=== PATIENT | female | born 1940 | race Caucasian/White ===

== ENCOUNTER 2017-01-10 11:55 | Emergency (ER) | payer MEDICARE ==
[2017-01-10 13:58] LABS: ALT (SGPT) 11 U/L (8-55); AST (SGOT) 14 U/L (5-34); Alkaline Phosphatase 63 U/L (40-150); Anion Gap 16 mmol/L (10-20); BUN (Urea Nitrogen) 33 mg/dL (9.8-20.1); Bilirubin, Total 0.5 mg/dL (0.2-1.2); Calc. Creatinine Clearance 0 mL/min (70-130); Calcium 8.1 mg/dL (7.8-10.44); Carbon Dioxide 27 mmol/L (23-31); Chloride 99 mmol/L (98-107); Estimated GFR-MDRD 13; Globulin 2.3 g/dL (2.4-3.5); Protein, Total 5.5 g/dL (6.0-8.3)
[2017-01-10] MEDS ORDERED: cloNIDine 0.1 MG TAB ONE (14:23)
[2017-01-10] MEDS ORDERED: Ondansetron ODT 4 MG TAB ONE (14:23)
--- NOTE | 2017-01-21 14:18 | EKG ---
Test Reason : DIZZINESS Blood Pressure : / mmHG Vent. Rate : 057 BPM Atrial Rate : 057 BPM P-R Int : 200 ms QRS Dur : 108 ms QT Int : 486 ms P-R-T Axes : 000 040 150 degrees QTc Int : 473 ms Sinus bradycardia with sinus arrhythmia Prolonged QT Abnormal ECG Confirmed by EDGAR SEN ([id number]), digital editor SHAYLA DUVALL ([id number]) on 01/21/2017 2:18:35 PM Referred By: Confirmed By:EDGAR SEN
== END 2017-01-10 14:59 | disposition home or self-care (01) ==
LOC: ERS 11:55
DX: I13.2 Hypertensive heart and chronic kidney disease with heart failure and with stage 5 chronic kidney disease, or end stage renal disease (principal); E11.22 Type 2 diabetes mellitus with diabetic chronic kidney disease; N18.6 End stage renal disease; I50.9 Heart failure, unspecified; Z99.2 Dependence on renal dialysis; R11.0 Nausea; I25.10 Atherosclerotic heart disease of native coronary artery without angina pectoris; E78.5 Hyperlipidemia, unspecified; J44.9 Chronic obstructive pulmonary disease, unspecified; F32.9 Major depressive disorder, single episode, unspecified; Z79.82 Long term (current) use of aspirin; Z79.899 Other long term (current) drug therapy
CPT/HCPCS: 36415; 80053; 82553; 84484; 93005; Q0162

== ENCOUNTER 2017-01-20 07:27 | Inpatient (IN) | payer MEDICARE ==
[2017-01-20] MEDS ORDERED: Pantoprazole 40 MG VIAL ONE (08:10)
[2017-01-20 08:12] LABS: #Eosinphils 0.1 thou/uL (0.0-0.7); #Lymphocytes 0.6 thou/uL (1.20-3.40); #Monocytes 0.4 thou/uL (0.11-0.59); #Neutrophils 4.9 thou/uL (1.40-6.50); %Basophils 0.7 % (0.0-1.0); %Eosinophils 2.1 % (0.0-10.0); %Lymphocytes 9.3 % (21.0-51.0); %Monocytes 7.2 % (0.0-10.0); Hematocrit 29.1 % (36.0-47.0); Mean Platelet Volume 8.4 fL (7.4-10.4); Red Blood Cell (RBC) Count 3.31 mill/uL (4.20-5.40); White Blood Cell (WBC) Count 6.1 thou/uL (4.8-10.8)
[2017-01-20 08:22] LABS: PTT 32.2 SEC (22.9-36.1); Prothrombin Time 15.6 SEC (12.0-14.7)
[2017-01-20 08:36] LABS: ALT (SGPT) 9 U/L (8-55); AST (SGOT) 14 U/L (5-34); Alkaline Phosphatase 59 U/L (40-150); Anion Gap 13 mmol/L (10-20); BUN (Urea Nitrogen) 44 mg/dL (9.8-20.1); Bilirubin, Total 0.3 mg/dL (0.2-1.2); Calc. Creatinine Clearance 0 mL/min (70-130); Calcium 8.5 mg/dL (7.8-10.44); Carbon Dioxide 29 mmol/L (23-31); Chloride 99 mmol/L (98-107); Estimated GFR-MDRD 11; Globulin 2.1 g/dL (2.4-3.5); Protein, Total 5.3 g/dL (6.0-8.3)
[2017-01-20 10:41] VITALS: BMI 24.3
[2017-01-20 12:14] LABS: Hematocrit 29.7 % (36.0-47.0)
[2017-01-20] MEDS ORDERED: Hydrocortisone Acetate 25 MG Suppository PR PRN (12:43)
--- NOTE | 2017-01-20 14:47 | CON ---
GI CONSULTATION NOTE DATE OF CONSULTATION: 01/20/2017 REASON FOR CONSULTATION: Rectal bleeding. HISTORY OF PRESENT ILLNESS: Ms. Nichols is a pleasant 76-year-old female who presented to the emerge ncy room at 10:00 this morning with complaints of rectal bleeding. Apparently on Monday night, 2 nights ago, she had gone to bed and then woke up with urgency for a bowel movement and diarrhea and bright red blood per rectum. The same thing happened last night at about 2 in the morning. She fe lt a little bit weak and little bit lightheaded. She saw a quite a bit of blood that is why she cam e in to the emergency room. She denied any abdominal pain or cramping with this. She denied any si ck contacts. She has not felt ill. The blood was bright red. There was no associated anal pain. Typically, she is quite constipated. She denied taking any laxatives recently. She denied any swann ges in dialysis or problems with low blood pressure on dialysis. She had no fever or chills, rashes , arthralgias or myalgias. Presently, she feels well. She has had no further bleeding. She has no t eaten anything today. REVIEW OF SYSTEMS: Negative for dysphagia, odynophagia, abdominal cramping, borborygmi, melena or r ectal pain. PAST MEDICAL HISTORY: Coronary artery disease; diabetes; hyperlipidemia; hypertension; renal failur e on dialysis Monday, Monday and Monday per report. She has a history of heart failure. PAST SURGICAL HISTORY: CABG, coronary stents, hemorrhoidectomy, left breast tumor, EGD and colonosc opy in 08/2014 for anemia with diverticulosis and hemorrhoids noted. ALLERGIES: ERYTHROMYCIN, IODINE, TETRACYCLINE, TERRAMYCIN and LYRICA. MEDICATIONS: Pepcid 20 mg daily and Hep-Lock IV. HOME MEDICATIONS: Apresoline, Prinivil, Protonix, nifedipine, losartan, Imdur, Nephro-Ana, Slow Re lease Iron, Plavix 75 mg a day, carvedilol, atorvastatin, aspirin 81 mg a day and albuterol. PHYSICAL EXAMINATION: GENERAL: She is resting comfortably in bed. She has two family members at the bedside. She is in no distress. VITAL SIGNS: There is no rebound, there is no guarding. Pulse 58, blood pressure 170/60-143/56 and respirations 18. HEENT: Conjunctivae and sclerae are clear. NECK: Supple, without any nodes. HEART: Regular rate and rhythm. ABDOMEN: Nontender. There is no rebound. There is no guarding. Positive bowel sounds. No masses , nontender. No hepatosplenomegaly. No rebound, no guarding. RECTAL: Reveals brown stool in the vault. LABORATORY STUDIES: Hemoglobin was 9.7 on 09/16, it was 8.9 last time at the last admission, it is 8.9 today. White count 6.1, hemoglobin 183. INR 1.2. Electrolytes normal. BUN and creatinine are 44 and 3.98. ASSESSMENT: Rectal outlet bleeding may be related to her diarrheal illness. She was constipated an d had some tearing. She has no pain. On digital exam, she has brown stool in the vault with no blo od present now. She has a history of hemorrhoids in the past and a recent colonoscopy in the past 2 years with diverticulosis. Differential diagnosis would include rectal bleeding first and foremost , especially with brown stool in the rectum at this point in time, less likely be diverticular bleed ing. RECOMMENDATIONS: Stool softener, hydrocortisone suppository, advance diet and monitor. If patient has ongoing bleeding, we could consider sigmoidoscopy. Hopefully this will resolve with conservativ e therapy. We would hold her Plavix for now.
--- NOTE | 2017-01-20 17:05 | HP ---
DATE OF ADMISSION: 01/20/2017 CHIEF COMPLAINT: Rectal bleeding. HISTORY OF PRESENT ILLNESS: Ms. Nichols is a 76-year-old female with a history of end-stage renal di sease, hypertension, combined chronic systolic and diastolic CHF, diabetes, who developed rectal ble eding starting 2 nights ago. The first night she had 1 episode and said it was a large amount of bl ood. Did well through the day yesterday, but last night had 2 more episodes. Never had anything li ke this before. She describes dark red blood present. She did get lightheaded when standing today and had another episode this morning, so presented to the emergency department for evaluation. There she had lab work done, just now coming back that is fairly unremarkable. We were called for a dmission and further workup. On further questioning, the patient does have a history of hemorrhoids and had a hemorrhoidectomy. She does not have any history of peptic ulcer disease or other problem. No fevers or chills, no chest pain or shortness of breath, no nausea or vomiting. No abdominal pain . PAST MEDICAL HISTORY: 1. End-stage renal disease, on Monday, , and Monday hemodialysis. 2. Hypertension. 3. Chronic combined systolic and diastolic congestive heart failure. 4. Diabetes mellitus, type 2. 5. Hyperlipidemia. 6. Coronary artery disease. 7. Chronic hypoxemic respiratory failure with 3 liters nasal cannula continuous. 8. Anemia of chronic renal disease. Last echocardiogram in 09/2016 showed an EF of 50%-55% with in creased right-sided heart pressures. She had grade 3/3 diastolic dysfunction and moderate MR and TR . PAST SURGICAL HISTORY: Includes, 1. Coronary artery bypass grafting x3 vessels. 2. Hemorrhoidectomy. 3. Left breast tumor removal. 4. Tonsillectomy remotely. 5. D and C remotely. 6. Left upper extremity fistula creation in 11/2015, followed by Dr. Zepeda. HOME MEDICATIONS: 1. Hydralazine 25 mg p.o. t.i.d. 2. Renvela 800 mg p.o. t.i.d., she only eats twice a day, she usually only takes it twice a day. 3. Nifedipine 60 mg p.o. b.i.d. 4. Losartan 50 mg p.o. daily, recently increased. 5. Isosorbide mononitrate 30 mg daily. 6. Nephro-Ana 1 daily. 7. Iron sulfate daily. 8. Fluoxetine 20 mg p.o. daily. 9. Plavix 75 mg daily. 10. Coreg 25 mg p.o. b.i.d. 11. Lipitor 80 mg p.o. at bedtime. 12. Aspirin 81 mg daily. 13. Famotidine 20 mg daily. 14. Albuterol sulfate MDI 2 puffs every 6 hours as needed. ALLERGIES: ERYTHROMYCIN, IODINE, OXYTETRACYCLINE, and LYRICA. FAMILY HISTORY: Significant for strokes in the family. SOCIAL HISTORY: 57 years. Negative for habits x3. Her does accompany her. REVIEW OF SYSTEMS: A 10-point review of systems was performed, negative for all systems except as p er HPI. PHYSICAL EXAMINATION: VITAL SIGNS: Temperature 97.6, pulse 81, blood pressure 131/68, respiratory 20, satting 94% on 4 li ters. Orthostatics did reveal her blood pressure going from 151-135 when standing and diastolic pre ssure 68-57. GENERAL: She is awake. She is alert. She is oriented x3. She is a well-developed, well-nourished , elderly white female, appears to be in no acute distress. HEENT: Normocephalic, atraumatic. Pupils equal, round, reactive bilaterally. Mucous membranes are moist without visible lesions or thrush. NECK: Supple, without lymphadenopathy, JVD, or thyromegaly. LUNGS: Clear to auscultation. She has no wheezes, rales, or rhonchi. No increased expiratory phas e. She has good air movement and symmetrical chest excursion. CARDIOVASCULAR: She has a normal cardiac. She has normal S1 and S2. Slightly kimberlyn. She has no a udible murmurs. She does have a holosystolic murmur best heard at the apex. There is a slightly fa inter murmur present in the right lower sternal border. ABDOMEN: Soft. It is nontender and nondistended. No masses and no organomegaly. She has normoact andrés bowel sounds. She has no rebound, rigidity, or guarding. EXTREMITIES: No cyanosis and no clubbing. She has no edema. She has trace edema to the bilateral ankles, 1+. A 1+ dorsalis pedis and posterior tibial pulse. SKIN: Warm, moist, and well perfused without any other rashes or lesions. NEUROLOGICAL EXAM: Cranial nerves II-XII are grossly intact. She has no focal neurologic deficits. She has normal speech and normal strength. MUSCULOSKELETAL EXAM: Normal to inspection. She has no inflamed joints. No palpable joint effusio ns. Good range of motion. LABORATORY DATA: CMP is fairly normal. Creatinine is 3.93. Rest of electrolytes were normal. Pot assium 4.2, glucose 164. Liver function normal except for total protein of 5.3 and albumin 3.2. ite blood cell count 6.1, hemoglobin 8.9 and hematocrit of 29.1. She has not received any fluids he re. A look back showed her hemoglobin to be normal beginning in 09/2016; the next day it was down t o 10.5; on 09/16/2016, it was 9.7; I have no checks since then. Platelet count 189,000. Chest x-ray was not done. ASSESSMENT AND PLAN: 1. Rectal bleeding. Patient does have a history of hemorrhoids. However, based on reports, she di d have a large volume hematochezia. We will get serial H and Hs, we will keep her n.p.o., we will g andrés her some IV fluids due to her low blood pressure. We will ask Gastroenterology to evaluate. 2. History of end-stage renal disease, on hemodialysis. We will call Dr. Cadena, who is her nephr ologist for his assistance in her renal replacement therapy. 3. Hypertension: Currently orthostatic. Hold her blood pressures at current. 4. History of chronic combined systolic and diastolic congestive heart failure. We will be careful with fluids. We will need to adequately keep her intravascular volume repleted. 5. Diabetes mellitus, type 2. We will get serial Accu-Cheks. We will use sliding scale Humalog ba sed on her history. She is now on the anti-hyperglycemic agents. We will watch her sugars. 6. Hyperlipidemia, on Lipitor. We will continue once she is taking p.o. 7. History of anemia of renal disease. We will get serial H and Hs and transfuse as needed.
[2017-01-20] MEDS ORDERED: Epoetin (ESRD) 10,000 UNITS/ML VIAL SC SCH (19:30)
[2017-01-20] MEDS: Docusate 100 MG CAP PO SCH (20:20)
[2017-01-20] MEDS ORDERED: Famotidine/PF 20 mg/2ml Vial SLOW IVP SCH (21:00)
[2017-01-20 23:26] LABS: Hematocrit 24.7 % (36.0-47.0)
[2017-01-21 05:22] LABS: #Eosinphils 0.1 thou/uL (0.0-0.7); #Lymphocytes 0.6 thou/uL (1.20-3.40); #Monocytes 0.6 thou/uL (0.11-0.59); #Neutrophils 6.9 thou/uL (1.40-6.50); %Basophils 0.6 % (0.0-1.0); %Eosinophils 0.9 % (0.0-10.0); %Lymphocytes 7.7 % (21.0-51.0); %Monocytes 6.8 % (0.0-10.0); Hematocrit 23.8 % (36.0-47.0); Mean Platelet Volume 8.2 fL (7.4-10.4); Red Blood Cell (RBC) Count 2.67 mill/uL (4.20-5.40); White Blood Cell (WBC) Count 8.2 thou/uL (4.8-10.8)
[2017-01-21 05:24] LABS: IRF 0.365 Ratio (0.163-0.362); Reticulocyte Count 3.7 % (0.5-1.5)
[2017-01-21 05:31] LABS: Anion Gap 11 mmol/L (10-20); BUN (Urea Nitrogen) 21 mg/dL (9.8-20.1); Calc. Creatinine Clearance 17 mL/min (70-130); Calcium 8.1 mg/dL (7.8-10.44); Carbon Dioxide 28 mmol/L (23-31); Chloride 105 mmol/L (98-107); Estimated GFR-MDRD 17
--- NOTE | 2017-01-21 07:06 | CON ---
DATE OF CONSULTATION: 01/20/2017 CONSULTING PHYSICIAN: Dr. Schmid REASON FOR CONSULTATION: End-stage renal disease evaluation and care. REASON FOR ADMISSION: HISTORY OF PRESENT ILLNESS: This is a 76-year-old white female with history of end-stage renal disease, hypertension, type 2 diabetes, hyperlipidemia, who came to the hospital with above complaints. Nephrology is consulted for maintenance hemodialysis. She gets dialysis on Monday, Monday, and Monday. Last dialysis was Monday per the patient. She denies any shortness of breath , chest pain, no palpitation. No fever or chills, no nausea, vomiting or diarrhea. PAST MEDICAL HISTORY: Positive for end-stage renal disease, hypertension, CHF, type 2 diabetes, hyperlipidemia, coronary artery disease, anemia. PAST SURGICAL HISTORY: Coronary artery bypass graft, hemorrhoidectomy, left breast tumor removal, tonsillectomy, D and C, fistula creation. HOME MEDICATIONS: Hydralazine, Renvela, nifedipine, losartan, isosorbide mononitrate, Nephro-Ana, iron sulfate, fluoxetine, Plavix, Coreg, Lipitor, aspirin, famotidine, albuterol. ALLERGIES: ERYTHROMYCIN. FAMILY HISTORY: Positive for strokes. SOCIAL HISTORY: No smoking, alcohol or illicit drug abuse. REVIEW OF SYSTEMS: The following complete review of systems was negative, unless otherwise mentioned in the HPI or below: Constitutional: Weight loss or gain, ability to conduct usual activities. Skin: Rash, itching. Eyes: Double vision, pain. ENT/Mouth: Nose bleeding, neck stiffness, pain, tenderness. Cardiovascular: Palpitations, dyspnea on exertion, orthopnea. Respiratory: Shortness of breath, wheezing, cough, hemoptysis, fever or night sweats. Gastrointestinal: Poor appetite, abdominal pain, heartburn, nausea, vomiting, constipation, or diarrhea. Genitourinary: Urgency, frequency, dysuria, nocturia. Musculoskeletal: Pain, swelling. Neurologic/Psychiatric: Anxiety, depression. Allergy/Immunologic: Skin rash, bleeding tendency. PHYSICAL EXAMINATION: GENERAL: This is a thin-built female, in no apparent distress. VITAL SIGNS: Temperature 97.8, pulse 58, respirations 18, blood pressure 143/ 56. Musculoskeletal : No tenderness, No edema HEENT: Atraumatic normocephalic Neck: Supple Cardiovascular: S1S2 heard, Rate and rhythm regular Respiratory: Clear to auscultation Gastrointestinal: Abdomen is soft Dermatologic : No skin rash Neurologic: Alert and awake and oriented X3 No focal neurologic deficits. Moving all the extremities. Psychiatric: Mood and affect normal LABORATORY AND X-RAY FINDINGS: Potassium 4.2, BUN is 44, creatinine is 3.9, hemoglobin is 8.4. ASSESSMENT AND PLAN: 1. End-stage renal disease. We will continue on hemodialysis Monday, Monday , and Monday. 2. We will give a dose of Epogen today and then continue with dialysis Monday, Monday, and Monday. 3. Fluid overload, controlled. 4. Edema, controlled. 5. Anemia. Epogen with dialysis. 6. Hypertension, stable. 7. Plan is to continue dialysis on Monday, Monday, and Monday. 8. Gastrointestinal bleed. Epogen with dialysis. MTDD
[2017-01-21] MEDS: Docusate 100 MG CAP PO SCH ×2 (07:48→20:01)
[2017-01-21] MEDS: Famotidine/PF 20 mg/2ml Vial SLOW IVP SCH (07:49)
--- NOTE | 2017-01-21 13:23 | PDOC.PN ---
- Subjective Encounter Start Date: 01/21/17 Encounter Start Time: 08:30 Pt seen and exmained, notes reviewed. Seen by GI and renal, GI not convinced of colonic bleed, has opted to watch at present. Pt had normal exam and brown stool when examined. Overnight had two more bloody BMs, vitals okay, but H/H lower today. Discussed with Dr Gimenez, he will revisit No abd pain, no F/C, no N/V/D/c, no CP or SOB at present. no presyncope or syncope 10 point ROS performed and neg for all systems except as above - Objective Resuscitation Status: Resuscitation Status FULL:Full Resuscitation MAR Reviewed: Yes Vital Signs & Weight: Vital Signs (12 hours) Temp Pulse Resp BP Pulse Ox 01/21/17 08:00 99.1 F 61 18 179/56 H 100 01/21/17 05:57 99.3 F 65 18 187/67 H 93 L 01/21/17 04:00 99.0 F 84 20 97 I&O: 01/20/17 01/21/17 01/22/17 06:59 06:59 06:59 Intake Total 100 480 Balance 100 480 Result Diagrams: 01/21/17 04:04 01/21/17 04:04 Radiology Reviewed by me: Yes EKG Reviewed by me: Yes Phys Exam - Physical Examination Constitutional: NAD HEENT: PERRLA, moist MMs, sclera anicteric, oral pharynx no lesions Neck: no nodes, no JVD, supple, full ROM Respiratory: no wheezing, no rales, no rhonchi, clear to auscultation bilateral Cardiovascular: RRR, no significant murmur, no rub Gastrointestinal: soft, non-tender, no distention, positive bowel sounds Musculoskeletal: no edema, pulses present Neurological: non-focal, normal sensation, moves all 4 limbs Lymphatic: no nodes Psychiatric: normal affect, A&O x 3 Skin: no rash, normal turgor, cap refill <2 seconds Dx/Plan - Plan cont current plan of care, PT/OT * . transfuse 1 nitr PRBCs, recheck H/H, follow up on GI recommendations
--- NOTE | 2017-01-21 13:31 | PRG ---
DATE OF SERVICE: 01/21/2017 SUBJECTIVE: Patient was seen and examined at bedside and overnight events noted. Patient denies an y shortness of breath or chest pain or palpitation. No history of nausea or vomiting or diarrhea or fever or chills or cramps. OBJECTIVE: GENERAL: This is a thin-built female in no apparent distress. VITAL SIGNS: Temperature 99.1, pulse 61, respiratory rate 18, blood pressure 179/56. HEENT: Atraumatic, normocephalic. Oral mucosa is moist. NECK: Supple. CARDIOVASCULAR: S1 and S2 heard, rate and rhythm regular. RESPIRATORY: Clear to auscultation. Still having crackles. GASTROINTESTINAL: Abdomen is soft. MUSCULOSKELETAL: No tenderness, no edema. DERMATOLOGIC: No skin rash. NEUROLOGIC: Alert and awake and oriented X3. No focal neurologic deficits. Moving all the extremi ties. PSYCHIATRIC: Mood and affect normal. LABORATORY DATA: Potassium 4.0, BUN 21, hemoglobin 7.2. ASSESSMENT AND PLAN: 1. End-stage renal disease. Continue on dialysis. 2. Anemia secondary to gastrointestinal bleed. Case discussed with Dr. Gimenez. Plan is to have 2 units of blood. We will arrange dialysis for 2 hours with 2 units of blood. 3. Fluid overload. 4. Anemia. Continue Epogen, will have transfusion today. 5. Hypertension, stable. 6. Plan is to continue on dialysis today, 2 hours for blood transfusion.
--- NOTE | 2017-01-21 17:20 | PRG ---
DATE OF SERVICE: 01/21/2017 SUBJECTIVE: Ms. Nichols had dialysis yesterday. Nurses and patient report she has bright red blood twice last night. Her at bedside notices that with this, she actually had some formed brown stool as well. She has no rectal pain. OBJECTIVE: VITAL SIGNS: Temperature is 99.1, pulse 61, blood pressure 179/56. ABDOMEN: Soft and nontender. RECTAL EXAMINATION: Again repeated shows no overt lesions or masses. Stool is brown. LABORATORY DATA: Hemoglobin was 8.9 yesterday, 7.2 today. She is going to get some blood with dial ysis today. On talking with her, she has been getting Colace, but she has not been getting the Anus ol suppository. ASSESSMENT: 1. Lower gastrointestinal bleeding, likely rectal outlet with brown stool on rectal exam and histor y of hemorrhoids in the past. 2. Anemia, symptomatic. She is going to be transfused for this. RECOMMENDATIONS: Continue Colace b.i.d. We will start the Anusol suppositories and place her on Mi raLax as well.
[2017-01-21] MEDS: Hydrocortisone Acetate 25 MG Suppository PR SCH (20:01)
[2017-01-21] MEDS ORDERED: hydrALAZINE 20 MG/ML VIAL SLOW IVP PRN (21:23)
[2017-01-21] MEDS ORDERED: NIFEdipine XL 60 MG TAB PO SCH (21:30)
[2017-01-22 06:10] LABS: Hematocrit 29.4 % (36.0-47.0)
[2017-01-22 06:14] LABS: #Eosinphils 0.1 thou/uL (0.0-0.7); #Lymphocytes 0.7 thou/uL (1.20-3.40); #Neutrophils 10.4 thou/uL (1.40-6.50); %Basophils 0.3 % (0.0-1.0); %Eosinophils 0.6 % (0.0-10.0); %Lymphocytes 5.6 % (21.0-51.0); %Monocytes 8.1 % (0.0-10.0); Hematocrit 30.2 % (36.0-47.0); Mean Platelet Volume 8.2 fL (7.4-10.4); Red Blood Cell (RBC) Count 3.41 mill/uL (4.20-5.40); White Blood Cell (WBC) Count 12.2 thou/uL (4.8-10.8)
[2017-01-22 06:25] LABS: Anion Gap 17 mmol/L (10-20); BUN (Urea Nitrogen) 26 mg/dL (9.8-20.1); Calc. Creatinine Clearance 15 mL/min (70-130); Calcium 7.9 mg/dL (7.8-10.44); Carbon Dioxide 21 mmol/L (23-31); Chloride 102 mmol/L (98-107); Estimated GFR-MDRD 15
[2017-01-22] MEDS: Famotidine/PF 20 mg/2ml Vial SLOW IVP SCH (08:07)
[2017-01-22] MEDS: Docusate 100 MG CAP PO SCH (08:07)
[2017-01-22] MEDS: Hydrocortisone Acetate 25 MG Suppository PR SCH (08:09)
[2017-01-22] MEDS ORDERED: Polyethylene Glycol 3350 17 GM Packet PO SCH (09:00)
[2017-01-22] MEDS ORDERED: Carvedilol 25 MG TAB PO SCH ×2 (10:00→21:00)
--- NOTE | 2017-01-22 14:32 | PRG ---
DATE OF SERVICE: 01/22/2017 SUBJECTIVE: Patient was seen and examined at bedside and overnight events noted. Patient denies an y shortness of breath or chest pain or palpitation. No history of nausea or vomiting or diarrhea or fever or chills or cramps. OBJECTIVE: GENERAL: This is a well-built female, in no apparent distress. VITAL SIGNS: Temperature 98.6, pulse 67, respiratory rate 18, blood pressure . HEENT: Atraumatic, normocephalic. Oral mucosa is moist. NECK: Supple. CARDIOVASCULAR: S1, S2 heard. Rate and rhythm regular. RESPIRATORY: Clear to auscultation. GASTROINTESTINAL: Abdomen is soft. MUSCULOSKELETAL: No tenderness, no edema. DERMATOLOGIC: No skin rash. NEUROLOGIC: Alert and awake and oriented x3. No focal neurologic deficits. Moving all the extremi ties. PSYCHIATRIC: Mood and affect normal. LABORATORY DATA: Potassium 4.1, BUN is 26, creatinine 3.05. ASSESSMENT AND PLAN: 1. End-stage renal disease. We will continue on hemodialysis as tolerated, continue dialysis on Mo , Monday, and Monday hemodialysis. 2. Anemia, status post transfusion, most likely from lower gastrointestinal bleed. Hemoglobin is b wyatt 9.3. Continue Epogen with dialysis. Fluid overload better. 3. Anemia. 4. Hypertension. Overall, plan is to continue dialysis Monday, Monday, Monday.
[2017-01-22 14:52] VITALS: BP 183/59; TEMP 99.3
--- NOTE | 2017-01-22 15:10 | DIS ---
DATE OF ADMISSION: 01/20/2017 DATE OF DISCHARGE: 01/22/2017 DISCHARGE DIAGNOSES: 1. Lower gastrointestinal bleed, likely hemorrhoidal. 2. End-stage renal disease, on hemodialysis. 3. Hypertension, essential. 4. Diabetes mellitus type 2. 5. Chronic combined systolic and diastolic congestive heart failure. There was hyperlipidemia, no history of coronary artery disease without active angina. 6. Chronic hypoxemic respiratory failure. 7. Anemia of chronic renal disease. CONSULTATIONS: 1. Renal, Dr. Cadena, 01/20/2017. 2. Gastroenterology, Dr. Gimenez, 01/20/2017. PROCEDURES: None. HISTORY AND PHYSICAL: Ms. Nichols is a pleasant 76-year-old female who presented with a 2-day histor y of rectal bleeding for 2 nights. She was lightheaded when she got up on the morning of admission, so presented to the emergency department for evaluation. There she was seen and examined by me. She had a stable hemoglobin and we were contacted for admiss ion. HOSPITAL COURSE: The patient was seen and examined by me, she was placed on admission for a lower G I bleed. GI was consulted for evaluation as well as Renal for need for dialysis that she was due fo r dialysis the day of admission. Repeat hemoglobin later that day remained stable, blood pressure medicines were held initially due t o orthostasis, and she underwent hemodialysis. By 01/21/2017, she was feeling weaker. She no longer had any lightheadedness when standing or ortho stasis; however, hemoglobin had dropped to 7.2. I have written for an initial 1 unit of blood to be transfused; however, GI and Renal decided to give her 2 units with her dialysis. She did well, 01/21/2017 to 01/22/2017, where she had had some rectal bleeding late on 01/20/2017, s he had none overnight, 01/21/2017 to 01/22/2017 and subsequently was feeling much better after her t ransfusion. Hemoglobin was 9.2 and stable. She was seen by GI and cleared for discharge. The patient will be discharged home. PHYSICAL EXAMINATION: The patient was seen and examined on the day of discharge. Discharge plan and disposition were discussed with the patient face to face at the bedside. DISCHARGE MEDICATIONS: Continue home medications. 1. Aspirin 81 mg daily. 2. Lipitor 80 mg p.o. at bedtime. 3. Carvedilol 25 mg p.o. b.i.d. 4. Plavix 75 mg daily. 5. Fluoxetine 20 mg daily. 6. Famotidine 20 mg daily. 7. Iron sulfate slow release 45 mg p.o. daily. 8. Folic acid, vitamin B with C complex 1 tab daily. 9. Anusol 25 mg suppositories, a prescription was left for 25 mg [place] b.i.d. by Dr. Gimenez. 7. Isosorbide mononitrate 30 mg daily. 8. Losartan 50 mg daily. 9. Nifedipine ER 60 mg p.o. b.i.d. 10. MiraLax 17 grams p.o. daily. Prescriptions have been left by Dr. Gimenez. 11. Renvela 800 mg p.o. t.i.d. with meals, usually taken twice a day, consumes twice a day. FOLLOWUP APPOINTMENTS: 1. Primary care physician within 1 week, which is Dr. Cadena. 2. Dr. Gimenez or Dr. Dowling in the [facility] in 2-3 weeks. DISCHARGE DIET: Renal. DISCHARGE ACTIVITY: As tolerated. INSTRUCTIONS: To return to emergency department for further bleeding or call primary care physician or Dr. Gimenez in the office.
--- NOTE | 2017-01-22 16:35 | PRG ---
DATE OF SERVICE: 01/22/2017 SUBJECTIVE: Ms. Nichols has had no further bleeding. She received 2 units of blood on dialysis yest erday. She states she is ready to go home and apparently, plans were already made for discharge. PHYSICAL EXAMINATION: VITAL SIGNS: Temperature is 98, pulse 59, blood pressure 155/56. ABDOMEN: Soft, nontender. LABORATORY STUDIES: White count is 12.2, hemoglobin is 9.3, platelet count is 166. ASSESSMENT: Rectal bleeding, resolved. PLAN: I agree she can go home today. I would send her home with MiraLax daily for constipation and Anusol suppositories for hemorrhoids. If she has further bleeding, she can follow up in the office of Dr. Acuna, her primary roller leveler operator.
[2017-01-23] MEDS ORDERED: Non-Formulary Item 1 EACH (Losartan Potassium [Losartan Potassium] 50 MG) PO SCH (09:00)
[2017-01-23] MEDS ORDERED: Losartan Potassium 25 MG TAB PO SCH (09:00)
[2017-01-23] MEDS ORDERED: Epoetin (ESRD) 10,000 UNITS/ML VIAL IVP SCH (09:00)
== END 2017-01-22 14:55 | disposition home or self-care (01) | DRG 393 ==
LOC: ERS 07:27 → T4-A 08:37
PROVIDERS: ADMIT Internal Medicine Infectious Disease; ATTEND Internal Medicine Infectious Disease
PROC: 5A1D70Z Performance of Urinary Filtration, Intermittent, Less than 6 Hours Per Day (ICD-10-PCS; 2017-01-20)
PROC: 30233N1 Transfusion of Nonautologous Red Blood Cells into Peripheral Vein, Percutaneous Approach (ICD-10-PCS; principal; 2017-01-21)
DX: K64.9 Unspecified hemorrhoids (principal); N18.6 End stage renal disease; I13.2 Hypertensive heart and chronic kidney disease with heart failure and with stage 5 chronic kidney disease, or end stage renal disease; J96.11 Chronic respiratory failure with hypoxia; I50.42 Chronic combined systolic (congestive) and diastolic (congestive) heart failure; D50.0 Iron deficiency anemia secondary to blood loss (chronic); D63.1 Anemia in chronic kidney disease; E11.22 Type 2 diabetes mellitus with diabetic chronic kidney disease; E87.70 Fluid overload, unspecified; Z99.81 Dependence on supplemental oxygen; Z99.2 Dependence on renal dialysis; E78.5 Hyperlipidemia, unspecified; I25.10 Atherosclerotic heart disease of native coronary artery without angina pectoris; Z95.1 Presence of aortocoronary bypass graft; Z79.02 Long term (current) use of antithrombotics/antiplatelets; K59.00 Constipation, unspecified
CPT/HCPCS: 36415; 36430; 80048; 80053; 85014; 85018; 85025; 85046; 85610; 85730; 86850; 86870; 86900; 86901; 86905; 86922; 87340; 90935; 93005; 96361; 96374; A4216; C9113; G0257; J0360; P9016; Q4081; S0028

== ENCOUNTER 2017-02-02 16:07 | Inpatient (IN) | payer MEDICARE ==
[2017-02-02 17:06] LABS: #Eosinphils 0.1 thou/uL (0.0-0.7); #Lymphocytes 0.5 thou/uL (1.20-3.40); #Monocytes 0.9 thou/uL (0.11-0.59); #Neutrophils 10.5 thou/uL (1.40-6.50); %Basophils 0.2 % (0.0-1.0); %Eosinophils 0.7 % (0.0-10.0); %Lymphocytes 4.4 % (21.0-51.0); %Monocytes 7.3 % (0.0-10.0); Mean Platelet Volume 8.2 fL (7.4-10.4); Red Blood Cell (RBC) Count 3.53 mill/uL (4.20-5.40)
--- NOTE | 2017-02-02 17:14 | RAD ---
RIGHT FEMUR TWO VIEWS: History: Fall, right leg injury. FINDINGS: Impacted angulated subcapital fracture right hip is again demonstrated. Osseous structures are demine ralized. Femoral shaft is intact. There is calcification in the arterial structures. IMPRESSION: 1. Right hip fracture. 2. Atherosclerosis. POS: [facility]
--- NOTE | 2017-02-02 17:15 | RAD ---
RIGHT HIP TWO VIEWS: History: Fall, right hip injury. FINDINGS: Impacted comminuted slightly angulated subcapital fracture of the right hip is apparent. Degenerative changes are also visible. Calcification is present within the arterial structures. IMPRESSION: 1. Subcapital right hip fracture. 2. Atherosclerosis. POS: [facility]
--- NOTE | 2017-02-02 17:19 | RAD ---
CHEST ONE VIEW: History: Dyspnea. Comparison: 09-13-16 FINDINGS: Cardiac silhouette is magnified and enlarged. Pulmonary vasculature is engorged. Patchy bilateral per ihilar and bibasilar infiltrates are present with bilateral pleural fluid. Mediastinum is midline wit h aortic calcification and post-operative changes. IMPRESSION: 1. CHF with bilateral pleural fluid. 2. Atherosclerosis. POS: [facility]
[2017-02-02 17:23] LABS: ALT (SGPT) 15 U/L (8-55); AST (SGOT) 19 U/L (5-34); Alkaline Phosphatase 65 U/L (40-150); Anion Gap 17 mmol/L (10-20); BUN (Urea Nitrogen) 28 mg/dL (9.8-20.1); Bilirubin, Total 0.5 mg/dL (0.2-1.2); Calc. Creatinine Clearance 0 mL/min (70-130); Calcium 8.5 mg/dL (7.8-10.44); Carbon Dioxide 27 mmol/L (23-31); Chloride 98 mmol/L (98-107); Estimated GFR-MDRD 13; Globulin 2.3 g/dL (2.4-3.5); Protein, Total 5.6 g/dL (6.0-8.3)
[2017-02-02 17:28] LABS: Troponin I 0.045 ng/mL (< 0.028)
[2017-02-02 17:36] LABS: PTT 30.5 SEC (22.9-36.1); Prothrombin Time 15.7 SEC (12.0-14.7)
[2017-02-02] MEDS ORDERED: Fentanyl 100 MCG/2 ML VIAL ONE (17:39)
[2017-02-02] MEDS ORDERED: traMADol HCl 50 MG TAB PO PRN (18:21)
[2017-02-02] MEDS ORDERED: HumaLOG 300 UNITS/3 ML VIAL SC PRN ×3 (18:24→18:29)
[2017-02-02] MEDS ORDERED: Dextrose 5% in Water 1,000 ML IV PRN ×2 (18:24→18:29)
[2017-02-02] MEDS ORDERED: Ondansetron HCl/PF 4 MG/2 ML Vial IVP PRN ×2 (18:24→18:29)
[2017-02-02] MEDS ORDERED: Dextrose 50% Abboject 50 ML SYRINGE SLOW IVP PRN ×2 (18:24→18:29)
[2017-02-02] MEDS ORDERED: Ondansetron ODT 4 MG TAB PO PRN (18:24)
[2017-02-02] MEDS ORDERED: Bisacodyl 5 MG TAB PO PRN (18:29)
[2017-02-02] MEDS ORDERED: Benzonatate 100 MG CAP PO PRN (18:29)
[2017-02-02] MEDS ORDERED: Mag-Al 1200 mg/1200 mg/30 ML UDCUP PO PRN (18:29)
[2017-02-02] MEDS ORDERED: cloNIDine 0.1 MG TAB PO PRN (18:29)
[2017-02-02] MEDS ORDERED: hydrALAZINE 20 MG/ML VIAL SLOW IVP PRN (18:29)
[2017-02-02] MEDS ORDERED: Senokot 8.6 MG TAB PO PRN (18:29)
[2017-02-02] MEDS ORDERED: Loratadine 10 MG TAB PO PRN (18:29)
[2017-02-02] MEDS ORDERED: Diabetic Tussin 200 MG/10 ML UDCUP PO PRN (18:29)
[2017-02-02] MEDS ORDERED: Nitroglycerin 0.4 MG TAB (25 Tab Bottle) SL PRN (18:29)
[2017-02-02] MEDS ORDERED: Milk Of Magnesia 30 ML UDCUP PO PRN (18:29)
[2017-02-02] MEDS ORDERED: Morphine 4 MG/ML VIAL ONE (18:48)
[2017-02-02] MEDS ORDERED: Carvedilol 25 MG TAB PO SCH (21:00)
[2017-02-02] MEDS: Hydrocortisone Acetate 25 MG Suppository PR SCH (22:30)
[2017-02-02] MEDS: Carvedilol 25 MG TAB PO SCH (22:50)
[2017-02-02] MEDS: Acetaminophen 500 MG TAB PO SCH (22:50)
--- NOTE | 2017-02-02 23:38 | HP ---
consciousness. Patient was evaluated in the emergency room and found to have a right femoral neck fracture. Orthopedic Surgery was notified and Trauma Service was asked to admit. Upon my evalu ation, patient has a chief complaint of right leg pain. ALLERGIES: To LYRICA, IODINE, and ERYTHROMYCIN. PAST MEDICAL HISTORY: Significant for diabetes, end-stage renal disease on HD Monday, Monday, Mon; COPD on chronic home O2, 4 liters nasal cannula; CHF with recent exacerbation, CAD status post P TCA and CABG; renal carcinoma, status post resection; hypertension, gastrointestinal bleed, most rece nt hospitalization approximately 2 weeks ago and chronic anemia. PAST SURGICAL HISTORY: Significant for renal carcinoma resection, skin cancer removal, left arm fist dony and hemorrhoidectomy. SOCIAL HISTORY: Patient lives at home with her , ambulates independently. She is a previous smoker, quit in 1972. FAMILY HISTORY: Noncontributory in this case. REVIEW OF SYSTEMS: Negative except as indicated in the HPI. PHYSICAL EXAMINATION: VITAL SIGNS: On evaluation, heart rate 59, blood pressure 174/60, O2 sat 93% on 4 liters nasal cannu la, respiratory rate 16. GENERAL: Well-developed elderly appearing female in no acute distress, resting in bed. PULMONARY: Normal work of breathing, symmetric rise. Lungs clear to auscultation bilaterally. CARDIOVASCULAR: Regular rate and rhythm. There is a soft systolic murmur noted. GASTROINTESTINAL: Abdomen is soft, nontender, nondistended. MUSCULOSKELETAL: The right lower extremity is shortened and externally rotated. There is 2+ pitting edema to the level of the ankles bilaterally. She is neurovascularly intact distal to the side of h er injury. NEUROLOGIC: GCS of 15. No focal deficit noted. LABORATORY FINDINGS: WBC 12.0, hemoglobin 10.0, hematocrit 32.0, platelet count 189. INR 1.2. Sodi um 138, potassium 3.8, chloride 98, carbon dioxide 27, anion gap 17, BUN 28, creatinine 3.53, glucose 270, troponin 0.045. RADIOGRAPHIC FINDINGS: Chest x-ray was read by Radiology as CHF with bilateral pleural effusion, ath erosclerosis. Hip x-ray was significant for right femoral neck fracture. Femur x-ray was significan t for right hip fracture. ASSESSMENT AND PLAN: 1. Status post mechanical fall. 2. Acute traumatic pain. 3. Right femoral neck fracture. 4. History of end-stage renal disease on dialysis Monday, Monday, and Monday. Pool Coordinator, Dr. Cadena. 5. History of chronic obstructive pulmonary disease, on chronic oxygen 4 liters per minute via nasal cannula. 6. History of congestive heart failure and coronary artery disease. College Advisor, Dr. Joya. 7. History of hypertension. 8. History of recent gastrointestinal bleed. Patient is on antiplatelet use. 9. History of diabetes. PLAN: Admit to trauma services, [facility] for closer monitoring. Hospital medicine consult for medical m anagement and preoperative clearance. Nephrology consult for ESRD and HD. Perioperative pain manage ment. Per discussion with Orthopedic Surgery, plans for operative intervention to her injury on [address], so that patient may have dialysis tomorrow. The patient will be n.p.o. tomorrow at midnight. Continue home medications. The patient was discussed with Hospital Medicine who agrees to consult on the patient. Plans for admission were discussed with the patient and family who agree and all quest ions were answered at bedside. The patient was discussed with Dr. Santana, who agrees with the assess ment and plan. All questions were answered at the time of this dictation.
--- NOTE | 2017-02-02 23:43 | CON ---
DATE OF CONSULTATION: 02/02/2017 CONSULTING SERVICE: ER medicine. ADMITTING SERVICE: General Surgery Trauma. HISTORY OF PRESENT ILLNESS: Ms. Nichols is a 76-year-old female who presented with right hip pain. The patient fell in [place] earlier today and was brought here by a private vehicle. Pain currently located at her right femur, right hip , no recent injuries. No previous recent falls. The patient has multiple chronic medical history. She is complaining of only right now of right hip pain. PAST MEDICAL HISTORY: End-stage renal disease with dialysis, hypertension, congestive heart failure with chronic systolic and diastolic disease, diabetes type 2, hyperlipidemia, coronary artery disease, chronic hypoxic respiratory failure, on nasal cannula and anemia of chronic disease. PAST SURGICAL HISTORY: Coronary artery bypass x3, hemorrhoidectomy, breast cancer removal, tonsillectomy, D&C and a fistula creation for dialysis by Dr. Zepeda. ALLERGIES: Include ERYTHROMYCIN, IODINE, TETRACYCLINE, LYRICA. MEDICATIONS: The patient's medications she was recently, aspirin, Lipitor, carvedilol, Plavix, fluoxetine, famotidine, iron sulfate, folic acid, Anusol, isosorbide mononitrate, losartan, nifedipine, MiraLax, Renvela. SOCIAL HISTORY: at bedside, for 58 years. Currently, no tobacco, alcohol, or drug use. REVIEW OF SYSTEMS: Negative except for as above. PHYSICAL EXAMINATION: VITAL SIGNS: Afebrile. Vitals currently stable. GENERAL: Alert and oriented female in no acute distress, resting comfortably in bed. EXTREMITIES: The patient's right lower extremity, she has a stable pelvis to AP and lateral compression, pain with internal and external rotation. Neurovascularly intact distally. She has got brisk cap refill. She has got sluggish Cap refill 1+ DP and PT pulse. Sensate intact L2 through S1. She is able to plantarflex and dorsiflex, no effusion in the knee. LABORATORY AND X-RAY FINDINGS: Radiographs show a right subcapital femoral neck fracture. IMPRESSION: 1. Right subcapital femoral neck fracture. 2. End-stage renal disease. 3. Hypertension. 4. Diabetes type 2. 5. Systolic, diastolic congestive heart failure. 6. Anemia of chronic disease. ASSESSMENT AND PLAN: The patient is made n.p.o. overnight. Plan would be a hemiarthroplasty tomorrow versus Monday, likely because of patient's dialysis , we will plan to post the patient for Monday, so she can have her medical problems resolved and we can get her dialyzed technical marketing consultant at the OR. The patient's family, at the bedside, I discussed that she is at increased risk for surgery given her multiple medical problems. I discussed her mortality at 38% femoral neck fracture. I discussed the risks and benefits of the surgery to include pain, scar, bleeding, infection, damage to vital structures, decreased range or strength, failure of procedure, continued pain despite surgical intervention. The patient understands these risks and benefits and elects to proceed. JUDAH
--- NOTE | 2017-02-03 02:31 | PDOC.PN ---
- Subjective Encounter Start Date: 02/03/17 Encounter Start Time: 02:30 Pt seen for management of medical comorbidities, including hypertension. Reports pain over R hip. Denies chest pain, shortness of breath, fever or chills. - Objective MAR Reviewed: Yes Vital Signs & Weight: Vital Signs (12 hours) Temp Pulse Resp BP Pulse Ox 02/03/17 00:00 98.3 F 58 L 16 151/60 H 92 L 02/02/17 20:24 97.7 F 61 18 154/59 H 92 L Weight Weight 129 lb 9.6 oz Result Diagrams: 02/02/17 16:55 02/02/17 16:55 EKG Reviewed by me: Yes (Tele; NSR) Phys Exam - Physical Examination Constitutional: NAD HEENT: moist MMs, sclera anicteric Neck: supple Respiratory: clear to auscultation bilateral Cardiovascular: RRR Gastrointestinal: soft, non-tender RLE shortened Lymphatic: no nodes Psychiatric: normal affect Skin: normal turgor, cap refill <2 seconds Dx/Plan (1) HTN (hypertension) Code(s): I10 - ESSENTIAL (PRIMARY) HYPERTENSION Status: Chronic (2) Chronic diastolic heart failure Code(s): I50.32 - CHRONIC DIASTOLIC (CONGESTIVE) HEART FAILURE Status: Chronic (3) CAD (coronary artery disease) Code(s): I25.10 - ATHSCL HEART DISEASE OF [place] CORONARY ARTERY W/O ANG PCTRS Status: Chronic (4) Diabetes mellitus type 2 Code(s): E11.9 - TYPE 2 DIABETES MELLITUS WITHOUT COMPLICATIONS Status: Chronic Comment: ? diet managed, follow accuchecks (5) ESRD (end stage renal disease) on dialysis Code(s): N18.6 - END STAGE RENAL DISEASE; Z99.2 - DEPENDENCE ON RENAL DIALYSIS Status: Chronic Comment: Volume overload initially, HD per Renal service (6) Hyperlipidemia Code(s): E78.5 - HYPERLIPIDEMIA, UNSPECIFIED Status: Chronic - Plan * . Monitor vital signs and titrate antihypertensives as needed. Start PRN IV hydralazine. Continue accuchecks, insulin sliding scale. Dialysis per nephrology service (reportedly will have dialysis today). CAD appears to be stable, pt denies chest pain or shortness of breath. Review of Systems - Review of Systems Constitutional: negative: Fever, Chills, Sweats, Weakness, Malaise Respiratory: negative: Cough, Dry, Shortness of Breath, Hemoptysis, SOB with Excertion, Pleuritic Pain, Sputum, Wheezing Cardiovascular: negative: Chest Pain, Palpitations, Orthopnea, Paroxysmal Noc. Dyspnea, Edema, Light Headedness Musculoskeletal: Other (R hip pain) - Medications/Allergies Allergies/Adverse Reactions: Allergies Allergy/AdvReac Type Severity Reaction Status Date / Time erythromycin base Allergy Verified 06/29/16 06:30 Iodine and Iodide Containing Allergy Verified 06/29/16 06:30 Produc oxytetracycline Allergy Verified 06/29/16 06:30 [From Terramycin] oxytetracycline HCl Allergy Verified 06/29/16 06:30 [From Terramycin] pregabalin [From Lyrica] Allergy Verified 06/29/16 06:30 Medications: Current Medications Acetaminophen (Tylenol) 1,000 mg PO 0200,0800,1400,2000 [facility] Last Admin: 02/02/17 22:50 Dose: 1,000 mg Al Hydroxide/Mg Hydroxide (Maalox) 15 ml PO Q4H PRN PRN Reason: Heartburn or Indigestion Atorvastatin Calcium (Lipitor) 80 mg PO DAILY [facility] Benzonatate (Tessalon) 100 mg PO Q4H PRN PRN Reason: Cough Bisacodyl (Dulcolax) 10 mg PO DAILYPRN PRN PRN Reason: Constipation Carvedilol (Coreg) 25 mg PO BID [facility] Last Admin: 02/02/17 22:50 Dose: 25 mg Clonidine (Catapres) 0.1 mg PO Q4H PRN PRN Reason: Systolic BP > 160 Dextrose/Water (Dextrose 50%) 25 gm SLOW IVP PRN PRN PRN Reason: Hypoglycemia Famotidine (Pepcid) 20 mg PO DAILY [facility] Fluoxetine HCl (Prozac) 20 mg PO DAILY [facility] Glucagon (Glucagon) 1 mg IM PRN PRN PRN Reason: Hypoglycemia Guaifenesin (Robitussin Sf) 200 mg PO Q4H PRN PRN Reason: Cough Hydralazine HCl (Apresoline) 10 mg SLOW IVP Q4H PRN PRN Reason: Systolic BP > 170 Hydrocortisone Acetate (Anusol-Hc) 25 mg SC BID [facility] Dextrose/Water (D5w) 1,000 mls @ 0 mls/hr IV .Q0M PRN; As Directed PRN Reason: Hypoglycemia Insulin Human Lispro (Humalog) 0 units SC .MODERATE SLIDING SC PRN PRN Reason: Moderate Correctional Scale Insulin Human Lispro (Humalog) 0 units SC .BEDTIME SLIDING SC PRN PRN Reason: Bedtime Correctional Scale Isosorbide Mononitrate (Imdur Er) 30 mg PO DAILY [facility] Loratadine (Claritin) 10 mg PO DAILYPRN PRN PRN Reason: Sinus Symptoms Losartan Potassium (Cozaar) 50 mg PO DAILY [facility] Magnesium Hydroxide (Milk Of Magnesium) 30 ml PO DAILYPRN PRN PRN Reason: Constipation Nitroglycerin (Nitrostat) 0.4 mg SL Q5MIN PRN PRN Reason: Chest Pain Ondansetron HCl (Zofran Odt) 4 mg PO Q6H PRN PRN Reason: Nausea/Vomiting Ondansetron HCl (Zofran) 4 mg IVP Q6H PRN PRN Reason: Nausea (Ferrous Sulfate [ Slow Release Iron] 47.5 Mg) 1 each PO QAM-WM [facility] Polyethylene Glycol (Miralax) 17 gm PO DAILY [facility] Senna (Senokot) 2 tab PO HSPRN PRN PRN Reason: Constipation Sevelamer Carbonate (Renvela) 800 mg PO TID-WM [facility] Sodium Chloride (Flush - Normal Saline) 10 ml IVF PRN PRN PRN Reason: Saline Flush Tramadol HCl (Ultram) 50 mg PO Q12H PRN PRN Reason: Moderate Pain (4-6) Tramadol HCl (Ultram) 100 mg PO Q12H PRN PRN Reason: Severe Pain (7-10) Vitamin B Complex/Vit C/Folic Acid (Nephro-Ana Tablet) 1 tab PO DAILY [facility]
[2017-02-03] MEDS ORDERED: hydrALAZINE 20 MG/ML VIAL SLOW IVP PRN (02:42)
[2017-02-03] MEDS: Acetaminophen 500 MG TAB PO SCH ×4 (03:22→20:57)
[2017-02-03 05:13] LABS: #Eosinphils 0.2 thou/uL (0.0-0.7); #Lymphocytes 0.7 thou/uL (1.20-3.40); #Monocytes 0.8 thou/uL (0.11-0.59); #Neutrophils 8.4 thou/uL (1.40-6.50); %Basophils 0.2 % (0.0-1.0); %Eosinophils 2.3 % (0.0-10.0); %Lymphocytes 6.4 % (21.0-51.0); %Monocytes 8.1 % (0.0-10.0); Hematocrit 29.6 % (36.0-47.0); Mean Platelet Volume 8.6 fL (7.4-10.4); Red Blood Cell (RBC) Count 3.28 mill/uL (4.20-5.40); White Blood Cell (WBC) Count 10.1 thou/uL (4.8-10.8)
[2017-02-03 05:53] LABS: Anion Gap 12 mmol/L (10-20); BUN (Urea Nitrogen) 32 mg/dL (9.8-20.1); Calc. Creatinine Clearance 12 mL/min (70-130); Calcium 8.1 mg/dL (7.8-10.44); Carbon Dioxide 27 mmol/L (23-31); Chloride 99 mmol/L (98-107); Estimated GFR-MDRD 12; Magnesium 2.2 mg/dL (1.6-2.6); Phosphorus 3.7 mg/dL (2.3-4.7)
--- NOTE | 2017-02-03 07:46 | PRG ---
DATE OF SERVICE: 02/03/2017 The patient has a right hip fracture. She is awaiting dialysis this morning prior to repair. Dr. Ck baeza has seen her. The patient is n.p.o. She has been seen by Hospitalist. The patient has a hist ory of coronary artery disease, having had a stent placed 07/11/[address] Joya and having had prior coronary bypass grafting. Echocardiogram 09/23/2016 reveals relatively normal ejection fraction, LV function. The patient is awake and alert, eating breakfast, hoping to have her hip repaired today. She understands increased morbidity and mortality associated with that. PHYSICAL EXAMINATION: VITAL SIGNS: Temperature 98.5 degrees, heart rate 55, blood pressure 163/58. Hemoglobin 9.2, white count 10.1. Basic metabolic profile: Sodium 134, potassium 3.7, BUN and creat inine changes consistent with end-stage renal disease, dialysis status. ASSESSMENT AND PLAN: 1. End-stage renal disease, dialysis per Dr. Arndt this morning. 2. Coronary artery disease, status post stent placement, normal left ventricular function by recent echocardiogram. Medical is seeing her. 3. Hypertension.
[2017-02-03] MEDS ORDERED: Non-Formulary Item 1 EACH (Losartan Potassium [Losartan Potassium] 50 MG) PO SCH (09:00)
[2017-02-03] MEDS ORDERED: hydrALAZINE 25 MG TAB PO PRN (09:15)
[2017-02-03] MEDS: Losartan Potassium 25 MG TAB PO SCH (09:49)
[2017-02-03] MEDS: Famotidine 20 MG TAB PO SCH (09:49)
[2017-02-03] MEDS: FLUoxetine HCl 20 MG CAP PO SCH (09:49)
[2017-02-03] MEDS: Folic Acid/Vit B Comp W-C PO SCH (09:49)
[2017-02-03] MEDS: Polyethylene Glycol 3350 17 GM Packet PO SCH (09:49)
[2017-02-03] MEDS: Sevelamer Carbonate 800 MG TAB PO SCH ×3 (09:49→17:44)
[2017-02-03] MEDS: Atorvastatin Calcium 40 MG TAB PO SCH (09:49)
--- NOTE | 2017-02-03 12:15 | CON ---
DATE OF CONSULTATION: 02/03/2017 REASON FOR CONSULTATION: Stage 6 chronic kidney disease and maintaining hemodialysis. HISTORY OF PRESENT ILLNESS: This is a 76-year-old female who presented to the hospital with a femur fracture. The patient dialyzes Monday, Monday, Monday. The patient denies headache, numbness, ti ngling or weakness. Denies any nausea, vomiting or chest pain. PAST MEDICAL HISTORY: Renal cell carcinoma, skin cancer, left arm fistula, endarterectomy, hypertens ion, anemia, secondary hyperparathyroidism. SOCIAL HISTORY: No alcohol or drug use. FAMILY HISTORY: Negative for ESRD. REVIEW OF SYSTEMS: A 15-point review of systems was performed and negative except positives noted ab ove. GENERAL: Weakness- HEAD: Headache- NECK: No swelling or lumps. NOSE: No epistaxis or discharge. EYES: No diplopia or pain. RESPIRATORY: Dyspnea- CARDIOVASCULAR: Chest pain- GASTROINTESTINAL: Nausea- /DOUBLE CUT OFF SAW OPERATOR: Hematuria- MUSCULOSKELETAL: No joint pain. NEUROPSYCHIATIC SYSTEMS: No suicidal ideation. No ideation. SKIN: Denies any rash or ulcer. CONSTITUTIONAL: No fever or chills. ALLERGIES: Reviewed. HOME MEDICATIONS: List reviewed. HOSPITAL MEDICATIONS: List reviewed. PHYSICAL EXAMINATION: GENERAL: Patient is awake, alert. VITAL SIGNS: Afebrile, pulse 51, breathing at 16, blood pressure 151/60. OBJECTIVE: See above. Awake, alert, in no acute distress. GENERAL APPEARANCE AND MENTAL STATUS: Fair. HEAD/NECK: Normocephalic. Atraumatic. EYES: EOMI. No deformity. EARS: Clear. No ulcers. NOSE: Intact. No lesions. MOUTH: Clear. No discharge. THROAT: Clear. No exudate. LUNGS: Clear. No crackles. CARDIAC: S1, S2. No rub. ABDOMEN: Benign. BS+. GENITALIA/RECTUM: Bhatti absent. BACK/EXTREMITIES: Edema 0+ Ulcer- NEUROLOGICAL: Alert and motor intact. SKIN: Rash- Bruise- LYMPHATICS: Edema- Ulcer- LABORATORY: Potassium 3.7. ASSESSMENT AND PLAN: 1. Stage 6 chronic kidney disease, on hemodialysis. 2. Hypertension, stable. 3. Anemia, stable. 4. Medications based on GFR are appropriate.
[2017-02-03] MEDS: Carvedilol 25 MG TAB PO SCH ×2 (12:32→21:00)
[2017-02-03] MEDS: Hydrocortisone Acetate 25 MG Suppository PR SCH ×2 (12:33→20:59)
[2017-02-03] MEDS ORDERED: Tranexamic Acid 1,000 MG/100 ML BAG ONE (12:38)
[2017-02-03] MEDS ORDERED: Fentanyl 250 MCG/5 ML VIAL ONE (13:02)
[2017-02-03] MEDS ORDERED: ePHEDrine/0.9% NaCl/PF SYRINGE 50 mg/10 ml ONE (14:01)
[2017-02-03] MEDS ORDERED: Ondansetron HCl/PF 4 MG/2 ML Vial ONE (14:01)
[2017-02-03] MEDS ORDERED: Glycopyrrolate 0.2 MG/ML 5 ML SYRINGE ONE (14:01)
[2017-02-03] MEDS ORDERED: diphenhydrAMINE 50 MG/ML VIAL ONE (14:01)
[2017-02-03] MEDS ORDERED: Lidocaine 1% PF 5 ML VIAL ONE (14:01)
[2017-02-03] MEDS ORDERED: Propofol 200 MG/20 ML VIAL ONE (14:01)
[2017-02-03] MEDS ORDERED: Succinylcholine Chloride 20 MG/ML 10 ml SYRINGE FS ONE (14:01)
[2017-02-03] MEDS ORDERED: Promethazine HCl 25 MG/ML VIAL SLOW IVP PRN (15:11)
[2017-02-03] MEDS ORDERED: Ondansetron HCl/PF 4 MG/2 ML Vial IVP PRN (15:11)
[2017-02-03] MEDS ORDERED: Promethazine HCl 25 MG/ML VIAL IM PRN (15:11)
[2017-02-03] MEDS ORDERED: Fentanyl 100 MCG/2 ML VIAL SLOW IVP PRN (15:57)
[2017-02-03] MEDS ORDERED: Fleet Enema 133 ML BOT PR PRN (15:57)
[2017-02-03] MEDS ORDERED: Cepastat Lozenges 1 LOZ PO PRN (15:57)
[2017-02-03] MEDS ORDERED: Bisacodyl 10 MG SUPP PR PRN (15:57)
[2017-02-03] MEDS ORDERED: Acetaminophen 325 MG TAB PO PRN (15:57)
--- NOTE | 2017-02-03 17:08 | PDOC.PN ---
- Subjective Encounter Start Date: 02/03/17 Encounter Start Time: 17:06 Ms. Nichols was seen today in follow-up for medical management following hip surgery. she does not have any complaints. she denies feeling short of breath and denies chest pain. She complains of her feet itching. She says this has happened in the past after surgery before. - Objective MAR Reviewed: Yes Vital Signs & Weight: Vital Signs (12 hours) Temp Pulse Resp BP Pulse Ox 02/03/17 15:33 53 L 20 162/53 H 91 L 02/03/17 07:00 98.6 F 51 L 16 175/63 H 100 Weight Admit Weight 129 lb 9.6 oz Weight 129 lb 9.6 oz I&O: 02/02/17 02/03/17 02/04/17 06:59 06:59 06:59 Intake Total 300 Output Total 125 Balance 175 Result Diagrams: 02/03/17 04:44 02/03/17 04:44 Additional Labs: Accuchecks 02/03/17 02/03/17 16:51 05:52 POC Glucose 124 H 164 H Phys Exam - Physical Examination HEENT: PERRLA Respiratory: no wheezing, no rales, no rhonchi, clear to auscultation bilateral Cardiovascular: RRR, no significant murmur Gastrointestinal: soft, non-tender, positive bowel sounds Musculoskeletal: no edema Dx/Plan (1) Right femoral fracture Code(s): S72.91XA - UNSP FRACTURE OF RIGHT FEMUR, INIT FOR CLOS FX Status: Acute (2) Dyshydrosis Status: Acute (3) HTN (hypertension) Code(s): I10 - ESSENTIAL (PRIMARY) HYPERTENSION Status: Chronic (4) CAD (coronary artery disease) Code(s): I25.10 - ATHSCL HEART DISEASE OF [place] CORONARY ARTERY W/O ANG PCTRS Status: Chronic (5) Diabetes mellitus type 2 Code(s): E11.9 - TYPE 2 DIABETES MELLITUS WITHOUT COMPLICATIONS Status: Chronic Comment: ? diet managed, follow accuchecks (6) ESRD (end stage renal disease) on dialysis Code(s): N18.6 - END STAGE RENAL DISEASE; Z99.2 - DEPENDENCE ON RENAL DIALYSIS Status: Chronic Comment: Volume overload initially, HD per Renal service (7) Chronic respiratory failure with hypoxia Code(s): J96.11 - CHRONIC RESPIRATORY FAILURE WITH HYPOXIA Status: Acute - Plan * Right Femur fracture s/p repair- patient is stable post-op * HTN- blood pressure has been a bit elevated- will monitor trend, and can use Hydralazine as needed * Foot itching ( Dyshydrosis)- her skin is very dry- will give a trial of Laclotion, and Benadryl cream * DM- blood glucose is stable * ESRD- Nephrology managing * CAD- stable * COPD- stable
--- NOTE | 2017-02-03 19:30 | RAD ---
RIGHT HIP TWO VIEWS AP PELVIS ONE VIEW 02/03/17 HISTORY: Right hip fracture. COMPARISON: 02/02/17 FINDINGS: Right hip prosthesis is now in place without perihardware lucency. Osseous structures are demineraliz ed. No new fractures are apparent. Each iliac crest is excluded from the image. IMPRESSION: Right hip prosthesis is in good radiographic position. POS: [facility]
[2017-02-03] MEDS: Senokot S 8.6-50 MG TAB PO SCH (20:57)
[2017-02-03] MEDS: diphenhydrAMINE 2% CREAM 28.4 GM TUBE TOP SCH (20:58)
[2017-02-03] MEDS: Ammonium Lactate 12% Lotion 225 GM BOT TOP SCH (20:58)
[2017-02-04] MEDS: Acetaminophen 500 MG TAB PO SCH ×4 (01:07→20:52)
[2017-02-04 04:45] LABS: Hematocrit 27.5 % (36.0-47.0); Mean Platelet Volume 7.9 fL (7.4-10.4); Red Blood Cell (RBC) Count 2.97 mill/uL (4.20-5.40); White Blood Cell (WBC) Count 10.9 thou/uL (4.8-10.8)
[2017-02-04 05:03] LABS: Anion Gap 13 mmol/L (10-20); BUN (Urea Nitrogen) 18 mg/dL (9.8-20.1); Calc. Creatinine Clearance 17 mL/min (70-130); Calcium 7.9 mg/dL (7.8-10.44); Carbon Dioxide 28 mmol/L (23-31); Chloride 96 mmol/L (98-107); Estimated GFR-MDRD 18
--- NOTE | 2017-02-04 07:33 | PDOC.PN ---
- Subjective Encounter Start Date: 02/04/17 Encounter Start Time: 07:32 Ms. Nichols was seen today in follow-up for medical management following hip surgery. She says she is feeling fine today. She denies any chest pain or dyspnea. She says the itching in her feet has improved. - Objective MAR Reviewed: Yes Vital Signs & Weight: Vital Signs (12 hours) Temp Pulse Resp BP Pulse Ox 02/04/17 04:00 97.7 F 60 20 174/58 H 100 02/04/17 01:24 96 02/04/17 00:00 98.6 F 60 20 178/47 H 100 02/03/17 20:00 97.8 F 55 L 16 96 Weight Admit Weight 129 lb 9.6 oz Weight 128 lb 9.6 oz I&O: 02/03/17 02/04/17 02/05/17 06:59 06:59 06:59 Intake Total 300 750 Output Total 125 3750 Balance 175 -3000 Result Diagrams: 02/04/17 04:23 02/04/17 04:23 Additional Labs: Accuchecks 02/04/17 02/03/17 02/03/17 05:38 20:07 16:51 POC Glucose 119 H 136 H 124 H Phys Exam - Physical Examination HEENT: PERRLA Respiratory: no wheezing, no rales, no rhonchi, clear to auscultation bilateral Cardiovascular: RRR, no significant murmur Gastrointestinal: soft, non-tender, positive bowel sounds Musculoskeletal: no edema Dx/Plan (1) Right femoral fracture Code(s): S72.91XA - UNSP FRACTURE OF RIGHT FEMUR, INIT FOR CLOS FX Status: Acute (2) Dyshydrosis Status: Acute (3) HTN (hypertension) Code(s): I10 - ESSENTIAL (PRIMARY) HYPERTENSION Status: Chronic (4) CAD (coronary artery disease) Code(s): I25.10 - ATHSCL HEART DISEASE OF [place] CORONARY ARTERY W/O ANG PCTRS Status: Chronic (5) Diabetes mellitus type 2 Code(s): E11.9 - TYPE 2 DIABETES MELLITUS WITHOUT COMPLICATIONS Status: Chronic Comment: ? diet managed, follow accuchecks (6) ESRD (end stage renal disease) on dialysis Code(s): N18.6 - END STAGE RENAL DISEASE; Z99.2 - DEPENDENCE ON RENAL DIALYSIS Status: Chronic Comment: Volume overload initially, HD per Renal service (7) Chronic respiratory failure with hypoxia Code(s): J96.11 - CHRONIC RESPIRATORY FAILURE WITH HYPOXIA Status: Acute - Plan * Right Femur fracture s/p repair- she is doing well * HTN- blood pressure has been a bit elevated- will add scheduled Hydralazine * DM- blood glucose is stable * ESRD- managed by Nephrology * COPD- stable * She can be moved from [facility] if ok with Orthopedics
--- NOTE | 2017-02-04 08:05 | OP ---
DATE OF OPERATION: 02/03/2017 PREOPERATIVE DIAGNOSIS: Right femoral neck fracture. POSTOPERATIVE DIAGNOSES: Right femoral neck fracture, hip adductor, chronic tear. PROCEDURE PERFORMED: Right hip hemiarthroplasty. STAFF: Conrado Diamond M.D. ACADEMIC ADVISOR: JOSE Ivory ANESTHESIA: Dr. Kan. The patient received general endotracheal intubation. ESTIMATED BLOOD LOSS: 300 Ml. TOURNIQUET TIME: None. IMPLANTS: A size 4 Accolade stem 127 hip fracture stem, a 45 mm Unitrax head and a -4 Unitrax sleeve . ANTIBIOTICS: A 1 gram Ancef. The patient received TXA 1 gram. COMPLICATIONS: None. HISTORY OF PRESENT ILLNESS: Mrs. Nichlos is a pleasant, 76-year-old female, who was recently admitted . The patient has limited mobility, has a history of congestive heart failure and pulmonary disease. She had a fall sustaining a right femoral neck fracture. The patient is on dialysis. Patient is d iabetic. She has got coronary artery disease. The patient is in poor health. I discussed with the family and the is at the bedside that she has a difficult problem given her multiple medical problems. I discussed planning a right hip hemiarthroplasty for operative fixation. I discussed the risks and benefits of surgery to include pain, scar, bleeding, infection, damage to vital structures , decreased range of motion or strength, failure of procedure, continued pain despite the surgery, fr acture above or below stem, loss of life or limb. The patient understood, and the family understood the risks and benefits of the procedure. The patient received vancomycin, which will be dialyzed at her next dialysis appointment to 0.1 gram. The patient received TXA for blood loss given her history of chronic anemia. The patient was discussed with the family that she may have to remain intubated because of her poor pulmonary status. They understood the risks and benefits of the procedure and el ected to proceed. DESCRIPTION OF PROCEDURE: Timeout was performed designating the patient's right lower extremity as t he operative site based on sight, consents and markings. She was placed in lateral decubitus positio n with her bony prominences well padded and an axillary roll. The patient had an incision made down through skin, down to the IT band. The IT band was split. The abductors looked like there was a chr onic injury that had been torn off. We cut the remnant scar what appeared to be some of the gluteus julianna and medius after exposing the trochanter in the neck. We followed the neck down and made our neck cut. She had some comminution posteriorly that made neck cut short side room to work wit h on the calcar. We exposed the head and we took the head out, it came out in 3 sections. We measur ed to a size 45 when it was all put together to the patient. After we removed all the gross debris a nd exposed the acetabulum, we can see the acetabulum as well as was clean. We looked back on the fem ur. We broached up finally in a normal size 4, felt we had good fit distally in the metaphysis right at the calcar and the patient had firm endpoint. We trialed a -4 sleeve and had a good reduction an d good overall length. Patient did not shuck, and I liked the overall alignment, and we removed it. We placed our size. We had to broach a little more to place our final size 4, but had a good firm f it and good fixation and reduced the hip. There was minimal adductors that were closed, we used a fe w stitches to pass chronic tearing through the greater trochanter. We closed what we could of the gl uteus minimus and medius remnant to the skin. We then washed and closed the IT band with #2 Quill an d then we closed subcutaneous with 0 Quill, 2-0 Quill, and glue. An attempt will be made to extubate the patient. She will be monitored by Medicine and admitted back to Trauma. The patient will be weightbearing as tolerated. She will likely need long-term stay in a prison. We will follow her in-house with Medicine.
[2017-02-04] MEDS: Losartan Potassium 25 MG TAB PO SCH (08:41)
[2017-02-04] MEDS: Carvedilol 25 MG TAB PO SCH ×2 (08:41→20:53)
[2017-02-04] MEDS: FLUoxetine HCl 20 MG CAP PO SCH (08:41)
[2017-02-04] MEDS: Ferrous Sulfate 325 MG TAB PO SCH (08:41)
[2017-02-04] MEDS: Sevelamer Carbonate 800 MG TAB PO SCH ×3 (08:41→17:58)
[2017-02-04] MEDS: Senokot S 8.6-50 MG TAB PO SCH ×2 (08:41→20:52)
[2017-02-04] MEDS: Famotidine 20 MG TAB PO SCH (08:42)
[2017-02-04] MEDS: Folic Acid/Vit B Comp W-C PO SCH (08:42)
[2017-02-04] MEDS: hydrALAZINE 25 MG TAB PO SCH ×3 (08:42→20:53)
[2017-02-04] MEDS: Atorvastatin Calcium 40 MG TAB PO SCH (08:42)
[2017-02-04] MEDS: Polyethylene Glycol 3350 17 GM Packet PO SCH (08:42)
[2017-02-04] MEDS: diphenhydrAMINE 2% CREAM 28.4 GM TUBE TOP SCH ×2 (08:43→20:58)
[2017-02-04] MEDS: Ammonium Lactate 12% Lotion 225 GM BOT TOP SCH ×2 (08:43→20:58)
[2017-02-04] MEDS: Hydrocortisone Acetate 25 MG Suppository PR SCH ×2 (08:43→20:59)
--- NOTE | 2017-02-04 13:53 | PRG ---
DATE OF SERVICE: 02/04/2017 SUBJECTIVE: Rosy Nichols is doing well after ORIF right hip by Dr. Diamond 02/03/2017. She has not be en out of bed postoperatively. She is followed by hospitalist. The patient is awake and alert. She is tolerating her diet. She denies any chest pain or any other problems. OBJECTIVE: LUNGS: Clear to auscultation. CARDIAC: Regular rate and rhythm without murmur or gallop. ABDOMEN: Soft, nontender. ASSESSMENT AND PLAN: 1. End-stage renal disease, on maintenance dialysis. 2. The patient is doing well. We will plan to move her to the surgical floor. Continue dialysis on scheduled basis, physical therapy and rehabilitation and placement process. She should be ready to transfer to rehab Monday. 3. Remove Bhatti.
[2017-02-04 14:14] VITALS: BMI 22.8
--- NOTE | 2017-02-04 14:16 | PRG ---
DATE OF SERVICE: 02/04/2017 SUBJECTIVE: This is a 76-year-old female being seen for end-stage renal disease. Patient denies any nausea, vomiting or chest pain. PHYSICAL EXAMINATION: GENERAL: Patient is awake, alert. VITAL SIGNS: Afebrile, pulse 75, breathing at 16, blood pressure 162/54. HEAD/NECK: Normocephalic. Atraumatic. EYES: EOMI. No deformity. EARS: Clear. No ulcers. NOSE: Intact. No lesions. MOUTH: Clear. No discharge. THROAT: Clear. No exudate. LUNGS: Clear. No crackles. CARDIAC: S1, S2. No rub. ABDOMEN: Benign. BS+. GENITALIA/RECTUM: Bhatti absent. BACK/EXTREMITIES: Edema 0+ Ulcer- NEUROLOGICAL: Alert and motor intact. SKIN: Rash- Bruise- LYMPHATICS: Edema- Ulcer- LABORATORY DATA: Show hemoglobin 8.4. ASSESSMENT: 1. Stage 6 chronic kidney disease, continue hemodialysis. 2. Hypertension, stable. 3. Anemia, stable. 4. Medications based on glomerular filtration rate are appropriate. We will plan dialysis on Monday .
--- NOTE | 2017-02-04 15:34 | CON ---
DATE OF CONSULTATION: 02/04/2017 TYPE OF CONSULTATION: Cardiology Consultation. REASON FOR CONSULTATION: Management of coronary artery disease in the setting of a recent fracture. HISTORY OF PRESENT ILLNESS: Ms. Nichols is a pleasant 76-year-old white female who comes to the [facility] for fall. She tripped and broke her leg. She underwent right hip hemiarthroplasty due to her ri ght femoral neck fracture. She did well. She has a history of coronary artery disease. She has had bypass in the past, most recently in 2014, she had stents placed to galena left circumflex and to a vein graft to a diagonal and OM branch, both drug-eluting stents. She has done well since. Her lillian na improved after stenting and has continued to see improvement since then. She denies any chest kraig n, tightness, or pressure. No shortness of breath. Her breathing is at baseline. PAST MEDICAL HISTORY: 1. Coronary artery disease as above. 2. Type 2 diabetes. 3. End-stage renal disease on hemodialysis. 4. COPD, on chronic home O2, 4 liters every day. 5. Chronic heart failure, diastolic. 7. Renal cell carcinoma in the past, status post removal, in remission. 8. Hypertension. 9. GI bleed. 10. Chronic anemia. PAST SURGICAL HISTORY: 1. Renal cell carcinoma resection. 2. Skin cancer removal. 3. Left arm fistula. 4. Hemorrhoidectomy. 5. Coronary artery bypass grafting x2 as above. 6. Stent placements as above. 7. Recent hip fracture repair. FAMILY HISTORY: Noncontributory. SOCIAL HISTORY: No alcohol, tobacco or drugs. Former smoker, quit several years ago. REVIEW OF SYSTEMS: Negative unless stated in the history of present illness. PHYSICAL EXAMINATION: VITAL SIGNS: Temperature 98.6, pulse 60, respiration rate 16, satting 100% on 4 liters nasal cannula , blood pressure 146/43. GENERAL: Awake, alert, oriented x3, in no distress. HEENT: Normocephalic. NECK: Supple. LUNGS: Reduced breath sounds bilaterally but no crackles. ABDOMEN: Soft, positive bowel sounds. CARDIOVASCULAR: S1, S2. No S3, S4, no murmurs or rubs. EXTREMITIES: No edema. SKIN: Warm and dry. LABORATORY WORK: Reviewed. White count of 10, hemoglobin of 8.4, hematocrit of 27, platelet count o f 167. Coags were unremarkable. Chemistries were unremarkable except for creatinine of 2.6 and BUN of 18, sodium of 133, glucose of 118. OUTPATIENT MEDICATIONS: Include, 1. Losartan 25 mg a day. 2. Folic acid. 3. Atorvastatin 80 mg a day. 4. Aspirin 81 a day. 5. Iron sulfate. 6. Famotidine. 7. Fluoxetine 40 mg a day. 8. Plavix 75 mg a day. 9. Carvedilol 25 mg b.i.d. 10. Imdur 30 mg a day. 11. Nifedipine 60 mg b.i.d. 12. Renvela. ALLERGIES: 1. IODINE. 2. TERRAMYCIN. 3. LYRICA. 4. ERYTHROMYCIN BASE. ASSESSMENT AND PLAN: 1. Falls, status post hip fracture and repair. 2. Coronary artery disease, stable at this time. 3. History of diastolic heart failure. PLAN: 1. CV is stable at this time. Continue physical therapy as planned. 2. Continue outpatient medications. Thank you for letting us participate in the care of your patient. We will follow.
[2017-02-05] MEDS: Acetaminophen 500 MG TAB PO SCH ×4 (03:04→20:32)
[2017-02-05 05:23] LABS: Hematocrit 26.4 % (36.0-47.0); Mean Platelet Volume 8.8 fL (7.4-10.4); Red Blood Cell (RBC) Count 2.88 mill/uL (4.20-5.40); White Blood Cell (WBC) Count 10.7 thou/uL (4.8-10.8)
[2017-02-05 05:33] LABS: Anion Gap 13 mmol/L (10-20); BUN (Urea Nitrogen) 30 mg/dL (9.8-20.1); Calc. Creatinine Clearance 12 mL/min (70-130); Calcium 7.9 mg/dL (7.8-10.44); Carbon Dioxide 26 mmol/L (23-31); Chloride 96 mmol/L (98-107); Estimated GFR-MDRD 12
[2017-02-05] MEDS: Sevelamer Carbonate 800 MG TAB PO SCH ×3 (07:57→17:17)
[2017-02-05] MEDS: Ferrous Sulfate 325 MG TAB PO SCH (07:57)
[2017-02-05] MEDS: Ammonium Lactate 12% Lotion 225 GM BOT TOP SCH ×2 (08:03→20:34)
[2017-02-05] MEDS: Atorvastatin Calcium 40 MG TAB PO SCH (08:04)
[2017-02-05] MEDS: Aspirin 81 mg Enteric Coated Tablet PO SCH (08:04)
[2017-02-05] MEDS: Clopidogrel Bisulfate 75 MG TAB PO SCH (08:05)
[2017-02-05] MEDS: diphenhydrAMINE 2% CREAM 28.4 GM TUBE TOP SCH ×2 (08:05→20:34)
[2017-02-05] MEDS: FLUoxetine HCl 20 MG CAP PO SCH (08:06)
[2017-02-05] MEDS: Famotidine 20 MG TAB PO SCH (08:06)
[2017-02-05] MEDS: Folic Acid/Vit B Comp W-C PO SCH (08:07)
[2017-02-05] MEDS: Hydrocortisone Acetate 25 MG Suppository PR SCH ×3 (08:08→23:21)
[2017-02-05] MEDS: Polyethylene Glycol 3350 17 GM Packet PO SCH (08:10)
[2017-02-05] MEDS: Senokot S 8.6-50 MG TAB PO SCH ×2 (08:10→20:32)
[2017-02-05] MEDS: NIFEdipine XL 60 MG TAB PO SCH (08:10)
[2017-02-05] MEDS: Carvedilol 25 MG TAB PO SCH ×2 (08:12→20:32)
[2017-02-05] MEDS: hydrALAZINE 25 MG TAB PO SCH (08:12)
[2017-02-05] MEDS: Losartan Potassium 25 MG TAB PO SCH (08:13)
[2017-02-05] MEDS ORDERED: hydrALAZINE 25 MG TAB PO SCH ×2 (08:26→09:00)
--- NOTE | 2017-02-05 08:46 | EKG ---
Test Reason : ROUTINE Blood Pressure : / mmHG Vent. Rate : 060 BPM Atrial Rate : 060 BPM P-R Int : 192 ms QRS Dur : 114 ms QT Int : 490 ms P-R-T Axes : 089 033 158 degrees QTc Int : 490 ms Normal sinus rhythm Prolonged QT Abnormal ECG When compared with ECG of 20-JAN-2017 08:03, (Unconfirmed) Previous ECG has undetermined rhythm, needs review T wave inversion more evident in Anterior leads Confirmed by Michael RODRIGUEZ ([id number]) on 02/05/2017 8:46:26 AM Referred By: Confirmed By:Michael RODRIGUEZ
--- NOTE | 2017-02-05 11:50 | PDOC.PN ---
- Subjective Encounter Start Date: 02/05/17 Encounter Start Time: 11:49 Subjective: feels well. no new complaints,no overnight events - Objective MAR Reviewed: Yes Vital Signs & Weight: Vital Signs (12 hours) Temp Pulse Resp BP BP Pulse Ox 02/05/17 08:16 98.5 F 57 L 16 108/45 L 98 02/05/17 08:12 57 L 108/45 L 02/05/17 08:10 57 L 02/05/17 07:15 98.5 F 57 L 16 02/05/17 05:17 98.4 F 60 16 168/52 H 100 02/05/17 03:00 98 02/05/17 00:00 98.7 F 60 26 H 152/60 H 98 Weight Admit Weight 129 lb 9.6 oz Weight 128 lb 9.6 oz I&O: 02/04/17 02/05/17 02/06/17 06:59 06:59 06:59 Intake Total 750 850 Output Total 3750 625 Balance -3000 225 Result Diagrams: 02/05/17 04:33 02/05/17 04:33 Additional Labs: Accuchecks 02/05/17 02/05/17 02/04/17 11:18 05:48 20:39 POC Glucose 134 H 100 121 H Laboratory Tests 02/02/17 02/02/17 02/03/17 16:55 16:55 04:44 Hgb 10.0 L BUN 28 H 32 H Creatinine 3.53 H 3.77 H 02/03/17 02/04/17 02/04/17 04:44 04:23 04:23 Hgb 9.2 L 8.4 L BUN 18 Creatinine 2.61 H 02/05/17 02/05/17 04:33 04:33 Hgb 8.2 L BUN 30 H Creatinine 3.68 H Phys Exam - Physical Examination Constitutional: NAD sitting up in chair HEENT: PERRLA, moist MMs, sclera anicteric, oral pharynx no lesions Neck: no nodes, no JVD, supple, full ROM Respiratory: no wheezing, no rales, no rhonchi, clear to auscultation bilateral Cardiovascular: RRR, no significant murmur Gastrointestinal: soft, non-tender, no distention, positive bowel sounds Musculoskeletal: no edema, pulses present Neurological: non-focal, normal sensation, moves all 4 limbs Psychiatric: normal affect, A&O x 3 Skin: no rash Dx/Plan (1) Right femoral fracture Code(s): S72.91XA - UNSP FRACTURE OF RIGHT FEMUR, INIT FOR CLOS FX Status: Acute Qualifiers: Fracture type: closed Comment: s/p hemiarthroplasty (2) Chronic respiratory failure with hypoxia Code(s): J96.11 - CHRONIC RESPIRATORY FAILURE WITH HYPOXIA Status: Chronic (3) Chronic diastolic heart failure Code(s): I50.32 - CHRONIC DIASTOLIC (CONGESTIVE) HEART FAILURE Status: Chronic (4) HTN (hypertension) Code(s): I10 - ESSENTIAL (PRIMARY) HYPERTENSION Status: Chronic (5) Anemia of renal disease Code(s): D63.1 - ANEMIA IN CHRONIC KIDNEY DISEASE Status: Chronic (6) CAD (coronary artery disease) Code(s): I25.10 - ATHSCL HEART DISEASE OF [place] CORONARY ARTERY W/O ANG PCTRS Status: Chronic (7) Diabetes mellitus type 2 Code(s): E11.9 - TYPE 2 DIABETES MELLITUS WITHOUT COMPLICATIONS Status: Chronic Comment: ? diet managed, follow accuchecks (8) ESRD (end stage renal disease) on dialysis Code(s): N18.6 - END STAGE RENAL DISEASE; Z99.2 - DEPENDENCE ON RENAL DIALYSIS Status: Chronic Comment: Volume overload initially, HD per Renal service (9) Hyperlipidemia Code(s): E78.5 - HYPERLIPIDEMIA, UNSPECIFIED Status: Chronic (10) Secondary hyperparathyroidism of renal origin Code(s): N25.81 - SECONDARY HYPERPARATHYROIDISM OF RENAL ORIGIN Status: Chronic - Plan DVT proph w/SCDs BP lower this morning. will stop hydralzine that was started yesterday. -: add parametrs to rest of the meds. Pt asymptomatic. -: cont rest of the home meds. -: HD per nephrology.am labs -: cardiology and Orthopedics following as well. * . Review of Systems - Review of Systems Constitutional: negative: Fever, Chills, Sweats, Weakness, Malaise, Other Respiratory: negative: Cough, Dry, Shortness of Breath, Hemoptysis, SOB with Excertion, Pleuritic Pain, Sputum, Wheezing Cardiovascular: negative: Chest Pain, Palpitations, Orthopnea, Paroxysmal Noc. Dyspnea, Edema, Light Headedness, Other Gastrointestinal: negative: Nausea, Vomiting, Abdominal Pain, Diarrhea, Constipation, Melena, Hematochezia, Other Genitourinary: negative: Dysuria, Frequency, Incontinence, Hematuria, Retention , Other Musculoskeletal: negative: Neck Pain, Shoulder Pain, Arm Pain, Back Pain, Hand Pain, Leg Pain, Foot Pain, Other Neurological: negative: Weakness, Numbness, Incoordination, Change in Speech, Confusion, Seizures, Other - Medications/Allergies Allergies/Adverse Reactions: Allergies Allergy/AdvReac Type Severity Reaction Status Date / Time erythromycin base Allergy Verified 06/29/16 06:30 Iodine and Iodide Containing Allergy Verified 06/29/16 06:30 Produc oxytetracycline Allergy Verified 06/29/16 06:30 [From Terramycin] oxytetracycline HCl Allergy Verified 06/29/16 06:30 [From Terramycin] pregabalin [From Lyrica] Allergy Verified 06/29/16 06:30 Medications: Current Medications Acetaminophen (Tylenol) 1,000 mg PO 0200,0800,1400,2000 [facility] Last Admin: 02/05/17 07:57 Dose: 1,000 mg Acetaminophen (Tylenol) 650 mg PO Q4H PRN PRN Reason: CHAWLA/T> 101F/Mild Pain (1-3) Al Hydroxide/Mg Hydroxide (Maalox) 15 ml PO Q4H PRN PRN Reason: Heartburn or Indigestion Ammonium Lactate (Laclotion) 1 gm TOP BID [facility] Last Admin: 02/05/17 08:03 Dose: 1 gm Aspirin (Ecotrin) 81 mg PO DAILY [facility] Last Admin: 02/05/17 08:04 Dose: 81 mg Atorvastatin Calcium (Lipitor) 80 mg PO DAILY [facility] Last Admin: 02/05/17 08:04 Dose: 80 mg Benzonatate (Tessalon) 100 mg PO Q4H PRN PRN Reason: Cough Bisacodyl (Dulcolax) 10 mg PO DAILYPRN PRN PRN Reason: Constipation Bisacodyl (Dulcolax) 10 mg IA DAILYPRN PRN PRN Reason: Constipation Carvedilol (Coreg) 25 mg PO BID [facility] Last Admin: 02/05/17 08:12 Dose: Not Given Clopidogrel Bisulfate (Plavix) 75 mg PO DAILY [facility] Last Admin: 02/05/17 08:05 Dose: 75 mg Dextrose/Water (Dextrose 50%) 25 gm SLOW IVP PRN PRN PRN Reason: Hypoglycemia Famotidine (Pepcid) 20 mg PO DAILY [facility] Last Admin: 02/05/17 08:06 Dose: 20 mg Fentanyl (Sublimaze) 50 mcg SLOW IVP Q20M PRN PRN Reason: Severe Pain (7-10) Last Admin: 02/04/17 00:14 Dose: 50 mcg Ferrous Sulfate (Feosol) 325 mg PO QAM-WM [facility] Last Admin: 02/05/17 07:57 Dose: 325 mg Fluoxetine HCl (Prozac) 20 mg PO DAILY [facility] Last Admin: 02/05/17 08:06 Dose: 20 mg Glucagon (Glucagon) 1 mg IM PRN PRN PRN Reason: Hypoglycemia Guaifenesin (Robitussin Sf) 200 mg PO Q4H PRN PRN Reason: Cough Hydralazine HCl (Apresoline) 10 mg SLOW IVP Q6H PRN PRN Reason: SBP Greater Than 170 Hydralazine HCl (Apresoline) 25 mg PO TID PRN PRN Reason: SBP Greater Than 170 Hydrocortisone Acetate (Anusol-Hc) 25 mg IA BID [facility] Last Admin: 02/05/17 08:08 Dose: Not Given Dextrose/Water (D5w) 1,000 mls @ 0 mls/hr IV .Q0M PRN; As Directed PRN Reason: Hypoglycemia Insulin Human Lispro (Humalog) 0 units SC .MODERATE SLIDING SC PRN PRN Reason: Moderate Correctional Scale Insulin Human Lispro (Humalog) 0 units SC .BEDTIME SLIDING SC PRN PRN Reason: Bedtime Correctional Scale Isosorbide Mononitrate (Imdur Er) 30 mg PO DAILY [facility] Last Admin: 02/05/17 08:13 Dose: Not Given Loratadine (Claritin) 10 mg PO DAILYPRN PRN PRN Reason: Sinus Symptoms Losartan Potassium (Cozaar) 50 mg PO DAILY [facility] Last Admin: 02/05/17 08:13 Dose: Not Given Magnesium Hydroxide (Milk Of Magnesium) 30 ml PO DAILYPRN PRN PRN Reason: Constipation Nifedipine (Procardia Xl) 60 mg PO DAILY [facility] Last Admin: 02/05/17 08:10 Dose: Not Given Nitroglycerin (Nitrostat) 0.4 mg SL Q5MIN PRN PRN Reason: Chest Pain Ondansetron HCl (Zofran Odt) 4 mg PO Q6H PRN PRN Reason: Nausea/Vomiting Ondansetron HCl (Zofran) 4 mg IVP Q6H PRN PRN Reason: Nausea Polyethylene Glycol (Miralax) 17 gm PO DAILY [facility] Last Admin: 02/05/17 08:10 Dose: 17 gm Senna (Senokot) 2 tab PO HSPRN PRN PRN Reason: Constipation Senna/Docusate Sodium (Senokot S) 2 tab PO BID [facility] Last Admin: 02/05/17 08:10 Dose: 2 tab Sevelamer Carbonate (Renvela) 800 mg PO TID-WM [facility] Last Admin: 02/05/17 11:35 Dose: 800 mg Sodium Biphosphate/Sodium Phosphate (Fleet Enema) 133 ml IA DAILYPRN PRN PRN Reason: Constipation Sodium Chloride (Flush - Normal Saline) 10 ml IVF PRN PRN PRN Reason: Saline Flush Last Admin: 02/04/17 20:58 Dose: 10 ml Throat Lozenges (Cepastat Lozenges) 1 jefferson PO Q2H PRN PRN Reason: Sore Throat Tramadol HCl (Ultram) 50 mg PO Q12H PRN PRN Reason: Moderate Pain (4-6) Last Admin: 02/05/17 05:20 Dose: 50 mg Tramadol HCl (Ultram) 100 mg PO Q12H PRN PRN Reason: Severe Pain (7-10) Vitamin B Complex/Vit C/Folic Acid (Nephro-Ana Tablet) 1 tab PO DAILY [facility] Last Admin: 02/05/17 08:07 Dose: 1 tab Zinc Acetate/Diphenhydramine (Benadryl 2% Cream) 1 gm TOP BID [facility] Last Admin: 02/05/17 08:05 Dose: 1 appful
--- NOTE | 2017-02-05 14:03 | PRG ---
DATE OF SERVICE: 02/05/2017 SUBJECTIVE: This is a 76-year-old female being seen for end-stage renal disease. Patient denies tank sea, vomiting or chest pain. OBJECTIVE: GENERAL: Patient is awake, alert. VITAL SIGNS: Afebrile, pulse , breathing at 16, blood pressure 110/45. GENERAL APPEARANCE AND MENTAL STATUS: Fair. HEAD/NECK: Normocephalic. Atraumatic. EYES: EOMI. No deformity. EARS: Clear. No ulcers. NOSE: Intact. No lesions. MOUTH: Clear. No discharge. THROAT: Clear. No exudate. LUNGS: Clear. No crackles. CARDIAC: S1, S2. No rub. ABDOMEN: Benign. BS+ GENITALIA/RECTUM: Bhatti absent. BACK/EXTREMITIES: Edema 0+ Ulcer- NEUROLOGICAL: Alert and motor intact. SKIN: Rash- Bruise- LYMPHATICS: Edema- Ulcer- LABORATORY DATA: Hemoglobin 8.2. ASSESSMENT AND RECOMMENDATIONS: 1. Stage 6 chronic kidney disease, on hemodialysis. 2. Hypertension, stable. 3. Anemia, stable. 4. Medications based on glomerular filtration rate are appropriate.
--- NOTE | 2017-02-05 14:45 | PDOC.CTH ---
Cardiology Progress Note - Subjective She is complaining of pain around her surgical site. No other issues. - Objective Vital Signs Temp Pulse Resp BP BP Pulse Ox 02/05/17 12:00 97.6 F 70 16 136/65 99 02/05/17 08:16 98.5 F 57 L 16 108/45 L 98 02/05/17 08:12 57 L 108/45 L 02/05/17 08:10 57 L 02/05/17 07:15 98.5 F 57 L 16 02/05/17 05:17 98.4 F 60 16 168/52 H 100 02/05/17 03:00 98 Admit Weight 129 lb 9.6 oz Weight 128 lb 9.6 oz 02/04/17 02/05/17 02/06/17 06:59 06:59 06:59 Intake Total 750 850 Output Total 3750 625 Balance -3000 225 - Physical Examination General/Neuro: NAD Neck: no JVD present Lungs: unlabored respirations Heart: RRR Abdomen: NT/ND Extremities: + edema B (trace) - Labs Result Diagrams: 02/05/17 04:33 02/05/17 04:33 Troponin/CKMB CK-MB (CK-2) 3.1 ng/mL (0-6.6) 02/02/17 16:55 Troponin I 0.045 ng/mL (< 0.028) H 02/02/17 16:55 - Assessment/Plan 1. Diastolic heart failure, stable 2. CAD, stable 3. Hip fracture s/p Repair. 4. SEKOU on CKD PLAN: - CV stable. No new recs. - Consider Volume for SEKOU.
--- NOTE | 2017-02-05 16:19 | PRG ---
DATE OF SERVICE: 02/05/2017 SUBJECTIVE: The patient is status post ground-level fall in which she sustained a right femoral neck fracture for which she has subsequently undergone open reduction and internal fixation/hemiarthropla sty. The patient tolerated this procedure well. She was moved from the [facility] yesterday to the [facility] floor. This morning, she is sitting in a chair beside her bed. She is alert and oriented x4. He r [place] Coma Scale is 15. She has no complaints at this time. OBJECTIVE: VITAL SIGNS: Temperature is 98.5, heart rate 57, blood pressure 108/45, respirations 16, oxygen satu ration is 98% on 4 liters via nasal cannula. GENERAL: The patient is resting comfortably. She is alert and oriented x3 and [place] Coma Scale is 15. LUNGS: Clear to auscultation with good inspiratory and expiratory effort. HEART: Regular rate and rhythm. ABDOMEN: Soft, flat, nontender. EXTREMITIES: Neurovascularly intact x4. Her postop dressing is clean, dry, and intact. LABORATORY DATA: White blood cell count 10.7, hemoglobin 8.2, hematocrit 26.4, platelets 161. Sodiu m 130, potassium 4.9, chloride 96, CO2 26, BUN 30, creatinine 3.68, glucose 89. ASSESSMENT AND PLAN: 1. Status post ground level fall. 2. Acute on chronic renal failure and plan for hemodialysis tomorrow. 3. Status post left hip hemiarthroplasty. Continue physical and occupational therapy, rehab consult ation. Continue pain management. The plan was discussed with Dr. Santana this morning during rounds.
[2017-02-05] MEDS: traMADol HCl 50 MG TAB PO PRN (20:29)
[2017-02-06] MEDS: Acetaminophen 500 MG TAB PO SCH ×4 (01:30→20:53)
[2017-02-06 05:14] LABS: Hematocrit 23.3 % (36.0-47.0); Mean Platelet Volume 8.4 fL (7.4-10.4); White Blood Cell (WBC) Count 8.5 thou/uL (4.8-10.8)
[2017-02-06 05:50] LABS: Anion Gap 15 mmol/L (10-20); BUN (Urea Nitrogen) 46 mg/dL (9.8-20.1); Calc. Creatinine Clearance 9 mL/min (70-130); Calcium 7.6 mg/dL (7.8-10.44); Carbon Dioxide 25 mmol/L (23-31); Chloride 94 mmol/L (98-107); Estimated GFR-MDRD 9
--- NOTE | 2017-02-06 07:17 | PDOC.CTH ---
Cardiology Progress Note - Subjective Pain is better controlled today. Denies any chest pain, tightness, pressure. Her breathing is at baseline. - Objective Vital Signs Temp Pulse Resp BP Pulse Ox 02/06/17 04:00 60 24 H 92 L 02/06/17 00:00 98.2 F 63 18 115/51 L 88 L 02/05/17 20:15 98.2 F 55 L 18 90 L 02/05/17 20:00 98.2 F 55 L 16 111/40 L 90 L Admit Weight 129 lb 9.6 oz Weight 128 lb 9.6 oz 02/05/17 02/06/17 02/07/17 06:59 06:59 06:59 Intake Total 850 960 Output Total 625 Balance 225 960 - Physical Examination General/Neuro: alert & oriented x3, NAD Neck: no JVD present Lungs: unlabored respirations Heart: RRR Abdomen: NT/ND Extremities: other: (no edema) - Labs Result Diagrams: 02/06/17 04:42 02/06/17 04:42 Troponin/CKMB CK-MB (CK-2) 3.1 ng/mL (0-6.6) 02/02/17 16:55 Troponin I 0.045 ng/mL (< 0.028) H 02/02/17 16:55 - Assessment/Plan 1. Diastolic heart failure, stable 2. CAD, stable 3. Hip fracture s/p Repair. 4. ESRD on HD. PLAN: - CV stable. No new recs. - Continue PT
[2017-02-06] MEDS: Sevelamer Carbonate 800 MG TAB PO SCH ×3 (07:34→18:58)
--- NOTE | 2017-02-06 12:30 | PDOC.PN ---
- Subjective Encounter Start Date: 02/06/17 Encounter Start Time: 12:28 Subjective: feels ok. mouth very dry -: no chest pain/SOB.no fever/chills. -: no new complaints - Objective MAR Reviewed: Yes Vital Signs & Weight: Vital Signs (12 hours) Pulse Resp Pulse Ox 02/06/17 04:00 60 24 H 92 L Weight Admit Weight 129 lb 9.6 oz Weight 128 lb 9.6 oz I&O: 02/05/17 02/06/17 02/07/17 06:59 06:59 06:59 Intake Total 850 960 Output Total 625 Balance 225 960 Result Diagrams: 02/06/17 04:42 02/06/17 04:42 Additional Labs: Accuchecks 02/06/17 02/05/17 02/05/17 05:28 20:43 15:57 POC Glucose 148 H 144 H 138 H Laboratory Tests 02/02/17 02/02/17 02/03/17 16:55 16:55 04:44 WBC 12.0 H Sodium 138 134 L 02/03/17 02/04/17 02/04/17 04:44 04:23 04:23 WBC 10.1 10.9 H Sodium 133 L 02/05/17 02/05/17 02/06/17 04:33 04:33 04:42 WBC 10.7 Sodium 130 L 129 L 02/06/17 04:42 WBC 8.5 Sodium Phys Exam - Physical Examination Constitutional: NAD getting HD HEENT: PERRLA, moist MMs, sclera anicteric, TM's clear, oral pharynx no lesions , 2+ tonsils very dry mucosa Neck: no nodes, no JVD, supple, full ROM Respiratory: no wheezing, no rales, no rhonchi, clear to auscultation bilateral Cardiovascular: RRR, no significant murmur Gastrointestinal: soft, non-tender, no distention, positive bowel sounds Musculoskeletal: no edema, pulses present Neurological: non-focal, normal sensation, moves all 4 limbs Psychiatric: normal affect, A&O x 3 Skin: no rash Dx/Plan (1) Hyponatremia Code(s): E87.1 - HYPO-OSMOLALITY AND HYPONATREMIA Status: Acute (2) Right femoral fracture Code(s): S72.91XA - UNSP FRACTURE OF RIGHT FEMUR, INIT FOR CLOS FX Status: Acute Qualifiers: Fracture type: closed Comment: s/p hemiarthroplasty (3) Chronic respiratory failure with hypoxia Code(s): J96.11 - CHRONIC RESPIRATORY FAILURE WITH HYPOXIA Status: Chronic (4) Chronic diastolic heart failure Code(s): I50.32 - CHRONIC DIASTOLIC (CONGESTIVE) HEART FAILURE Status: Chronic (5) HTN (hypertension) Code(s): I10 - ESSENTIAL (PRIMARY) HYPERTENSION Status: Chronic (6) Anemia of renal disease Code(s): D63.1 - ANEMIA IN CHRONIC KIDNEY DISEASE Status: Chronic (7) CAD (coronary artery disease) Code(s): I25.10 - ATHSCL HEART DISEASE OF [place] CORONARY ARTERY W/O ANG PCTRS Status: Chronic (8) Diabetes mellitus type 2 Code(s): E11.9 - TYPE 2 DIABETES MELLITUS WITHOUT COMPLICATIONS Status: Chronic Comment: ? diet managed, follow accuchecks (9) ESRD (end stage renal disease) on dialysis Code(s): N18.6 - END STAGE RENAL DISEASE; Z99.2 - DEPENDENCE ON RENAL DIALYSIS Status: Chronic Comment: Volume overload initially, HD per Renal service (10) Hyperlipidemia Code(s): E78.5 - HYPERLIPIDEMIA, UNSPECIFIED Status: Chronic (11) Secondary hyperparathyroidism of renal origin Code(s): N25.81 - SECONDARY HYPERPARATHYROIDISM OF RENAL ORIGIN Status: Chronic - Plan DVT proph w/SCDs Pt hemodynamically stable.cont HD per nephrology. -: cont cardiac meds. cardiology following. -: sodium low.started on Fluid restriction.Defer to nephrology -: pain meds,rehab per primary team.Orthopedics following -: daily labs ordered as pt is on HD * . Review of Systems - Review of Systems Constitutional: negative: Fever, Chills, Sweats, Weakness, Malaise, Other Respiratory: negative: Cough, Dry, Shortness of Breath, Hemoptysis, SOB with Excertion, Pleuritic Pain, Sputum, Wheezing Cardiovascular: negative: Chest Pain, Palpitations, Orthopnea, Paroxysmal Noc. Dyspnea, Edema, Light Headedness, Other Gastrointestinal: negative: Nausea, Vomiting, Abdominal Pain, Diarrhea, Constipation, Melena, Hematochezia, Other Genitourinary: negative: Dysuria, Frequency, Incontinence, Hematuria, Retention , Other Musculoskeletal: negative: Neck Pain, Shoulder Pain, Arm Pain, Back Pain, Hand Pain, Leg Pain, Foot Pain, Other Neurological: negative: Weakness, Numbness, Incoordination, Change in Speech, Confusion, Seizures, Other - Medications/Allergies Allergies/Adverse Reactions: Allergies Allergy/AdvReac Type Severity Reaction Status Date / Time erythromycin base Allergy Verified 06/29/16 06:30 Iodine and Iodide Containing Allergy Verified 06/29/16 06:30 Produc oxytetracycline Allergy Verified 06/29/16 06:30 [From Terramycin] oxytetracycline HCl Allergy Verified 06/29/16 06:30 [From Terramycin] pregabalin [From Lyrica] Allergy Verified 06/29/16 06:30 Medications: Current Medications Acetaminophen (Tylenol) 1,000 mg PO 0200,0800,1400,2000 [facility] Last Admin: 02/06/17 07:34 Dose: Not Given Al Hydroxide/Mg Hydroxide (Maalox) 15 ml PO Q4H PRN PRN Reason: Heartburn or Indigestion Ammonium Lactate (Laclotion) 1 gm TOP BID [facility] Last Admin: 02/05/17 20:34 Dose: Not Given Aspirin (Ecotrin) 81 mg PO DAILY [facility] Last Admin: 02/05/17 08:04 Dose: 81 mg Atorvastatin Calcium (Lipitor) 80 mg PO DAILY [facility] Last Admin: 02/05/17 08:04 Dose: 80 mg Benzonatate (Tessalon) 100 mg PO Q4H PRN PRN Reason: Cough Bisacodyl (Dulcolax) 10 mg PO DAILYPRN PRN PRN Reason: Constipation Bisacodyl (Dulcolax) 10 mg MT DAILYPRN PRN PRN Reason: Constipation Carvedilol (Coreg) 25 mg PO BID [facility] Last Admin: 02/05/17 20:32 Dose: Not Given Clopidogrel Bisulfate (Plavix) 75 mg PO DAILY [facility] Last Admin: 02/05/17 08:05 Dose: 75 mg Dextrose/Water (Dextrose 50%) 25 gm SLOW IVP PRN PRN PRN Reason: Hypoglycemia Famotidine (Pepcid) 20 mg PO DAILY [facility] Last Admin: 02/05/17 08:06 Dose: 20 mg Fentanyl (Sublimaze) 50 mcg SLOW IVP Q20M PRN PRN Reason: Severe Pain (7-10) Last Admin: 02/04/17 00:14 Dose: 50 mcg Ferrous Sulfate (Feosol) 325 mg PO QAM-WM [facility] Last Admin: 02/05/17 07:57 Dose: 325 mg Fluoxetine HCl (Prozac) 20 mg PO DAILY [facility] Last Admin: 02/05/17 08:06 Dose: 20 mg Glucagon (Glucagon) 1 mg IM PRN PRN PRN Reason: Hypoglycemia Guaifenesin (Robitussin Sf) 200 mg PO Q4H PRN PRN Reason: Cough Hydralazine HCl (Apresoline) 10 mg SLOW IVP Q6H PRN PRN Reason: SBP Greater Than 170 Hydralazine HCl (Apresoline) 25 mg PO TID PRN PRN Reason: SBP Greater Than 170 Hydrocortisone Acetate (Anusol-Hc) 25 mg MT BID [facility] Last Admin: 02/05/17 23:21 Dose: 25 mg Dextrose/Water (D5w) 1,000 mls @ 0 mls/hr IV .Q0M PRN; As Directed PRN Reason: Hypoglycemia Insulin Human Lispro (Humalog) 0 units SC .MODERATE SLIDING SC PRN PRN Reason: Moderate Correctional Scale Insulin Human Lispro (Humalog) 0 units SC .BEDTIME SLIDING SC PRN PRN Reason: Bedtime Correctional Scale Isosorbide Mononitrate (Imdur Er) 30 mg PO DAILY [facility] Last Admin: 02/05/17 08:13 Dose: Not Given Loratadine (Claritin) 10 mg PO DAILYPRN PRN PRN Reason: Sinus Symptoms Losartan Potassium (Cozaar) 50 mg PO DAILY [facility] Last Admin: 02/05/17 08:13 Dose: Not Given Magnesium Hydroxide (Milk Of Magnesium) 30 ml PO DAILYPRN PRN PRN Reason: Constipation Nifedipine (Procardia Xl) 60 mg PO DAILY [facility] Last Admin: 02/05/17 08:10 Dose: Not Given Nitroglycerin (Nitrostat) 0.4 mg SL Q5MIN PRN PRN Reason: Chest Pain Ondansetron HCl (Zofran Odt) 4 mg PO Q6H PRN PRN Reason: Nausea/Vomiting Ondansetron HCl (Zofran) 4 mg IVP Q6H PRN PRN Reason: Nausea Polyethylene Glycol (Miralax) 17 gm PO DAILY [facility] Last Admin: 02/05/17 08:10 Dose: 17 gm Senna (Senokot) 2 tab PO HSPRN PRN PRN Reason: Constipation Senna/Docusate Sodium (Senokot S) 2 tab PO BID [facility] Last Admin: 02/05/17 20:32 Dose: 2 tab Sevelamer Carbonate (Renvela) 800 mg PO TID-WM [facility] Last Admin: 02/06/17 07:34 Dose: Not Given Sodium Biphosphate/Sodium Phosphate (Fleet Enema) 133 ml MT DAILYPRN PRN PRN Reason: Constipation Sodium Chloride (Flush - Normal Saline) 10 ml IVF PRN PRN PRN Reason: Saline Flush Last Admin: 02/04/17 20:58 Dose: 10 ml Throat Lozenges (Cepastat Lozenges) 1 jefferson PO Q2H PRN PRN Reason: Sore Throat Tramadol HCl (Ultram) 50 mg PO Q12H PRN PRN Reason: Moderate Pain (4-6) Last Admin: 02/05/17 05:20 Dose: 50 mg Tramadol HCl (Ultram) 100 mg PO Q12H PRN PRN Reason: Severe Pain (7-10) Last Admin: 02/05/17 20:29 Dose: 100 mg Vitamin B Complex/Vit C/Folic Acid (Nephro-Ana Tablet) 1 tab PO DAILY [facility] Last Admin: 02/05/17 08:07 Dose: 1 tab Zinc Acetate/Diphenhydramine (Benadryl 2% Cream) 1 gm TOP BID [facility] Last Admin: 02/05/17 20:34 Dose: Not Given
[2017-02-06] MEDS: Ammonium Lactate 12% Lotion 225 GM BOT TOP SCH ×2 (13:43→20:53)
[2017-02-06] MEDS: Carvedilol 25 MG TAB PO SCH ×2 (13:43→20:53)
[2017-02-06] MEDS: Losartan Potassium 25 MG TAB PO SCH (13:43)
[2017-02-06] MEDS: NIFEdipine XL 60 MG TAB PO SCH (13:43)
[2017-02-06] MEDS: Hydrocortisone Acetate 25 MG Suppository PR SCH ×2 (13:43→20:55)
[2017-02-06] MEDS: diphenhydrAMINE 2% CREAM 28.4 GM TUBE TOP SCH ×2 (13:43→20:58)
[2017-02-06] MEDS: Folic Acid/Vit B Comp W-C PO SCH (14:11)
[2017-02-06] MEDS: FLUoxetine HCl 20 MG CAP PO SCH (14:11)
[2017-02-06] MEDS: Atorvastatin Calcium 40 MG TAB PO SCH (14:11)
[2017-02-06] MEDS: Aspirin 81 mg Enteric Coated Tablet PO SCH (14:12)
[2017-02-06] MEDS: Famotidine 20 MG TAB PO SCH (14:12)
[2017-02-06] MEDS: Senokot S 8.6-50 MG TAB PO SCH ×2 (14:12→20:53)
[2017-02-06] MEDS: Clopidogrel Bisulfate 75 MG TAB PO SCH (14:12)
[2017-02-06] MEDS: Ferrous Sulfate 325 MG TAB PO SCH (14:12)
[2017-02-06] MEDS: Polyethylene Glycol 3350 17 GM Packet PO SCH (14:13)
--- NOTE | 2017-02-06 17:01 | PRG-2 ---
SURGERY PROGRESS NOTE DATE OF SERVICE: 02/06/2017 SUBJECTIVE: Ms. Rosy Nichols is a 76-year-old female who is status post ground level fall in which she sustained a right femoral neck fracture. She has undergone open reduction and internal fixation/hem iarthroplasty. She tolerated the procedure well. After hemiarthroplasty put on 02/02/2017, she tole rated the procedure well. This morning, she was doing well on the surgical floor. She has no compla ints. She is eating and drinking, tolerating p.o. food and fluids. Pain is well controlled. She mccray s not had a bowel movement yet. OBJECTIVE: VITAL SIGNS: Temperature 98.2, pulse 63, respiratory rate 24, O2 sat 92% on 4 liters and blood press ure is 115/51. GENERAL: The patient is resting comfortably. She is alert and oriented x4 and GCS is 15. LUNGS: Clear to auscultation with normal effort. HEART: Regular rate and rhythm. No murmurs. ABDOMEN: Soft and nontender. Bowel sounds x4. EXTREMITIES: Neurovascularly intact x4. Postop dressing is clean, dry and intact. LABORATORY DATA: On 02/06/2017, white blood cell count 8.5, hemoglobin 7.5, hematocrit 23.3 and plat elet count 157. Sodium 129, potassium 5.1, chloride 94, carbon dioxide 25, BUN 46, creatinine 4.81 a nd glucose 136. ASSESSMENT: 1. Status post ground level fall. 2. Acute on chronic renal failure: The patient received dialysis today. 3. Status post left hemiarthroplasty. PLAN: 1. Continue physical and occupational therapy, continue pain management. The patient will likely ne ed placement in a rehabilitation facility. 2. Hyponatremia. We will restrict free water to 1200 mL per day. We will continue to monitor and r echeck BMP in the morning. The plan was discussed with Dr. Frazier this morning during rounds.
[2017-02-06] MEDS: traMADol HCl 50 MG TAB PO PRN (18:58)
--- NOTE | 2017-02-06 20:42 | PRG ---
DATE OF SERVICE: 02/06/2017 SUBJECTIVE: Patient was seen and examined at bedside and overnight events noted. Patient denies any shortness of breath or chest pain or palpitation. No history of nausea or vomiting or diarrhea or f ever or chills or cramps. OBJECTIVE: GENERAL: This is a well-built female in no acute distress. VITAL SIGNS: Temperature 98.2, pulse 60, respiratory rate , blood pressure 124/52. HEENT: Atraumatic and normocephalic. Oral mucosa is moist. NECK: Supple. CARDIOVASCULAR: S1 and S2 heard. Rate and rhythm regular. RESPIRATORY: Clear to auscultation. GASTROINTESTINAL: Abdomen is soft. MUSCULOSKELETAL: No tenderness. No edema. DERMATOLOGIC: No skin rash. NEUROLOGIC: Alert, awake and oriented x3. No focal neurologic deficits. Moving all the extremities . PSYCHIATRIC: Mood and affect normal. LABORATORY DATA: Potassium is 5.1, BUN is 46 and creatinine is 4.8. ASSESSMENT AND PLAN: 1. End-stage renal disease. We will continue on hemodialysis Monday, Monday and Monday. 2. Hypertension. 3. Anemia. 4. Edema, controlled. 5. Hyperkalemia. Limit potassium in the diet. 6. Hyponatremia. Limit fluid intake. The patient was advised to limit fluid intake. We will continue on dialysis as tolerated.
[2017-02-07] MEDS: Acetaminophen 500 MG TAB PO SCH ×4 (00:52→20:07)
[2017-02-07 06:11] LABS: Anion Gap 13 mmol/L (10-20); BUN (Urea Nitrogen) 26 mg/dL (9.8-20.1); Calc. Creatinine Clearance 16 mL/min (70-130); Calcium 7.9 mg/dL (7.8-10.44); Carbon Dioxide 29 mmol/L (23-31); Chloride 97 mmol/L (98-107); Estimated GFR-MDRD 17; Magnesium 2.1 mg/dL (1.6-2.6); Phosphorus 3.9 mg/dL (2.3-4.7)
[2017-02-07] MEDS: Folic Acid/Vit B Comp W-C PO SCH (08:28)
[2017-02-07] MEDS: Ferrous Sulfate 325 MG TAB PO SCH ×2 (08:29→17:31)
[2017-02-07] MEDS: Losartan Potassium 25 MG TAB PO SCH (08:30)
[2017-02-07] MEDS: NIFEdipine XL 60 MG TAB PO SCH (08:31)
[2017-02-07] MEDS: Polyethylene Glycol 3350 17 GM Packet PO SCH (08:38)
[2017-02-07] MEDS: Senokot S 8.6-50 MG TAB PO SCH ×2 (08:39→20:07)
[2017-02-07] MEDS: Clopidogrel Bisulfate 75 MG TAB PO SCH (08:40)
[2017-02-07] MEDS: Sevelamer Carbonate 800 MG TAB PO SCH ×3 (08:40→17:31)
[2017-02-07] MEDS: Aspirin 81 mg Enteric Coated Tablet PO SCH (08:40)
[2017-02-07] MEDS: Hydrocortisone Acetate 25 MG Suppository PR SCH ×3 (08:40→20:08)
[2017-02-07] MEDS: Famotidine 20 MG TAB PO SCH (08:41)
[2017-02-07] MEDS: Atorvastatin Calcium 40 MG TAB PO SCH (08:41)
[2017-02-07] MEDS: FLUoxetine HCl 20 MG CAP PO SCH (08:41)
[2017-02-07] MEDS: diphenhydrAMINE 2% CREAM 28.4 GM TUBE TOP SCH ×2 (08:41→20:08)
[2017-02-07] MEDS: Carvedilol 25 MG TAB PO SCH ×2 (08:43→20:07)
[2017-02-07] MEDS: Ammonium Lactate 12% Lotion 225 GM BOT TOP SCH ×2 (08:43→20:08)
--- NOTE | 2017-02-07 13:36 | PDOC.PN ---
- Subjective Encounter Start Date: 02/07/17 Encounter Start Time: 13:35 Subjective: pt sellepy and confused today. -: at bedisde and reports that she was having more pain w high BP - Objective MAR Reviewed: Yes Vital Signs & Weight: Vital Signs (12 hours) Temp Pulse Resp BP BP Pulse Ox 02/07/17 11:16 97 F L 56 L 14 183/66 H 95 02/07/17 11:03 60 188/66 H 02/07/17 08:31 60 205/63 H 02/07/17 07:55 97.6 F 60 18 98 02/07/17 07:17 97.6 F 60 18 199/66 H 98 02/07/17 04:06 94 L Weight Admit Weight 129 lb 9.6 oz Weight 128 lb 9.6 oz I&O: 02/06/17 02/07/17 02/08/17 06:59 06:59 06:59 Intake Total 960 540 Balance 960 540 Result Diagrams: 02/06/17 04:42 02/07/17 05:13 Additional Labs: Accuchecks 02/07/17 02/07/17 02/06/17 10:57 06:40 21:22 POC Glucose 92 100 107 02/06/17 15:57 POC Glucose 176 H Laboratory Tests 02/02/17 02/03/17 02/04/17 16:55 04:44 04:23 Sodium 138 134 L 133 L 02/05/17 02/06/17 02/07/17 04:33 04:42 05:13 Sodium 130 L 129 L 135 L Phys Exam - Physical Examination appears pale and confused HEENT: PERRLA, moist MMs, sclera anicteric, oral pharynx no lesions Neck: no nodes, no JVD, supple, full ROM Respiratory: no wheezing, no rales, no rhonchi, clear to auscultation bilateral Cardiovascular: RRR, no significant murmur Gastrointestinal: soft, non-tender, no distention, positive bowel sounds Musculoskeletal: no edema, pulses present Neurological: non-focal, normal sensation, moves all 4 limbs Psychiatric: normal affect, A&O x 3 Skin: no rash Dx/Plan (1) Delirium Code(s): R41.0 - DISORIENTATION, UNSPECIFIED Status: Acute (2) Hyponatremia Code(s): E87.1 - HYPO-OSMOLALITY AND HYPONATREMIA Status: Acute Comment: improving. (3) Right femoral fracture Code(s): S72.91XA - UNSP FRACTURE OF RIGHT FEMUR, INIT FOR CLOS FX Status: Acute Qualifiers: Fracture type: closed Comment: s/p hemiarthroplasty (4) Chronic respiratory failure with hypoxia Code(s): J96.11 - CHRONIC RESPIRATORY FAILURE WITH HYPOXIA Status: Chronic (5) Chronic diastolic heart failure Code(s): I50.32 - CHRONIC DIASTOLIC (CONGESTIVE) HEART FAILURE Status: Chronic (6) HTN (hypertension) Code(s): I10 - ESSENTIAL (PRIMARY) HYPERTENSION Status: Chronic (7) Anemia of renal disease Code(s): D63.1 - ANEMIA IN CHRONIC KIDNEY DISEASE Status: Chronic (8) CAD (coronary artery disease) Code(s): I25.10 - ATHSCL HEART DISEASE OF [place] CORONARY ARTERY W/O ANG PCTRS Status: Chronic (9) Diabetes mellitus type 2 Code(s): E11.9 - TYPE 2 DIABETES MELLITUS WITHOUT COMPLICATIONS Status: Chronic Comment: ? diet managed, follow accuchecks (10) ESRD (end stage renal disease) on dialysis Code(s): N18.6 - END STAGE RENAL DISEASE; Z99.2 - DEPENDENCE ON RENAL DIALYSIS Status: Chronic Comment: Volume overload initially, HD per Renal service (11) Hyperlipidemia Code(s): E78.5 - HYPERLIPIDEMIA, UNSPECIFIED Status: Chronic (12) Secondary hyperparathyroidism of renal origin Code(s): N25.81 - SECONDARY HYPERPARATHYROIDISM OF RENAL ORIGIN Status: Chronic - Plan DVT proph w/SCDs sodium improving.will relax fluid restriction.reduce IVF to avoid fluid OL. -: HD per nephrology. -: limit narcotics & sedatives. -: optimize BP.daily labs. -: will follow * . Review of Systems - Review of Systems Other: unable to obtain due to somnolence - Medications/Allergies Allergies/Adverse Reactions: Allergies Allergy/AdvReac Type Severity Reaction Status Date / Time erythromycin base Allergy Verified 06/29/16 06:30 Iodine and Iodide Containing Allergy Verified 06/29/16 06:30 Produc oxytetracycline Allergy Verified 06/29/16 06:30 [From Terramycin] oxytetracycline HCl Allergy Verified 06/29/16 06:30 [From Terramycin] pregabalin [From Lyrica] Allergy Verified 06/29/16 06:30 Medications: Current Medications Acetaminophen (Tylenol) 1,000 mg PO 0200,0800,1400,2000 [facility] Last Admin: 02/07/17 13:22 Dose: 1,000 mg Al Hydroxide/Mg Hydroxide (Maalox) 15 ml PO Q4H PRN PRN Reason: Heartburn or Indigestion Ammonium Lactate (Laclotion) 1 gm TOP BID [facility] Last Admin: 02/07/17 08:43 Dose: Not Given Ascorbic Acid (Vitamin C) 500 mg PO DAILY [facility] Aspirin (Ecotrin) 81 mg PO DAILY [facility] Last Admin: 02/07/17 08:40 Dose: 81 mg Atorvastatin Calcium (Lipitor) 80 mg PO DAILY [facility] Last Admin: 02/07/17 08:41 Dose: 80 mg Benzonatate (Tessalon) 100 mg PO Q4H PRN PRN Reason: Cough Bisacodyl (Dulcolax) 10 mg PO DAILYPRN PRN PRN Reason: Constipation Bisacodyl (Dulcolax) 10 mg OR DAILYPRN PRN PRN Reason: Constipation Carvedilol (Coreg) 25 mg PO BID [facility] Last Admin: 02/07/17 08:43 Dose: 25 mg Clopidogrel Bisulfate (Plavix) 75 mg PO DAILY [facility] Last Admin: 02/07/17 08:40 Dose: 75 mg Dextrose/Water (Dextrose 50%) 25 gm SLOW IVP PRN PRN PRN Reason: Hypoglycemia Famotidine (Pepcid) 20 mg PO DAILY [facility] Last Admin: 02/07/17 08:41 Dose: 20 mg Fentanyl (Sublimaze) 50 mcg SLOW IVP Q20M PRN PRN Reason: Severe Pain (7-10) Last Admin: 02/04/17 00:14 Dose: 50 mcg [facility] Fluoxetine HCl (Prozac) 20 mg PO DAILY [facility] Last Admin: 02/07/17 08:41 Dose: 20 mg Glucagon (Glucagon) 1 mg IM PRN PRN PRN Reason: Hypoglycemia Guaifenesin (Robitussin Sf) 200 mg PO Q4H PRN PRN Reason: Cough Hydralazine HCl (Apresoline) 10 mg SLOW IVP Q6H PRN PRN Reason: SBP Greater Than 170 Hydralazine HCl (Apresoline) 25 mg PO TID PRN PRN Reason: SBP Greater Than 170 Last Admin: 02/07/17 11:03 Dose: 25 mg Hydrocortisone Acetate (Anusol-Hc) 25 mg OR BID [facility] Last Admin: 02/07/17 12:41 Dose: 25 mg Dextrose/Water (D5w) 1,000 mls @ 0 mls/hr IV .Q0M PRN; As Directed PRN Reason: Hypoglycemia Insulin Human Lispro (Humalog) 0 units SC .MODERATE SLIDING SC PRN PRN Reason: Moderate Correctional Scale Insulin Human Lispro (Humalog) 0 units SC .BEDTIME SLIDING SC PRN PRN Reason: Bedtime Correctional Scale Isosorbide Mononitrate (Imdur Er) 30 mg PO DAILY [facility] Last Admin: 02/07/17 08:31 Dose: 30 mg Loratadine (Claritin) 10 mg PO DAILYPRN PRN PRN Reason: Sinus Symptoms Losartan Potassium (Cozaar) 50 mg PO DAILY [facility] Last Admin: 02/07/17 08:30 Dose: 50 mg Magnesium Hydroxide (Milk Of Magnesium) 30 ml PO DAILYPRN PRN PRN Reason: Constipation Nifedipine (Procardia Xl) 60 mg PO DAILY [facility] Last Admin: 02/07/17 08:31 Dose: 60 mg Nitroglycerin (Nitrostat) 0.4 mg SL Q5MIN PRN PRN Reason: Chest Pain Ondansetron HCl (Zofran) 4 mg IVP Q6H PRN PRN Reason: Nausea Polyethylene Glycol (Miralax) 17 gm PO DAILY [facility] Last Admin: 02/07/17 08:38 Dose: Not Given Senna (Senokot) 2 tab PO HSPRN PRN PRN Reason: Constipation Senna/Docusate Sodium (Senokot S) 2 tab PO BID [facility] Last Admin: 02/07/17 08:39 Dose: Not Given Sevelamer Carbonate (Renvela) 800 mg PO TID-[facility] Last Admin: 02/07/17 12:04 Dose: 800 mg Sodium Biphosphate/Sodium Phosphate (Fleet Enema) 133 ml OR DAILYPRN PRN PRN Reason: Constipation Sodium Chloride (Flush - Normal Saline) 10 ml IVF PRN PRN PRN Reason: Saline Flush Last Admin: 02/04/17 20:58 Dose: 10 ml Throat Lozenges (Cepastat Lozenges) 1 jefferson PO Q2H PRN PRN Reason: Sore Throat Tramadol HCl (Ultram) 50 mg PO Q12H PRN PRN Reason: Moderate Pain (4-6) Last Admin: 02/05/17 05:20 Dose: 50 mg Tramadol HCl (Ultram) 100 mg PO Q12H PRN PRN Reason: Severe Pain (7-10) Last Admin: 02/06/17 18:58 Dose: 100 mg Vitamin B Complex/Vit C/Folic Acid (Nephro-Ana Tablet) 1 tab PO DAILY [facility] Last Admin: 02/07/17 08:28 Dose: 1 tab Zinc Acetate/Diphenhydramine (Benadryl 2% Cream) 1 gm TOP BID [facility] Last Admin: 02/07/17 08:41 Dose: Not Given
--- NOTE | 2017-02-07 15:55 | PRG-2 ---
DATE OF SERVICE: 02/07/2017 ATTENDING SURGEON: Luiz Frazier D.O. SUBJECTIVE: Ms. Rosy Nichols is a 76-year-old female who is status post ground level fall in which she has sustained a right femoral neck fracture. She has undergone open reduction and internal fixation /hemiarthroplasty. She tolerated the procedure well. This morning, she was a little upset, but stab le on the surgery floor. She was frustrated because she was not brought the meal that he ordered. S he is tolerating p.o. well. Pain seems well controlled. She has had a bowel movement today. She st ates she is ready to go home. OBJECTIVE: VITAL SIGNS: Temperature 97, pulse 56, blood pressure 183/66, respiratory 14, O2 sat 95% on 3 liters . GENERAL: The patient is resting comfortably in bed. She is alert and oriented x4. GCS of 15. LUNGS: Clear to auscultation with normal effort. HEART: Regular rate and rhythm. No murmurs. ABDOMEN: Soft, nontender. Bowel sounds normoactive x4. EXTREMITIES: Neurovascularly intact x4. Postop dressing is clean, dry, and intact. LABORATORY DATA: No new laboratory data since 02/06/2017, with the exception of BMP: Sodium 135, po tassium 3.9, chloride 97, carbon dioxide 29, BUN 26, creatinine 2.74, glucose 95, calcium 7.9, phosph orus 3.9, magnesium 2.1. ASSESSMENT: 1. Status post ground level fall. 2. Acute on chronic renal failure. The patient received dialysis yesterday. Patient normally recei ves dialysis on Monday, Monday, and Monday. 3. Status post left hemiarthroplasty. PLAN: Continue physical and occupational therapy. Continue pain management. The patient may need p lacement at rehabilitation facility. We will continue free water restriction and following BMPs. Th e patient will likely be discharged today or tomorrow. Plan was discussed with Dr. Frazier this morning during rounds.
[2017-02-07] MEDS: traMADol HCl 50 MG TAB PO PRN (17:33)
--- NOTE | 2017-02-07 23:55 | PRG ---
DATE OF SERVICE: 02/07/2017 SUBJECTIVE: Patient was seen and examined at bedside and overnight events noted. Patient denies any shortness of breath or chest pain or palpitation. No history of nausea or vomiting or diarrhea or f ever or chills or cramps. OBJECTIVE: GENERAL: This is a thin built female, in no apparent distress. VITAL SIGNS: Temperature 97, pulse , blood pressure 159/58. HEENT: Atraumatic, normocephalic, Oral mucosa is moist. NECK: Supple. CARDIOVASCULAR: S1, S2 heard, rate and rhythm regular. RESPIRATORY: Clear to auscultation. GASTROINTESTINAL: Abdomen is soft. MUSCULOSKELETAL: No tenderness, no edema. DERMATOLOGIC: No skin rash. NEUROLOGIC: Alert and awake and oriented x3. No focal neurologic deficits. Moving all the extremit ies. PSYCHIATRIC: Mood and affect normal. LABORATORY DATA: Potassium is 3.9, BUN is 26, creatinine is 2.7. ASSESSMENT AND PLAN: 1. End-stage renal disease on hemodialysis. Plan is to continue on dialysis as tolerated. 2. Edema. 3. Hypertension. 4. Anemia. We will continue on dialysis Monday, Monday, and Monday as tolerated.
[2017-02-08] MEDS: Acetaminophen 500 MG TAB PO SCH ×3 (02:17→13:53)
[2017-02-08 05:59] LABS: Anion Gap 14 mmol/L (10-20); BUN (Urea Nitrogen) 39 mg/dL (9.8-20.1); Calc. Creatinine Clearance 12 mL/min (70-130); Calcium 7.8 mg/dL (7.8-10.44); Carbon Dioxide 28 mmol/L (23-31); Chloride 95 mmol/L (98-107); Estimated GFR-MDRD 12; Magnesium 2.2 mg/dL (1.6-2.6); Phosphorus 4.2 mg/dL (2.3-4.7)
[2017-02-08] MEDS ORDERED: Ascorbic Acid 500 mg Chewable Tablet PO SCH (09:00)
[2017-02-08] MEDS: Sevelamer Carbonate 800 MG TAB PO SCH ×3 (11:26→16:51)
[2017-02-08] MEDS: traMADol HCl 50 MG TAB PO PRN (11:27)
[2017-02-08 13:44] VITALS: TEMP 97.4
[2017-02-08] MEDS: NIFEdipine XL 60 MG TAB PO SCH (13:48)
[2017-02-08] MEDS: Aspirin 81 mg Enteric Coated Tablet PO SCH (13:52)
[2017-02-08] MEDS: Losartan Potassium 25 MG TAB PO SCH (13:52)
[2017-02-08] MEDS: FLUoxetine HCl 20 MG CAP PO SCH (13:52)
[2017-02-08] MEDS: Atorvastatin Calcium 40 MG TAB PO SCH (13:53)
[2017-02-08] MEDS: Folic Acid/Vit B Comp W-C PO SCH (13:53)
[2017-02-08] MEDS: Ferrous Sulfate 325 MG TAB PO SCH ×2 (13:54→16:51)
[2017-02-08] MEDS: Clopidogrel Bisulfate 75 MG TAB PO SCH (13:54)
[2017-02-08] MEDS: Carvedilol 25 MG TAB PO SCH (13:55)
[2017-02-08] MEDS: Famotidine 20 MG TAB PO SCH (13:55)
[2017-02-08] MEDS: Hydrocortisone Acetate 25 MG Suppository PR SCH (14:03)
[2017-02-08] MEDS: diphenhydrAMINE 2% CREAM 28.4 GM TUBE TOP SCH (14:03)
[2017-02-08] MEDS: Polyethylene Glycol 3350 17 GM Packet PO SCH (14:03)
[2017-02-08] MEDS: Ammonium Lactate 12% Lotion 225 GM BOT TOP SCH (14:03)
[2017-02-08] MEDS: Senokot S 8.6-50 MG TAB PO SCH (14:04)
--- NOTE | 2017-02-08 15:08 | PDOC.PN ---
- Subjective Encounter Start Date: 02/08/17 Encounter Start Time: 15:07 Subjective: seen in HD. feels better. no new complaints. -: "i am going to rehab" - Objective MAR Reviewed: Yes Vital Signs & Weight: Vital Signs (12 hours) Temp Pulse Resp BP BP Pulse Ox 02/08/17 13:48 64 178/80 H 02/08/17 12:45 97.4 F L 62 16 171/75 H 95 02/08/17 04:46 98.6 F 62 18 169/78 H 91 L Weight Admit Weight 129 lb 9.6 oz Weight 128 lb 9.6 oz I&O: 02/07/17 02/08/17 02/09/17 06:59 06:59 06:59 Intake Total 540 1150 0 Balance 540 1150 0 Result Diagrams: 02/06/17 04:42 02/08/17 04:07 Additional Labs: Accuchecks 02/08/17 02/07/17 02/07/17 05:26 20:47 15:57 POC Glucose 99 144 H 127 H Laboratory Tests 02/02/17 02/03/17 02/04/17 16:55 04:44 04:23 Sodium 138 134 L 133 L 02/05/17 02/06/17 02/07/17 04:33 04:42 05:13 Sodium 130 L 129 L 135 L 02/08/17 04:07 Sodium 133 L Phys Exam - Physical Examination Constitutional: NAD pale HEENT: PERRLA, sclera anicteric, oral pharynx no lesions dry mucosa Neck: no nodes, no JVD, supple, full ROM Respiratory: no wheezing, no rales, no rhonchi, clear to auscultation bilateral Cardiovascular: RRR, no significant murmur Gastrointestinal: soft, non-tender, no distention, positive bowel sounds Musculoskeletal: no edema, pulses present Neurological: non-focal, normal sensation, moves all 4 limbs Psychiatric: normal affect, A&O x 3 Skin: no rash Dx/Plan (1) Hyponatremia Code(s): E87.1 - HYPO-OSMOLALITY AND HYPONATREMIA Status: Acute Comment: improving. (2) Delirium Code(s): R41.0 - DISORIENTATION, UNSPECIFIED Status: Resolved (3) Right femoral fracture Code(s): S72.91XA - UNSP FRACTURE OF RIGHT FEMUR, INIT FOR CLOS FX Status: Acute Qualifiers: Fracture type: closed Comment: s/p hemiarthroplasty (4) Chronic respiratory failure with hypoxia Code(s): J96.11 - CHRONIC RESPIRATORY FAILURE WITH HYPOXIA Status: Chronic (5) Chronic diastolic heart failure Code(s): I50.32 - CHRONIC DIASTOLIC (CONGESTIVE) HEART FAILURE Status: Chronic (6) HTN (hypertension) Code(s): I10 - ESSENTIAL (PRIMARY) HYPERTENSION Status: Chronic (7) Anemia of renal disease Code(s): D63.1 - ANEMIA IN CHRONIC KIDNEY DISEASE Status: Chronic (8) CAD (coronary artery disease) Code(s): I25.10 - ATHSCL HEART DISEASE OF [place] CORONARY ARTERY W/O ANG PCTRS Status: Chronic (9) Diabetes mellitus type 2 Code(s): E11.9 - TYPE 2 DIABETES MELLITUS WITHOUT COMPLICATIONS Status: Chronic Comment: ? diet managed, follow accuchecks (10) ESRD (end stage renal disease) on dialysis Code(s): N18.6 - END STAGE RENAL DISEASE; Z99.2 - DEPENDENCE ON RENAL DIALYSIS Status: Chronic Comment: Volume overload initially, HD per Renal service (11) Hyperlipidemia Code(s): E78.5 - HYPERLIPIDEMIA, UNSPECIFIED Status: Chronic (12) Secondary hyperparathyroidism of renal origin Code(s): N25.81 - SECONDARY HYPERPARATHYROIDISM OF RENAL ORIGIN Status: Chronic - Plan DVT proph w/SCDs delirium resolved.monitor. -: sodium improving. cont gentle free water restriction.rest per nephrology -: HD MWF. -: cont home meds as below. -: Ok for rebaf from IM stand point w PCP f/u.meds reviewed * . Review of Systems - Review of Systems Constitutional: Weakness, Malaise. negative: Fever, Chills, Sweats, Other ENT: negative: Ear Pain, Ear Discharge, Nose Pain, Nose Discharge, Nose Congestion, Mouth Pain, Mouth Swelling, Throat Pain, Throat Swelling, Other Respiratory: negative: Cough, Dry, Shortness of Breath, Hemoptysis, SOB with Excertion, Pleuritic Pain, Sputum, Wheezing Cardiovascular: negative: Chest Pain, Palpitations, Orthopnea, Paroxysmal Noc. Dyspnea, Edema, Light Headedness, Other Gastrointestinal: negative: Nausea, Vomiting, Abdominal Pain, Diarrhea, Constipation, Melena, Hematochezia, Other Genitourinary: negative: Dysuria, Frequency, Incontinence, Hematuria, Retention , Other Musculoskeletal: negative: Neck Pain, Shoulder Pain, Arm Pain, Back Pain, Hand Pain, Leg Pain, Foot Pain, Other Neurological: negative: Weakness, Numbness, Incoordination, Change in Speech, Confusion, Seizures, Other - Medications/Allergies Allergies/Adverse Reactions: Allergies Allergy/AdvReac Type Severity Reaction Status Date / Time erythromycin base Allergy Verified 06/29/16 06:30 Iodine and Iodide Containing Allergy Verified 06/29/16 06:30 Produc oxytetracycline Allergy Verified 06/29/16 06:30 [From Terramycin] oxytetracycline HCl Allergy Verified 06/29/16 06:30 [From Terramycin] pregabalin [From Lyrica] Allergy Verified 06/29/16 06:30 Medications: Current Medications Acetaminophen (Tylenol) 1,000 mg PO 0200,0800,1400,2000 [facility] Last Admin: 02/08/17 13:53 Dose: 1,000 mg Al Hydroxide/Mg Hydroxide (Maalox) 15 ml PO Q4H PRN PRN Reason: Heartburn or Indigestion Ammonium Lactate (Laclotion) 1 gm TOP BID [facility] Last Admin: 02/08/17 14:03 Dose: Not Given Ascorbic Acid (Vitamin C) 500 mg PO DAILY [facility] Last Admin: 02/08/17 14:03 Dose: Not Given Aspirin (Ecotrin) 81 mg PO DAILY [facility] Last Admin: 02/08/17 13:52 Dose: 81 mg Atorvastatin Calcium (Lipitor) 80 mg PO DAILY [facility] Last Admin: 02/08/17 13:53 Dose: 80 mg Benzonatate (Tessalon) 100 mg PO Q4H PRN PRN Reason: Cough Bisacodyl (Dulcolax) 10 mg PO DAILYPRN PRN PRN Reason: Constipation Bisacodyl (Dulcolax) 10 mg MN DAILYPRN PRN PRN Reason: Constipation Carvedilol (Coreg) 25 mg PO BID [facility] Last Admin: 02/08/17 13:55 Dose: Not Given Clopidogrel Bisulfate (Plavix) 75 mg PO DAILY [facility] Last Admin: 02/08/17 13:54 Dose: 75 mg Dextrose/Water (Dextrose 50%) 25 gm SLOW IVP PRN PRN PRN Reason: Hypoglycemia Famotidine (Pepcid) 20 mg PO DAILY [facility] Last Admin: 02/08/17 13:55 Dose: 20 mg Fentanyl (Sublimaze) 50 mcg SLOW IVP Q20M PRN PRN Reason: Severe Pain (7-10) Last Admin: 02/04/17 00:14 Dose: 50 mcg Ferrous Sulfate (Feosol) 325 mg PO BID[facility] Last Admin: 02/08/17 13:54 Dose: Not Given Fluoxetine HCl (Prozac) 20 mg PO DAILY [facility] Last Admin: 02/08/17 13:52 Dose: 20 mg Glucagon (Glucagon) 1 mg IM PRN PRN PRN Reason: Hypoglycemia Guaifenesin (Robitussin Sf) 200 mg PO Q4H PRN PRN Reason: Cough Hydralazine HCl (Apresoline) 10 mg SLOW IVP Q6H PRN PRN Reason: SBP Greater Than 170 Hydralazine HCl (Apresoline) 25 mg PO TID PRN PRN Reason: SBP Greater Than 170 Last Admin: 02/07/17 11:03 Dose: 25 mg Hydrocortisone Acetate (Anusol-Hc) 25 mg MN BID [facility] Last Admin: 02/08/17 14:03 Dose: Not Given Dextrose/Water (D5w) 1,000 mls @ 0 mls/hr IV .Q0M PRN; As Directed PRN Reason: Hypoglycemia Insulin Human Lispro (Humalog) 0 units SC .MODERATE SLIDING SC PRN PRN Reason: Moderate Correctional Scale Insulin Human Lispro (Humalog) 0 units SC .BEDTIME SLIDING SC PRN PRN Reason: Bedtime Correctional Scale Isosorbide Mononitrate (Imdur Er) 30 mg PO DAILY [facility] Last Admin: 02/08/17 13:55 Dose: 30 mg Loratadine (Claritin) 10 mg PO DAILYPRN PRN PRN Reason: Sinus Symptoms Losartan Potassium (Cozaar) 75 mg PO DAILY [facility] Magnesium Hydroxide (Milk Of Magnesium) 30 ml PO DAILYPRN PRN PRN Reason: Constipation Nifedipine (Procardia Xl) 60 mg PO DAILY [facility] Last Admin: 02/08/17 13:48 Dose: 60 mg Nitroglycerin (Nitrostat) 0.4 mg SL Q5MIN PRN PRN Reason: Chest Pain Ondansetron HCl (Zofran) 4 mg IVP Q6H PRN PRN Reason: Nausea Polyethylene Glycol (Miralax) 17 gm PO DAILY [facility] Last Admin: 02/08/17 14:03 Dose: Not Given Senna (Senokot) 2 tab PO HSPRN PRN PRN Reason: Constipation Senna/Docusate Sodium (Senokot S) 2 tab PO BID [facility] Last Admin: 02/08/17 14:04 Dose: Not Given Sevelamer Carbonate (Renvela) 800 mg PO TID-WM [facility] Last Admin: 02/08/17 13:52 Dose: 800 mg Sodium Biphosphate/Sodium Phosphate (Fleet Enema) 133 ml MN DAILYPRN PRN PRN Reason: Constipation Sodium Chloride (Flush - Normal Saline) 10 ml IVF PRN PRN PRN Reason: Saline Flush Last Admin: 02/04/17 20:58 Dose: 10 ml Throat Lozenges (Cepastat Lozenges) 1 jefferson PO Q2H PRN PRN Reason: Sore Throat Tramadol HCl (Ultram) 50 mg PO Q12H PRN PRN Reason: Moderate Pain (4-6) Last Admin: 02/05/17 05:20 Dose: 50 mg Tramadol HCl (Ultram) 100 mg PO Q12H PRN PRN Reason: Severe Pain (7-10) Last Admin: 02/08/17 11:27 Dose: 100 mg Vitamin B Complex/Vit C/Folic Acid (Nephro-Ana Tablet) 1 tab PO DAILY [facility] Last Admin: 02/08/17 13:53 Dose: 1 tab Zinc Acetate/Diphenhydramine (Benadryl 2% Cream) 1 gm TOP BID [facility] Last Admin: 02/08/17 14:03 Dose: Not Given
[2017-02-08 16:43] VITALS: BP 192/79
--- NOTE | 2017-02-08 23:42 | PRG ---
DATE OF SERVICE: 02/08/2017 SUBJECTIVE: Patient was seen and examined at bedside and overnight events noted. Patient denies any shortness of breath or chest pain or palpitation. No history of nausea or vomiting or diarrhea or f ever or chills or cramps. OBJECTIVE: GENERAL: This is a thin built female in no apparent distress. VITAL SIGNS: Temperature 97, pulse 50, repirations , blood pressure 169/60. HEENT: Atraumatic, normocephalic, oral mucosa is moist. NECK: Supple. CARDIOVASCULAR: S1, S2 heard, rate and rhythm regular. RESPIRATORY: Clear to auscultation. GASTROINTESTINAL: Abdomen is soft. MUSCULOSKELETAL: No tenderness, no edema. DERMATOLOGIC: No skin rash. NEUROLOGIC: Alert and awake and oriented x3, no focal neurologic deficits. Moving all the extremiti es. PSYCHIATRIC: Mood and affect normal. LABORATORY DATA: Potassium is 4.2, BUN is 39, creatinine 3.0. ASSESSMENT AND PLAN: 1. End-stage renal disease. The patient was seen on dialysis, continue on dialysis Monday, , and Monday. 2. Anemia. We will transfuse today. 3. Edema, controlled. 4. Hypertension, stable. Plan is to transfuse to have dialysis. Continue on dialysis Monday, Monday, and Monday. Advise l imit fluid intake.
--- NOTE | 2017-02-09 01:16 | DIS ---
Odilia Davenport NP, dictating for Luiz Frazier DO DATE OF ADMISSION: 02/02/2017 DATE OF DISCHARGE: 02/08/2017 REASON FOR HOSPITALIZATION: Ground level fall with right hip fracture. PROCEDURES PERFORMED: 02/03/2017, right hip hemiarthroplasty, Conrado Diamond M.D. DISCHARGE CONDITION: Stable. PHYSICAL EXAMINATION: VITAL SIGNS: Temperature 97.4, pulse 56, respirations 16, O2 saturation 97%, blood pressure 169/60 SUMMARY: Ms. Nichols is a 76-year-old female who sustained a ground level fall. She was transported to the [facility]. Workup in the emergency department demonstrated a right femoral neck fracture. She was admitted to the hospital by the Trauma Service. Consult was made to Dr. Conrado Diamond, Orthopedics. Dr. Feliberto Mccann, Cardiology, was consulted for patient's previous cardiac issues and management of coronary artery disease. Dr. Zelalem Arndt was consulted for management of chronic kidney disease and maintaining hemodialysis. She was taken to the operating room on 02/03/[address] Conrado Diamond for fixation of her hip fracture. She was then managed on the trauma surgical floor. She began mobilizing with PT, OT. She continued to be followed by the Hospitalist and Cardiology. She had no postoperative complications and continued her regular hemodialysis. Case management was consulted for discharge planning and rehabilitation referral was made. She was accepted to [facility]. She was discharged to [facility] in good condition. She will continue her hemodialysis at [facility]. She will follow up with Dr. Conrado Diamond in 10 days; Dr. Alida Benson, PCP; Dr. Zelalem Arndt, Nephrology, as well as Cardiology. The patient was seen and examined with Dr. Frazier, attending trauma surgeon. JUDAH
[2017-02-09] MEDS ORDERED: Losartan Potassium 25 MG TAB PO SCH (09:00)
--- NOTE | 2017-03-11 14:59 | EKG ---
Test Reason : Blood Pressure : / mmHG Vent. Rate : 060 BPM Atrial Rate : 037 BPM P-R Int : 000 ms QRS Dur : 112 ms QT Int : 518 ms P-R-T Axes : 000 037 157 degrees QTc Int : 518 ms Atrial fibrillation Possible Inferior infarct , age undetermined Prolonged QT Abnormal ECG Confirmed by PAYTON CHURCH D.O. ([id number]), story editor SHAYLA DUVALL ([id number]) on 03/11/2017 2:58:51 PM Referred By: Confirmed By:PAYTON CHURCH D.O.
== END 2017-02-08 18:10 | DRG 469 ==
LOC: ERS 16:07 → IMCU/EMU 18:00 → SURG A 02-04 15:40
PROVIDERS: ADMIT Specialist; ATTEND Specialist
PROC: 0SRR01A Replacement of Right Hip Joint, Femoral Surface with Metal Synthetic Substitute, Uncemented, Open Approach (ICD-10-PCS; principal; 2017-02-03)
DX: S72.011A Unspecified intracapsular fracture of right femur, initial encounter for closed fracture (principal); N18.6 End stage renal disease; N17.9 Acute kidney failure, unspecified; I13.2 Hypertensive heart and chronic kidney disease with heart failure and with stage 5 chronic kidney disease, or end stage renal disease; E87.1 Hypo-osmolality and hyponatremia; I50.32 Chronic diastolic (congestive) heart failure; J96.11 Chronic respiratory failure with hypoxia; N25.81 Secondary hyperparathyroidism of renal origin; E11.22 Type 2 diabetes mellitus with diabetic chronic kidney disease; Z99.81 Dependence on supplemental oxygen; Z88.8 Allergy status to other drugs, medicaments and biological substances; Z88.1 Allergy status to other antibiotic agents; Z91.041 Radiographic dye allergy status; Z99.2 Dependence on renal dialysis; J44.9 Chronic obstructive pulmonary disease, unspecified; I25.10 Atherosclerotic heart disease of native coronary artery without angina pectoris; Z95.1 Presence of aortocoronary bypass graft; Z95.5 Presence of coronary angioplasty implant and graft; Z85.53 Personal history of malignant neoplasm of renal pelvis; G89.11 Acute pain due to trauma; E87.5 Hyperkalemia; D63.8 Anemia in other chronic diseases classified elsewhere; R41.0 Disorientation, unspecified; E78.5 Hyperlipidemia, unspecified; L30.1 Dyshidrosis [pompholyx]; W10.9XXA Fall (on) (from) unspecified stairs and steps, initial encounter; F32.9 Major depressive disorder, single episode, unspecified
CPT/HCPCS: 36415; 36416; 36430; 71010; 80048; 80053; 82553; 83735; 83880; 84100; 84484; 85025; 85027; 85610; 85730; 86850; 86900; 86901; 86922; 90935; 93005; 93010; 94760; 96374; 96375; G0257; G8978-GP-CL; G8979-GP-CJ; G8987-GO-CL; G8988-GO-CJ; J0131; J1200; J2001; J2270; J2405; J2704; J3010; J3370; P9016

== ENCOUNTER 2017-02-18 09:46 | Inpatient (IN) | payer MEDICARE ==
[2017-02-18] MEDS ORDERED: Fentanyl 100 MCG/2 ML VIAL ONE (10:03)
[2017-02-18] MEDS ORDERED: Water For Inject, Bacteriostat 30 ML ONE (10:04)
[2017-02-18] MEDS ORDERED: Acetaminophen 650 MG Suppository ONE (10:04)
[2017-02-18] MEDS ORDERED: methylPREDNISolone Sod Succ/PF 125 MG/2 ML VIAL ONE (10:04)
[2017-02-18 10:10] LABS: Oxyhemoglobin 91.3 % (94.0-97.0); Sodium 130 mmol/L (135-148)
[2017-02-18 10:11] LABS: Mode BI-PAP; Pressure Support 10 cmH2O; Spontaneous Rate 18 min
[2017-02-18 10:26] LABS: Prothrombin Time 15.4 SEC (12.0-14.7)
[2017-02-18 10:27] LABS: Lactic Acid - Sepsis 1.8 mmol/L (0.5-2.2)
[2017-02-18 10:36] LABS: Troponin I 0.087 ng/mL (< 0.028)
[2017-02-18 10:38] LABS: ALT (SGPT) 10 U/L (8-55); AST (SGOT) 19 U/L (5-34); Alkaline Phosphatase 59 U/L (40-150); Anion Gap 13 mmol/L (10-20); BUN (Urea Nitrogen) 36 mg/dL (9.8-20.1); Bilirubin, Total 0.8 mg/dL (0.2-1.2); CK (CPK) 58 U/L (29-168); Calc. Creatinine Clearance 0 mL/min (70-130); Calcium 8.2 mg/dL (7.8-10.44); Carbon Dioxide 27 mmol/L (23-31); Chloride 95 mmol/L (98-107); Estimated GFR-MDRD 13; Globulin 2.2 g/dL (2.4-3.5); Magnesium 1.7 mg/dL (1.6-2.6); Protein, Total 4.8 g/dL (6.0-8.3)
[2017-02-18 10:39] LABS: Band 34 % (5-11); Mean Platelet Volume 7.2 fL (7.4-10.4); Neutrophil 58 % (42-75); Red Blood Cell (RBC) Count 3.04 mill/uL (4.20-5.40)
[2017-02-18 10:44] LABS: Bilirubin Small (Negative); Blood, Urine Small (Negative); Glucose, Urine (Dipstick) Negative (Negative); Ketone, Urine Trace mg/dL (Negative); Nitrite Negative (Negative); Protein, Urine (Dipstick) 100 mg/dL (Neg-Trace); Urobilinogen 0.2 mg/dL (0.2-1.0)
[2017-02-18 11:14] LABS: Bacteria/HPF 4+ HPF (None Seen); Hyaline Casts/LPF 0-3 HYALINE CAST LPF (0-3 Hyaline); RBC/HPF 0-3 HPF (0-3); Renal Epithelial None Seen HPF (0-3); Squamous Epithelial None Seen HPF (0-3); Transitional Epithelial NONE SEEN HPF (0-3)
[2017-02-18] MEDS ORDERED: cefTRIAXone\\ROCEPHIN 2 GM in Sodium Chloride 0.9% 100 ML IVPB SCH (11:45)
[2017-02-18 12:11] LABS: Oxyhemoglobin 93.8 % (94.0-97.0); Sodium 132 mmol/L (135-148)
[2017-02-18 12:12] LABS: Mode BI-PAP; PIP 10 cmH2O; Spontaneous Rate 28 min
[2017-02-18 13:37] LABS: Troponin I 0.243 ng/mL (< 0.028)
--- NOTE | 2017-02-18 13:42 | PRG ---
DATE OF SERVICE: 02/18/2017 SUBJECTIVE: This is a 76-year-old female brought to the hospital after respiratory distress. The pa tient did not complete treatment. PHYSICAL EXAMINATION: GENERAL: On examination, patient is awake and alert. VITAL SIGNS: Afebrile, pulse 80, breathing at 16, blood pressure 130/70, on BiPAP. HEAD/NECK: Normocephalic. Atraumatic. EYES: EOMI. No deformity. EARS: Clear. No ulcers. NOSE: Intact. No lesions. MOUTH: Clear. No discharge. THROAT: Clear. No exudate. LUNGS: Clear. No crackles. CARDIAC: S1, S2. No rub. ABDOMEN: Benign. BS+. GENITALIA/RECTUM: Bhatti absent. BACK/EXTREMITIES: Edema 0+ Ulcer- NEUROLOGICAL: Alert and motor intact. SKIN: Rash- Bruise- LYMPHATICS: Edema- Ulcer- LABORATORY DATA: None. ASSESSMENT AND RECOMMENDATIONS: 1. Stage 6 chronic kidney disease. We will plan hemodialysis. 2. Hypertension, stable. 3. Anemia, stable. 4. Medications based on glomerular filtration rate are appropriate.
[2017-02-18] MEDS ORDERED: Norepinephrine 8 MG/0.9% NS 250 ML ONE (14:03)
[2017-02-18] MEDS ORDERED: Norepinephrine 8 MG/250 ML IVPB SCH (14:15)
[2017-02-18] MEDS ORDERED: Ondansetron HCl/PF 4 MG/2 ML Vial IVP PRN (15:06)
[2017-02-18] MEDS ORDERED: Bisacodyl 5 MG TAB PO PRN (15:06)
[2017-02-18] MEDS ORDERED: Mag-Al 1200 mg/1200 mg/30 ML UDCUP PO PRN (15:06)
[2017-02-18] MEDS ORDERED: Calcium Carbonate 500 MG ChewTAB PO PRN (15:06)
[2017-02-18] MEDS ORDERED: Senokot 8.6 MG TAB PO PRN (15:06)
[2017-02-18] MEDS ORDERED: Dextrose 5% in Water 1,000 ML IV PRN (15:10)
[2017-02-18] MEDS ORDERED: Dextrose 50% Abboject 50 ML SYRINGE SLOW IVP PRN (15:10)
--- NOTE | 2017-02-18 15:32 | HP ---
CHIEF COMPLAINT: Shortness of breath that started earlier this morning. HISTORY OF PRESENT ILLNESS: This is a 76-year-old female with a past medical history significant for recent femur fracture, currently on low dose Lovenox, congestive heart failure, coronary artery dise ase, diabetes, as well as end-stage renal disease on hemodialysis, who presents to the hospital with shortness of breath that occurred this morning. The patient, who has hemodialysis Monday, Monday, Monday, went to hemodialysis yesterday. The patient states that she was not doing well; therefore, she had refused to continued hemodialysis at that time. She had only undergone one hour at a time be fore being sent back. This morning she woke up with shortness of breath. She was found to have a te mperature of 102 when EMS arrived. The patient was placed on BiPAP due to her work of breathing, whi ch has significantly improved her symptoms at this time. Currently, the patient states that her shor tness of breath has improved, but still having some at this point in time. The patient has complaine d of fevers at home as well as a cough, nonproductive. Denies any sweats or chills. Also, denies an y chest pain, nausea, vomiting, abdominal pain or diarrhea. PAST MEDICAL HISTORY: See HPI. PAST SURGICAL HISTORY: Includes femur repair as well as CABG. SOCIAL HISTORY: The patient denies tobacco, recreational drug use or alcohol use. FAMILY HISTORY: Cardiovascular disease as well as diabetes. REVIEW OF SYSTEMS: A 14-point review of systems reviewed and was negative other than what was joel garcia in the HPI. HOME MEDICATIONS: List include aspirin 81 mg p.o. daily, Lipitor 40 mg p.o. daily, isosorbide mononi trate 30 mg p.o. daily, clopidogrel 75 mg p.o. daily, carvedilol 25 mg p.o. daily, nifedipine 60 mg p .o. b.i.d., losartan 25 mg p.o. daily, Renvela 800 mg p.o. t.i.d. as well as fluoxetine 40 mg p.o. da jacky. PHYSICAL EXAMINATION: VITAL SIGNS: Most recent vital signs include blood pressure 92/41, pulse 78, respiratory rate was 22 , temperature 99.7, and O2 sats were 95% on BiPAP. GENERAL: The patient appears to be uncomfortable, was alert, awake, and oriented only to person and place. HEENT: Head: Normocephalic, atraumatic. Eyes: Pupils are round and reactive to light. Extraocula r movements were intact. Conjunctivae was pink. Sclerae nonicteric. Mouth: The patient had a BiPA P mask that was on at that time. NECK: Soft, supple. No JVD, carotid bruits or lymphadenopathy. CARDIOVASCULAR: Regular rate and rhythm. S1, S2 sounds are heard. No S3, no S4, or murmurs. RESPIRATORY: The patient had bilateral crackles as well as wheezing that could be appreciated bilate rally. No accessory muscle use. ABDOMEN: Positive bowel sounds, soft, nontender, nondistended. EXTREMITIES: Pulses were 2+ both dorsalis and radial pulse. The patient did have pitting edema that could be appreciated bilaterally, 1-2+ pitting edema. LABORATORY DATA: White blood cell count 11.0, hemoglobin 8.7, hematocrit 27.0, platelet count was 23 3. Sodium was 131, potassium 3.9, chloride is 95, bicarbonate is 27, BUN was 36, creatinine was 2.40 , glucose is 133. BNP was 3800. Troponin was 0.87 and is 0.243. Chest x-ray showed cardiomegaly wi th fluid overload. ASSESSMENT: 1. Volume overload secondary to noncompliance with hemodialysis. 2. Probable sepsis likely secondary to possible underlying pneumonia. 3. End-stage renal disease, on hemodialysis. 4. Coronary artery disease status post coronary artery bypass graft. 5. Recent femur fracture. 6. Diabetes. 7. Acute respiratory failure secondary to volume overload. PLAN: Nephrology has already been consulted to resume hemodialysis since the patient did not finish it. We will continue. We will follow with recommendations accordingly. We will also start the romi ent on IV antibiotics with cefepime. We will give Tylenol as needed for fevers. We will also get a V/Q scan. Due to the patient being allergy to CONTRAST, we will get a V/Q scan to rule out pulmonary embolism due to the recent history of fracture with hypoxemia. 2. Coronary artery disease, status post coronary artery bypass graft. We will resume home medicatio ns. 3. Diabetes. Sliding scale insulin protocol, resume home medications. 4. Hypertension. Resume home medications. 5. Deep venous thrombosis prophylaxis. We will start the patient on heparin. 6. We will start the patient on Solu-Medrol 40 mg IV daily. We will also have neb treatments per RT protocol.
[2017-02-18] MEDS: Albuterol Sulfate 1.25 MG/3 ML NEB NEB SCH ×2 (15:43→22:41)
[2017-02-18] MEDS: Sevelamer Carbonate 800 MG TAB PO SCH (17:14)
[2017-02-18] MEDS: Cefepime 1 GM, Admixture Fee 1 EACH in Sterile Water 10 ML SLOW IVP SCH (17:14)
[2017-02-18] MEDS ORDERED: Cefepime 1 GM in Sodium Chloride 0.9% 100 ML IVPB SCH (18:00)
[2017-02-18] MEDS ORDERED: Hydrocortisone Sod Succ/PF 100 mg/2 ml Vial IVP SCH (18:30)
[2017-02-18] MEDS ORDERED: Vancomycin HCl 2 GM in Sodium Chloride 0.9% 250 ML 300 ML IVPB SCH (18:30)
[2017-02-18] MEDS ORDERED: Vancomycin HCl 1 GM in Premix Bag 1 BAG IVPB SCH (18:45)
--- NOTE | 2017-02-18 19:12 | CON ---
DATE OF SERVICE: 02/18/2017 SERVICE: Pulmonary Medicine. REASON FOR CONSULTATION: ICU patient. HISTORY OF PRESENT ILLNESS: The patient is a 76-year-old white female. Recently, she has had multip le hospital admissions. Most recent one was a couple weeks ago when she ended up breaking her femur. This was subsequently repaired. She does have an incision that is clean, dry, and intact. Either way, since that period of time, her blood pressures have been a little bit unstable. She continues t o take some of her blood pressure medications. She is not tolerating hemodialysis well because of he r low blood pressures. It was terminated after a little over an hour yesterday. She [facility] with the abrupt onset of difficulty with breathing. She also had marginal blood pre ssures. She was tucked in the ICU to initiate emergent dialysis. On dialysis, her blood pressure dr opped further and she required a little bit of Levophed intermittently. Her shortness of breath is m uch improved. Her mentation comes in and out. When you stimulate her, she will answer a couple of q uestions, but then drifts off back to sleep without motivation. PAST MEDICAL HISTORY: 1. End-stage renal disease, Monday, , and Monday. 2. Hypertension. 3. Chronic systolic and diastolic heart failure. 4. Type 2 diabetes mellitus. 5. Dyslipidemia. 6. Coronary artery disease. 7. Chronic hypoxic respiratory failure, requiring 3 liters nasal cannula at home. 8. Anemia of chronic renal disease. PAST SURGICAL HISTORY: 1. Coronary artery bypass graft x3 vessels. 2. Hemorrhoidectomy. 3. Left breast tumor removed. 4. Tonsillectomy. 5. D&C. 6. Left upper extremity fistula creation in 2016. 7. Right hip repair. ALLERGIES: ERYTHROMYCIN, IODINE, LYRICA, and OXYTETRACYCLINE. HOME MEDICATIONS: List of inpatient medications were reviewed. There are multiple updates made at t his time. FAMILY HISTORY: Noncontributory. SOCIAL HISTORY: The patient is for over 58 years. She has no current use of alcohol, tobacc o, or illicit drug use. Her is at bedside with her. She has no exposure to chemicals, asbes tos, other brucellosis. REVIEW OF SYSTEMS: This could not be obtained as the patient is currently encephalopathic. PHYSICAL EXAMINATION: VITAL SIGNS: Currently afebrile (reported temperature of 102 when EMS picked her up), heart rate 96, blood pressure 129/49, respirations 25, saturation 96% on BiPAP with FIO2 of 30%. HEENT: Normocephalic, atraumatic. Sclerae are white, conjunctivae pink. Oral and nasal mucosa is m oist without lesions. LUNGS: Decent air entry. Dependent crackles are present. I do not appreciate any rhonchi. HEART: Normal rate, regular. ABDOMEN: Soft, nontender, nondistended, bowel sounds positive. MUSCULOSKELETAL: No cyanosis or clubbing. There is diffuse pitting throughout, it is most pronounce d in the bilateral hips. At that location, she has 3-4+ pitting. GENITOURINARY: No Bhatti. NEUROLOGIC: Grossly nonfocal. LABORATORY DATA: WBC 11.0, hemoglobin 8.7, platelets 233,000. Neutrophil count is high and bands ar e 34% predicted. INR 1.2. PH 7.47, pCO2 of 36, pO2 of 60 on 40% FIO2 via BiPAP. Creatinine 3.40. Basic metabolic profile is otherwise unremarkable. Lactate is normal. Liver function studies are un remarkable. Cardiac enzymes are trending upward to 0.38. BNP is elevated. Urinalysis is positive f or white blood cells, leukocyte esterase. Nitrites are negative, however. Influenza A and B is nega tive. IMAGING: Chest x-ray demonstrates an enormous cardiac silhouette. Left lower lobe parenchymal abnor mality cannot be excluded. I do not see any acute infiltrate in the right lung and the costophrenic angle is not clearly identified suggestive of a layering effusion on the right as well. Previous radha rnotomy wires are in good position. ASSESSMENT: 1. Acute hypoxic respiratory failure. 2. Bilateral pleural effusions. 3. Septic shock. 4. End-stage renal disease. 5. Metabolic encephalopathy. PLAN: We will put her on broad spectrum antibiotics directed at a pulmonary pathology although it is not clear whether or not she has a true infection there. With a band count of 34% and altered menta tion. I am inclined to believe this is an infectious until proven otherwise. She is currently on di alysis, which will be continued. I will provide her with some stress doses of steroids. Avelar culture is going to be obtained. Pulmonary Critical Care will continue to follow and certainly remains in t ICU for the time being.
--- NOTE | 2017-02-18 19:43 | RAD ---
FRONTAL RADIOGRAPH CHEST 02/18/17 COMPARISON: 09/13/16 HISTORY: Dyspnea, difficulty breathing. FINDINGS: Cardiac silhouette is enlarged. Midline sternotomy wires and mediastinal clips are present. There is atherosclerotic calcification in the aortic arch. There is no pneumothorax seen. There is pulmonary vascular congestion with bibasilar alveolar opacity and pleural fluid, left greate r than right. IMPRESSION: Enlarged cardiac silhouette with bilateral lower lobe pleural and parenchymal opacity. Findings sugge st pulmonary edema. Infectious pneumonitis or aspiration in the lung bases cannot be excluded. Follow up to resolution advised. POS: [facility]
[2017-02-18] MEDS: Carvedilol 25 MG TAB PO SCH (21:07)
[2017-02-18] MEDS: NIFEdipine XL 60 MG TAB PO SCH (21:14)
[2017-02-18] MEDS: Heparin 5,000 UNITS/ML VIAL SC SCH (21:15)
[2017-02-18] MEDS: Hydrocortisone Sod Succ/PF 100 mg/2 ml Vial IVP SCH (23:42)
[2017-02-19 05:00] LABS: #Lymphocytes 0.5 thou/uL (1.20-3.40); #Monocytes 0.8 thou/uL (0.11-0.59); #Neutrophils 11.9 thou/uL (1.40-6.50); %Basophils 0.2 % (0.0-1.0); %Eosinophils 0.2 % (0.0-10.0); %Lymphocytes 4.1 % (21.0-51.0); %Monocytes 6.3 % (0.0-10.0); Hematocrit 29.3 % (36.0-47.0); Mean Platelet Volume 7.6 fL (7.4-10.4); Red Blood Cell (RBC) Count 3.23 mill/uL (4.20-5.40); White Blood Cell (WBC) Count 13.4 thou/uL (4.8-10.8)
[2017-02-19 05:11] LABS: Anion Gap 12 mmol/L (10-20); BUN (Urea Nitrogen) 24 mg/dL (9.8-20.1); Calc. Creatinine Clearance 19 mL/min (70-130); Calcium 8.3 mg/dL (7.8-10.44); Carbon Dioxide 26 mmol/L (23-31); Chloride 101 mmol/L (98-107); Estimated GFR-MDRD 20
[2017-02-19] MEDS: Hydrocortisone Sod Succ/PF 100 mg/2 ml Vial IVP SCH (05:24)
[2017-02-19] MEDS: Albuterol Sulfate 1.25 MG/3 ML NEB NEB SCH (06:22)
[2017-02-19] MEDS: Ferrous Sulfate 325 MG TAB PO SCH (08:11)
[2017-02-19] MEDS: Heparin 5,000 UNITS/ML VIAL SC SCH ×3 (08:11→21:04)
[2017-02-19] MEDS: Aspirin 81 mg Enteric Coated Tablet PO SCH (08:11)
[2017-02-19] MEDS: FLUoxetine HCl 20 MG CAP PO SCH (08:12)
[2017-02-19] MEDS: Sevelamer Carbonate 800 MG TAB PO SCH ×3 (08:12→17:41)
[2017-02-19] MEDS: Atorvastatin Calcium 40 MG TAB PO SCH (08:13)
[2017-02-19] MEDS: Famotidine 20 MG TAB PO SCH (08:13)
[2017-02-19] MEDS: Clopidogrel Bisulfate 75 MG TAB PO SCH (08:14)
[2017-02-19] MEDS ORDERED: Vancomycin HCl 1 GM in Premix Bag 1 BAG IVPB SCH (09:30)
[2017-02-19] MEDS ORDERED: Vancomycin HCl 1.25 GM in Sodium Chloride 0.9% 250 ML 250 ML IVPB SCH (09:30)
[2017-02-19] MEDS ORDERED: Vancomycin HCl 500 MG in Sodium Chloride 0.9% 100 ML IVPB SCH (09:30)
[2017-02-19] MEDS ORDERED: HOLD VANCOMYCIN FOR LEVEL >20 FS SCH (09:30)
[2017-02-19] MEDS: Folic Acid/Vit B Comp W-C PO SCH (09:31)
[2017-02-19] MEDS: Acetaminophen 325 MG TAB PO PRN ×2 (10:19→23:33)
[2017-02-19] MEDS: Losartan 25 MG TAB PO SCH (10:21)
[2017-02-19] MEDS: NIFEdipine XL 60 MG TAB PO SCH (10:21)
[2017-02-19] MEDS: Carvedilol 25 MG TAB PO SCH ×2 (10:22→21:04)
--- NOTE | 2017-02-19 10:59 | PDOC.PN ---
- Subjective Encounter Start Date: 02/19/17 Encounter Start Time: 10:10 states she doesnt feel better but doesnt know why and cant pinpoint what it is. denies chest pain, sob and fever - Objective Resuscitation Status: Resuscitation Status FULL:Full Resuscitation Vital Signs & Weight: Vital Signs (12 hours) Temp Pulse Resp Pulse Ox 02/19/17 10:21 64 02/19/17 07:25 97.9 F 64 26 H 100 02/19/17 07:00 97.9 F 02/19/17 06:23 99 02/19/17 06:22 64 20 02/19/17 04:00 98.6 F 02/19/17 00:00 97.7 F 66 100 Most Recent Monitor Data Heart Rate from ECG 68 NIBP 118/49 NIBP BP-Mean 79 Respiration from ECG 23 SpO2 100 I&O: 02/18/17 02/19/17 02/20/17 06:59 06:59 06:59 Intake Total 475 320 Balance 475 320 Result Diagrams: 02/19/17 04:22 02/19/17 04:22 Phys Exam - Physical Examination Constitutional: NAD HEENT: PERRLA, moist MMs, sclera anicteric Neck: no nodes, no JVD, supple Respiratory: no wheezing, no rales, no rhonchi mild crackles bilaterally Cardiovascular: RRR, no rub Gastrointestinal: soft, non-tender, no distention, positive bowel sounds Musculoskeletal: pulses present Neurological: moves all 4 limbs Psychiatric: normal affect, A&O x 3 Skin: normal turgor, cap refill <2 seconds Dx/Plan (1) Sepsis Code(s): A41.9 - SEPSIS, UNSPECIFIED ORGANISM Status: Acute (2) Pneumonia Code(s): J18.9 - PNEUMONIA, UNSPECIFIED ORGANISM Status: Acute (3) Right femoral fracture Code(s): S72.91XA - UNSP FRACTURE OF RIGHT FEMUR, INIT FOR CLOS FX Status: Acute Qualifiers: Fracture type: closed Comment: s/p hemiarthroplasty (4) Volume overload Code(s): E87.70 - FLUID OVERLOAD, UNSPECIFIED Status: Acute Comment: Due to ESRD, HD for volume removal (5) Anemia of renal disease Code(s): D63.1 - ANEMIA IN CHRONIC KIDNEY DISEASE Status: Chronic (6) CAD (coronary artery disease) Code(s): I25.10 - ATHSCL HEART DISEASE OF [place] CORONARY ARTERY W/O ANG PCTRS Status: Chronic - Plan cont current plan of care, plan discussed w/ family, continue antibiotics, respiratory therapy * . pending VQ scan to r/o PE continue IVx abx pending cutures. positive blood cu;ture but likely contaminant. will follow final results underwent HD yesterday pulm following taken off of bipap last niht levophed removed last night. required it for HD as BP was low-normal on admission
--- NOTE | 2017-02-19 12:00 | PRG ---
DATE OF SERVICE: 02/19/2017 SERVICE: Pulmonary Medicine. INTERVAL HISTORY: The patient is doing really quite well from a metabolic standpoint and respiratory standpoint. She is very alert this morning. She has multiple complaints mostly around discomfort s he has in her backside. She is a little bit resistant to getting out of bed. She has been weaned of f of Levophed overnight. We did find that she had urinary tract infection possibly and also possible abnormal blood cultures. That being said, blood pressures have firmed up very nicely. She denies a ny current fevers, chills or overnight events. PHYSICAL EXAMINATION: VITAL SIGNS: Afebrile, pulse 64, blood pressure 118/49, respirations 23, saturation 100% on 2 liters nasal cannula. GENERAL: Patient is awake, alert, in no apparent distress. LUNGS: Decent air entry. Crackles are present in the bibasilar region. HEART: Normal rate, regular. ABDOMEN: Soft, nontender, and nondistended. Bowel sounds are positive. MUSCULOSKELETAL: No cyanosis or clubbing. She has got diffuse edema, 2+ throughout. GENITOURINARY: No Bhatti catheter in place. NEUROLOGIC: Grossly nonfocal. LABORATORY DATA: WBC 13.4, hemoglobin 9.0, platelets 193,000. INR 1.2. Creatinine 2.31. Basic met abolic profile is otherwise unremarkable. One out of two blood cultures is growing coag negative sta ph. Urine culture is growing gram negative zak. Influenza A and B is currently unremarkable. ASSESSMENT: 1. Acute hypoxic respiratory failure. 2. Bilateral pleural effusions. 3. End-stage renal disease with anasarca. 4. Septic shock. 5. Metabolic encephalopathy, resolved. 6. Non-ST elevation myocardial infarction. PLAN: We will continue our supportive care moving forward. We will transition her to the telemetry unit. We will focus our efforts on mobilizing the patient. Pulmonary or Critical Care will continue to follow for the time being.
--- NOTE | 2017-02-19 12:33 | PRG ---
DATE OF SERVICE: 02/19/2017 SUBJECTIVE: This is a 76-year-old female being seen for end-stage renal disease. Patient denies any nausea, vomiting or chest pain. PHYSICAL EXAMINATION: GENERAL: Patient is awake, alert. VITAL SIGNS: Afebrile, pulse 62, breathing at 16, blood pressure 115/42. HEAD/NECK: Normocephalic. Atraumatic. EYES: EOMI. No deformity. EARS: Clear. No ulcers. NOSE: Intact. No lesions. MOUTH: Clear. No discharge. THROAT: Clear. No exudate. LUNGS: Clear. No crackles. CARDIAC: S1, S2. No rub. ABDOMEN: Benign. BS+. GENITALIA/RECTUM: Bhatti absent. BACK/EXTREMITIES: Edema 0+ Ulcer- NEUROLOGICAL: Alert and motor intact. SKIN: Rash- Bruise- LYMPHATICS: Edema- Ulcer- LABORATORY DATA: Show hemoglobin 9, creatinine 2.3. ASSESSMENT AND RECOMMENDATIONS: 1. Stage 6 chronic kidney disease. The patient does complain of dyspnea, offered hemodialysis, romi ent refused. 2. Anemia, stable. 3. Medications based on glomerular filtration rate are appropriate. 4. Hypertension, multifactorial. I would recommend fluid restriction.
[2017-02-19] MEDS: Cefepime 1 GM, Admixture Fee 1 EACH in Sterile Water 10 ML SLOW IVP SCH (17:42)
[2017-02-19] MEDS ORDERED: Hydrocortisone/Pramoxine (Proctofoam HC) 10 GM BOX PR PRN (22:12)
[2017-02-20 05:24] LABS: #Lymphocytes 0.5 thou/uL (1.20-3.40); #Monocytes 0.7 thou/uL (0.11-0.59); #Neutrophils 12.6 thou/uL (1.40-6.50); %Eosinophils 0.2 % (0.0-10.0); %Lymphocytes 3.4 % (21.0-51.0); %Monocytes 5.1 % (0.0-10.0); Hematocrit 28.9 % (36.0-47.0); Mean Platelet Volume 7.5 fL (7.4-10.4); White Blood Cell (WBC) Count 13.9 thou/uL (4.8-10.8)
[2017-02-20 05:48] LABS: Anion Gap 11 mmol/L (10-20); BUN (Urea Nitrogen) 48 mg/dL (9.8-20.1); Calc. Creatinine Clearance 14 mL/min (70-130); Calcium 8.2 mg/dL (7.8-10.44); Carbon Dioxide 29 mmol/L (23-31); Chloride 95 mmol/L (98-107); Estimated GFR-MDRD 14
--- NOTE | 2017-02-20 09:02 | PDOC.PN ---
- Subjective Encounter Start Date: 02/20/17 Encounter Start Time: 08:55 Subjective: only complaint is sore "butt" - Objective Resuscitation Status: Resuscitation Status FULL:Full Resuscitation MAR Reviewed: Yes Vital Signs & Weight: Vital Signs (12 hours) Temp Pulse Resp BP Pulse Ox 02/20/17 08:00 96.7 F L 67 16 165/72 H 100 02/20/17 04:00 97.3 F L 59 L 18 152/72 H 100 02/19/17 23:25 97.8 F 57 L 16 124/58 L 99 Weight Weight 130 lb 9.6 oz Most Recent Monitor Data Heart Rate from ECG 66 NIBP 121/55 NIBP BP-Mean 96 Respiration from ECG 27 SpO2 100 I&O: 02/19/17 02/20/17 02/21/17 06:59 06:59 06:59 Intake Total 475 1300 Output Total 0 Balance 475 1300 Result Diagrams: 02/20/17 04:56 02/20/17 04:56 Additional Labs: Accuchecks 02/20/17 05:35 POC Glucose 199 H Phys Exam - Physical Examination Constitutional: NAD Neck: no JVD Respiratory: clear to auscultation bilateral Cardiovascular: RRR, no significant murmur Gastrointestinal: soft, non-tender, positive bowel sounds Musculoskeletal: edema present Dx/Plan (1) UTI (urinary tract infection), bacterial Code(s): N39.0 - URINARY TRACT INFECTION, SITE NOT SPECIFIED; A49.9 - BACTERIAL INFECTION, UNSPECIFIED Status: Acute (2) UTI due to Klebsiella species Code(s): N39.0 - URINARY TRACT INFECTION, SITE NOT SPECIFIED; B96.1 - KLEBSIELLA PNEUMONIAE THE CAUSE OF DISEASES CLASSD ELSWHR Status: Acute (3) Sepsis Code(s): A41.9 - SEPSIS, UNSPECIFIED ORGANISM Status: Acute Qualifiers: Sepsis type: sepsis due to unspecified organism Qualified Code(s): A41.9 - Sepsis, unspecified organism (4) Acute and chronic respiratory failure with hypoxia Code(s): J96.21 - ACUTE AND CHRONIC RESPIRATORY FAILURE WITH HYPOXIA Status: Acute Comment: Secondary to volume overload, HD per Renal service, O2 by NC (5) Acute on chronic diastolic (congestive) heart failure Code(s): I50.33 - ACUTE ON CHRONIC DIASTOLIC (CONGESTIVE) HEART FAILURE Status : Acute (6) Volume overload Code(s): E87.70 - FLUID OVERLOAD, UNSPECIFIED Status: Acute Comment: Due to ESRD, HD for volume removal (7) ESRD (end stage renal disease) on dialysis Code(s): N18.6 - END STAGE RENAL DISEASE; Z99.2 - DEPENDENCE ON RENAL DIALYSIS Status: Chronic Comment: Volume overload initially, HD per Renal service (8) Elevated troponin Code(s): R74.8 - ABNORMAL LEVELS OF OTHER SERUM ENZYMES Status: Chronic (9) HTN (hypertension) Code(s): I10 - ESSENTIAL (PRIMARY) HYPERTENSION Status: Chronic (10) Hyperlipidemia Code(s): E78.5 - HYPERLIPIDEMIA, UNSPECIFIED Status: Chronic - Plan ESRD on HD -: 1/2 blood C&S coag neg staph- contaminent- likely DC vanc -: kleb uti sensitive to rocephin, -: discuss with pulmonology, renal * .
[2017-02-20] MEDS: Sevelamer Carbonate 800 MG TAB PO SCH ×3 (09:13→18:29)
[2017-02-20] MEDS: Clopidogrel Bisulfate 75 MG TAB PO SCH (09:14)
[2017-02-20] MEDS: Atorvastatin Calcium 40 MG TAB PO SCH (09:14)
[2017-02-20] MEDS: FLUoxetine HCl 20 MG CAP PO SCH (09:14)
[2017-02-20] MEDS: Folic Acid/Vit B Comp W-C PO SCH (09:15)
[2017-02-20] MEDS: Aspirin 81 mg Enteric Coated Tablet PO SCH (09:15)
[2017-02-20] MEDS: Famotidine 20 MG TAB PO SCH (09:15)
[2017-02-20] MEDS: Ferrous Sulfate 325 MG TAB PO SCH (09:15)
[2017-02-20] MEDS: Carvedilol 25 MG TAB PO SCH ×2 (09:15→20:35)
[2017-02-20] MEDS: Losartan 25 MG TAB PO SCH (09:17)
[2017-02-20] MEDS: Heparin 5,000 UNITS/ML VIAL SC SCH ×3 (09:17→20:35)
[2017-02-20] MEDS: Insulin Regular 300 UNITS/3 ML VIAL SC PRN (09:46)
[2017-02-20] MEDS: Acetaminophen 325 MG TAB PO PRN ×2 (09:48→22:30)
[2017-02-20] MEDS ORDERED: cefTRIAXone\\ROCEPHIN 1 GM in Sodium Chloride 0.9% 100 ML IVPB SCH (10:00)
[2017-02-20 15:07] LABS: Vancomycin, Random 11.9 ug/mL (See Comment)
--- NOTE | 2017-02-20 16:41 | PRG ---
DATE OF SERVICE: 02/20/2017 SERVICE: Pulmonary Medicine. INTERVAL HISTORY: The patient is doing fine from a respiratory standpoint. She denies any current f robert, chills, nausea, vomiting, or chest discomfort. Her breathing is much improved. She is going down for dialysis today. Otherwise, there has been no interval change to her condition. She has michael d to me on a couple of occasions now that she really did not want all of these aggressive interventio ns. She is not too terribly motivated to get up and move about. She does not want to do any work in order to get stronger. At baseline, she is only basically able to lie in bed or get up into a chair with significant assistance. I briefly talked to her about end of life issues. Ultimately, she is thinking about stopping everything and moving forward and transitioning over to comfort care only. I asked her if she would like to talk to somebody about what her decision would be at the end of her l ghanshyam and she said she would. As such, palliative care consultation will be placed. PHYSICAL EXAMINATION: VITAL SIGNS: Afebrile, pulse 65, blood pressure 149/64, respirations 16, saturation 92% on 2 liters nasal cannula. GENERAL: Patient is awake, alert, in no apparent distress. LUNGS: Decent air entry. No prolonged expiratory phase or wheezing. HEART: Normal rate, regular. ABDOMEN: Soft, nontender, nondistended. Bowel sounds positive. MUSCULOSKELETAL: No cyanosis or clubbing. There is no skin tenting. GENITOURINARY: No Bhatti. LABORATORY DATA: WBC 13.9, hemoglobin 9.2, platelets 240,000 with 91% neutrophils. Creatinine 3.17. Otherwise, basic metabolic profile is unremarkable/stable. One out of two blood cultures were grow ing coag-negative staph. Urine straight catheter demonstrates Klebsiella pneumonia, which is pansens itive. The other blood culture and influenza are unremarkable. ASSESSMENT: 1. Acute hypoxic respiratory failure. 2. Bilateral pleural effusions. 3. End-stage renal disease with anasarca. 4. Septic shock, resolved. 5. Metabolic encephalopathy, resolved. 6. Non-ST elevation myocardial infarction. PLAN: I will place a palliative care consultation. At this point, the patient has no further requir ements for inpatient pulmonary or critical care opinion. Oxygen can be weaned away as tolerated. John graf does have oxygen at home, but my suspicion is she does not truthfully need it. O2 evaluation in th e outpatient setting should be considered.
[2017-02-20] MEDS: Vancomycin HCl 750 MG in Sodium Chloride 0.9% 250 ML 250 ML IVPB SCH (16:52)
--- NOTE | 2017-02-20 19:14 | PRG ---
DATE OF SERVICE: 02/20/2017 SUBJECTIVE: Patient was seen and examined at bedside and overnight events noted. Patient denies any shortness of breath or chest pain or palpitation. No history of nausea or vomiting or diarrhea or f ever or chills or cramps. OBJECTIVE: GENERAL: This is a well-built female in no apparent distress. VITAL SIGNS: Temperature 96.5, pulse 65, respiratory rate 16, blood pressure 157/68. HEENT: Atraumatic, normocephalic. Oral mucosa is moist. NECK: Supple. CARDIOVASCULAR: S1, S2 heard. Rate and rhythm regular. RESPIRATORY: Clear to auscultation. GASTROINTESTINAL: Abdomen is soft. MUSCULOSKELETAL: No tenderness. No edema. DERMATOLOGIC: No skin rash. NEUROLOGIC: Alert and awake and oriented x3. No focal neurologic deficits. Moving all the extremiti es. PSYCHIATRIC: Mood and affect normal. LABORATORY DATA: Potassium is 4.1, BUN is 48, and creatinine is 3.1. ASSESSMENT AND PLAN: 1. End-stage renal disease on hemodialysis. We will continue on dialysis as tolerated. We will hav e dialysis on Monday, Monday, and Monday. 2. Anemia. 3. Edema. 4. Hypertension. 5. Plan is to continue on dialysis as tolerated.
[2017-02-20] MEDS ORDERED: Vancomycin HCl 500 MG in Sodium Chloride 0.9% 100 ML IVPB SCH (20:00)
[2017-02-21] MEDS: Diabetic Tussin 200 MG/10 ML UDCUP PO PRN ×4 (05:07→21:07)
--- NOTE | 2017-02-21 08:13 | PQF ---
CLINICAL DOCUMENTATION IMPROVEMENT CLARIFICATION FORM: ICD-10 Updated PLEASE DO AN ADDENDUM TO THE PROGRESS NOTE WITH ANY DOCUMENTATION UPDATES OR ADDITIONS AND CARRY THROUGH TO DC SUMMARY. THANK YOU. DATE: 02/21 ATTN: DR. HECTOR REMY Please exercise your independent, professional judgment in responding to the clarification form. Clinical indicators are provided on the bottom of this form for your review Please check appropriate box(s): ____x___ I (concur) with the Wound Care findings as stated below. [ ] Pressure Ulcer: (Stage I: Erythema; Stage II: Partial thickness; Stage III : Full thickness; Stage IV: Necrosis to muscle/bone) [ ] Location: POA: [ ] Yes [ ] No[ ] Unable to determine Stage (I to IV): (Left Right Bilateral N/A ) [ ] Location: POA: [ ] Yes [ ] No[ ] Unable to determine Stage (I to IV): (Left Right Bilateral N/A ) [ ] No pressure ulcer diagnosis [ ] Other diagnosis [ ] Unable to determine In addition, please specify: Present on Admission (POA): [ ] Yes [ ] No [ ] Unable to determine For continuity of documentation, please document condition throughout progress notes and discharge summary. Thank You. CLINICAL INDICATORS - SIGNS / SYMPTOMS / LABS ER NURSING ASSESSMENT DOCUMENTATION 02/18: UNSTAGEABLE PRESSURE ULCER TO SACRUM NURSING ADMISSION ASSESSMENT 02/18: STAGE III PRESSURE ULCER TO SACROCOCCYXGEAL WOUND CARE ASSESSMENT DOCUMENTATION 02/19: STAGE III PRESSURE ULCER TO INFERIOR SACROCOCCYXGEAL RISK FACTORS: RECENT R FEMORAL HIP FX W/REPAIR SEPSIS ESRD ON DIALYSIS TREATMENTS: WOUND CARE CONSULT SPECIALTY MATTRESS TURN Q2 HR THANK YOU! Becca (This form is maintained as a part of the permanent medical record) 2014 [employer]. All Rights Reserved Becca Hughes RN, BSN [email or web address] Office: [phone] [facility]
[2017-02-21] MEDS: Famotidine 20 MG TAB PO SCH (09:17)
[2017-02-21] MEDS: Carvedilol 25 MG TAB PO SCH ×2 (09:17→20:12)
[2017-02-21] MEDS: FLUoxetine HCl 20 MG CAP PO SCH (09:17)
[2017-02-21] MEDS: Sevelamer Carbonate 800 MG TAB PO SCH ×3 (09:17→16:42)
[2017-02-21] MEDS: Clopidogrel Bisulfate 75 MG TAB PO SCH (09:17)
[2017-02-21] MEDS: Losartan 25 MG TAB PO SCH (09:17)
[2017-02-21] MEDS: Aspirin 81 mg Enteric Coated Tablet PO SCH (09:17)
[2017-02-21] MEDS: Heparin 5,000 UNITS/ML VIAL SC SCH ×3 (09:18→20:12)
[2017-02-21] MEDS: Folic Acid/Vit B Comp W-C PO SCH (09:18)
[2017-02-21] MEDS: Ferrous Sulfate 325 MG TAB PO SCH (09:18)
[2017-02-21] MEDS: Atorvastatin Calcium 40 MG TAB PO SCH (09:18)
--- NOTE | 2017-02-21 09:28 | PRG ---
DATE OF SERVICE: 02/21/2017 SUBJECTIVE: The patient complains of cough today and has slight shortness of breath. OBJECTIVE: GENERAL: Well-built white female in no apparent distress. VITAL SIGNS: Temperature 98.3, pulse 87, respiratory 18, and blood pressure 172 /77. CHEST: Scattered crackles. Musculoskeletal : No tenderness, No edema HEENT: Atraumatic normocephalic Neck: Supple Cardiovascular: S1S2 heard, Rate and rhythm regular Gastrointestinal: Abdomen is soft Dermatologic : No skin rash Neurologic: Alert and awake and oriented X3 No focal neurologic deficits. Moving all the extremities. Psychiatric: Mood and affect normal LABORATORY DATA: Not done today. ASSESSMENT AND PLAN: 1. End-stage renal disease. Plan is to do an extra session of 2 hours of dialysis today for ultrafiltration. 2. Edema. 3. Fluid overload. We will have 2 hours of dialysis. 4. Anemia, which is chronic. 5. Hypertension. We will remove fluid with dialysis as tolerated. Plan is to have an extra session of 2 hours of dialysis. The patient is agreeable, advised to limit fluid and salt intake. We will follow. MTDD
[2017-02-21] MEDS ORDERED: cefTRIAXone\\ROCEPHIN 1 GM, Syringe 0.4 ML in Sterile Water 9.6 ML SLOW IVP SCH (10:00)
--- NOTE | 2017-02-21 10:48 | PDOC.PN ---
- Subjective Encounter Start Date: 02/21/17 Encounter Start Time: 10:46 Subjective: mild sob, cough - Objective Resuscitation Status: Resuscitation Status FULL:Full Resuscitation MAR Reviewed: Yes Vital Signs & Weight: Vital Signs (12 hours) Temp Pulse Resp BP Pulse Ox 02/21/17 07:33 98.3 F 86 18 94 L 02/21/17 07:31 98.3 F 86 18 172/77 H 94 L 02/21/17 04:00 97.5 F L 76 18 160/77 H 96 Weight Weight 126 lb 1.6 oz Most Recent Monitor Data Heart Rate from ECG 66 NIBP 121/55 NIBP BP-Mean 96 Respiration from ECG 27 SpO2 100 I&O: 02/20/17 02/21/17 02/22/17 06:59 06:59 06:59 Intake Total 1300 1210 Output Total 0 2900 Balance 1300 -1690 Result Diagrams: 02/20/17 04:56 02/20/17 04:56 Additional Labs: Accuchecks 02/21/17 02/20/17 02/20/17 05:52 19:56 18:08 POC Glucose 158 H 219 H 153 H 02/20/17 13:10 POC Glucose 198 H Phys Exam - Physical Examination Constitutional: NAD Neck: no JVD post rales Gastrointestinal: soft, positive bowel sounds Musculoskeletal: edema present Dx/Plan (1) UTI (urinary tract infection), bacterial Code(s): N39.0 - URINARY TRACT INFECTION, SITE NOT SPECIFIED; A49.9 - BACTERIAL INFECTION, UNSPECIFIED Status: Acute (2) UTI due to Klebsiella species Code(s): N39.0 - URINARY TRACT INFECTION, SITE NOT SPECIFIED; B96.1 - KLEBSIELLA PNEUMONIAE THE CAUSE OF DISEASES CLASSD ELSWHR Status: Acute (3) Sepsis Code(s): A41.9 - SEPSIS, UNSPECIFIED ORGANISM Status: Acute Qualifiers: Sepsis type: sepsis due to unspecified organism Qualified Code(s): A41.9 - Sepsis, unspecified organism (4) Acute and chronic respiratory failure with hypoxia Code(s): J96.21 - ACUTE AND CHRONIC RESPIRATORY FAILURE WITH HYPOXIA Status: Acute Comment: Secondary to volume overload, HD per Renal service, O2 by NC (5) Acute on chronic diastolic (congestive) heart failure Code(s): I50.33 - ACUTE ON CHRONIC DIASTOLIC (CONGESTIVE) HEART FAILURE Status : Acute (6) Volume overload Code(s): E87.70 - FLUID OVERLOAD, UNSPECIFIED Status: Acute Comment: Due to ESRD, HD for volume removal (7) ESRD (end stage renal disease) on dialysis Code(s): N18.6 - END STAGE RENAL DISEASE; Z99.2 - DEPENDENCE ON RENAL DIALYSIS Status: Chronic Comment: Volume overload initially, HD per Renal service (8) Elevated troponin Code(s): R74.8 - ABNORMAL LEVELS OF OTHER SERUM ENZYMES Status: Chronic (9) HTN (hypertension) Code(s): I10 - ESSENTIAL (PRIMARY) HYPERTENSION Status: Chronic (10) Hyperlipidemia Code(s): E78.5 - HYPERLIPIDEMIA, UNSPECIFIED Status: Chronic - Plan cont rocephin -: HD today -: cont routine ( home) meds * .
[2017-02-22] MEDS: Diabetic Tussin 200 MG/10 ML UDCUP PO PRN ×3 (03:51→18:45)
--- NOTE | 2017-02-22 08:53 | PDOC.PN ---
- Subjective Encounter Start Date: 02/22/17 Encounter Start Time: 08:50 Subjective: ok, no sob - Objective Resuscitation Status: Resuscitation Status FULL:Full Resuscitation MAR Reviewed: Yes Vital Signs & Weight: Vital Signs (12 hours) Temp Pulse Resp BP Pulse Ox 02/22/17 07:25 97.0 F L 62 18 100 02/22/17 07:20 97.0 F L 62 18 179/75 H 100 02/22/17 04:00 166/84 H 02/22/17 02:52 97.6 F 69 22 H 97 Weight Weight 124 lb Most Recent Monitor Data Heart Rate from ECG 66 NIBP 121/55 NIBP BP-Mean 96 Respiration from ECG 27 SpO2 100 I&O: 02/21/17 02/22/17 02/23/17 06:59 06:59 06:59 Intake Total 1210 960 Output Total 2900 2000 Balance -2690 -2480 Result Diagrams: 02/20/17 04:56 02/20/17 04:56 Additional Labs: Accuchecks 02/22/17 02/21/17 02/21/17 06:07 20:01 11:30 POC Glucose 176 H 139 H 155 H Phys Exam - Physical Examination Constitutional: NAD Neck: no JVD scattered rhonchi Cardiovascular: RRR, no significant murmur Gastrointestinal: soft, non-tender Musculoskeletal: edema present Dx/Plan (1) UTI (urinary tract infection), bacterial Code(s): N39.0 - URINARY TRACT INFECTION, SITE NOT SPECIFIED; A49.9 - BACTERIAL INFECTION, UNSPECIFIED Status: Acute (2) UTI due to Klebsiella species Code(s): N39.0 - URINARY TRACT INFECTION, SITE NOT SPECIFIED; B96.1 - KLEBSIELLA PNEUMONIAE THE CAUSE OF DISEASES CLASSD ELSWHR Status: Acute (3) Sepsis Code(s): A41.9 - SEPSIS, UNSPECIFIED ORGANISM Status: Acute Qualifiers: Sepsis type: sepsis due to unspecified organism Qualified Code(s): A41.9 - Sepsis, unspecified organism (4) Acute and chronic respiratory failure with hypoxia Code(s): J96.21 - ACUTE AND CHRONIC RESPIRATORY FAILURE WITH HYPOXIA Status: Acute Comment: Secondary to volume overload, HD per Renal service, O2 by NC (5) Acute on chronic diastolic (congestive) heart failure Code(s): I50.33 - ACUTE ON CHRONIC DIASTOLIC (CONGESTIVE) HEART FAILURE Status : Acute (6) Volume overload Code(s): E87.70 - FLUID OVERLOAD, UNSPECIFIED Status: Acute Comment: Due to ESRD, HD for volume removal (7) ESRD (end stage renal disease) on dialysis Code(s): N18.6 - END STAGE RENAL DISEASE; Z99.2 - DEPENDENCE ON RENAL DIALYSIS Status: Chronic Comment: Volume overload initially, HD per Renal service (8) Elevated troponin Code(s): R74.8 - ABNORMAL LEVELS OF OTHER SERUM ENZYMES Status: Chronic (9) HTN (hypertension) Code(s): I10 - ESSENTIAL (PRIMARY) HYPERTENSION Status: Chronic (10) Hyperlipidemia Code(s): E78.5 - HYPERLIPIDEMIA, UNSPECIFIED Status: Chronic - Plan transition to po antibx -: discuss with Dr Cadena re 1. further HD, contination of vancomycin * .
[2017-02-22] MEDS: Folic Acid/Vit B Comp W-C PO SCH (09:29)
[2017-02-22] MEDS: Ferrous Sulfate 325 MG TAB PO SCH (09:29)
[2017-02-22] MEDS: Atorvastatin Calcium 40 MG TAB PO SCH (09:29)
[2017-02-22] MEDS: FLUoxetine HCl 20 MG CAP PO SCH (09:29)
[2017-02-22] MEDS: Sevelamer Carbonate 800 MG TAB PO SCH ×3 (09:29→18:46)
[2017-02-22] MEDS: Aspirin 81 mg Enteric Coated Tablet PO SCH (09:30)
[2017-02-22] MEDS: Famotidine 20 MG TAB PO SCH (09:30)
[2017-02-22] MEDS: Carvedilol 25 MG TAB PO SCH ×2 (09:30→20:29)
[2017-02-22] MEDS: Losartan 25 MG TAB PO SCH (09:30)
[2017-02-22] MEDS: Clopidogrel Bisulfate 75 MG TAB PO SCH (09:30)
[2017-02-22] MEDS: Heparin 5,000 UNITS/ML VIAL SC SCH ×3 (09:30→20:29)
[2017-02-22] MEDS: Cefdinir 300 MG CAP PO SCH ×2 (09:38→20:29)
[2017-02-22] MEDS: Vancomycin HCl 750 MG in Sodium Chloride 0.9% 250 ML 250 ML IVPB SCH (16:34)
--- NOTE | 2017-02-22 19:20 | PRG ---
DATE OF SERVICE: 02/22/2017 SUBJECTIVE: The patient was seen and examined at bedside and overnight events noted. Patient denies any shortness of breath or chest pain or palpitation. No history of nausea or vomiting or diarrhea or fever or chills or cramps. OBJECTIVE: General: This is an elderly female, in no apparent distress. Vital signs: Temperature 98.9, pulse 72, respiratory rate 16, and blood pressure 164/73. HEENT: Atraumatic, normocephalic. Oral mucosa is moist. Neck: Supple. Cardiovascular: S1 and S2 heard. Rate and rhythm regular. Respiratory: Clear to auscultation. Gastrointestinal: Abdomen is soft. Musculoskeletal: No tenderness. No edema. Dermatologic: No skin rash. Neurologic: Alert and awake and oriented X3. No focal neurologic deficits. Moving all the extremit ies. Psychiatric: Mood and affect normal. LABORATORY DATA: No labs done today. ASSESSMENT AND PLAN: 1. End-stage renal disease. Continue on dialysis as tolerated. 2. Edema. We will remove fluid. 3. Fluid overload seems to be better. 4. Anemia, chronic. 5. Hypertension, stable. 6. Plan is to continue dialysis with ultrafiltration.
[2017-02-23] MEDS: Diabetic Tussin 200 MG/10 ML UDCUP PO PRN ×3 (02:43→21:32)
--- NOTE | 2017-02-23 08:19 | PDOC.PN ---
- Subjective Encounter Start Date: 02/23/17 Encounter Start Time: 08:17 Subjective: sob this am, improved with neb tx - Objective Resuscitation Status: Resuscitation Status FULL:Full Resuscitation MAR Reviewed: Yes Vital Signs & Weight: Vital Signs (12 hours) Temp Pulse Resp BP BP Pulse Ox 02/23/17 07:56 98.1 F 71 22 H 191/75 H 99 02/23/17 04:00 98.1 F 63 24 H 163/71 H 100 02/23/17 03:44 67 20 100 02/23/17 00:00 97.8 F 67 20 179/75 H 100 Weight Weight 124 lb 8 oz Most Recent Monitor Data Heart Rate from ECG 66 NIBP 121/55 NIBP BP-Mean 96 Respiration from ECG 27 SpO2 100 I&O: 02/22/17 02/23/17 02/24/17 06:59 06:59 06:59 Intake Total 960 1200 Output Total 2000 2350 Balance -1040 -1150 Result Diagrams: 02/20/17 04:56 02/20/17 04:56 Additional Labs: Accuchecks 02/23/17 02/22/17 02/22/17 05:43 20:52 11:01 POC Glucose 168 H 187 H 188 H Phys Exam - Physical Examination Constitutional: NAD Neck: no JVD grossly clear, poor inspiation Cardiovascular: RRR Gastrointestinal: soft, non-tender, positive bowel sounds Musculoskeletal: no edema, edema present Dx/Plan (1) UTI (urinary tract infection), bacterial Code(s): N39.0 - URINARY TRACT INFECTION, SITE NOT SPECIFIED; A49.9 - BACTERIAL INFECTION, UNSPECIFIED Status: Acute (2) UTI due to Klebsiella species Code(s): N39.0 - URINARY TRACT INFECTION, SITE NOT SPECIFIED; B96.1 - KLEBSIELLA PNEUMONIAE THE CAUSE OF DISEASES CLASSD ELSWHR Status: Acute (3) Sepsis Code(s): A41.9 - SEPSIS, UNSPECIFIED ORGANISM Status: Resolved Qualifiers: Sepsis type: sepsis due to unspecified organism Qualified Code(s): A41.9 - Sepsis, unspecified organism (4) Acute and chronic respiratory failure with hypoxia Code(s): J96.21 - ACUTE AND CHRONIC RESPIRATORY FAILURE WITH HYPOXIA Status: Acute Comment: Secondary to volume overload, HD per Renal service, O2 by NC (5) Acute on chronic diastolic (congestive) heart failure Code(s): I50.33 - ACUTE ON CHRONIC DIASTOLIC (CONGESTIVE) HEART FAILURE Status : Acute (6) Volume overload Code(s): E87.70 - FLUID OVERLOAD, UNSPECIFIED Status: Acute Comment: Due to ESRD, HD for volume removal (7) ESRD (end stage renal disease) on dialysis Code(s): N18.6 - END STAGE RENAL DISEASE; Z99.2 - DEPENDENCE ON RENAL DIALYSIS Status: Chronic Comment: Volume overload initially, HD per Renal service (8) Elevated troponin Code(s): R74.8 - ABNORMAL LEVELS OF OTHER SERUM ENZYMES Status: Chronic (9) HTN (hypertension) Code(s): I10 - ESSENTIAL (PRIMARY) HYPERTENSION Status: Chronic Qualifiers: Hypertension type: essential hypertension Qualified Code(s): I10 - Essential (primary) hypertension (10) Hyperlipidemia Code(s): E78.5 - HYPERLIPIDEMIA, UNSPECIFIED Status: Chronic - Plan DVT proph w/heparin rpt cxr, then discuss with Dr Cdaena, cont HD -: cxr demonstrates significant bilat pleural effusions, she need smore fluid -: removal before going back to rehab -: cont coreg, statin, plavix. cont omnicef * .
--- NOTE | 2017-02-23 08:55 | RAD ---
FRONTAL VIEW CHEST: Comparison: 02-18-17 Indication: Shortness of breath. FINDINGS: There is enlargement of the cardiac silhouette. Bibasilar opacities are present indicating pleural fl uid with adjacent atelectasis and/or pneumonia. Prior sternotomy. No additional significant finding. IMPRESSION: Evidence of decompensated CHF with bilateral pleural fluid. Adjacent atelectasis and/or pneumonia is present at each lung base. Recommend follow up to clearing. POS: [facility]
[2017-02-23] MEDS: Sevelamer Carbonate 800 MG TAB PO SCH ×3 (09:46→16:36)
[2017-02-23] MEDS: Cefdinir 300 MG CAP PO SCH ×2 (09:47→21:28)
[2017-02-23] MEDS: Folic Acid/Vit B Comp W-C PO SCH (09:47)
[2017-02-23] MEDS: FLUoxetine HCl 20 MG CAP PO SCH (09:47)
[2017-02-23] MEDS: Atorvastatin Calcium 40 MG TAB PO SCH (09:47)
[2017-02-23] MEDS: Ferrous Sulfate 325 MG TAB PO SCH (09:47)
[2017-02-23] MEDS: Famotidine 20 MG TAB PO SCH (09:47)
[2017-02-23] MEDS: Clopidogrel Bisulfate 75 MG TAB PO SCH (09:47)
[2017-02-23] MEDS: Heparin 5,000 UNITS/ML VIAL SC SCH ×3 (09:47→21:28)
[2017-02-23] MEDS: Aspirin 81 mg Enteric Coated Tablet PO SCH (09:47)
[2017-02-23] MEDS: Carvedilol 25 MG TAB PO SCH ×2 (09:47→21:28)
[2017-02-23] MEDS: Losartan 25 MG TAB PO SCH (09:48)
[2017-02-23] MEDS: Amlodipine 5 MG TAB PO SCH (09:56)
--- NOTE | 2017-02-23 09:58 | PRG ---
DATE OF SERVICE: 02/23/2017 SUBJECTIVE: Patient was seen and examined at bedside and overnight events noted. Patient denies any shortness of breath or chest pain or palpitation. No history of nausea or vomiting or diarrhea or f ever or chills or cramps. OBJECTIVE: GENERAL: This is a well-built female in no apparent distress. VITAL SIGNS: Temperature 98.1, pulse 71, respiratory rate 22, blood pressure 163/71. HEENT: Atraumatic, normocephalic. Oral mucosa is moist. NECK: Supple. CARDIOVASCULAR: S1, S2 heard. Rate and rhythm regular. RESPIRATORY: Clear to auscultation. GASTROINTESTINAL: Abdomen is soft. MUSCULOSKELETAL: No tenderness. No edema. DERMATOLOGIC: No skin rash. NEUROLOGIC: Alert and awake and oriented x3. No focal neurologic deficits. Moving all the extremiti es. PSYCHIATRIC: Mood and affect normal. LABORATORY DATA: Not done today. ASSESSMENT AND PLAN: 1. End-stage renal disease. We will continue on dialysis Monday, Monday and Monday. 2. Edema with fluid overload. 3. Anemia. 4. Hypertension. Titrate blood pressure medicines. 5. We will continue remove fluid with dialysis. No acute indication for any dialysis today. We zachery l continue dialysis on Monday, Monday, and Monday. Okay with rehab placement and continue dialysi s in the rehabilitation as tolerated.
[2017-02-23] MEDS: Insulin Regular 300 UNITS/3 ML VIAL SC PRN ×2 (13:47→18:23)
[2017-02-23] MEDS: Acetaminophen 325 MG TAB PO PRN (21:38)
[2017-02-24] MEDS ORDERED: hydrALAZINE 20 MG/ML VIAL SLOW IVP PRN (05:41)
[2017-02-24] MEDS ORDERED: Labetalol HCl 100 MG/20 ML VIAL SLOW IVP PRN (05:41)
[2017-02-24 08:05] LABS: Vancomycin, Random 13.2 ug/mL (See Comment)
[2017-02-24 08:14] VITALS: BMI 22.3
[2017-02-24 08:24] LABS: Oxyhemoglobin 91.2 % (94.0-97.0); Sodium 138 mmol/L (135-148)
[2017-02-24 08:32] LABS: Mode NC; Modified Allen's Test NOT DONE; Vent NO
[2017-02-24] MEDS: Amlodipine 5 MG TAB PO SCH (10:54)
[2017-02-24] MEDS: Sevelamer Carbonate 800 MG TAB PO SCH ×3 (10:54→17:59)
[2017-02-24] MEDS: Aspirin 81 mg Enteric Coated Tablet PO SCH (10:55)
[2017-02-24] MEDS: Atorvastatin Calcium 40 MG TAB PO SCH (10:55)
[2017-02-24] MEDS: Carvedilol 25 MG TAB PO SCH ×2 (10:55→20:20)
[2017-02-24] MEDS: FLUoxetine HCl 20 MG CAP PO SCH (10:56)
[2017-02-24] MEDS: Clopidogrel Bisulfate 75 MG TAB PO SCH (10:56)
[2017-02-24] MEDS: Famotidine 20 MG TAB PO SCH (10:56)
[2017-02-24] MEDS: Cefdinir 300 MG CAP PO SCH ×2 (10:56→20:20)
[2017-02-24] MEDS: Folic Acid/Vit B Comp W-C PO SCH (10:56)
[2017-02-24] MEDS: Ferrous Sulfate 325 MG TAB PO SCH (10:56)
[2017-02-24] MEDS: Losartan 25 MG TAB PO SCH (10:57)
[2017-02-24] MEDS: Heparin 5,000 UNITS/ML VIAL SC SCH ×3 (10:57→20:20)
[2017-02-24] MEDS: Vancomycin HCl 750 MG in Sodium Chloride 0.9% 250 ML 250 ML IVPB SCH (11:14)
--- NOTE | 2017-02-24 11:32 | RAD ---
PORTABLE CHEST: HISTORY: Shortness of breath. COMPARISON: 02/23/17. FINDINGS: Bilateral effusions. Left basilar atelectasis and/or consolidation. Cardiomegaly with vascular engo rgement and mild congestion. IMPRESSION: The above findings have not significantly changed from yesterday. POS: [facility]
--- NOTE | 2017-02-24 14:00 | PRG ---
DATE OF SERVICE: 02/24/2017 SUBJECTIVE: The patient was seen and examined at bedside. The patient became short of breath this m orning. She was taken to dialysis. Her blood pressure was elevated at almost 190s. ABGs were done and showed a respiratory alkalosis with hypoxia. The patient was placed from 2-4 liters by nasal can nula and removed water during dialysis. She is feeling better now. OBJECTIVE: VITAL SIGNS: Blood pressure is 181/79, temperature is 98.4, pulse is 74, respiratory rate is 24, O2 saturation is 94% on 4 liters. GENERAL: She looks tired and exhausted. She is an elderly lady. HEENT: Her pupils are responding to light properly. Sclerae nonicteric. Conjunctivae pinkish. Ora l mucosa is slightly dry. NECK: Supple. JVD is +2 plus bilaterally. LUNGS: Breath sounds diminished at both bases with crackles bilaterally. HEART: S1, S2 normal, no S3, no S4. ABDOMEN: Soft, nontender, nondistended. EXTREMITIES: No clubbing, cyanosis or edema. NEUROLOGIC: She is alert and oriented x4. There are not any sensory motor deficits present. Crania l nerves are intact. LABORATORY DATA: Showed ABG is pH 7.57, pCO2 of 32.8, pO2 51.9. A-a gradient is 107, potassium 3.3. Glycemia is ranging from 127-208. IMPRESSION: 1. Urinary tract infection with Klebsiella and the patient is still on antibiotic p.o. 2. Sepsis, resolved. 3. Acute on chronic respiratory failure with hypoxia. 4. Acute on chronic diastolic heart failure. The patient is still volume overloaded. She has bilat eral pleural effusions. She is participating in her hemodialysis to remove the excess of fluid. We went up on her O2 to 4 liters per minute since she was hypoxic on 2 liters. 5. End-stage renal disease, on dialysis, managed per Dr. Cadena. 6. Hypertension. 7. Hyperlipidemia. 8. Elevated troponins, chronic. PLAN: To continue her hemodialysis, increase her O2 to 4 liters per minute. Continue PT. Continue h er Coreg, statin, Plavix, and Omnicef. The case was discussed with Dr. Cadena and Dr. Gomez. We are going to stop vancomycin since her blood culture 1 out of 2 was contamination.
[2017-02-24] MEDS: Insulin Regular 300 UNITS/3 ML VIAL SC PRN (18:22)
--- NOTE | 2017-02-24 23:58 | PRG ---
DATE OF SERVICE: 02/25/2017 SUBJECTIVE: Patient was seen and examined at bedside and overnight events noted. Patient denies any shortness of breath or chest pain or palpitation. No history of nausea or vomiting or diarrhea or f ever or chills or cramps. OBJECTIVE: GENERAL: This is a well-built female in no apparent distress. VITAL SIGNS: Temperature 98.4, pulse 74, respirations 18, blood pressure 181/79. HEENT: Atraumatic, normocephalic. Oral mucosa is moist. NECK: Supple. CARDIOVASCULAR: S1, S2 heard. Rate and rhythm regular. RESPIRATORY: Clear to auscultation. GASTROINTESTINAL: Abdomen is soft. MUSCULOSKELETAL: No tenderness. No edema. DERMATOLOGIC: No skin rash. NEUROLOGIC: Alert and awake and oriented x3. No focal neurologic deficits. Moving all the extremiti es. PSYCHIATRIC: Mood and affect normal. LABORATORY DATA: No labs done today. ASSESSMENT AND PLAN: 1. End-stage renal disease, continue on dialysis Monday, Monday, and Monday. 2. Anemia . 3. Hypertension. 4. Edema. 5. Fluid overload PLAN: Dialysis Monday, Monday, and Monday with fluid removal as tolerated.
[2017-02-25] MEDS: Insulin Regular 300 UNITS/3 ML VIAL SC PRN ×3 (06:29→17:42)
[2017-02-25] MEDS: Amlodipine 5 MG TAB PO SCH (08:47)
[2017-02-25] MEDS: Aspirin 81 mg Enteric Coated Tablet PO SCH (08:47)
[2017-02-25] MEDS: Sevelamer Carbonate 800 MG TAB PO SCH ×3 (08:47→16:48)
[2017-02-25] MEDS: Atorvastatin Calcium 40 MG TAB PO SCH (08:48)
[2017-02-25] MEDS: Clopidogrel Bisulfate 75 MG TAB PO SCH (08:48)
[2017-02-25] MEDS: Carvedilol 25 MG TAB PO SCH ×2 (08:48→21:33)
[2017-02-25] MEDS: Folic Acid/Vit B Comp W-C PO SCH (08:49)
[2017-02-25] MEDS: Famotidine 20 MG TAB PO SCH (08:49)
[2017-02-25] MEDS: Ferrous Sulfate 325 MG TAB PO SCH (08:49)
[2017-02-25] MEDS: FLUoxetine HCl 20 MG CAP PO SCH (08:49)
[2017-02-25] MEDS: Heparin 5,000 UNITS/ML VIAL SC SCH ×3 (08:49→21:34)
[2017-02-25] MEDS: Losartan 25 MG TAB PO SCH (08:50)
--- NOTE | 2017-02-25 10:11 | PRG ---
DATE OF SERVICE: 02/25/2017 SUBJECTIVE: Patient was seen and examined at bedside and overnight events noted. Patient denies any shortness of breath or chest pain or palpitation. No history of nausea or vomiting or diarrhea or f ever or chills or cramps. OBJECTIVE: GENERAL: This is a well-built female in no apparent distress. VITAL SIGNS: Temperature is afebrile, pulse , respiratory rate 18, blood pressure 156/66. HEENT: Atraumatic, normocephalic. Oral mucosa is moist. NECK: Supple. CARDIOVASCULAR: S1, S2 heard. Rate and rhythm regular. RESPIRATORY: Clear to auscultation. GASTROINTESTINAL: Abdomen is soft. MUSCULOSKELETAL: No tenderness. No edema. DERMATOLOGIC: No skin rash. NEUROLOGIC: Alert and awake and oriented x3. No focal neurologic deficits. Moving all the extremiti es. PSYCHIATRIC: Mood and affect normal. LABORATORY DATA: Not done today. ASSESSMENT AND PLAN: 1. End-stage renal disease, continue on hemodialysis. 2. Edema. 2. Hypertension. 3. Anemia. Plan is to continue dialysis Monday, Monday, and Monday as tolerated.
--- NOTE | 2017-02-25 11:55 | PRG ---
DATE OF SERVICE: 02/25/2017 SUBJECTIVE: The patient is seen and examined at the bedside. She is feeling significantly better. Her shortness of breath improved after we increased her O2 to 4 liters per nasal cannula and she rece ived hemodialysis yesterday. OBJECTIVE: VITAL SIGNS: Her blood pressure is 156/66, temperature is 98.4, pulse is 66, respiratory rate is 20, O2 saturation is 95% on 3-1/2 liters by nasal cannula. HEENT: Her pupils are responding to light properly. Sclera is nonicteric. Oral mucosa is moist. NECK: Supple. JVD, 1+ bilaterally equal. LUNGS: Breath sounds decreased at both bases with crackles bilaterally. HEART: S1 and S2 distant. No S3, no S4. ABDOMEN: Soft, nontender, and nondistended. Bowel sounds are present, no organomegaly. EXTREMITIES: No clubbing, cyanosis or edema. NEUROLOGIC: She is alert and oriented x4. There is not any motor or sensory deficits present. She follows my commands. SKIN: No rash or erythema. LABORATORY DATA: Input and output and balance is 840 mL, out is 0 and balance is 8[address] the [address] 24 hours. IMPRESSION: 1. Sepsis, resolved. 2. Urinary tract infection with Klebsiella, on oral antibiotic. 3. Acute on chronic respiratory failure with hypoxia. The patient is on 3-1/2 liters by nasal cannu la, that is her regular flow at home of O2. 4. Acute on chronic diastolic heart failure. The patient is getting hemodialyzed by operations research analyst, t hat is the only way we can get rid of fluid access. 5. End-stage renal disease, again on dialysis. 6. Hypertension. 7. Hyperlipidemia. 8. Elevated troponins, chronic. PLAN: So plan is to consider the discharge. I believe that she should be able to go home in the nex t 24 hours, we still continue her Plavix, Omnicef, Coreg, and statin, and the case will be discussed with Dr. Cadena, her operations research analyst.
[2017-02-25] MEDS: Cefdinir 300 MG CAP PO SCH ×2 (12:00→21:33)
[2017-02-25] MEDS: Diabetic Tussin 200 MG/10 ML UDCUP PO PRN ×2 (15:54→23:50)
[2017-02-26] MEDS: Diabetic Tussin 200 MG/10 ML UDCUP PO PRN (04:34)
[2017-02-26] MEDS: Sevelamer Carbonate 800 MG TAB PO SCH ×2 (07:53→12:05)
[2017-02-26] MEDS: Amlodipine 5 MG TAB PO SCH (07:54)
[2017-02-26] MEDS: Carvedilol 25 MG TAB PO SCH (07:54)
[2017-02-26] MEDS: Aspirin 81 mg Enteric Coated Tablet PO SCH (07:54)
[2017-02-26] MEDS: Atorvastatin Calcium 40 MG TAB PO SCH (07:54)
[2017-02-26] MEDS: Ferrous Sulfate 325 MG TAB PO SCH (07:55)
[2017-02-26] MEDS: Clopidogrel Bisulfate 75 MG TAB PO SCH (07:55)
[2017-02-26] MEDS: Cefdinir 300 MG CAP PO SCH (07:55)
[2017-02-26] MEDS: Famotidine 20 MG TAB PO SCH (07:55)
[2017-02-26] MEDS: Heparin 5,000 UNITS/ML VIAL SC SCH (07:55)
[2017-02-26] MEDS: FLUoxetine HCl 20 MG CAP PO SCH (07:55)
[2017-02-26] MEDS: Folic Acid/Vit B Comp W-C PO SCH (07:55)
[2017-02-26] MEDS: Losartan 25 MG TAB PO SCH (07:56)
[2017-02-26 12:40] VITALS: BP 123/58; TEMP 97.7
[2017-02-26] MEDS: Insulin Regular 300 UNITS/3 ML VIAL SC PRN (13:36)
--- NOTE | 2017-02-26 14:17 | PRG ---
DATE OF SERVICE: 02/26/2017 SUBJECTIVE: Patient was seen and examined at bedside and overnight events noted. Patient denies any shortness of breath or chest pain or palpitation. No history of nausea or vomiting or diarrhea or f ever or chills or cramps. OBJECTIVE: GENERAL: This is a thin built female in no apparent distress. VITAL SIGNS: Temperature 98.2, pulse 80, respiratory rate 20, blood pressure 123/58. HEENT: Atraumatic, normocephalic. Oral mucosa is moist. NECK: Supple. CARDIOVASCULAR: S1, S2 heard. Rate and rhythm regular. RESPIRATORY: Clear to auscultation. GASTROINTESTINAL: Abdomen is soft. MUSCULOSKELETAL: No tenderness. No edema. DERMATOLOGIC: No skin rash. NEUROLOGIC: Alert and awake and oriented x3. No focal neurologic deficits. Moving all the extremiti es. PSYCHIATRIC: Mood and affect normal. LABORATORY DATA: No labs done today. ASSESSMENT AND PLAN: 1. End-stage renal disease. Continue on hemodialysis Monday, Monday, and Monday. 2. Edema, controlled. 3. Hypertension. 4. Anemia. Overall, tolerating dialysis. We will continue on dialysis as tolerated.
--- NOTE | 2017-02-26 15:30 | DIS ---
DATE OF ADMISSION: 02/18/2017 DATE OF DISCHARGE: 02/26/2017 DIAGNOSES AT THE TIME OF DISCHARGE: 1. Sepsis, resolved. 2. Urinary tract infection with Klebsiella. 3. Acute on chronic respiratory failure with hypoxia, on home O2. 4. Acute on chronic diastolic heart failure, on hemodialysis. 5. End-stage renal disease. 6. Hypertension. 7. Hyperlipidemia. 8. Elevated troponins, chronic. CONSULTANTS: Dr. Brennon Gomez of Critical Care/Pulmonary service, Dr. Zelalem Arndt of Nephrology, Dr. Alejandra Cadena of Nephrology. IMAGIN. Chest x-ray at the time of admission showed enlarged cardiac silhouette with bilateral lower lobe pleural and parenchymal opacity suggestive of pulmonary edema, infectious pneumonitis or aspiration in the lung bases could not be excluded. 2. Chest x-ray which was done on 02/23/2017 showed evidence of decompensated CHF with bilateral pleu ral fluid, adjacent atelectasis and/or pneumonia is present at each lung base. 3. Chest x-ray which was done 2 days ago showed bilateral effusions, left basilar atelectasis and/or consolidation, cardiomegaly with vascular engorgement, and mild congestion. HOSPITAL COURSE: The patient is a 76-year-old female with past medical history significant for recurrent femur fracture, currently on low dose Lovenox, congestive heart failure, coronary kayli ry disease, diabetes, as well as end-stage renal disease, on hemodialysis, who presented to the [facility] with shortness of breath. Apparently, the patient woke up with shortness of breath and she was f ound to have temperature of 102 when EMS was called and arrived. She was placed on BiPAP due to her work of breathing and she was taken to the emergency room. She complained about fevers at home as we ll as cough which was nonproductive. She denied any sweats or chills. She denied any chest pain, na usea, vomiting, abdominal pain, or diarrhea. At the time of emergency room evaluation, her temperatu re was 99.7, blood pressure was 92/41, pulse was 78, respiratory rate was 22. She was saturating 95% on BiPAP. Her white count was 11.0, hemoglobin 8.7, hematocrit 27.0, and platelet count was 233. H er sodium was down to 131, potassium 3.9, chloride 95, bicarbonate 27, BUN 36, creatinine 2.4, glucos e 133. BNP was up to 3800. Troponin was up to 0.87 and 0.243. Chest x-ray showed cardiomegaly with fluid overload. The patient was admitted to the hospital. She was started on IV cefepime, IV Solu- Medrol, and DuoNeb per RT protocol. The patient was seen by intranet specialist Dr. Gomez, who diagnosed her with septic shock and acute hypoxic respiratory failure and metabolic encephalopathy. Vancomyci n was added and her respiratory status improved. She received dialysis supervised by Dr. Arndt. Her blood pressure recovered and respirations were down to 16, saturation was 92% on 2 liters by nasal ca nnula. Her blood cultures and influenza were unremarkable. Her urine straight catheter demonstrated Klebsiella pneumoniae which was pansensitive and one out of two blood cultures were growing coagulas e negative Staph. The patient continued on the regimen which was working properly. She was continue d on the same regimen and improved to the point that she was able to be transferred to telemetry [facility]. While on telemetry floor, she had one episode of increased shortness of breath which was felt moriah t she was again fluid overloaded and she required a dialysis which was done and her pulse oximetry im proved after that. Her IV antibiotics were discontinued and she was switched to oral Omnicef and she is doing well today. Her blood pressure 123/58, temperature 97.7, pulse 65, respiratory rate was 20 , and O2 saturation was 95% on 3.5 liters. She is discharged to the rehab today. She looks good. She would stay on heart healthy, renal, low s alt diet. Activities as tolerated since she requires 4 liters of oxygen even at home. She will cont inue her physical therapy while in the rehabilitation. DISCHARGE MEDICATIONS: At the time of discharge, her discharge medications are aspirin 81 mg once a day, atorvastatin 80 mg at bedtime, carvedilol 25 mg twice a day, clopidogrel 75 mg daily, ferrous s ulfate 47.5 mg once a day, fluoxetine 40 mg once a day, folic acid with vitamin B complex once a day, isosorbide mononitrate 30 mg once a day, losartan 25 mg once a day, sevelamer carbonate 800 mg 3 soniya es a day, Omnicef 300 mg twice a day for an additional 4 days. She will continue her DuoNebs. She w ill continue her sennosides, amlodipine 5 mg once a day and nifedipine is discontinued. The patient is seen and examined before she is discharged to the rehab and the discharge is more than 30 minutes.
--- NOTE | 2017-03-11 10:42 | EKG ---
Test Reason : Blood Pressure : / mmHG Vent. Rate : 089 BPM Atrial Rate : 089 BPM P-R Int : 000 ms QRS Dur : 108 ms QT Int : 372 ms P-R-T Axes : 000 058 204 degrees QTc Int : 452 ms Accelerated Junctional rhythm Incomplete left bundle branch block Abnormal ECG Confirmed by MAYRA BECERRIL M.D. ([id number]), loan expeditor SHAYLA DUVALL ([id number]) on 03/11/2017 10:42:31 AM Referred By: Confirmed By:MAYRA BECERRIL M.D.
== END 2017-02-26 13:44 | DRG 871 ==
LOC: ERS 09:46 → CCU 13:48 → 2NO 02-19 23:10
PROVIDERS: ADMIT Internal Medicine; ATTEND Internal Medicine
PROC: 5A1D70Z Performance of Urinary Filtration, Intermittent, Less than 6 Hours Per Day (ICD-10-PCS; principal; 2017-02-18)
DX: A41.1 Sepsis due to other specified staphylococcus (principal); J96.21 Acute and chronic respiratory failure with hypoxia; I21.4 Non-ST elevation (NSTEMI) myocardial infarction; R65.21 Severe sepsis with septic shock; G93.41 Metabolic encephalopathy; E87.3 Alkalosis; L89.153 Pressure ulcer of sacral region, stage 3; I50.33 Acute on chronic diastolic (congestive) heart failure; N18.6 End stage renal disease; I13.2 Hypertensive heart and chronic kidney disease with heart failure and with stage 5 chronic kidney disease, or end stage renal disease; N39.0 Urinary tract infection, site not specified; J98.11 Atelectasis; E87.70 Fluid overload, unspecified; I25.10 Atherosclerotic heart disease of native coronary artery without angina pectoris; E11.22 Type 2 diabetes mellitus with diabetic chronic kidney disease; Z99.2 Dependence on renal dialysis; Z79.01 Long term (current) use of anticoagulants; Z79.82 Long term (current) use of aspirin; Z91.15 Patient's noncompliance with renal dialysis; Z95.1 Presence of aortocoronary bypass graft; D63.1 Anemia in chronic kidney disease; B96.1 Klebsiella pneumoniae [K. pneumoniae] as the cause of diseases classified elsewhere; E78.5 Hyperlipidemia, unspecified; Z51.5 Encounter for palliative care; Z99.81 Dependence on supplemental oxygen; Z88.8 Allergy status to other drugs, medicaments and biological substances; Z88.1 Allergy status to other antibiotic agents; Z91.041 Radiographic dye allergy status; Z96.641 Presence of right artificial hip joint; F32.9 Major depressive disorder, single episode, unspecified
CPT/HCPCS: 36415; 36416; 51701; 71010; 80048; 80053; 80202; 81003; 81015; 82553; 82805; 83605; 83735; 83880; 84484; 85025; 85610; 87040; 87077; 87086; 87149; 87186; 87340; 90935; 93005; 93798; 94640; 94660; 96361; 96365; 96375; 96376; A4216; A4353; G0257; G8978-GP-CM; G8979-GP-CK; J0360; J0692; J0696; J1644; J1720; J1815; J2405; J2920; J2930; J3010; J3370; J7050; J7620

== ENCOUNTER 2017-03-07 16:48 | Inpatient (IN) | payer MEDICARE ==
[2017-03-07 17:11] LABS: Base Excess-Venous 4.5 mmol/L (-30.0-30.0); CO2 Tension (PvCO2) 34.8 mmHg (41.0-51.0); Calcium, Ionized 1.03 mmol/L (1.12-1.32); Lactate 4.41 mmol/L (0.50-2.20); Potassium 4.6 mmol/L (3.4-4.7); pH (Venous) 7.513 (7.35-7.45); vO2 Saturation-calc 98.3 % (0.0-100.0)
[2017-03-07] MEDS ORDERED: Lorazepam 2 MG/ML VIAL ONE (17:17)
[2017-03-07 17:27] LABS: #Eosinphils 0.2 thou/uL (0.0-0.7); #Lymphocytes 1.3 thou/uL (1.20-3.40); #Neutrophils 7.4 thou/uL (1.40-6.50); %Basophils 0.4 % (0.0-1.0); %Eosinophils 1.5 % (0.0-10.0); %Lymphocytes 13.4 % (21.0-51.0); %Monocytes 10.2 % (0.0-10.0); %Neutrophils 74.4 % (42.0-75.0); Mean Corpuscular HGB CONC 31.7 g/dL (32.0-36.0); Mean Corpuscular Hemoglobin 28.3 pg (27.0-31.0); Mean Corpuscular Volume 89.5 fl (81.0-99.0); Mean Platelet Volume 6.7 fL (7.4-10.4); Platelet Count 244 thou/uL (130-400); RBC Distribution Width 16.2 % (11.5-14.5); Red Blood Cell (RBC) Count 1.75 mill/uL (4.20-5.40); White Blood Cell (WBC) Count 9.9 thou/uL (4.8-10.8)
[2017-03-07] MEDS ORDERED: Fentanyl 100 MCG/2 ML VIAL ONE ×2 (17:27→17:29)
[2017-03-07 17:28] LABS: Reticulocyte Count 4.2 % (0.5-1.5)
--- NOTE | 2017-03-07 17:31 | RAD ---
PORTABLE SUPINE CHEST: 03/07/17 COMPARISON: A 02/24/17 study. HISTORY: Shortness of breath. FINDINGS: Endotracheal and NG tubes are in satisfactory position. Heart size is enlarged. Pleural effusion on the left side appears increased as compared to the prior exam. There is associated atelectatic change . The right lung is clear. IMPRESSION: Near complete opacification of left lung consistent with large left effusion with atelectasis or coex istent infiltrate. POS: [facility]
[2017-03-07] MEDS ORDERED: Fentanyl 20 MCG/ML 250 ML IVPB SCH ×2 (17:32→22:59)
[2017-03-07 17:34] LABS: Bilirubin Negative (Negative); Blood, Urine Negative (Negative); Clarity CLOUDY (Clear); Glucose, Urine (Dipstick) Negative (Negative); Leukocyte Negative (Negative); Nitrite Negative (Negative); Protein, Urine (Dipstick) 100 mg/dL (Neg-Trace); Urobilinogen 0.2 mg/dL (0.2-1.0)
[2017-03-07 17:36] LABS: WBC/HPF 0-3 HPF (0-3)
[2017-03-07 17:38] LABS: Pathc Cast-AUWi Flag 3.38 (0-2.49); Yeast-AUWi Flag 93.7 (0-25.0)
[2017-03-07 17:43] LABS: Bacteria/HPF 2+ HPF (None Seen); Hyaline Casts/LPF 0-3 HYALINE CAST LPF (0-3 Hyaline); Yeast-All Forms None Seen HPF (None Seen)
[2017-03-07 17:44] LABS: Manual Microscopic Reviewed? No Path Casts Seen
[2017-03-07 17:45] LABS: ALT (SGPT) 8 U/L (8-55); AST (SGOT) 12 U/L (5-34); Albumin 2.6 g/dL (3.4-4.8); Alkaline Phosphatase 73 U/L (40-150); Anion Gap 13 mmol/L (10-20); BUN (Urea Nitrogen) 43 mg/dL (9.8-20.1); Bilirubin, Total 0.5 mg/dL (0.2-1.2); CK (CPK) 32 U/L (29-168); Calc. Creatinine Clearance 0 mL/min (70-130); Calcium 8.1 mg/dL (7.8-10.44); Carbon Dioxide 28 mmol/L (23-31); Chloride 99 mmol/L (98-107); Estimated GFR-MDRD 22; Glucose 154 mg/dL (83-110); Potassium 4.5 mmol/L (3.5-5.1); Protein, Total 4.6 g/dL (6.0-8.3); Sodium 135 mmol/L (136-145)
[2017-03-07 17:46] LABS: Actual Bicarbonate (HCO3a) 25.5 mEq/L (22-26); Base Excess (BEa) 2.6 mEq/L (0 (+/-) 2.5); Calcium, Ionized 1.1 mmol/L (1.12-1.30); Hematocrit-ABG 15.7 % (36.0-47.0); Hemoglobin (Hb) 4.4 g/dL (12.0-16.0); O2 Tension (PaO2) 166.5 mmHg (80.0-100.0); pH, Arterial 7.55 (7.35-7.45)
[2017-03-07 17:47] LABS: Puncture Site RRA
[2017-03-07 17:49] LABS: CKMB 2.3 ng/mL (0-6.6); Troponin I 0.029 ng/mL (< 0.028)
[2017-03-07] MEDS ORDERED: Norepinephrine 8 MG/0.9% NS 250 ML ONE (17:53)
[2017-03-07] MEDS ORDERED: Norepinephrine 8 MG/250 ML BAG IVPB PRN (19:33)
[2017-03-07] MEDS ORDERED: Ondansetron ODT 4 MG TAB SL PRN (19:34)
[2017-03-07] MEDS ORDERED: Ondansetron HCl/PF 4 MG/2 ML Vial IVP PRN ×2 (19:34→22:57)
[2017-03-07] MEDS ORDERED: Sodium Chloride 0.9% 1,000 ML IV SCH (19:45)
[2017-03-07 20:40] LABS: Lactic Acid 3.5 mmol/L (0.5-2.2)
[2017-03-07 20:50] LABS: Troponin I 0.033 ng/mL (< 0.028)
[2017-03-07] MEDS ORDERED: hydrALAZINE 20 MG/ML VIAL SLOW IVP PRN (22:57)
[2017-03-07] MEDS ORDERED: Dextrose 5% in Water 1,000 ML IV PRN (22:57)
[2017-03-07] MEDS ORDERED: Sedation Protocol FS SCH (22:57)
[2017-03-07] MEDS ORDERED: Dextrose 50% Abboject 50 ML SYRINGE SLOW IVP PRN (22:57)
[2017-03-07] MEDS ORDERED: HumaLOG 300 UNITS/3 ML VIAL SC PRN (22:57)
[2017-03-07] MEDS ORDERED: Acetaminophen 650 MG Suppository PR PRN (22:57)
[2017-03-07] MEDS ORDERED: Propofol 1,000 MG/100 ML VIAL IV PRN (22:59)
[2017-03-07] MEDS ORDERED: DISCONTINUE PREVIOUS NARCOTIC PAIN MEDICATIONS AND BENZODIAZEPINES FS SCH (22:59)
[2017-03-07] MEDS ORDERED: Lorazepam 2 MG/ML VIAL SLOW IVP PRN (22:59)
[2017-03-07] MEDS ORDERED: Norepinephrine 8 MG/0.9% NS 250 ML IVPB SCH (23:00)
[2017-03-07 23:45] LABS: Troponin I 0.047 ng/mL (< 0.028)
--- NOTE | 2017-03-08 02:37 | HP ---
PRIMARY CARE PHYSICIAN: Alida Benson MD CHIEF COMPLAINT: Shortness of breath while on dialysis. HISTORY OF PRESENT ILLNESS: Ms. Nichols is a pleasant 76-year-old female who has a history of end-sta ge renal disease on hemodialysis, as well as diabetes mellitus and coronary artery disease as well as CHF. The patient has been in inpatient rehabilitation at [facility] after she fell and fr actured her right femur. She also is on dialysis and while she was on dialysis today, she complained of being extremely short of breath. Apparently, it was also noted that her hemoglobin was around 5 and for this reason, she was sent to the emergency room at our facility. She was also found to be hy potensive. Somewhere along the way, the patient was intubated apparently to protect her airway and w as admitted to the ICU. Her says that he visited her yesterday pretty much all day and says that the only complaint she had was slight bit of trouble breathing. She also vomited yesterday as w ell, all of her breakfast, but otherwise he does not know of any other complaints. He is not aware o f any blood in the stools. He does say that a few years ago, she did have an episode of severe bleed ing from an internal hemorrhoid that required transfusion. The patient was found in the ER to have a hemoglobin of 4.8. Again, she was hypotensive and placed on Levophed and she is currently intubated and in the ICU. REVIEW OF SYSTEMS: Unobtainable as the patient is currently intubated. PAST MEDICAL HISTORY: Significant for congestive heart failure; diastolic heart failure with a prese rved ejection fraction; coronary artery disease; diabetes mellitus type 2; end-stage renal disease, o n hemodialysis; recent right femur fracture. PAST SURGICAL HISTORY: She has had coronary artery bypass grafting, femur fracture on the right. ALLERGIES: ERYTHROMYCIN, IODINE and IODINE-CONTAINING PRODUCTS, TERRAMYCIN, and LYRICA. SOCIAL HISTORY: She is . She is a nonsmoker and nondrinker. FAMILY HISTORY: Significant for coronary artery disease and diabetes mellitus. CURRENT MEDICATIONS: These were taken from her current records and these include aspirin 81 mg daily , atorvastatin 80 mg daily, Carvedilol 25 mg twice a day, Plavix 75 mg daily, Pepcid 20 mg daily, iro n sulfate 47.5 mg daily, fluoxetine 40 mg daily, folic acid/vitamin B complex with C daily, isosorbid e mononitrate extended release 30 mg daily, losartan 50 mg daily, nifedipine 60 mg daily, Renvela 800 mg t.i.d. PHYSICAL EXAMINATION: GENERAL: She is intubated. She has some mild sedation. She is awake and alert, currently biting on the tube. HEENT: Pupils are equal, round, and reactive. Extraocular muscles are intact. Her sclerae are anic teric. NECK: There is no adenopathy. No bruits. LUNGS: Clear. No wheezing. No rales. CARDIOVASCULAR: She has a normal S1 and S2. No S3 or S4. No murmurs or clicks. No rubs. ABDOMEN: Soft. Positive for bowel sounds. EXTREMITIES: There is no edema. SKIN: Pale. NEUROLOGIC: Grossly intact. LABORATORY DATA: Sodium 139, potassium 4.6, chloride is 99, CO2 was 28, BUN of 43, creatinine 2.2, g lucose is 154. White blood cell count 9.9, hemoglobin 5, hematocrit is 15, platelet count is 244. U rinalysis, 2+ bacteria. ASSESSMENT AND PLAN: 1. This is a 76-year-old female who is being admitted for severe symptomatic anemia. It is unclear of the etiology of the drop in her hemoglobin. This could be simply from her end-stage renal disease and she may not be producing enough hemoglobin to keep up with the demand or she could have suffered an acute blood loss. She has been admitted to the ICU. She is undergoing emergent hemodialysis now . She has been typed and crossed and transfused 2 units of blood. With the transfusion, her blood p ressure has improved and the Levophed has been able to be decreased some. We will continue to keep h er on the Levophed to keep her systolic blood pressure above 90 and an adequate mean arterial pressur e. We will also guaiac her stools to see if she has any occult blood loss and if positive, consult G I. We will also place her empirically on IV Protonix. 2. For respiratory failure, this is likely as a result of her acute anemia. She is currently on jam tilator support. customer acquisition specialist has been consulted to help manage this. 3. End-stage renal disease, on hemodialysis. Her executive sales manager has already been consulted and she is undergoing emergent hemodialysis. 4. Aspirin and Plavix will be held given the severe anemia until which time gastrointestinal blood l oss can be ruled out. 5. Diabetes mellitus. We will place her on a sliding scale insulin. 6. Coronary artery disease. This appears to be clinically stable and once she is able to take somet latosha either via NG tube or by mouth, we will restart her cardiac medications as indicated.
[2017-03-08 04:42] LABS: #Eosinphils 0.1 thou/uL (0.0-0.7); #Lymphocytes 0.7 thou/uL (1.20-3.40); #Monocytes 0.5 thou/uL (0.11-0.59); #Neutrophils 12.8 thou/uL (1.40-6.50); %Basophils 0.1 % (0.0-1.0); %Eosinophils 0.5 % (0.0-10.0); %Lymphocytes 4.6 % (21.0-51.0); %Monocytes 3.8 % (0.0-10.0); Hemoglobin 8.3 g/dL (12.0-16.0); Mean Corpuscular HGB CONC 32.7 g/dL (32.0-36.0); Mean Corpuscular Hemoglobin 28.6 pg (27.0-31.0); Mean Corpuscular Volume 87.6 fl (81.0-99.0); Mean Platelet Volume 7.2 fL (7.4-10.4); Platelet Count 213 thou/uL (130-400); RBC Distribution Width 15.4 % (11.5-14.5); Red Blood Cell (RBC) Count 2.88 mill/uL (4.20-5.40); White Blood Cell (WBC) Count 14.1 thou/uL (4.8-10.8)
[2017-03-08 04:54] LABS: Anion Gap 16 mmol/L (10-20); BUN (Urea Nitrogen) 31 mg/dL (9.8-20.1); Calc. Creatinine Clearance 24 mL/min (70-130); Calcium 8.6 mg/dL (7.8-10.44); Carbon Dioxide 26 mmol/L (23-31); Chloride 100 mmol/L (98-107); Estimated GFR-MDRD 30; Glucose 131 mg/dL (83-110); Potassium 4.2 mmol/L (3.5-5.1); Sodium 138 mmol/L (136-145)
[2017-03-08 07:49] LABS: Actual Bicarbonate (HCO3a) 25.5 mEq/L (22-26); Base Excess (BEa) 3.5 mEq/L (0 (+/-) 2.5); CO2 Tension 27.8 mmHg (35.0-45.0); Calcium, Ionized 1.1 mmol/L (1.12-1.30); O2 Tension (PaO2) 54.7 mmHg (80.0-100.0)
[2017-03-08 08:02] LABS: Puncture Site RRA; pH, Arterial 7.58 (7.35-7.45)
[2017-03-08] MEDS ORDERED: Diabetic Tussin 200 MG/10 ML UDCUP PO PRN (08:35)
[2017-03-08] MEDS ORDERED: Mag-Al 1200 mg/1200 mg/30 ML UDCUP PO PRN (08:35)
[2017-03-08] MEDS ORDERED: Acetaminophen 325 MG TAB PO PRN (08:35)
[2017-03-08] MEDS ORDERED: Eucerin (Mineral Oil/Petrolatum,White) 30 gm Jar TOP PRN (08:35)
[2017-03-08] MEDS ORDERED: Milk Of Magnesia 30 ML UDCUP PO PRN (08:35)
[2017-03-08] MEDS ORDERED: Artificial Tears 18 DROP/0.9 ML EA EYE PRN (08:35)
[2017-03-08] MEDS ORDERED: Senokot 8.6 MG TAB PO PRN (08:35)
[2017-03-08] MEDS ORDERED: Sodium Chloride 0.65% Nasal 44 ML BOT EA NARE PRN (08:35)
[2017-03-08] MEDS ORDERED: Ondansetron ODT 4 MG TAB PO PRN (08:35)
[2017-03-08] MEDS ORDERED: cefTRIAXone\\ROCEPHIN 1 GM in Sodium Chloride 0.9% 100 ML IVPB SCH (08:45)
--- NOTE | 2017-03-08 08:54 | RAD ---
PORTABLE CHEST: Date: 03-08-17 Provided Clinical History: Respiratory insufficiency. Comparison: 03-07-17 FINDINGS: Opacification of the left hemithorax is again noted, appearing increased with respect to the prior st udy. There is no shift of the mediastinal contents. The right lung appears clear. Endotracheal tube a nd enteric catheter are again noted in similar positions. Atherosclerosis and median sternotomy meek es are again seen. IMPRESSION: Persistent and worsened opacification of the left hemithorax. POS: [facility]
[2017-03-08] MEDS ORDERED: FLU VACC TS2017-18 (>65YR) 0.5 ML SYRINGE IM ONE (09:00)
[2017-03-08] MEDS ORDERED: cefTRIAXone\\ROCEPHIN 1 GM, Syringe 0.4 ML in Sterile Water 9.6 ML SLOW IVP SCH (09:00)
--- NOTE | 2017-03-08 09:38 | RAD ---
CHEST ONE VIEW: HISTORY: Thoracentesis. COMPARISON: Chest one view from the same day. FINDINGS: The large left pleural effusion has decreased in size. No pneumothorax. Endotracheal tube tip is in a good position, above the asiya, 3.5 cm. Enteric tube is in good posit ion. Small right effusion. IMPRESSION: Marked decrease in left layering pleural effusion without pneumothorax. POS: [facility]
[2017-03-08] MEDS: Pantoprazole 40 MG VIAL IVP SCH ×2 (09:47→20:53)
[2017-03-08 10:37] LABS: BF Color Pink; Body Fluid Source THORACENTESIS FLD; Clarity Hazy (Clear); RBC Background Count 0.004; RBC Count-Automated 14000 /cumm; Tube # EDTA; WBC/NonHematic-Auto 230 /cumm
[2017-03-08 10:51] LABS: Pleural Fluid, Protein 2.2 g/dL
[2017-03-08 11:15] LABS: BF Segmented Neutrophils 16 %; Lymphocytes 12 %
[2017-03-08 11:16] LABS: Cell Count Non Hematic 72 %
--- NOTE | 2017-03-08 11:54 | PDOC.PN ---
- Subjective Encounter Start Date: 03/08/17 Encounter Start Time: 10:00 -: old records requested/rev pt is intubated, sedated, this morning pt had thoracentesis and 12 liter fluid removed - Objective Resuscitation Status: Resuscitation Status FULL:Full Resuscitation MAR Reviewed: Yes Vital Signs & Weight: Vital Signs (12 hours) Temp Pulse Resp BP 03/08/17 08:00 98.7 F 20 03/08/17 07:40 76 134/50 L 03/08/17 06:00 24 H 03/08/17 04:00 98.4 F 22 H 03/08/17 02:10 83 151/55 H 03/08/17 02:00 24 H 03/08/17 01:00 98.1 F 03/08/17 00:00 28 H Weight Weight 117 lb 4.575 oz Most Recent Monitor Data Heart Rate from ECG 80 NIBP 144/54 NIBP BP-Mean 113 Respiration from ECG 13 SpO2 97 I&O: 03/07/17 03/08/17 03/09/17 06:59 06:59 06:59 Intake Total 814.4 15 Output Total 20 10 Balance 794.4 5 Result Diagrams: 03/08/17 03:41 03/08/17 03:41 Additional Labs: Accuchecks 03/08/17 03/08/17 05:42 03:43 POC Glucose 120 H 137 H Radiology Reviewed by me: Yes (chest xray- left pleural effusion) EKG Reviewed by me: Yes (NSR) Phys Exam - Physical Examination Constitutional: NAD intubated, sedated HEENT: PERRLA, moist MMs, sclera anicteric ET tube+ Neck: no JVD, supple Respiratory: no wheezing, no rhonchi air entry reduced on left side Cardiovascular: RRR, no significant murmur, no rub Gastrointestinal: soft, no distention, positive bowel sounds Musculoskeletal: no edema, pulses present unable to assess Lymphatic: no nodes Deviation from normal: unable to assess Skin: no rash, normal turgor Dx/Plan (1) Acute on chronic diastolic (congestive) heart failure Code(s): I50.33 - ACUTE ON CHRONIC DIASTOLIC (CONGESTIVE) HEART FAILURE Status : Acute (2) Acute on chronic respiratory failure with hypoxemia Code(s): J96.21 - ACUTE AND CHRONIC RESPIRATORY FAILURE WITH HYPOXIA Status: Acute (3) Hypotension Status: Acute (4) Pleural effusion, left Code(s): J90 - PLEURAL EFFUSION, NOT ELSEWHERE CLASSIFIED Status: Acute (5) Symptomatic anemia Code(s): D64.9 - ANEMIA, UNSPECIFIED Status: Acute (6) Volume overload Code(s): E87.70 - FLUID OVERLOAD, UNSPECIFIED Status: Acute Comment: Due to ESRD, HD for volume removal (7) Anemia of renal disease Code(s): D63.1 - ANEMIA IN CHRONIC KIDNEY DISEASE Status: Chronic (8) CAD (coronary artery disease) Code(s): I25.10 - ATHSCL HEART DISEASE OF [place] CORONARY ARTERY W/O ANG PCTRS Status: Chronic (9) Chronic respiratory failure with hypoxia Code(s): J96.11 - CHRONIC RESPIRATORY FAILURE WITH HYPOXIA Status: Chronic (10) Diabetes mellitus type 2 Code(s): E11.9 - TYPE 2 DIABETES MELLITUS WITHOUT COMPLICATIONS Status: Chronic Comment: ? diet managed, follow accuchecks (11) ESRD (end stage renal disease) on dialysis Code(s): N18.6 - END STAGE RENAL DISEASE; Z99.2 - DEPENDENCE ON RENAL DIALYSIS Status: Chronic Comment: Volume overload initially, HD per Renal service (12) Elevated troponin Code(s): R74.8 - ABNORMAL LEVELS OF OTHER SERUM ENZYMES Status: Chronic (13) HTN (hypertension) Code(s): I10 - ESSENTIAL (PRIMARY) HYPERTENSION Status: Chronic Qualifiers: Hypertension type: essential hypertension Qualified Code(s): I10 - Essential (primary) hypertension (14) Hyperlipidemia Code(s): E78.5 - HYPERLIPIDEMIA, UNSPECIFIED Status: Chronic (15) Secondary hyperparathyroidism of renal origin Code(s): N25.81 - SECONDARY HYPERPARATHYROIDISM OF RENAL ORIGIN Status: Chronic - Plan cont current plan of care, continue antibiotics * medication reviewed as below * symptomatic treatment * vent per pulmonary * HD as per nephrology * 2 unit PRBC given * now off levophed * monitor labs . Review of Systems - Review of Systems Other: unable to review as pt is intubated and sedated - Medications/Allergies Allergies/Adverse Reactions: Allergies Allergy/AdvReac Type Severity Reaction Status Date / Time erythromycin base Allergy Verified 03/07/17 20:01 Iodine and Iodide Containing Allergy Verified 03/07/17 20:01 Produc oxytetracycline Allergy Verified 03/07/17 20:01 [From Terramycin] oxytetracycline HCl Allergy Verified 03/07/17 20:01 [From Terramycin] pregabalin [From Lyrica] Allergy Verified 03/07/17 20:01 Medications: Current Medications Acetaminophen (Tylenol) 650 mg [place] Q4H PRN PRN Reason: Headache/Fever or Pain Acetaminophen (Tylenol) 650 mg PO Q4H PRN PRN Reason: Headache/Fever or Mild Pain Al Hydroxide/Mg Hydroxide (Maalox) 15 ml PO Q4H PRN PRN Reason: Heartburn or Indigestion Albuterol/Ipratropium (Duoneb) 3 ml NEB [id number] SAMIRA Artificial Tears (Tears Naturale) 0 drop EA EYE PRN PRN PRN Reason: Dry Eyes Atorvastatin Calcium (Lipitor) 80 mg PO HS SAMIRA Dextrose/Water (Dextrose 50%) 25 gm SLOW IVP PRN PRN PRN Reason: Hypoglycemia Glucagon (Glucagon) 1 mg IM PRN PRN PRN Reason: Hypoglycemia Guaifenesin (Robitussin Sf) 200 mg PO Q4H PRN PRN Reason: Cough Hydralazine HCl (Apresoline) 10 mg SLOW IVP Q4H PRN PRN Reason: Systolic BP > 180 Dextrose/Water (D5w) 1,000 mls @ 0 mls/hr IV .Q0M PRN; As Directed PRN Reason: Hypoglycemia Norepinephrine Bitartrate (Levophed) 250 mls @ 0 mls/hr IVPB INF SAMIRA; Titrate PRN Reason: Protocol Fentanyl (Fentanyl Cadd) 250 mls @ 0 mls/hr IVPB INF SAMIRA; Titrate PRN Reason: Protocol Stop: 04/06/17 22:59 Fentanyl Citrate (Fentanyl Bolus) 250 mls @ 0 mls/hr IVPB PRN PRN; As Directed PRN Reason: Breakthrough pain Stop: 04/06/17 22:59 Ceftriaxone Sodium 1 gm/ (Syringe 0.4 ml/ Sterile Water) 10 mls @ 120 mls/hr SLOW IVP 0900 SAMIRA Last Admin: 03/08/17 09:47 Dose: 10 mls Insulin Human Lispro (Humalog) 0 units SC .MILD SLIDING SCALE PRN PRN Reason: Mild Correctional Scale Insulin Human Lispro (Humalog) 0 units SC .BEDTIME SLIDING SC PRN PRN Reason: Bedtime Correctional Scale Lorazepam (Ativan) 2 mg SLOW IVP Q2H PRN PRN Reason: Anxiety to achieve Cintron 2-3 Stop: 04/06/17 22:59 Magnesium Hydroxide (Milk Of Magnesium) 30 ml PO DAILYPRN PRN PRN Reason: Constipation Methylprednisolone Sodium Succinate (Solu-Medrol) 40 mg IVP Q6HR SAMIRA Mineral Oil/White Petrolatum (Eucerin Cream) 0 gm TOP BIDPRN PRN PRN Reason: Dry Skin Morphine Sulfate (Morphine) 2 mg IVP Q2H PRN PRN Reason: Breakthrough pain Stop: 04/06/17 22:59 Ondansetron HCl (Zofran) 4 mg IVP Q6H PRN PRN Reason: Nausea/Vomiting Last Admin: 03/08/17 01:25 Dose: 4 mg Ondansetron HCl (Zofran Odt) 4 mg PO Q6H PRN PRN Reason: Nausea/Vomiting Pantoprazole Sodium (Protonix) 40 mg IVP Q12HR [facility] Last Admin: 03/08/17 09:47 Dose: 40 mg Propofol (Diprivan) 1,000 mg IV INF PRN; Protocol PRN Reason: TO ACHIEVE CINTRON SCORE 2-3 Stop: 04/06/17 22:59 Last Admin: 03/08/17 01:07 Dose: 1,000 mg Senna (Senokot) 2 tab PO HSPRN PRN PRN Reason: Constipation Sevelamer Carbonate (Renvela) 800 mg PO TID-WM SAMIRA Sodium Chloride (Flush - Normal Saline) 10 ml IV Q12HR [facility] Last Admin: 03/08/17 09:48 Dose: 10 ml Sodium Chloride (White Nasal [place] 0.65%) 0 ml EA NARE QIDPRN PRN PRN Reason: Nasal Congestion
--- NOTE | 2017-03-08 14:00 | OP ---
DATE OF PROCEDURE: 03/08/2017 She is a 76-year-old female SURGEON: Jose Antonio Potter M.D. PROCEDURE: Thoracentesis. INDICATIONS: Massive pleural effusion. PROCEDURE: After informed consent, the left posterior thorax was cleaned with chlorhexidine. 1% Xyl ocaine infiltrated into the left ninth intercostal space all the way to the pleural cavity. The pleu ral cavity was entered, and 20 mL of turbid sanguineous fluid was removed. Two nurses kept the patie nt propped up in bed. Thereafter, using an 8 Japanese catheter, a total of 1000 mL was removed without any difficulty. The patient tolerated the procedure well. Pleural effusion was sent for appropriat e studies including gram stain, C&S, culture, cytology.
[2017-03-08] MEDS: Sevelamer Carbonate 800 MG TAB PO SCH ×2 (14:19→17:13)
--- NOTE | 2017-03-08 18:58 | CON ---
DATE OF CONSULTATION: 03/08/2017 HISTORY OF PRESENT ILLNESS: A 76-year-old female who was just recently discharged from the hospital on 02/26/2017 with a diagnoses of chronic renal failure, sepsis, UTI, respiratory failure, acute on chronic diastolic heart failure, hypertension, hyperlipidemia. She is apparently at rehab and apparently was having difficulty breathing at the dialysis center, and she became dyspneic. She was given neb treatments, epinephrine, magnesium, Solu-Medrol. Hemoglobin was slightly better. On arrival to the ER, the ER physician called me before he calling this doctor stating that she had a large pleural effusion, but she is already intubated, I told her to transfer to the ICU on the ventilator, we would address the pleural effusion in a later time. The patient was seen in 2014 by us for similar problems with respiratory failure and shortness of lisa ath. At that time, she states she does not want to be intubated. There are no family members at the bedside at this time. On the vent, she is awake, alert, responsive. A stat chest x-ray was obtained now, which shows a lar ge left pleural effusion, we will try and drain it at the bedside. PAST MEDICAL HISTORY: Coronary artery disease, CHF, renal failure, COPD, dialysis 3 times a week, re cent sepsis. PAST SURGICAL HISTORY: Included a left kidney surgery, left breast bypass, tonsillectomy, multiple c ardiac stents. MEDICATIONS: A list of medicine from home includes Renvela, nifedipine ER 60, losartan 50, isosorbi de mononitrate 30, folic acid, Pepcid, Prozac 40, Plavix 75, Coreg 25, aspirin. She is now on Levoph ed. ALLERGIES: She has multiple allergies to ERYTHROMYCIN, TERRAMYCIN, LYRICA. REVIEW OF SYSTEMS: Otherwise unobtainable. PHYSICAL EXAMINATION: GENERAL: On the vent, she is responsive. VITAL SIGNS: Pulse 80, blood pressure 140/53, sats are 100%, . CHEST: Extensive rhonchi and crackles. CARDIAC: Sinus tachycardia. ABDOMEN: Soft, no masses. LABORATORY DATA: Shows white count 14,000, H&H is 8 and 25. After transfusion of 2 units of packed cells, platelet count 213, pO2 was 54, pCO2 27 pH 7.58, on 60% 350, 10. Creatinine is 1.6, BUN 34. Influenza titer was obtained, which was negative. IMPRESSION: 1. Respiratory failure secondary to massive left pleural effusion. 2. End-stage renal disease. 3. Advanced age. 4. Recent fractured leg. 5. Previous tobacco abuse. 6. Coronary artery disease. PLAN: We will try and tap the chest. Start on neb treatments, steroids. Hopefully, we can wean off the ventilator when she is draining the fluid. This is a 45 minute critical care time exclusive of the thoracentesis.
[2017-03-08] MEDS ORDERED: Sterile Water 10 ML ONE (20:45)
[2017-03-08] MEDS: Atorvastatin Calcium 40 MG TAB PO SCH (20:53)
--- NOTE | 2017-03-08 23:02 | PRG ---
DATE OF SERVICE: 03/08/2017 SUBJECTIVE: Patient was seen and examined at bedside and overnight events noted. Patient denies any shortness of breath or chest pain or palpitation. No history of nausea or vomiting or diarrhea or f ever or chills or cramps. OBJECTIVE: GENERAL: This is a well-built female in no apparent distress. VITAL SIGNS: Temperature 98.2, pulse 71, respiratory rate 22, blood pressure 138/49. HEENT: Atraumatic, normocephalic, oral mucosa is moist. NECK: Supple. CARDIOVASCULAR: S1, S2 heard, rate and rhythm regular. RESPIRATORY: Clear to auscultation. GASTROINTESTINAL: Abdomen is soft. MUSCULOSKELETAL: No tenderness, no edema. DERMATOLOGIC: No skin rash. NEUROLOGIC: Alert and awake and oriented x3, no focal neurologic deficits. Moving all the extremiti es. PSYCHIATRIC: Mood and affect normal. LABORATORY DATA: Potassium is 4.2, BUN is 31, and creatinine is 1.6. ASSESSMENT AND PLAN: 1. End-stage renal disease. Continue on hemodialysis as tolerated. No acute indication for dialysi s. We continue dialysis on Monday, , and Monday. 2. Anemia, status post transfusion with dialysis. 3. Hypertension, stable. Monitor. 4. Edema, controlled. Plan is to monitor hemoglobin and continue dialysis as tolerated on Monday, , and Monday.
[2017-03-09] MEDS ORDERED: Sterile Water 10 ML ONE (04:16)
[2017-03-09 04:32] LABS: #Lymphocytes 0.4 thou/uL (1.20-3.40); #Monocytes 0.2 thou/uL (0.11-0.59); #Neutrophils 10.9 thou/uL (1.40-6.50); %Eosinophils 0.2 % (0.0-10.0); %Lymphocytes 3.4 % (21.0-51.0); %Neutrophils 94.4 % (42.0-75.0); Hemoglobin 7.5 g/dL (12.0-16.0); Mean Corpuscular HGB CONC 33.6 g/dL (32.0-36.0); Mean Corpuscular Hemoglobin 29.8 pg (27.0-31.0); Mean Corpuscular Volume 88.7 fl (81.0-99.0); Mean Platelet Volume 7.4 fL (7.4-10.4); Platelet Count 210 thou/uL (130-400); Red Blood Cell (RBC) Count 2.53 mill/uL (4.20-5.40); White Blood Cell (WBC) Count 11.5 thou/uL (4.8-10.8)
[2017-03-09 04:53] LABS: Albumin 2.7 g/dL (3.4-4.8); Anion Gap 14 mmol/L (10-20); BUN (Urea Nitrogen) 53 mg/dL (9.8-20.1); BUN/Creatinine Ratio 18.15; Calc. Creatinine Clearance 14 mL/min (70-130); Calcium 8.2 mg/dL (7.8-10.44); Carbon Dioxide 29 mmol/L (23-31); Chloride 97 mmol/L (98-107); Estimated GFR-MDRD 16; Glucose 177 mg/dL (83-110); Phosphorus 5.1 mg/dL (2.3-4.7); Potassium 4.4 mmol/L (3.5-5.1); Sodium 136 mmol/L (136-145)
[2017-03-09] MEDS: Pantoprazole 40 MG VIAL IVP SCH (08:20)
[2017-03-09] MEDS: Sevelamer Carbonate 800 MG TAB PO SCH ×3 (08:20→16:46)
--- NOTE | 2017-03-09 08:46 | RAD ---
CHEST ONE VIEW: History: Intubated patient. Comparison: Prior day. FINDINGS: Patient has been extubated. Enteric tube has been removed. There is a prominent skin fold left latera l hemithorax and right lower hemithorax with lung vascular markings projecting past the skin fold. Heart size is markedly enlarged. IMPRESSION: Interval extubation and removal of the enteric tube without complication. POS: TRI
[2017-03-09 10:13] LABS: Hemoglobin 7.8 g/dL (12.0-16.0)
--- NOTE | 2017-03-09 10:49 | PDOC.PN ---
- Subjective Encounter Start Date: 03/09/17 Encounter Start Time: 10:40 pt is doing well after extubation, getting HD, no new complaints - Objective Resuscitation Status: Resuscitation Status FULL:Full Resuscitation MAR Reviewed: Yes Vital Signs & Weight: Vital Signs (12 hours) Temp Pulse Resp Pulse Ox 03/09/17 08:00 98.2 F 03/09/17 07:35 98.1 F 62 22 H 98 03/09/17 05:12 62 22 H 100 03/09/17 05:00 98.3 F 03/09/17 03:00 98.5 F 03/09/17 00:22 66 18 100 03/09/17 00:00 98.3 F 100 Weight Admit Weight 116 lb 13.52 oz Weight 117 lb 4.575 oz Most Recent Monitor Data Heart Rate from ECG 59 NIBP 139/52 NIBP BP-Mean 112 Respiration from ECG 25 SpO2 100 I&O: 03/08/17 03/09/17 03/10/17 06:59 06:59 06:59 Intake Total 814.4 475 630 Output Total 20 63 0 Balance 794.4 412 630 Result Diagrams: 03/09/17 10:00 03/09/17 03:47 Additional Labs: Accuchecks 03/09/17 03/08/17 03/08/17 03:31 21:01 18:12 POC Glucose 178 H 149 H 118 H 03/08/17 14:35 POC Glucose 83 Radiology Reviewed by me: Yes (chest xray) EKG Reviewed by me: Yes (nsr) Phys Exam - Physical Examination Constitutional: NAD HEENT: PERRLA, moist MMs, sclera anicteric Neck: no JVD, supple Respiratory: no wheezing, no rales, no rhonchi Cardiovascular: RRR, no significant murmur, no rub Gastrointestinal: soft, non-tender, no distention, positive bowel sounds Musculoskeletal: no edema, pulses present Neurological: non-focal, normal sensation Lymphatic: no nodes Psychiatric: normal affect Skin: no rash, normal turgor Dx/Plan (1) Acute on chronic diastolic (congestive) heart failure Code(s): I50.33 - ACUTE ON CHRONIC DIASTOLIC (CONGESTIVE) HEART FAILURE Status : Acute (2) Acute on chronic respiratory failure with hypoxemia Code(s): J96.21 - ACUTE AND CHRONIC RESPIRATORY FAILURE WITH HYPOXIA Status: Acute (3) Hypotension Status: Acute (4) Pleural effusion, left Code(s): J90 - PLEURAL EFFUSION, NOT ELSEWHERE CLASSIFIED Status: Acute (5) Symptomatic anemia Code(s): D64.9 - ANEMIA, UNSPECIFIED Status: Acute (6) Volume overload Code(s): E87.70 - FLUID OVERLOAD, UNSPECIFIED Status: Acute Comment: (7) Anemia of renal disease Code(s): D63.1 - ANEMIA IN CHRONIC KIDNEY DISEASE Status: Chronic (8) CAD (coronary artery disease) Code(s): I25.10 - ATHSCL HEART DISEASE OF [place] CORONARY ARTERY W/O ANG PCTRS Status: Chronic (9) Chronic respiratory failure with hypoxia Code(s): J96.11 - CHRONIC RESPIRATORY FAILURE WITH HYPOXIA Status: Chronic (10) Diabetes mellitus type 2 Code(s): E11.9 - TYPE 2 DIABETES MELLITUS WITHOUT COMPLICATIONS Status: Chronic Comment: (11) ESRD (end stage renal disease) on dialysis Code(s): N18.6 - END STAGE RENAL DISEASE; Z99.2 - DEPENDENCE ON RENAL DIALYSIS Status: Chronic Comment: (12) Elevated troponin Code(s): R74.8 - ABNORMAL LEVELS OF OTHER SERUM ENZYMES Status: Chronic (13) HTN (hypertension) Code(s): I10 - ESSENTIAL (PRIMARY) HYPERTENSION Status: Chronic Qualifiers: Hypertension type: essential hypertension Qualified Code(s): I10 - Essential (primary) hypertension (14) Hyperlipidemia Code(s): E78.5 - HYPERLIPIDEMIA, UNSPECIFIED Status: Chronic (15) Secondary hyperparathyroidism of renal origin Code(s): N25.81 - SECONDARY HYPERPARATHYROIDISM OF RENAL ORIGIN Status: Chronic - Plan cont current plan of care, PT/OT * transfer to medical * HD as per nephrology * start selected home medication as below * medication reviewed as below * symptomatic treatment * check FOBT. * start PT/OT Review of Systems - Review of Systems ENT: negative: Ear Pain, Ear Discharge, Nose Pain, Nose Discharge, Nose Congestion, Mouth Pain, Mouth Swelling, Throat Pain, Throat Swelling, Other Respiratory: negative: Cough, Dry, Shortness of Breath, Hemoptysis, SOB with Excertion, Pleuritic Pain, Sputum, Wheezing Cardiovascular: negative: chest pain, palpitations, orthopnea, paroxysmal nocturnal dyspnea, edema, light headedness, other Gastrointestinal: negative: Nausea, Vomiting, Abdominal Pain, Diarrhea, Constipation, Melena, Hematochezia, Other Genitourinary: negative: Dysuria, Frequency, Incontinence, Hematuria, Retention , Other Musculoskeletal: negative: Neck Pain, Shoulder Pain, Arm Pain, Back Pain, Hand Pain, Leg Pain, Foot Pain, Other - Medications/Allergies Allergies/Adverse Reactions: Allergies Allergy/AdvReac Type Severity Reaction Status Date / Time erythromycin base Allergy Verified 03/07/17 20:01 Iodine and Iodide Containing Allergy Verified 03/07/17 20:01 Produc oxytetracycline Allergy Verified 03/07/17 20:01 [From Terramycin] oxytetracycline HCl Allergy Verified 03/07/17 20:01 [From Terramycin] pregabalin [From Lyrica] Allergy Verified 03/07/17 20:01 Medications: Current Medications Acetaminophen (Tylenol) 650 mg [place] Q4H PRN PRN Reason: Headache/Fever or Pain Acetaminophen (Tylenol) 650 mg PO Q4H PRN PRN Reason: Headache/Fever or Mild Pain Al Hydroxide/Mg Hydroxide (Maalox) 15 ml PO Q4H PRN PRN Reason: Heartburn or Indigestion Albuterol/Ipratropium (Duoneb) 3 ml NEB [id number] SAMIRA Last Admin: 03/09/17 05:12 Dose: 3 ml Artificial Tears (Tears Naturale) 0 drop EA EYE PRN PRN PRN Reason: Dry Eyes Atorvastatin Calcium (Lipitor) 80 mg PO HS SAMIRA Last Admin: 03/08/17 20:53 Dose: 80 mg Dextrose/Water (Dextrose 50%) 25 gm SLOW IVP PRN PRN PRN Reason: Hypoglycemia Glucagon (Glucagon) 1 mg IM PRN PRN PRN Reason: Hypoglycemia Guaifenesin (Robitussin Sf) 200 mg PO Q4H PRN PRN Reason: Cough Hydralazine HCl (Apresoline) 10 mg SLOW IVP Q4H PRN PRN Reason: Systolic BP > 180 Dextrose/Water (D5w) 1,000 mls @ 0 mls/hr IV .Q0M PRN; As Directed PRN Reason: Hypoglycemia Norepinephrine Bitartrate (Levophed) 250 mls @ 0 mls/hr IVPB INF SAMIRA; Titrate PRN Reason: Protocol Fentanyl (Fentanyl Cadd) 250 mls @ 0 mls/hr IVPB INF SAMIRA; Titrate PRN Reason: Protocol Stop: 04/06/17 22:59 Fentanyl Citrate (Fentanyl Bolus) 250 mls @ 0 mls/hr IVPB PRN PRN; As Directed PRN Reason: Breakthrough pain Stop: 04/06/17 22:59 Insulin Human Lispro (Humalog) 0 units SC .MILD SLIDING SCALE PRN PRN Reason: Mild Correctional Scale Insulin Human Lispro (Humalog) 0 units SC .BEDTIME SLIDING SC PRN PRN Reason: Bedtime Correctional Scale Lorazepam (Ativan) 2 mg SLOW IVP Q2H PRN PRN Reason: Anxiety to achieve Cintron 2-3 Stop: 04/06/17 22:59 Magnesium Hydroxide (Milk Of Magnesium) 30 ml PO DAILYPRN PRN PRN Reason: Constipation Mineral Oil/White Petrolatum (Eucerin Cream) 0 gm TOP BIDPRN PRN PRN Reason: Dry Skin Morphine Sulfate (Morphine) 2 mg IVP Q2H PRN PRN Reason: Breakthrough pain Stop: 04/06/17 22:59 Ondansetron HCl (Zofran) 4 mg IVP Q6H PRN PRN Reason: Nausea/Vomiting Last Admin: 03/08/17 01:25 Dose: 4 mg Ondansetron HCl (Zofran Odt) 4 mg PO Q6H PRN PRN Reason: Nausea/Vomiting Pantoprazole Sodium (Protonix) 40 mg IVP Q12HR [facility] Last Admin: 03/09/17 08:20 Dose: 40 mg Propofol (Diprivan) 1,000 mg IV INF PRN; Protocol PRN Reason: TO ACHIEVE CINTRON SCORE 2-3 Stop: 04/06/17 22:59 Last Admin: 03/08/17 01:07 Dose: 1,000 mg Senna (Senokot) 2 tab PO HSPRN PRN PRN Reason: Constipation Sevelamer Carbonate (Renvela) 800 mg PO TID-[facility] Last Admin: 03/09/17 08:20 Dose: 800 mg Sodium Chloride (Flush - Normal Saline) 10 ml IV Q12HR [facility] Last Admin: 03/09/17 08:42 Dose: 10 ml Sodium Chloride ([place] Nasal [place] 0.65%) 0 ml EA NARE QIDPRN PRN PRN Reason: Nasal Congestion
[2017-03-09] MEDS: HumaLOG 300 UNITS/3 ML VIAL SC PRN (16:43)
[2017-03-09] MEDS: Carvedilol 6.25 MG TAB PO SCH (16:46)
--- NOTE | 2017-03-09 18:33 | PRG ---
DATE OF SERVICE: 03/09/2017 SUBJECTIVE: The patient this morning in no distress. PHYSICAL EXAMINATION: VITAL SIGNS: Sats are 98% on 2 liters, respiratory rate 18, temperature 98, blood pressure 149/56, s he is being dialyzed. CHEST: Decreased breath sounds, no wheezing or crackles. CARDIAC: Normal S1-S2. No gallops. ABDOMEN: Soft. LABORATORY DATA: White count 11,000, hemoglobin and hematocrit 7 and 22, platelet count 210,000, cre atinine 2.92. IMAGING DATA: X-ray shows small left-sided pleural effusion. Pleural fluid was transudate with only 230 WBCs. IMPRESSION: 1. Left pleural effusion secondary to congestive heart failure secondary to chronic renal failure. 2. Acute respiratory failure, much improved. 3. Chronic renal failure. PLAN: From a pulmonary standpoint of view, she can be transferred out of the ICU. I am going to melodie scalate the antibiotics. Supportive care and PT. Eventually placement.
[2017-03-09] MEDS: Atorvastatin Calcium 40 MG TAB PO SCH (20:43)
--- NOTE | 2017-03-09 21:41 | PRG ---
DATE OF SERVICE: 03/09/2017 SUBJECTIVE: Patient was seen and examined at bedside and overnight events noted. Patient denies any shortness of breath or chest pain or palpitation. No history of nausea or vomiting or diarrhea or f ever or chills or cramps. OBJECTIVE: GENERAL: This is a well-developed female, in no apparent distress. VITAL SIGNS: Temperature 97.3, pulse 63, blood pressure 133/65. HEENT: Atraumatic, normocephalic, Oral mucosa is moist. NECK: Supple. CARDIOVASCULAR: S1, S2 heard, rate and rhythm regular. RESPIRATORY: Clear to auscultation. GASTROINTESTINAL: Abdomen is soft. MUSCULOSKELETAL: No tenderness, no edema. DERMATOLOGIC: No skin rash. NEUROLOGIC: Alert and awake and oriented x3. No focal neurologic deficits. Moving all the extremit ies. PSYCHIATRIC: Mood and affect normal. LABORATORY DATA: Potassium is 4.4, BUN 53, creatinine 2.9. ASSESSMENT AND PLAN: 1. End-stage renal disease, currently on hemodialysis as tolerated. 2. Anemia, status post transfusion. 3. Hypertension. 4. Edema. Plan is to continue on dialysis as tolerated.
[2017-03-10 05:43] LABS: #Eosinphils 0.1 thou/uL (0.0-0.7); #Lymphocytes 0.8 thou/uL (1.20-3.40); #Monocytes 1.2 thou/uL (0.11-0.59); %Basophils 0.1 % (0.0-1.0); %Eosinophils 0.6 % (0.0-10.0); %Lymphocytes 7.6 % (21.0-51.0); %Monocytes 10.7 % (0.0-10.0); %Neutrophils 81.1 % (42.0-75.0); Hemoglobin 7.9 g/dL (12.0-16.0); Mean Corpuscular HGB CONC 32.1 g/dL (32.0-36.0); Mean Corpuscular Hemoglobin 28.9 pg (27.0-31.0); Mean Corpuscular Volume 90.2 fl (81.0-99.0); Mean Platelet Volume 6.8 fL (7.4-10.4); Platelet Count 241 thou/uL (130-400); Red Blood Cell (RBC) Count 2.74 mill/uL (4.20-5.40); White Blood Cell (WBC) Count 11.1 thou/uL (4.8-10.8)
[2017-03-10 06:23] LABS: Albumin 2.6 g/dL (3.4-4.8); Anion Gap 12 mmol/L (10-20); BUN (Urea Nitrogen) 31 mg/dL (9.8-20.1); Calc. Creatinine Clearance 19 mL/min (70-130); Carbon Dioxide 32 mmol/L (23-31); Chloride 97 mmol/L (98-107); Estimated GFR-MDRD 23; Glucose 152 mg/dL (83-110); Phosphorus 1.9 mg/dL (2.3-4.7); Potassium 4.3 mmol/L (3.5-5.1); Sodium 137 mmol/L (136-145)
[2017-03-10] MEDS: Ferrous Sulfate 325 MG TAB PO SCH (08:25)
[2017-03-10] MEDS: Sevelamer Carbonate 800 MG TAB PO SCH ×3 (08:25→17:05)
[2017-03-10] MEDS: Carvedilol 6.25 MG TAB PO SCH (08:25)
[2017-03-10] MEDS: FLUoxetine HCl 20 MG CAP PO SCH (09:27)
[2017-03-10] MEDS: Folic Acid/Vit B Comp W-C PO SCH (09:27)
[2017-03-10] MEDS: Clopidogrel Bisulfate 75 MG TAB PO SCH (09:28)
[2017-03-10] MEDS: Aspirin 81 mg Enteric Coated Tablet PO SCH (09:28)
[2017-03-10] MEDS: HumaLOG 300 UNITS/3 ML VIAL SC PRN ×2 (11:24→17:09)
--- NOTE | 2017-03-10 11:36 | PDOC.PN ---
- Subjective Encounter Start Date: 03/10/17 Encounter Start Time: 07:00 pt is resting flat, no dyspnea, no fever, she wants to leave her julian in, she has not walked with therapy - Objective Resuscitation Status: Resuscitation Status FULL:Full Resuscitation MAR Reviewed: Yes Vital Signs & Weight: Vital Signs (12 hours) Temp Pulse Resp BP BP BP Pulse Ox 03/10/17 08:25 174/74 H 03/10/17 08:00 97.8 F 61 20 100 03/10/17 07:28 97.8 F 61 20 174/74 H 100 03/10/17 07:02 60 16 03/10/17 04:01 98.0 F 68 20 172/71 H 100 03/10/17 00:32 57 L 16 100 Weight Admit Weight 116 lb 13.52 oz Weight 116 lb 2.938 oz Most Recent Monitor Data Heart Rate from ECG 71 NIBP 130/38 NIBP BP-Mean 91 Respiration from ECG 21 SpO2 100 I&O: 03/09/17 03/10/17 03/11/17 06:59 06:59 06:59 Intake Total 475 1930 Output Total 63 35 Balance 412 1895 Result Diagrams: 03/10/17 05:08 03/10/17 05:08 Additional Labs: Accuchecks 03/10/17 03/10/17 03/09/17 11:20 05:43 20:35 POC Glucose 284 H 158 H 366 H 03/09/17 03/09/17 03/09/17 16:37 16:32 12:28 POC Glucose 411 H 438 H 124 H Phys Exam - Physical Examination Constitutional: NAD HEENT: PERRLA, moist MMs, sclera anicteric Neck: no JVD, supple Respiratory: no wheezing, no rales, no rhonchi Cardiovascular: RRR, no significant murmur, no rub Gastrointestinal: soft, non-tender, no distention, positive bowel sounds julian+ Musculoskeletal: no edema, pulses present Neurological: non-focal, normal sensation Psychiatric: normal affect, A&O x 3 Skin: no rash, normal turgor Dx/Plan (1) Acute on chronic diastolic (congestive) heart failure Code(s): I50.33 - ACUTE ON CHRONIC DIASTOLIC (CONGESTIVE) HEART FAILURE Status : Acute (2) Acute on chronic respiratory failure with hypoxemia Code(s): J96.21 - ACUTE AND CHRONIC RESPIRATORY FAILURE WITH HYPOXIA Status: Acute (3) Hypotension Status: Resolved (4) Pleural effusion, left Code(s): J90 - PLEURAL EFFUSION, NOT ELSEWHERE CLASSIFIED Status: Acute Comment: s/p thoracentesis (5) Symptomatic anemia Code(s): D64.9 - ANEMIA, UNSPECIFIED Status: Acute (6) Volume overload Code(s): E87.70 - FLUID OVERLOAD, UNSPECIFIED Status: Resolved Comment: (7) Anemia of renal disease Code(s): D63.1 - ANEMIA IN CHRONIC KIDNEY DISEASE Status: Chronic (8) CAD (coronary artery disease) Code(s): I25.10 - ATHSCL HEART DISEASE OF [place] CORONARY ARTERY W/O ANG PCTRS Status: Chronic (9) Chronic respiratory failure with hypoxia Code(s): J96.11 - CHRONIC RESPIRATORY FAILURE WITH HYPOXIA Status: Chronic (10) Diabetes mellitus type 2 Code(s): E11.9 - TYPE 2 DIABETES MELLITUS WITHOUT COMPLICATIONS Status: Chronic Comment: (11) ESRD (end stage renal disease) on dialysis Code(s): N18.6 - END STAGE RENAL DISEASE; Z99.2 - DEPENDENCE ON RENAL DIALYSIS Status: Chronic Comment: (12) Elevated troponin Code(s): R74.8 - ABNORMAL LEVELS OF OTHER SERUM ENZYMES Status: Chronic (13) HTN (hypertension) Code(s): I10 - ESSENTIAL (PRIMARY) HYPERTENSION Status: Chronic Qualifiers: Hypertension type: essential hypertension Qualified Code(s): I10 - Essential (primary) hypertension (14) Hyperlipidemia Code(s): E78.5 - HYPERLIPIDEMIA, UNSPECIFIED Status: Chronic (15) Secondary hyperparathyroidism of renal origin Code(s): N25.81 - SECONDARY HYPERPARATHYROIDISM OF RENAL ORIGIN Status: Chronic - Plan cont current plan of care, julian catheter, PT/OT * start PT/OT * pt is from [facility] and per pt she was planned for discharge from there on 03/13/17 * will assess here with PT, to see if she needs SNU vs home health * will DC julian on discharge * now will start selected BP meds * medication reviewed as below * symptomatic treatment. Review of Systems - Review of Systems ENT: negative: Ear Pain, Ear Discharge, Nose Pain, Nose Discharge, Nose Congestion, Mouth Pain, Mouth Swelling, Throat Pain, Throat Swelling, Other Respiratory: negative: Cough, Dry, Shortness of Breath, Hemoptysis, SOB with Excertion, Pleuritic Pain, Sputum, Wheezing Cardiovascular: negative: chest pain, palpitations, orthopnea, paroxysmal nocturnal dyspnea, edema, light headedness, other Gastrointestinal: negative: Nausea, Vomiting, Abdominal Pain, Diarrhea, Constipation, Melena, Hematochezia, Other Genitourinary: negative: Dysuria, Frequency, Incontinence, Hematuria, Retention , Other Musculoskeletal: negative: Neck Pain, Shoulder Pain, Arm Pain, Back Pain, Hand Pain, Leg Pain, Foot Pain, Other Skin: negative: Rash, Lesions, Salvador, Bruising, Other - Medications/Allergies Allergies/Adverse Reactions: Allergies Allergy/AdvReac Type Severity Reaction Status Date / Time erythromycin base Allergy Verified 03/07/17 20:01 Iodine and Iodide Containing Allergy Verified 03/07/17 20:01 Produc oxytetracycline Allergy Verified 03/07/17 20:01 [From Terramycin] oxytetracycline HCl Allergy Verified 03/07/17 20:01 [From Terramycin] pregabalin [From Lyrica] Allergy Verified 03/07/17 20:01 Medications: Current Medications Acetaminophen (Tylenol) 650 mg PO Q4H PRN PRN Reason: Headache/Fever or Mild Pain Al Hydroxide/Mg Hydroxide (Maalox) 15 ml PO Q4H PRN PRN Reason: Heartburn or Indigestion Albuterol/Ipratropium (Duoneb) 3 ml NEB [id number] [facility] Last Admin: 03/10/17 07:02 Dose: 3 ml Artificial Tears (Tears Naturale) 0 drop EA EYE PRN PRN PRN Reason: Dry Eyes Aspirin (Ecotrin) 81 mg PO DAILY [facility] Last Admin: 03/10/17 09:28 Dose: 81 mg Atorvastatin Calcium (Lipitor) 80 mg PO HS [facility] Last Admin: 03/09/17 20:43 Dose: 80 mg Carvedilol (Coreg) 6.25 mg PO BID-[facility] Last Admin: 03/10/17 08:25 Dose: 6.25 mg Clopidogrel Bisulfate (Plavix) 75 mg PO DAILY [facility] Last Admin: 03/10/17 09:28 Dose: 75 mg Dextrose/Water (Dextrose 50%) 25 gm SLOW IVP PRN PRN PRN Reason: Hypoglycemia Ferrous Sulfate (Feosol) 325 mg PO QAM-[facility] Last Admin: 03/10/17 08:25 Dose: 325 mg Fluoxetine HCl (Prozac) 40 mg PO DAILY [facility] Last Admin: 03/10/17 09:27 Dose: 40 mg Glucagon (Glucagon) 1 mg IM PRN PRN PRN Reason: Hypoglycemia Guaifenesin (Robitussin Sf) 200 mg PO Q4H PRN PRN Reason: Cough Hydralazine HCl (Apresoline) 10 mg SLOW IVP Q4H PRN PRN Reason: Systolic BP > 180 Dextrose/Water (D5w) 1,000 mls @ 0 mls/hr IV .Q0M PRN; As Directed PRN Reason: Hypoglycemia Insulin Human Lispro (Humalog) 0 units SC .MILD SLIDING SCALE PRN PRN Reason: Mild Correctional Scale Last Admin: 03/10/17 11:24 Dose: 4 unit Insulin Human Lispro (Humalog) 0 units SC .BEDTIME SLIDING SC PRN PRN Reason: Bedtime Correctional Scale Last Admin: 03/09/17 20:44 Dose: 5 unit Isosorbide Mononitrate (Imdur Er) 30 mg PO DAILY [facility] Last Admin: 03/10/17 09:56 Dose: 30 mg Magnesium Hydroxide (Milk Of Magnesium) 30 ml PO DAILYPRN PRN PRN Reason: Constipation Mineral Oil/White Petrolatum (Eucerin Cream) 0 gm TOP BIDPRN PRN PRN Reason: Dry Skin Morphine Sulfate (Morphine) 2 mg IVP Q2H PRN PRN Reason: Breakthrough pain Stop: 04/06/17 22:59 Ondansetron HCl (Zofran) 4 mg IVP Q6H PRN PRN Reason: Nausea/Vomiting Last Admin: 03/08/17 01:25 Dose: 4 mg Ondansetron HCl (Zofran Odt) 4 mg PO Q6H PRN PRN Reason: Nausea/Vomiting Pantoprazole Sodium (Protonix) 40 mg PO DAILY [facility] Last Admin: 03/10/17 09:28 Dose: 40 mg Senna (Senokot) 2 tab PO HSPRN PRN PRN Reason: Constipation Sevelamer Carbonate (Renvela) 800 mg PO TID-[facility] Last Admin: 03/10/17 11:24 Dose: 800 mg Sodium Chloride ([place] Nasal [place] 0.65%) 0 ml EA NARE QIDPRN PRN PRN Reason: Nasal Congestion Vitamin B Complex/Vit C/Folic Acid (Nephro-Ana Tablet) 1 tab PO DAILY [facility] Last Admin: 03/10/17 09:27 Dose: 1 tab
--- NOTE | 2017-03-10 13:53 | PRG ---
DATE OF SERVICE: 03/10/2017 SUBJECTIVE: She is awaiting dialysis today. She feels fine, had no complaints. PHYSICAL EXAMINATION: VITAL SIGNS: Temperature is 97.8, pulse 61, blood pressure 174/74, O2 sats 100% on 2 liters. HEENT: Unremarkable. NECK: No JVD. CHEST: Clear. CARDIAC: S1 and S2 regular. ABDOMEN: Soft. EXTREMITIES: No edema. LABORATORY DATA: White blood cell count 11, hematocrit 24.7, platelet count 241. Sodium 137, potass ium 4.3, BUN 31, creatinine 2.1, glucose 152. ASSESSMENT: 1. Left pleural effusion secondary congestive heart failure. 2. Acute respiratory failure which is improved. PLAN: Continue hemodialysis. Not much to be done further from a pulmonary standpoint. We will sign off. Please recall if further assistance needed.
--- NOTE | 2017-03-10 15:25 | PRG ---
DATE OF SERVICE: 03/10/2017 SUBJECTIVE: Patient was seen and examined at bedside and overnight events noted. Patient denies any shortness of breath or chest pain or palpitation. No history of nausea or vomiting or diarrhea or f ever or chills or cramps. OBJECTIVE: GENERAL: This is a well-built female in no apparent distress. VITAL SIGNS: Temperature 97.8, pulse 61, respiratory rate 20, blood pressure 174/72. HEENT: Atraumatic, normocephalic. Oral mucosa is moist. NECK: Supple. CARDIOVASCULAR: S1, S2 heard. Rate and rhythm regular. RESPIRATORY: Clear to auscultation. GASTROINTESTINAL: Abdomen is soft. MUSCULOSKELETAL: No tenderness. No edema. DERMATOLOGIC: No skin rash. NEUROLOGIC: Alert and awake and oriented x3. No focal neurologic deficits. Moving all the extremiti es. PSYCHIATRIC: Mood and affect normal. LABORATORY DATA: Potassium is 4.3, BUN is 31, creatinine 2.08. ASSESSMENT AND PLAN: 1. End-stage renal disease, continue dialysis. 2. anemia, status post transfusion. Monitor hemoglobin. 3. . 4. Hypertension, stable. 5. Edema, controlled. 6. Plan is to continue on dialysis on Monday, , and Monday. The patient is tolerating we ll.
[2017-03-10] MEDS: Carvedilol 25 MG TAB PO SCH (17:05)
[2017-03-10] MEDS: Atorvastatin Calcium 40 MG TAB PO SCH (22:38)
[2017-03-11 04:50] LABS: #Eosinphils 0.2 thou/uL (0.0-0.7); #Lymphocytes 0.8 thou/uL (1.20-3.40); #Monocytes 0.9 thou/uL (0.11-0.59); #Neutrophils 8.9 thou/uL (1.40-6.50); %Basophils 0.1 % (0.0-1.0); %Eosinophils 1.6 % (0.0-10.0); %Monocytes 8.1 % (0.0-10.0); %Neutrophils 83.3 % (42.0-75.0); Hemoglobin 7.7 g/dL (12.0-16.0); Mean Corpuscular HGB CONC 31.7 g/dL (32.0-36.0); Mean Corpuscular Hemoglobin 28.9 pg (27.0-31.0); Mean Corpuscular Volume 91.2 fl (81.0-99.0); Mean Platelet Volume 6.5 fL (7.4-10.4); Platelet Count 231 thou/uL (130-400); RBC Distribution Width 16.2 % (11.5-14.5); Red Blood Cell (RBC) Count 2.67 mill/uL (4.20-5.40); White Blood Cell (WBC) Count 10.7 thou/uL (4.8-10.8)
[2017-03-11 05:07] LABS: Albumin 2.2 g/dL (3.4-4.8); Anion Gap 11 mmol/L (10-20); BUN (Urea Nitrogen) 44 mg/dL (9.8-20.1); BUN/Creatinine Ratio 13.79; Calc. Creatinine Clearance 12 mL/min (70-130); Calcium 7.6 mg/dL (7.8-10.44); Carbon Dioxide 29 mmol/L (23-31); Chloride 94 mmol/L (98-107); Estimated GFR-MDRD 14; Glucose 137 mg/dL (83-110); Phosphorus 1.8 mg/dL (2.3-4.7); Potassium 4.3 mmol/L (3.5-5.1); Sodium 130 mmol/L (136-145)
[2017-03-11] MEDS: FLUoxetine HCl 20 MG CAP PO SCH (08:30)
[2017-03-11] MEDS: Folic Acid/Vit B Comp W-C PO SCH (08:30)
[2017-03-11] MEDS: Clopidogrel Bisulfate 75 MG TAB PO SCH (08:30)
[2017-03-11] MEDS: Aspirin 81 mg Enteric Coated Tablet PO SCH (08:30)
[2017-03-11] MEDS: Ferrous Sulfate 325 MG TAB PO SCH (08:31)
[2017-03-11] MEDS: NIFEdipine XL 60 MG TAB PO SCH (08:31)
[2017-03-11] MEDS: Carvedilol 25 MG TAB PO SCH ×2 (08:32→16:33)
--- NOTE | 2017-03-11 10:51 | PDOC.PN ---
- Subjective Encounter Start Date: 03/11/17 Encounter Start Time: 07:00 pt is doing well, she slept well, she does not have any new problem, today plan for HD - Objective Resuscitation Status: Resuscitation Status FULL:Full Resuscitation MAR Reviewed: Yes Vital Signs & Weight: Vital Signs (12 hours) Temp Pulse Resp BP BP Pulse Ox 03/11/17 08:31 82 119/56 L 03/11/17 08:00 97.6 F 82 18 03/11/17 07:34 97.6 F 82 18 119/56 L 98 03/11/17 06:23 72 16 98 03/11/17 00:33 98 Weight Admit Weight 116 lb 13.52 oz Weight 112 lb 10.499 oz Most Recent Monitor Data Heart Rate from ECG 71 NIBP 130/38 NIBP BP-Mean 91 Respiration from ECG 21 SpO2 100 I&O: 03/10/17 03/11/17 03/12/17 06:59 06:59 06:59 Intake Total 1930 960 Output Total 35 90 Balance 1895 870 Result Diagrams: 03/11/17 04:32 03/11/17 04:32 Additional Labs: Accuchecks 03/10/17 03/10/17 03/10/17 20:16 17:04 11:20 POC Glucose 253 H 275 H 284 H Phys Exam - Physical Examination Constitutional: NAD HEENT: PERRLA, moist MMs, sclera anicteric Neck: no JVD, supple Respiratory: no wheezing, no rales, no rhonchi Cardiovascular: RRR, no significant murmur, no rub Gastrointestinal: soft, non-tender, no distention, positive bowel sounds Musculoskeletal: no edema, pulses present Neurological: non-focal, normal sensation Lymphatic: no nodes Psychiatric: normal affect Skin: no rash, normal turgor Dx/Plan (1) Acute on chronic diastolic (congestive) heart failure Code(s): I50.33 - ACUTE ON CHRONIC DIASTOLIC (CONGESTIVE) HEART FAILURE Status : Acute (2) Acute on chronic respiratory failure with hypoxemia Code(s): J96.21 - ACUTE AND CHRONIC RESPIRATORY FAILURE WITH HYPOXIA Status: Acute (3) Hypotension Status: Resolved (4) Pleural effusion, left Code(s): J90 - PLEURAL EFFUSION, NOT ELSEWHERE CLASSIFIED Status: Acute Comment: s/p thoracentesis (5) Symptomatic anemia Code(s): D64.9 - ANEMIA, UNSPECIFIED Status: Acute (6) Volume overload Code(s): E87.70 - FLUID OVERLOAD, UNSPECIFIED Status: Resolved Comment: (7) Anemia of renal disease Code(s): D63.1 - ANEMIA IN CHRONIC KIDNEY DISEASE Status: Chronic (8) CAD (coronary artery disease) Code(s): I25.10 - ATHSCL HEART DISEASE OF [place] CORONARY ARTERY W/O ANG PCTRS Status: Chronic (9) Chronic respiratory failure with hypoxia Code(s): J96.11 - CHRONIC RESPIRATORY FAILURE WITH HYPOXIA Status: Chronic (10) Diabetes mellitus type 2 Code(s): E11.9 - TYPE 2 DIABETES MELLITUS WITHOUT COMPLICATIONS Status: Chronic Comment: (11) ESRD (end stage renal disease) on dialysis Code(s): N18.6 - END STAGE RENAL DISEASE; Z99.2 - DEPENDENCE ON RENAL DIALYSIS Status: Chronic Comment: (12) Elevated troponin Code(s): R74.8 - ABNORMAL LEVELS OF OTHER SERUM ENZYMES Status: Chronic (13) HTN (hypertension) Code(s): I10 - ESSENTIAL (PRIMARY) HYPERTENSION Status: Chronic Qualifiers: Hypertension type: essential hypertension Qualified Code(s): I10 - Essential (primary) hypertension (14) Hyperlipidemia Code(s): E78.5 - HYPERLIPIDEMIA, UNSPECIFIED Status: Chronic (15) Secondary hyperparathyroidism of renal origin Code(s): N25.81 - SECONDARY HYPERPARATHYROIDISM OF RENAL ORIGIN Status: Chronic - Plan cont current plan of care, 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 Review of Systems - Review of Systems Constitutional: negative: fever, chills, sweats, weakness, malaise, other ENT: negative: Ear Pain, Ear Discharge, Nose Pain, Nose Discharge, Nose Congestion, Mouth Pain, Mouth Swelling, Throat Pain, Throat Swelling, Other Respiratory: negative: Cough, Dry, Shortness of Breath, Hemoptysis, SOB with Excertion, Pleuritic Pain, Sputum, Wheezing Cardiovascular: negative: chest pain, palpitations, orthopnea, paroxysmal nocturnal dyspnea, edema, light headedness, other Gastrointestinal: negative: Nausea, Vomiting, Abdominal Pain, Diarrhea, Constipation, Melena, Hematochezia, Other Genitourinary: negative: Dysuria, Frequency, Incontinence, Hematuria, Retention , Other Musculoskeletal: negative: Neck Pain, Shoulder Pain, Arm Pain, Back Pain, Hand Pain, Leg Pain, Foot Pain, Other Skin: negative: Rash, Lesions, Salvador, Bruising, Other - Medications/Allergies Allergies/Adverse Reactions: Allergies Allergy/AdvReac Type Severity Reaction Status Date / Time erythromycin base Allergy Verified 03/07/17 20:01 Iodine and Iodide Containing Allergy Verified 03/07/17 20:01 Produc oxytetracycline Allergy Verified 03/07/17 20:01 [From Terramycin] oxytetracycline HCl Allergy Verified 03/07/17 20:01 [From Terramycin] pregabalin [From Lyrica] Allergy Verified 03/07/17 20:01 Medications: Current Medications Acetaminophen (Tylenol) 650 mg PO Q4H PRN PRN Reason: Headache/Fever or Mild Pain Al Hydroxide/Mg Hydroxide (Maalox) 15 ml PO Q4H PRN PRN Reason: Heartburn or Indigestion Albuterol/Ipratropium (Duoneb) 3 ml NEB [id number] [facility] Last Admin: 03/11/17 06:23 Dose: 3 ml Artificial Tears (Tears Naturale) 0 drop EA EYE PRN PRN PRN Reason: Dry Eyes Aspirin (Ecotrin) 81 mg PO DAILY [facility] Last Admin: 03/11/17 08:30 Dose: 81 mg Atorvastatin Calcium (Lipitor) 80 mg PO [facility] Last Admin: 03/10/17 22:38 Dose: 80 mg Carvedilol (Coreg) 12.5 mg PO BID-[facility] Last Admin: 03/11/17 08:32 Dose: Not Given Clopidogrel Bisulfate (Plavix) 75 mg PO DAILY [facility] Last Admin: 03/11/17 08:30 Dose: 75 mg Dextrose/Water (Dextrose 50%) 25 gm SLOW IVP PRN PRN PRN Reason: Hypoglycemia Ferrous Sulfate (Feosol) 325 mg PO QAM-[facility] Last Admin: 03/11/17 08:31 Dose: 325 mg Fluoxetine HCl (Prozac) 40 mg PO DAILY [facility] Last Admin: 03/11/17 08:30 Dose: 40 mg Glucagon (Glucagon) 1 mg IM PRN PRN PRN Reason: Hypoglycemia Guaifenesin (Robitussin Sf) 200 mg PO Q4H PRN PRN Reason: Cough Hydralazine HCl (Apresoline) 10 mg SLOW IVP Q4H PRN PRN Reason: Systolic BP > 180 Dextrose/Water (D5w) 1,000 mls @ 0 mls/hr IV .Q0M PRN; As Directed PRN Reason: Hypoglycemia Insulin Human Lispro (Humalog) 0 units SC .MILD SLIDING SCALE PRN PRN Reason: Mild Correctional Scale Last Admin: 03/10/17 17:09 Dose: 4 unit Insulin Human Lispro (Humalog) 0 units SC .BEDTIME SLIDING SC PRN PRN Reason: Bedtime Correctional Scale Last Admin: 03/09/17 20:44 Dose: 5 unit Isosorbide Mononitrate (Imdur Er) 30 mg PO DAILY [facility] Last Admin: 03/11/17 08:31 Dose: Not Given Magnesium Hydroxide (Milk Of Magnesium) 30 ml PO DAILYPRN PRN PRN Reason: Constipation Mineral Oil/White Petrolatum (Eucerin Cream) 0 gm TOP BIDPRN PRN PRN Reason: Dry Skin Morphine Sulfate (Morphine) 2 mg IVP Q2H PRN PRN Reason: Breakthrough pain Stop: 04/06/17 22:59 Nifedipine (Procardia Xl) 60 mg PO DAILY [facility] Last Admin: 03/11/17 08:31 Dose: Not Given Ondansetron HCl (Zofran) 4 mg IVP Q6H PRN PRN Reason: Nausea/Vomiting Last Admin: 03/08/17 01:25 Dose: 4 mg Ondansetron HCl (Zofran Odt) 4 mg PO Q6H PRN PRN Reason: Nausea/Vomiting Pantoprazole Sodium (Protonix) 40 mg PO DAILY [facility] Last Admin: 03/11/17 08:30 Dose: 40 mg Senna (Senokot) 2 tab PO HSPRN PRN PRN Reason: Constipation Sodium Chloride ([place] Nasal [place] 0.65%) 0 ml EA NARE QIDPRN PRN PRN Reason: Nasal Congestion Vitamin B Complex/Vit C/Folic Acid (Nephro-Ana Tablet) 1 tab PO DAILY [facility] Last Admin: 03/11/17 08:30 Dose: 1 tab
--- NOTE | 2017-03-11 17:54 | PRG ---
DATE OF SERVICE: 03/11/2017 SUBJECTIVE: Patient was seen and examined at bedside and overnight events noted. Patient denies any shortness of breath or chest pain or palpitation. No history of nausea or vomitin g or diarrhea or fever or chills or cramps. OBJECTIVE: GENERAL: Elderly female, in no apparent distress. VITAL SIGNS: Temperature 97.5, pulse 72, respiratory rate 18, blood pressure 152/75. HEENT: Atraumatic, normocephalic, Oral mucosa is moist NECK: Supple CARDIOVASCULAR: S1S2 heard, Rate and rhythm regular RESPIRATORY: Clear to auscultation GASTROINTESTINAL: Abdomen is soft MUSCULOSKELETAL : No tenderness, No edema DERMATOLOGIC : No skin rash NEUROLOGIC: Alert and awake and oriented X3, No focal neurologic deficits. Moving all the extremities . PSYCHIATRIC: Mood and affect normal. LABORATORY DATA: Potassium is 4.3, BUN is 44, creatinine is 3.1. ASSESSMENT AND PLAN: 1. End-stage renal disease, on hemodialysis. Continue on dialysis as tolerated. 2. Anemia, status post transfusion. 3. Hypertension. Blood pressure is stable. 4. Edema. We will remove fluid with dialysis. 5. The patient was advised to limit fluid intake. Continue on 2 liters fluid restriction as tolerat ed.
[2017-03-11] MEDS: Atorvastatin Calcium 40 MG TAB PO SCH (20:26)
[2017-03-12 05:58] VITALS: BMI 20.8
[2017-03-12 06:30] LABS: #Eosinphils 0.2 thou/uL (0.0-0.7); #Lymphocytes 0.6 thou/uL (1.20-3.40); #Monocytes 0.9 thou/uL (0.11-0.59); #Neutrophils 7.6 thou/uL (1.40-6.50); %Basophils 0.1 % (0.0-1.0); %Eosinophils 1.7 % (0.0-10.0); %Lymphocytes 6.7 % (21.0-51.0); %Monocytes 9.3 % (0.0-10.0); %Neutrophils 82.2 % (42.0-75.0); Hemoglobin 8.6 g/dL (12.0-16.0); Mean Corpuscular HGB CONC 31.7 g/dL (32.0-36.0); Mean Corpuscular Hemoglobin 28.9 pg (27.0-31.0); Mean Corpuscular Volume 91.1 fl (81.0-99.0); Mean Platelet Volume 6.5 fL (7.4-10.4); Platelet Count 222 thou/uL (130-400); RBC Distribution Width 16.2 % (11.5-14.5); Red Blood Cell (RBC) Count 2.99 mill/uL (4.20-5.40); White Blood Cell (WBC) Count 9.3 thou/uL (4.8-10.8)
[2017-03-12 06:43] LABS: Albumin 2.5 g/dL (3.4-4.8); Anion Gap 12 mmol/L (10-20); BUN (Urea Nitrogen) 27 mg/dL (9.8-20.1); BUN/Creatinine Ratio 12.27; Calc. Creatinine Clearance 17 mL/min (70-130); Calcium 7.8 mg/dL (7.8-10.44); Carbon Dioxide 29 mmol/L (23-31); Chloride 99 mmol/L (98-107); Estimated GFR-MDRD 22; Glucose 172 mg/dL (83-110); Potassium 3.9 mmol/L (3.5-5.1); Sodium 136 mmol/L (136-145)
[2017-03-12 06:58] LABS: Phosphorus 1.5 mg/dL (2.3-4.7)
[2017-03-12] MEDS: Ferrous Sulfate 325 MG TAB PO SCH (08:01)
[2017-03-12] MEDS: FLUoxetine HCl 20 MG CAP PO SCH (08:01)
[2017-03-12] MEDS: Aspirin 81 mg Enteric Coated Tablet PO SCH (08:02)
[2017-03-12] MEDS: Folic Acid/Vit B Comp W-C PO SCH (08:02)
[2017-03-12] MEDS: NIFEdipine XL 60 MG TAB PO SCH (08:02)
[2017-03-12] MEDS: Carvedilol 25 MG TAB PO SCH (08:02)
[2017-03-12] MEDS: Clopidogrel Bisulfate 75 MG TAB PO SCH (08:02)
--- NOTE | 2017-03-12 09:22 | PDOC.PN ---
- Subjective Encounter Start Date: 03/12/17 Encounter Start Time: 06:00 Patient seen and examined. No new complaints. No overnight events - Objective Resuscitation Status: Resuscitation Status FULL:Full Resuscitation MAR Reviewed: Yes Vital Signs & Weight: Vital Signs (12 hours) Temp Pulse Resp BP BP Pulse Ox 03/12/17 08:02 79 191/86 H 03/12/17 08:00 98.1 F 79 20 100 03/12/17 07:35 98.1 F 84 24 H 191/86 H 93 L 03/12/17 00:27 96 03/12/17 00:25 96 Weight Admit Weight 116 lb 13.52 oz Weight 113 lb 1.554 oz Most Recent Monitor Data Heart Rate from ECG 71 NIBP 130/38 NIBP BP-Mean 91 Respiration from ECG 21 SpO2 100 I&O: 03/11/17 03/12/17 03/13/17 06:59 06:59 06:59 Intake Total 960 1310 Output Total 90 45 Balance 870 1265 Result Diagrams: 03/12/17 06:01 03/12/17 06:01 Phys Exam - Physical Examination Constitutional: NAD HEENT: PERRLA, moist MMs, sclera anicteric Neck: no JVD, supple Respiratory: no wheezing, no rales, no rhonchi Cardiovascular: RRR, no significant murmur, no rub Gastrointestinal: soft, non-tender, no distention, positive bowel sounds Musculoskeletal: no edema, pulses present Neurological: non-focal, normal sensation, moves all 4 limbs Psychiatric: normal affect, A&O x 3 Skin: no rash, normal turgor Dx/Plan (1) Acute on chronic diastolic (congestive) heart failure Code(s): I50.33 - ACUTE ON CHRONIC DIASTOLIC (CONGESTIVE) HEART FAILURE Status : Acute (2) Acute on chronic respiratory failure with hypoxemia Code(s): J96.21 - ACUTE AND CHRONIC RESPIRATORY FAILURE WITH HYPOXIA Status: Acute (3) Hypotension Status: Resolved (4) Pleural effusion, left Code(s): J90 - PLEURAL EFFUSION, NOT ELSEWHERE CLASSIFIED Status: Acute Comment: s/p thoracentesis (5) Symptomatic anemia Code(s): D64.9 - ANEMIA, UNSPECIFIED Status: Acute (6) Volume overload Code(s): E87.70 - FLUID OVERLOAD, UNSPECIFIED Status: Resolved Comment: (7) Anemia of renal disease Code(s): D63.1 - ANEMIA IN CHRONIC KIDNEY DISEASE Status: Chronic (8) CAD (coronary artery disease) Code(s): I25.10 - ATHSCL HEART DISEASE OF [place] CORONARY ARTERY W/O ANG PCTRS Status: Chronic (9) Chronic respiratory failure with hypoxia Code(s): J96.11 - CHRONIC RESPIRATORY FAILURE WITH HYPOXIA Status: Chronic (10) Diabetes mellitus type 2 Code(s): E11.9 - TYPE 2 DIABETES MELLITUS WITHOUT COMPLICATIONS Status: Chronic Comment: (11) ESRD (end stage renal disease) on dialysis Code(s): N18.6 - END STAGE RENAL DISEASE; Z99.2 - DEPENDENCE ON RENAL DIALYSIS Status: Chronic Comment: (12) Elevated troponin Code(s): R74.8 - ABNORMAL LEVELS OF OTHER SERUM ENZYMES Status: Chronic (13) HTN (hypertension) Code(s): I10 - ESSENTIAL (PRIMARY) HYPERTENSION Status: Chronic Qualifiers: Hypertension type: essential hypertension Qualified Code(s): I10 - Essential (primary) hypertension (14) Hyperlipidemia Code(s): E78.5 - HYPERLIPIDEMIA, UNSPECIFIED Status: Chronic (15) Secondary hyperparathyroidism of renal origin Code(s): N25.81 - SECONDARY HYPERPARATHYROIDISM OF RENAL ORIGIN Status: Chronic (16) Protein-calorie malnutrition, moderate Code(s): E44.0 - MODERATE PROTEIN-CALORIE MALNUTRITION Status: Chronic - Plan cont current plan of care, protective services social worker * change coreg 25 bid * add losartan 50 mg daily * medication reviewed as below * symptomatic treatment * possible dc to rehab today * dc julian * dc iv line on discharge. Review of Systems - Review of Systems ENT: negative: Ear Pain, Ear Discharge, Nose Pain, Nose Discharge, Nose Congestion, Mouth Pain, Mouth Swelling, Throat Pain, Throat Swelling, Other Respiratory: negative: Cough, Dry, Shortness of Breath, Hemoptysis, SOB with Excertion, Pleuritic Pain, Sputum, Wheezing Cardiovascular: negative: chest pain, palpitations, orthopnea, paroxysmal nocturnal dyspnea, edema, light headedness, other Gastrointestinal: negative: Nausea, Vomiting, Abdominal Pain, Diarrhea, Constipation, Melena, Hematochezia, Other Genitourinary: negative: Dysuria, Frequency, Incontinence, Hematuria, Retention , Other Musculoskeletal: negative: Neck Pain, Shoulder Pain, Arm Pain, Back Pain, Hand Pain, Leg Pain, Foot Pain, Other Skin: negative: Rash, Lesions, Salvador, Bruising, Other - Medications/Allergies Allergies/Adverse Reactions: Allergies Allergy/AdvReac Type Severity Reaction Status Date / Time erythromycin base Allergy Verified 03/07/17 20:01 Iodine and Iodide Containing Allergy Verified 03/07/17 20:01 Produc oxytetracycline Allergy Verified 03/07/17 20:01 [From Terramycin] oxytetracycline HCl Allergy Verified 03/07/17 20:01 [From Terramycin] pregabalin [From Lyrica] Allergy Verified 03/07/17 20:01 Medications: Current Medications Acetaminophen (Tylenol) 650 mg PO Q4H PRN PRN Reason: Headache/Fever or Mild Pain Al Hydroxide/Mg Hydroxide (Maalox) 15 ml PO Q4H PRN PRN Reason: Heartburn or Indigestion Albuterol/Ipratropium (Duoneb) 3 ml NEB [id number] [facility] Last Admin: 03/12/17 08:27 Dose: 3 ml Artificial Tears (Tears Naturale) 0 drop EA EYE PRN PRN PRN Reason: Dry Eyes Aspirin (Ecotrin) 81 mg PO DAILY [facility] [place] Last Admin: 03/12/17 08:02 Dose: 81 mg Atorvastatin Calcium (Lipitor) [address] [facility] Last Admin: 03/11/17 20:26 Dose: 80 mg [facility] Clopidogrel Bisulfate (Plavix) 75 mg PO DAILY [facility] [place] Last Admin: 03/12/17 08:02 Dose: 75 mg Dextrose/Water (Dextrose 50%) 25 gm SLOW IVP PRN PRN PRN Reason: Hypoglycemia Ferrous Sulfate (Feosol) 325 mg PO [facility] Last Admin: 03/12/17 08:01 Dose: 325 mg Fluoxetine HCl (Prozac) 40 mg PO DAILY [facility] Last Admin: 03/12/17 08:01 Dose: 40 mg Glucagon (Glucagon) 1 mg IM PRN PRN PRN Reason: Hypoglycemia Guaifenesin (Robitussin Sf) 200 mg PO Q4H PRN PRN Reason: Cough Hydralazine HCl (Apresoline) 10 mg SLOW IVP Q4H PRN PRN Reason: Systolic BP > 180 Dextrose/Water (D5w) 1,000 mls @ 0 mls/hr IV .Q0M PRN; As Directed PRN Reason: Hypoglycemia Insulin Human Lispro (Humalog) 0 units SC .MILD SLIDING SCALE PRN PRN Reason: Mild Correctional Scale Last Admin: 03/10/17 17:09 Dose: 4 unit Insulin Human Lispro (Humalog) 0 units SC .BEDTIME SLIDING SC PRN PRN Reason: Bedtime Correctional Scale Last Admin: 03/09/17 20:44 Dose: 5 unit Isosorbide Mononitrate (Imdur Er) 30 mg PO DAILY [facility] [place] Last Admin: 03/12/17 08:01 Dose: 30 mg Magnesium Hydroxide (Milk Of Magnesium) 30 ml PO DAILYPRN PRN PRN Reason: Constipation Mineral Oil/White Petrolatum (Eucerin Cream) 0 gm TOP BIDPRN PRN PRN Reason: Dry Skin Morphine Sulfate (Morphine) 2 mg IVP Q2H PRN PRN Reason: Breakthrough pain Stop: 04/06/17 22:59 Nifedipine (Procardia Xl) 60 mg PO DAILY [facility] [place] Last Admin: 03/12/17 08:02 Dose: 60 mg Non-Formulary Medication (Losartan Potassium [Losartan Potassium]) 50 mg PO DAILY [facility] [place] Ondansetron HCl (Zofran) 4 mg IVP Q6H PRN PRN Reason: Nausea/Vomiting Last Admin: 03/08/17 01:25 Dose: 4 mg Ondansetron HCl (Zofran Odt) 4 mg PO Q6H PRN PRN Reason: Nausea/Vomiting Pantoprazole Sodium (Protonix) 40 mg PO DAILY [facility] Last Admin: 03/12/17 08:02 Dose: 40 mg Senna (Senokot) 2 tab PO HSPRN PRN PRN Reason: Constipation Sodium Chloride ([place] 0.65%) 0 ml EA NARE QIDPRN PRN PRN Reason: Nasal Congestion Vitamin B Complex/Vit C/Folic Acid (Nephro-Ana Tablet) 1 tab PO DAILY [facility] [place] Last Admin: 03/12/17 08:02 Dose: 1 tab
--- NOTE | 2017-03-12 11:08 | DIS ---
PRIMARY CARE PHYSICIAN: Dr. Alida Benson. DATE OF ADMISSION: 03/07/2017 DATE OF DISCHARGE: 03/12/2017 DISCHARGE DISPOSITION: Inpatient rehabilitation. PRIMARY DISCHARGE DIAGNOSES: 1. Acute on chronic diastolic congestive heart failure. These problems resolved by the time of discharge with the dialysis and she became euvolemic. 2. Left pleural effusion, required thoracentesis and fluid removed after that patient felt much better. 3. Acute on chronic respiratory failure with hypoxia. This patient required intubation on admission and subsequently patient was extubated and transferred to telemetry floor and subsequently oncology floor. She is doing better and she is on her baseline oxygen and saturating normal. 4. Symptomatic anemia. This patient had a guaiac positive stool, but without any obvious bleeding and she required a total of 2 units of packed red blood cells and her hemoglobin and hematocrit stable without any ongoing bleeding. 5. Protein calorie malnutrition. The patient will need nutritional support. 6. Hypotension on admission, which was resolved and by the time of discharge, the patient is hypertensive and we resumed all her previous medication. 7. Volume overload due to end-stage renal disease, resolved with dialysis. SECONDARY DISCHARGE DIAGNOSES: Chronic diastolic heart failure, chronic respiratory failure, requiring home oxygen, anemia of renal disease, coronary artery disease, chronic respiratory failure with hypoxia, diabetes type 2, end- stage renal disease on hemodialysis, hypertension, and dyslipidemia. PRIMARY PROCEDURE/OPERATION: Thoracentesis, endotracheal intubation and mechanical ventilatory support, maintenance hemodialysis. RADIOLOGICAL INVESTIGATION: Chest x-ray. SIGNIFICANT LABORATORY DATA: WBC 9.3, hemoglobin 8.6, platelets 222. Sodium 136, potassium 3.9, BUN 27, creatinine 2.20, calcium 7.8, phosphorus 1.5. Urinalysis unremarkable. Thoracentesis fluid, RBC 14,000. WBC 230. Culture from the pleural fluid negative. Stool occult blood was positive. Influenza A and B negative. Blood culture negative. DISCHARGE MEDICATIONS: Aspirin 81 mg p.o. daily, Lipitor 80 mg p.o. daily, Coreg 25 mg p.o. b.i.d., Plavix 75 mg p.o. daily, Pepcid 20 mg p.o. daily, iron one tablet p.o. daily, Prozac 40 mg p.o. daily, Nephro-Ana 1 tablet p.o. daily , Imdur 30 mg p.o. daily, losartan 50 mg p.o. daily, and Procardia-XL 60 mg p.o. daily. CONTRAINDICATIONS: None. CODE STATUS: FULL CODE. INPATIENT CONSULTANTS: Dr. Potter was consulted for respiratory failure. Dr. Cadena was following for hemodialysis. TEST RESULTS PENDING ON DISCHARGE: None. ALLERGIES: ERYTHROMYCIN, IODINE, and TETRACYCLINE. DISCHARGE PLAN: Post-hospital, the patient is discharged to rehab facility for PT, OT, and subsequently the patient will follow up with primary care physician. HOSPITAL COURSE: A 76-year-old female, who was admitted by Dr. Bray. Patient was hypotensive. She had fluid overload. She was having acute on chronic respiratory failure. Patient was also having acute on chronic diastolic heart failure. She was transferred from [facility] and she required intubation. Her chest x-ray showed left pleural effusion. Thoracentesis was done by Dr. Potter. The patient was extubated this afterward and transferred to medical floor. She required total of 2 units of blood transfusion for her low hemoglobin and subsequently her hemoglobin remained stable. She had a guaiac positive stool, but her H&H remained stable and she was not having any bleeding and that is why she did not require any procedure. On the day of discharge, we removed Bhatti catheter as well as IV access. This patient has protein calorie malnutrition and that is why she will need nutritional support and we discontinued the Renvela because of her ongoing low phosphorus level. The patient is overall doing very well. She is medically stable and now she needs PT, OT, and rehabilitation. The patient is already accepted for inpatient rehab. Paper work for discharge done. Discharge medication reconciliation done. Please see my progress note from today for further details. Total time spent to arrange this discharge more than 30 minutes MTDD
[2017-03-12 11:45] VITALS: BP 141/65; TEMP 98.8
[2017-03-12] MEDS ORDERED: Carvedilol 25 MG TAB PO SCH (17:00)
--- NOTE | 2017-03-12 18:55 | PRG ---
DATE OF SERVICE: 03/12/2017 SUBJECTIVE: The patient was seen and examined at bedside and overnight events noted. The patient d enies any shortness of breath or chest pain or palpitation. No history of nausea or vomiting or diar joaquin or fever or chills or cramps. OBJECTIVE: GENERAL: This is an elderly female in no apparent distress. VITAL SIGNS: Temperature 98, pulse 79, respiratory rate 18, blood pressure 149/65. HEENT: Atraumatic, normocephalic, oral mucosa is moist. NECK: Supple. CARDIOVASCULAR: S1, S2 heard, rate and rhythm regular. RESPIRATORY: Clear to auscultation. GASTROINTESTINAL: Abdomen is soft. MUSCULOSKELETAL: No tenderness, no edema. DERMATOLOGIC: No skin rash. NEUROLOGIC: Alert and awake and oriented X3, no focal neurologic deficits. Moving all the extremiti es. Psychiatric: Mood and affect normal. LABORATORY DATA: Potassium is 3.9, BUN is 27, creatinine is 2.2. ASSESSMENT AND PLAN: 1. End-stage renal disease currently on hemodialysis. Monitor renal function. 2. Anemia. 3. Hypertension. 4. Edema. 5. Plan is to continue on dialysis as tolerated.
[2017-03-13] MEDS ORDERED: Losartan Potassium 25 MG TAB PO SCH (09:00)
== END 2017-03-12 15:13 | DRG 208 ==
LOC: ERS 16:48 → CCU 19:27 → ONC 03-09 15:52
PROVIDERS: ADMIT Family Medicine; ATTEND Family Medicine
PROC: 5A1935Z Respiratory Ventilation, Less than 24 Consecutive Hours (ICD-10-PCS; principal; 2017-03-07)
PROC: 5A09357 Assistance with Respiratory Ventilation, Less than 24 Consecutive Hours, Continuous Positive Airway Pressure (ICD-10-PCS; 2017-03-07)
PROC: 30233N1 Transfusion of Nonautologous Red Blood Cells into Peripheral Vein, Percutaneous Approach (ICD-10-PCS; 2017-03-07)
PROC: 5A1D70Z Performance of Urinary Filtration, Intermittent, Less than 6 Hours Per Day (ICD-10-PCS; 2017-03-07)
PROC: 0BH17EZ Insertion of Endotracheal Airway into Trachea, Via Natural or Artificial Opening (ICD-10-PCS; 2017-03-07)
PROC: 0W9B3ZZ Drainage of Left Pleural Cavity, Percutaneous Approach (ICD-10-PCS; 2017-03-08)
DX: J96.21 Acute and chronic respiratory failure with hypoxia (principal); I13.2 Hypertensive heart and chronic kidney disease with heart failure and with stage 5 chronic kidney disease, or end stage renal disease; E44.0 Moderate protein-calorie malnutrition; I95.9 Hypotension, unspecified; E11.22 Type 2 diabetes mellitus with diabetic chronic kidney disease; N18.6 End stage renal disease; D63.1 Anemia in chronic kidney disease; I50.43 Acute on chronic combined systolic (congestive) and diastolic (congestive) heart failure; J91.8 Pleural effusion in other conditions classified elsewhere; N25.81 Secondary hyperparathyroidism of renal origin; Z68.20 Body mass index [BMI] 20.0-20.9, adult; Z99.2 Dependence on renal dialysis; J44.9 Chronic obstructive pulmonary disease, unspecified; I25.10 Atherosclerotic heart disease of native coronary artery without angina pectoris; S72.91XD Unspecified fracture of right femur, subsequent encounter for closed fracture with routine healing; W19.XXXD Unspecified fall, subsequent encounter; Z79.02 Long term (current) use of antithrombotics/antiplatelets; Z79.82 Long term (current) use of aspirin; R19.5 Other fecal abnormalities; Z95.5 Presence of coronary angioplasty implant and graft; Z87.891 Personal history of nicotine dependence; Z95.1 Presence of aortocoronary bypass graft
CPT/HCPCS: 31500; 32554; 36415; 36416; 36430; 51702; 71010; 80048; 80069; 81003; 81015; 82150; 82274; 82330; 82550; 82553; 82803; 82805; 82945; 83605; 83615; 83880; 83986; 84157; 84478; 84484; 85025; 85046; 85060; 86850; 86870; 86900; 86901; 86904; 86922; 87040; 87070; 87116; 87205; 87206; 88112; 88305; 89051; 90471; 90682; 90935; 93005; 94002; 94003; 94640; 94660; 94760; 96365; 96375; 99292; A4216; C9113; G0008; G0257; G8987-GO-CL; G8988-GO-CJ; J0696; J2060; J2270; J2405; J2920; J3010; J7620; P9016; Q2036

== ENCOUNTER 2017-08-25 12:19 | Inpatient (IN) | payer MEDICARE ==
[2017-08-25 13:10] LABS: #Lymphocytes 0.4 thou/uL (1.20-3.40); #Monocytes 0.6 thou/uL (0.11-0.59); #Neutrophils 4.7 thou/uL (1.40-6.50); %Basophils 0.5 % (0.0-1.0); %Eosinophils 0.8 % (0.0-10.0); %Lymphocytes 6.2 % (21.0-51.0); %Monocytes 10.9 % (0.0-10.0); %Neutrophils 81.6 % (42.0-75.0); Mean Corpuscular HGB CONC 31.9 g/dL (32.0-36.0); Mean Corpuscular Hemoglobin 28.2 pg (27.0-31.0); Mean Corpuscular Volume 88.3 fl (81.0-99.0); Mean Platelet Volume 7.6 fL (7.4-10.4); Platelet Count 177 thou/uL (130-400); RBC Distribution Width 16.4 % (11.5-14.5); Red Blood Cell (RBC) Count 2.84 mill/uL (4.20-5.40); White Blood Cell (WBC) Count 5.8 thou/uL (4.8-10.8)
[2017-08-25 13:24] LABS: PTT 30.7 SEC (22.9-36.1)
[2017-08-25 13:29] LABS: ALT (SGPT) 16 U/L (8-55); AST (SGOT) 15 U/L (5-34); Albumin 3.5 g/dL (3.4-4.8); Alkaline Phosphatase 71 U/L (40-150); Anion Gap 9 mmol/L (10-20); BUN (Urea Nitrogen) 9 mg/dL (9.8-20.1); Bilirubin, Total 0.5 mg/dL (0.2-1.2); Calc. Creatinine Clearance 0 mL/min (70-130); Calcium 8.6 mg/dL (7.8-10.44); Carbon Dioxide 37 mmol/L (23-31); Chloride 99 mmol/L (98-107); Estimated GFR-MDRD 34; Globulin 2.2 g/dL (2.4-3.5); Glucose 154 mg/dL (83-110); Potassium 3.5 mmol/L (3.5-5.1); Protein, Total 5.7 g/dL (6.0-8.3); Sodium 141 mmol/L (136-145)
[2017-08-25 13:34] LABS: CKMB 2.6 ng/mL (0-6.6); Troponin I 0.041 ng/mL (< 0.028)
[2017-08-25 13:36] LABS: INR-International Normal Ratio 1.1; Prothrombin Time 14.8 SEC (12.0-14.7)
--- NOTE | 2017-08-25 13:37 | RAD ---
UPRIGHT PORTABLE CHEST 1 VIEW: Date: 08/25/17 HISTORY: 77-year-old female with history of low hemoglobin and hematocrit. COMPARISON: 03/09/17. FINDINGS: Postop midline sternotomy changes with cardiomegaly and bilateral pleural effusions with some bilater al vascular congestion, worsening when compared to the prior study. No significant new confluent proc ess. IMPRESSION: Worsening congestive heart failure with progressive bilateral pleural effusions and vascular congesti on with cardiomegaly. POS: ABIOLA
[2017-08-25] MEDS ORDERED: Milk Of Magnesia 30 ML UDCUP PO PRN (15:54)
[2017-08-25] MEDS ORDERED: Bisacodyl 5 MG TAB PO PRN (15:54)
[2017-08-25] MEDS ORDERED: Acetaminophen 325 MG TAB PO PRN (15:54)
[2017-08-25] MEDS ORDERED: Mag-Al 1200 mg/1200 mg/30 ML UDCUP PO PRN (15:54)
[2017-08-25] MEDS ORDERED: Calcium Carbonate 500 MG ChewTAB PO PRN (15:54)
[2017-08-25] MEDS ORDERED: Ondansetron HCl/PF 4 MG/2 ML Vial IVP PRN (15:54)
[2017-08-25] MEDS ORDERED: Senokot 8.6 MG TAB PO PRN (15:54)
[2017-08-25] MEDS ORDERED: Nitroglycerin 0.4 MG TAB (25 Tab Bottle) SL PRN (15:55)
[2017-08-25] MEDS ORDERED: hydrALAZINE 20 MG/ML VIAL SLOW IVP PRN (15:55)
[2017-08-25] MEDS ORDERED: cloNIDine 0.1 MG TAB PO PRN (15:55)
[2017-08-25] MEDS ORDERED: traMADol HCl 50 MG TAB PO PRN (15:55)
[2017-08-25] MEDS ORDERED: Benzonatate 100 MG CAP PO PRN (15:55)
[2017-08-25] MEDS ORDERED: Loratadine 10 MG TAB PO PRN (15:55)
[2017-08-25] MEDS ORDERED: Diabetic Tussin 200 MG/10 ML UDCUP PO PRN (15:55)
--- NOTE | 2017-08-25 16:54 | HP ---
DATE OF ADMISSION: 08/25/2017 PRIMARY CARE PHYSICIAN: Alida Benson. CHIEF COMPLAINT: Shortness of breath and drop in hemoglobin. HISTORY OF PRESENTING ILLNESS: Ms. Nichols is a pleasant 76-year-old female with history of end-stage renal disease on dialysis, as well as diabetes, coronary artery disease, and diastolic congestive he art failure who presented to the emergency room from environmental protection forester's office. History is mainly obtain ed by the patient herself and supplemented by her present in the room. Electronic medical re cords have been reviewed. Ms. Nichols reported that she was undergoing hemodialysis today when she was found to have a hemoglobi n of 7, which is down from her baseline, so she was sent to the emergency room. She was also having significant difficulty with her breathing and was noted to have low oxygen saturations. She chronica lly is on home O2 at 3.5 liters. She feels that she has been feeling poorly for the last 2 days. John graf has been having shortness of breath since her last dialysis session day before yesterday. She tanika es any recent illnesses. No fever, chills, cough, rhinorrhea. She denies any frequency, urgency or dysuria. She denies any nausea, vomiting or diarrhea. She denies any changes in her medication or h er diet. Her last hospitalization in our facility was in 02/2007 when she had to be emergently dialyzed and wa s intubated because of respiratory failure and was significantly anemic. At that time, she has to mccray d thoracentesis done because of pleural effusion. In the emergency room upon presentation today, she was hemodynamically stable. She was somewhat hypo xic and required oxygen supplementation and was saturating 90% on 4 liters oxygen. She has orders of 2 units of packed RBC transfusion and we will undergo emergent hemodialysis for fluid removal. Ches t x-ray once again suggested worsening of pulmonary edema, pleural effusion and cardiomegaly. Her bl ood work shows hemoglobin of 8.0 with a hematocrit of 25.1, which is more close to her baseline of a round 9. Serum chemistries show troponin of 0.041, creatinine of 1.42. Lactic acid is normal at 1.2 . She is now being admitted for blood transfusion and acute fluid overload. On examination and EKG, she was found to have atrial fibrillation which is rate controlled. This is a new finding for the patient. She has never been diagnosed with same. Her last echocardiogram was done in 09/2016, which showed significant diastolic dysfunction and moderate tricuspid, mitral regurg itation and right-sided volume overload. PAST MEDICAL HISTORY: 1. Diastolic congestive heart failure. 2. End-stage renal disease on hemodialysis. 3. Diabetes mellitus type 2. 4. Coronary artery disease. 5. Anemia of chronic kidney disease. 6. Chronic hypoxemia. 7. Respiratory failure with home oxygen. PAST SURGICAL HISTORY: 1. CABG. 2. Femur fracture surgery on the right. 3. Hemorrhoidectomy. 4. Left breast tumor removal. 5. Tonsillectomy. 6. D&C. 7. Left upper extremity fistula in 2016. ALLERGIES: ERYTHROMYCIN, IODINE, TETRACYCLINE and LYRICA. FAMILY HISTORY: Significant for stroke. SOCIAL HISTORY: for multiple years. Lives with her who is the primary care provider . No history of drug, tobacco or alcohol abuse. CURRENT MEDICATIONS: As listed in the emergency room record, aspirin 81 mg daily, atorvastatin 80 mg daily, isosorbide mononitrate 30 mg daily, Plavix 75 mg daily, carvedilol 25 mg b.i.d., losartan 25 mg daily, Nephro-Ana daily, ferrous sulfate 45 mg daily, fluoxetine 20 mg 2 tabs daily, amlodipine 5 mg daily, MiraLax daily, sevelamer 800 mg daily, and hydralazine 25 mg daily. These medication furt her needs to be confirmed. REVIEW OF SYSTEMS: The patient feels a little bit better at this time. A 12 point review of systems was done and is negative except for those mentioned in the history and physical. The following comp lete review of systems was negative, unless otherwise mentioned in the HPI or below: Constitutional: Weight loss or gain, ability to conduct usual activities. Skin: Rash, itching. Eyes: Double vision, pain. ENT/Mouth: Nose bleeding, neck stiffness, pain, tenderness. Cardiovascular: Palpitations, dyspnea on exertion, orthopnea. Respiratory: Shortness of breath, wheezing, cough, hemoptysis, fever or night sweats. Gastrointestinal: Poor appetite, abdominal pain, heartburn, nausea, vomiting, constipation, or diarr hea. Genitourinary: Urgency, frequency, dysuria, nocturia. Musculoskeletal: Pain, swelling. Neurologic/Psychiatric: Anxiety, depression. Allergy/Immunologic: Skin rash, bleeding tendency. LABORATORY EXAMINATION AND IMAGING DATA: CBC shows hemoglobin at 8, hematocrit 25.1, 81% neutrophils with WBCs of 5.6, PT, PTT, INR normal. Serum chemistry shows bicarbonate of 37, BUN 9, creatinine 1 .4, and blood sugar 154. Lactic acid normal. Troponin borderline elevated at 0.041 with normal CK-M B. Creatinine kinase is normal at 53. Chest x-ray by my review shows worsening pleural effusion and pulmonary edema bilaterally interstitial and alveolar. A 12-lead EKG by my review shows atrial fibr illation, rate controlled. QTC interval is prolonged at 530 milliseconds. PHYSICAL EXAMINATION: VITAL SIGNS: Upon presentation, heart rate 66, blood pressure 157/57, saturating 81% on room air, re spirations 24, and temperature 97.7. GENERAL: She has mild respiratory distress, but reports it is much better. She is able to converse in small sentences, but gets easily winded. She is small and weak appearing. HEENT: Mucous membranes are slightly dry. No oropharyngeal exudate or erythema. Head is normocepha lic and atraumatic. Pupils are equal and reactive to light and accommodation. Extraocular movement intact. NECK: Supple without any lymphadenopathy, JVD or bruit. CHEST: Evaluation show decreased breath sounds at bases with bibasilar crackles. Irregularly irregu lar rhythm without any significant murmurs appreciated at this time. ABDOMEN: Soft, nontender and nondistended with positive bowel sounds. EXTREMITIES: Free of any cyanosis, clubbing, or edema. NEUROLOGIC: Examination is nonfocal. SKIN: Free of any rashes or bruises. I feel warm and dry to touch. PSYCHIATRIC: Normal affect. IMPRESSION AND PLAN: 1. Acute on chronic hypoxic respiratory failure. This is multifactorial. Most likely this is secon tree to acute fluid overload, possibly flash pulmonary edema from atrial fibrillation. The patient w ill be requiring emergent hemodialysis and Nephrology has been consulted with regards to this. Reji nue supportive care in the form of supplemental oxygen and nebulizers etc. No evidence to suggest pn eumonia or pulmonary embolism. No evidence of ACS at this time. Mild troponin elevation is secondar y to end-stage renal failure. 2. Worsening of chronic anemia. The patient seems to be more towards her baseline with regards to h er hemoglobin. She has orders for 2 units of packed RBC transfusion as per the environmental protection forester. Occult blood testing was done and was negative. At this time, she does not seem to be actively losing any blood. 3. Acute on chronic diastolic congestive heart failure. The patient has new onset of atrial fibrill ation. We will obtain a transthoracic echocardiogram and consult Cardiology for same. She is curren tly rate controlled. Continue with aspirin and Plavix once it is confirmed. Not a candidate for ant icoagulation given her history of hemorrhoidal bleed in the past, requiring transfusion. Fluid remov al as tolerated with dialysis. 4. New onset atrial fibrillation as above. Rate controlled currently. We will restart her beta blo cker once the dose is confirmed. 5. History of hypertension, currently controlled. Resume home medications of isosorbide, carvedilol , losartan, amlodipine and hydralazine once dose is confirmed. 6. History of coronary artery disease. Continue aspirin, statin, Plavix, nitrates, ARB and beta blo cker as above. 7. Chronic anemia. Continue with ferrous sulfate once the dose is confirmed. Continue with Nephro- Ana. 8. End-stage renal disease on hemodialysis. This will be done as per the environmental protection forester. 9. CODE STATUS: DO NOT RESUSCITATE or INTUBATE. This was discussed with the patient. 10. Deep venous thrombosis and gastrointestinal prophylaxis. 11. Add p.r.n. medication orders. DISPOSITION: Ms. Rosy Nichols is currently being admitted to the hospital with acute on chronic conges tive heart failure, fluid overload, new diagnosis of atrial fibrillation and anemia. Estimated lengt h of stay at least is 3-4 midnights. Further management will depend upon the clinical course.
[2017-08-25 17:22] LABS: Troponin I 0.052 ng/mL (< 0.028)
[2017-08-25 17:39] LABS: HBSAg Index 0.13 S/CO (0-0.99); Hep B Surf Ag Non-Reactive S/CO (NonReactive)
[2017-08-25 17:40] VITALS: BMI 21.4
[2017-08-25 19:47] LABS: Troponin I 0.064 ng/mL (< 0.028)
[2017-08-25] MEDS ORDERED: Famotidine 20 MG TAB PO SCH (21:00)
[2017-08-25] MEDS: Carvedilol 25 MG TAB PO SCH (22:50)
[2017-08-25] MEDS: Heparin 5,000 UNITS/ML VIAL SC SCH (22:50)
--- NOTE | 2017-08-26 02:28 | CON ---
DATE OF CONSULTATION: 08/25/2017 CONSULTING PHYSICIAN: Dr. Ellsworth. REASON FOR CONSULTATION: End-stage renal disease, evaluation and care. REASON FOR ADMISSION: Shortness of breath. HISTORY OF PRESENT ILLNESS: This is a 77-year-old female with history of end-stage renal disease on hemodialysis, type 2 diabetes, coronary artery disease, hypoxemia, congestive heart failure, came to the hospital with above complaints. Patient was at dialysis and was feeling bad even after dialysis and fluid removal, the patient still had short of breath. The patient was also found to have anemia with hemoglobin of 7, which is a drop from 10 two weeks back. The patient complains of dark stools, but she is on iron. No other nausea or vomiting reported. No fever, chills, no abdominal pain or ba ck pain. PAST MEDICAL HISTORY: Positive for CHF; end-stage renal disease on hemodialysis Monday, Monday, ; type 2 diabetes; coronary artery disease; anemia of chronic disease; chronic hypoxic respirato ry failure. PAST SURGICAL HISTORY: CABG, femoral fracture, hemorrhoidectomy, left breast tumor removal, tonsille ctomy, D and C, left upper extremity fistula placement. HOME MEDICATIONS: Aspirin, atorvastatin, isosorbide mononitrate, Plavix, carvedilol, losartan, Nephr o-Ana, ferrous sulfate, fluoxetine, amlodipine, MiraLax, sevelamer, hydralazine. ALLERGIES: ERYTHROMYCIN, TETRACYCLINE, IODINE, LYRICA. FAMILY HISTORY: Positive for stroke. SOCIAL HISTORY: No smoking, alcohol, or drug abuse. REVIEW OF SYSTEMS: The following complete review of systems was negative, unless otherwise mentioned in the HPI or below: Constitutional: Weight loss or gain, ability to conduct usual activities. Sk in: Rash, itching. Eyes: Double vision, pain. ENT/Mouth: Nose bleeding, neck stiffness, pain, te nderness. Cardiovascular: Palpitations, dyspnea on exertion, orthopnea. Respiratory: Shortness of breath, wheezing, cough, hemoptysis, fever or night sweats. Gastrointestinal: Poor appetite, abdom inal pain, heartburn, nausea, vomiting, constipation, or diarrhea. Genitourinary: Urgency, frequenc y, dysuria, nocturia. Musculoskeletal: Pain, swelling. Neurologic/Psychiatric: Anxiety, depressio n. Allergy/Immunologic: Skin rash, bleeding tendency. PHYSICAL EXAMINATION: GENERAL: This is a thin built female, in mild distress. VITAL SIGNS: Temperature 97.9, pulse 79, respirations 18, blood pressure 190/70. HEENT: Atraumatic, normocephalic. Oral mucosa is moist. NECK: Supple. CARDIOVASCULAR: S1, S2 heard. Rate and rhythm regular. ABDOMEN: Soft. MUSCULOSKELETAL: Gross edema. DERMATOLOGIC: No skin rash. NEUROLOGIC: Alert, awake. PSYCHIATRIC: Mood and affect normal. CHEST: Reduced breath sounds. LABORATORY FINDINGS: Hemoglobin is 8.0, potassium is 3.5, BUN is 9, creatinine is 1.4. ASSESSMENT AND PLAN: 1. End-stage renal disease. Plan is to have dialysis today with 1 unit of blood. 2. Anemia, rule out any bleeding. Hemoglobin dropped to 8, 2-point drop in 2 weeks, could be fluid overload too. 3. Edema. We will remove fluid with dialysis. 4. Pleural effusion. Follow with Pulmonology. 5. Hypertension, remove fluid with dialysis. Continue home medication. 6. Hypoxemia. We will continue fluid removal. Plan is to have dialysis. Follow with Pulmonology for pleural effusion. We will follow.
[2017-08-26 05:02] LABS: #Eosinphils 0.1 thou/uL (0.0-0.7); #Lymphocytes 0.7 thou/uL (1.20-3.40); #Monocytes 0.7 thou/uL (0.11-0.59); #Neutrophils 4.3 thou/uL (1.40-6.50); %Basophils 0.5 % (0.0-1.0); %Eosinophils 1.1 % (0.0-10.0); %Lymphocytes 12.1 % (21.0-51.0); %Monocytes 12.5 % (0.0-10.0); %Neutrophils 73.9 % (42.0-75.0); Hemoglobin 8.8 g/dL (12.0-16.0); Mean Corpuscular HGB CONC 32.8 g/dL (32.0-36.0); Mean Corpuscular Hemoglobin 28.5 pg (27.0-31.0); Mean Platelet Volume 7.4 fL (7.4-10.4); Platelet Count 176 thou/uL (130-400); RBC Distribution Width 16.6 % (11.5-14.5); Red Blood Cell (RBC) Count 3.08 mill/uL (4.20-5.40); White Blood Cell (WBC) Count 5.9 thou/uL (4.8-10.8)
[2017-08-26 05:24] LABS: Anion Gap 13 mmol/L (10-20); BUN (Urea Nitrogen) 18 mg/dL (9.8-20.1); Calc. Creatinine Clearance 16 mL/min (70-130); Calcium 8.4 mg/dL (7.8-10.44); Carbon Dioxide 34 mmol/L (23-31); Chloride 96 mmol/L (98-107); Estimated GFR-MDRD 19; Glucose 140 mg/dL (83-110); Potassium 3.6 mmol/L (3.5-5.1); Sodium 139 mmol/L (136-145)
[2017-08-26] MEDS ORDERED: FERROUS SULFATE 47.5 MG PO SCH (08:00)
[2017-08-26] MEDS: Heparin 5,000 UNITS/ML VIAL SC SCH ×2 (08:29→21:19)
[2017-08-26] MEDS: Carvedilol 25 MG TAB PO SCH ×2 (08:29→21:18)
[2017-08-26] MEDS: Losartan 25 MG TAB PO SCH (08:29)
[2017-08-26] MEDS: Folic Acid/Vit B Comp W-C PO SCH (08:29)
[2017-08-26] MEDS: Famotidine 20 MG TAB PO SCH (08:29)
[2017-08-26] MEDS: FLUoxetine HCl 20 MG CAP PO SCH ×2 (08:30→21:17)
[2017-08-26] MEDS: Aspirin 81 mg Enteric Coated Tablet PO SCH (08:30)
[2017-08-26] MEDS: Sevelamer Carbonate 800 MG TAB PO SCH ×3 (08:30→21:17)
[2017-08-26] MEDS: hydrALAZINE 25 MG TAB PO SCH ×2 (08:30→21:18)
[2017-08-26] MEDS: Amlodipine 10 MG TAB PO SCH (08:30)
[2017-08-26] MEDS: Atorvastatin Calcium 40 MG TAB PO SCH (08:30)
[2017-08-26] MEDS ORDERED: Enoxaparin Sodium 40 MG/0.4 ML SYRINGE SC SCH (09:00)
[2017-08-26] MEDS ORDERED: Clopidogrel Bisulfate 75 MG TAB PO SCH (09:00)
--- NOTE | 2017-08-26 12:36 | PDOC.PN ---
- Subjective Encounter Start Date: 08/26/17 Encounter Start Time: 12:34 Subjective: feels much better.breathing easier.no chest pain,no cough -: no palpitations - Objective Resuscitation Status: Resuscitation Status DNR:Do Not Resuscitate MAR Reviewed: Yes Vital Signs & Weight: Vital Signs (12 hours) Temp Pulse Resp BP BP Pulse Ox 08/26/17 11:24 99 F 57 L 16 156/67 H 98 08/26/17 08:30 60 08/26/17 07:21 98.6 F 60 16 177/75 H 97 08/26/17 04:00 98.6 F 63 14 173/78 H 100 08/26/17 01:07 96 Weight Weight 121 lb I&O: 08/25/17 08/26/17 08/27/17 06:59 06:59 06:59 Intake Total 930 Output Total 1999 Balance -1070 Result Diagrams: 08/27/17 04:42 08/27/17 04:42 Additional Labs: Accuchecks 08/25/17 21:55 POC Glucose 133 H Laboratory Tests 08/25/17 08/25/17 08/25/17 13:02 13:02 16:45 Troponin I 0.041 H 0.052 H B-Natriuretic Peptide 3215.0 H 08/25/17 19:02 Troponin I 0.064 H B-Natriuretic Peptide Phys Exam - Physical Examination Constitutional: NAD easily winded,thin and frail looking HEENT: PERRLA, moist MMs, sclera anicteric, oral pharynx no lesions Neck: no nodes, no JVD, supple, full ROM Respiratory: no wheezing, no rales, no rhonchi, wheezing present, clear to auscultation bilateral Cardiovascular: RRR, no significant murmur, no rub Gastrointestinal: soft, non-tender, no distention, positive bowel sounds Musculoskeletal: no edema, pulses present Neurological: non-focal, normal sensation, moves all 4 limbs Psychiatric: normal affect, A&O x 3 Skin: no rash Dx/Plan (1) Acute on chronic respiratory failure with hypoxemia Code(s): J96.21 - ACUTE AND CHRONIC RESPIRATORY FAILURE WITH HYPOXIA Status: Acute Comment: due to volume overload (2) Acute on chronic diastolic (congestive) heart failure Code(s): I50.33 - ACUTE ON CHRONIC DIASTOLIC (CONGESTIVE) HEART FAILURE Status : Acute Comment: ACC stage C (3) Volume overload Code(s): E87.70 - FLUID OVERLOAD, UNSPECIFIED Status: Resolved Comment: (4) Anemia of renal disease Code(s): D63.1 - ANEMIA IN CHRONIC KIDNEY DISEASE Status: Chronic Comment: s /p 1 unit PRBC yesterday.No evidence of any bleed (5) New onset atrial fibrillation Code(s): I48.91 - UNSPECIFIED ATRIAL FIBRILLATION Status: Acute Comment: NSR today (6) CAD (coronary artery disease) Code(s): I25.10 - ATHSCL HEART DISEASE OF [place] CORONARY ARTERY W/O ANG PCTRS Status: Chronic (7) Diabetes mellitus type 2 Code(s): E11.9 - TYPE 2 DIABETES MELLITUS WITHOUT COMPLICATIONS Status: Chronic Comment: (8) ESRD (end stage renal disease) on dialysis Code(s): N18.6 - END STAGE RENAL DISEASE; Z99.2 - DEPENDENCE ON RENAL DIALYSIS Status: Chronic Comment: (9) Elevated troponin Code(s): R74.8 - ABNORMAL LEVELS OF OTHER SERUM ENZYMES Status: Chronic (10) HTN (hypertension) Code(s): I10 - ESSENTIAL (PRIMARY) HYPERTENSION Status: Chronic Qualifiers: (11) Hyperlipidemia Code(s): E78.5 - HYPERLIPIDEMIA, UNSPECIFIED Status: Chronic (12) Protein-calorie malnutrition, moderate Code(s): E44.0 - MODERATE PROTEIN-CALORIE MALNUTRITION Status: Chronic (13) Secondary hyperparathyroidism of renal origin Code(s): N25.81 - SECONDARY HYPERPARATHYROIDISM OF RENAL ORIGIN Status: Chronic (14) Pleural effusion, left Code(s): J90 - PLEURAL EFFUSION, NOT ELSEWHERE CLASSIFIED Status: Acute Comment: s/p thoracentesis - Plan PT/OT, respiratory therapy, incentive spirometry, out of bed/ambulate, DVT proph w/SCDs Hemodynamically stable & cloinically better afyter fluid removal last night -: Hd yesterday and then every other day or per nephrology -: ECHo pending.old ECHo showed significant MR,TR & diast dysFx -: cont cardioprudnt meds w tighter control of BP -: restart all home meds w prn antihypertensives * .cont supportive care. * am labs. * monitor lytes and replace prn * h/h better post transfusion.monitor.no active bleed * refer to HF clinic on DC Review of Systems - Review of Systems Constitutional: weakness, malaise. negative: fever, chills, sweats, other ENT: negative: Ear Pain, Ear Discharge, Nose Pain, Nose Discharge, Nose Congestion, Mouth Pain, Mouth Swelling, Throat Pain, Throat Swelling, Other Respiratory: SOB with Excertion. negative: Cough, Dry, Shortness of Breath, Hemoptysis, Pleuritic Pain, Sputum, Wheezing Cardiovascular: negative: chest pain, palpitations, orthopnea, paroxysmal nocturnal dyspnea, edema, light headedness, other Gastrointestinal: negative: Nausea, Vomiting, Abdominal Pain, Diarrhea, Constipation, Melena, Hematochezia, Other Genitourinary: negative: Dysuria, Frequency, Incontinence, Hematuria, Retention , Other Musculoskeletal: negative: Neck Pain, Shoulder Pain, Arm Pain, Back Pain, Hand Pain, Leg Pain, Foot Pain, Other Skin: negative: Rash, Lesions, Salvador, Bruising, Other Neurological: negative: Weakness, Numbness, Incoordination, Change in Speech, Confusion, Seizures, Other - Medications/Allergies Allergies/Adverse Reactions: Allergies Allergy/AdvReac Type Severity Reaction Status Date / Time erythromycin base Allergy Verified 03/07/17 20:01 oxytetracycline Allergy Verified 03/07/17 20:01 [From Terramycin] oxytetracycline HCl Allergy Verified 03/07/17 20:01 [From Terramycin] pregabalin [From Lyrica] Allergy Verified 03/07/17 20:01 Medications: Current Medications Acetaminophen (Tylenol) 650 mg PO Q4H PRN PRN Reason: Headache/Fever or Pain Al Hydroxide/Mg Hydroxide (Maalox) 30 ml PO Q6H PRN PRN Reason: Heartburn or Indigestion Albuterol/Ipratropium (Duoneb) 3 ml NEB S0MO-IB PRN PRN Reason: SOB &/or Wheezing Amlodipine Besylate (Norvasc) 10 mg PO DAILY [facility] Last Admin: 08/26/17 08:30 Dose: 10 mg Aspirin (Ecotrin) 81 mg PO DAILY [facility] Last Admin: 08/26/17 08:30 Dose: 81 mg Atorvastatin Calcium (Lipitor) 80 mg PO DAILY [facility] Last Admin: 08/26/17 08:30 Dose: 80 mg Benzonatate (Tessalon) 100 mg PO Q4H PRN PRN Reason: Cough Bisacodyl (Dulcolax) 10 mg PO DAILYPRN PRN PRN Reason: Constipation Calcium Carbonate (Tums) 1,000 mg PO Q4H PRN PRN Reason: Heartburn or Indigestion Carvedilol (Coreg) 25 mg PO BID [facility] Last Admin: 08/26/17 08:29 Dose: 25 mg Clonidine (Catapres) 0.1 mg PO Q4H PRN PRN Reason: Systolic BP > 160 Last Admin: 08/25/17 17:43 Dose: 0.1 mg Clopidogrel Bisulfate (Plavix) 75 mg PO DAILY [facility] Last Admin: 08/26/17 08:30 Dose: 75 mg Famotidine (Pepcid) 20 mg PO DAILY [facility] Last Admin: 08/26/17 08:29 Dose: 20 mg Fluoxetine HCl (Prozac) 20 mg PO BID [facility] Last Admin: 08/26/17 08:30 Dose: 20 mg Guaifenesin (Robitussin Sf) 200 mg PO Q4H PRN PRN Reason: Cough Heparin Sodium (Porcine) (Heparin) 5,000 units SC BID [facility] Last Admin: 08/26/17 08:29 Dose: 5,000 units Hydralazine HCl (Apresoline) 10 mg SLOW IVP Q4H PRN PRN Reason: Systolic BP > 170 Last Admin: 08/25/17 17:43 Dose: 10 mg Hydralazine HCl (Apresoline) 25 mg PO BID [facility] Last Admin: 08/26/17 08:30 Dose: 25 mg Isosorbide Mononitrate (Imdur Er) 30 mg PO DAILY [facility] Last Admin: 08/26/17 08:30 Dose: 30 mg Loratadine (Claritin) 10 mg PO DAILYPRN PRN PRN Reason: Sinus Symptoms Losartan Potassium (Cozaar) 50 mg PO DAILY [facility] Last Admin: 08/26/17 08:29 Dose: 50 mg Magnesium Hydroxide (Milk Of Magnesium) 30 ml PO DAILYPRN PRN PRN Reason: Constipation Nitroglycerin (Nitrostat) 0.4 mg SL Q5MIN PRN PRN Reason: Chest Pain Ondansetron HCl (Zofran) 4 mg IVP Q6H PRN PRN Reason: Nausea/Vomiting Senna (Senokot) 2 tab PO HSPRN PRN PRN Reason: Constipation Sevelamer Carbonate (Renvela) 800 mg PO TID [facility] Last Admin: 08/26/17 08:30 Dose: 800 mg Tramadol HCl (Ultram) 50 mg PO Q4H PRN PRN Reason: Moderate Pain (4-6) Vitamin B Complex/Vit C/Folic Acid (Nephro-Ana Tablet) 1 tab PO DAILY [facility] Last Admin: 08/26/17 08:29 Dose: 1 tab
--- NOTE | 2017-08-26 17:06 | PRG ---
DATE OF SERVICE: 08/26/2017 SUBJECTIVE: Patient was seen and examined at bedside and overnight events noted. Patient denies any shortness of breath or chest pain or palpitation. No history of nausea or vomiting or diarrhea or f ever or chills or cramps. OBJECTIVE: GENERAL: This is a thin-built female in no apparent distress. VITAL SIGNS: Temperature 99.0, pulse 57, respiratory rate 16, blood pressure 156/67. HEENT: Atraumatic, normocephalic. Oral mucosa is moist. NECK: Supple. CARDIOVASCULAR: S1, S2 heard. Rate and rhythm regular. RESPIRATORY: Clear to auscultation. GASTROINTESTINAL: Abdomen is soft. MUSCULOSKELETAL: No tenderness. No edema. DERMATOLOGIC: No skin rash. NEUROLOGIC: Alert and awake and oriented x3. No focal neurologic deficits. Moving all the extremiti es. PSYCHIATRIC: Mood and affect normal. LABORATORY DATA: Potassium is 3.6, BUN 18, creatinine is 2.5. ASSESSMENT AND PLAN: 1. End-stage renal disease. Continue on dialysis as tolerated. Plan is to have extra dialysis toda y. 2. Anemia. 3. Pleural effusion. 4. Fluid overload. 5. Hypertension. Plan is to have dialysis today with ultrafiltration. Limit fluid and salt intake.
--- NOTE | 2017-08-26 19:23 | CON ---
DATE OF CONSULTATION: 08/26/2017 HISTORY: Rosy Nichols is a 76-year-old white female who is status post CABG, as well as stenting of the saphenous vein graft to the diagonal and the left circumflex coronary arteries in 07/2014. This was performed by Dr. Joya. She did not have any chest discomfort since that time. She does have end-stage renal disease and when undergoing hemodialysis yesterday was found to have a hemoglobin of 7 and was sent to the emergency room. She has had increased shortness of breath. She is on home O2 at 3.5 liters. In the emergency room, EKG was performed which was incorrectly interpreted as atrial fibrillation by the computer and Cardiology consultation was requested. PAST MEDICAL HISTORY: Coronary artery disease, diastolic heart failure, end- stage renal disease, hypercholesterolemia, chronic anemia, chronic hypoxemia, and diabetes. OPERATIONS: CABG, stent placement, right hip fracture, hemorrhoidectomy, left breast tumor removal, tonsillectomy, and D&C. MEDICATIONS: Amlodipine 10 mg daily, aspirin 81 daily, atorvastatin 80 daily, carvedilol 25 mg b.i.d., Plavix 75 daily, Pepcid 20 mg b.i.d., ferrous sulfate 47.5 mg daily, fluoxetine 20 mg b.i.d., hydralazine 25 b.i.d., isosorbide mononitrate 30 daily, losartan 50 daily, Renvela 800 mg t.i.d. ALLERGIES: ERYTHROMYCIN, TERRAMYCIN and LYRICA. SOCIAL HISTORY: She does not smoke or drink. REVIEW OF SYSTEMS: A 12-point review of systems otherwise unremarkable except for weakness and fatigue. PHYSICAL EXAMINATION: VITAL SIGNS: Blood pressure 150/80, pulse of 52. HEENT: PERRL. NECK: Supple. CHEST: Clear. CARDIAC: S1, S2 normal without any S3 or S4. There is a 2/6 systolic murmur along the left sternal border. ABDOMEN: Normal bowel sounds without tenderness, organomegaly. EXTREMITIES: Revealed no clubbing, cyanosis or edema. NEUROLOGIC: Grossly intact. SKIN: Warm and dry. LABORATORY: EKG in the emergency room revealed normal sinus rhythm with PACs. There are definite P waves in V1. There is left ventricular hypertrophy with repolarization abnormality. Hemoglobin 8.8, hematocrit 26.8, white count 5900, platelets 176,000. Sodium 139, potassium 3.6, chloride 96, carbon dioxide 34, BUN 18, creatinine 2.51. Troponin I is 0.064. She has chronically elevated troponin I's. BNP 3215.0. Echocardiogram revealed small pericardial effusion, moderate bilateral pleural effusions, concentric left ventricular hypertrophy, normal ejection fraction of 50%-55%, mild left atrial enlargement, moderate mitral regurgitation, severe tricuspid regurgitation and mild pulmonic insufficiency. IMPRESSION: 1. Normal sinus rhythm, no evidence of atrial fibrillation on the EKG or subsequent monitor rhythm strips. This is an incorrect computer interpretation. There are definite P waves in lead V1. 2. Diastolic heart failure. 3. End-stage renal disease. 4. Diabetes. 5. Status post coronary artery bypass graft and stent placement. 6. Chronic anemia. 7. Chronic hypoxemia. Before her stent placement of drug-eluting stents in July 2014, she was not on Plavix, but was started at that time. At the present time, we are 3 years out from stent placement and I feel the Plavix may be discontinued, which hopefully will translate into improvement in her anemia. JUDAH
[2017-08-27 05:08] LABS: #Eosinphils 0.1 thou/uL (0.0-0.7); #Lymphocytes 0.9 thou/uL (1.20-3.40); #Monocytes 0.7 thou/uL (0.11-0.59); %Basophils 0.2 % (0.0-1.0); %Eosinophils 1.8 % (0.0-10.0); %Lymphocytes 15.2 % (21.0-51.0); %Monocytes 11.7 % (0.0-10.0); Hemoglobin 9.8 g/dL (12.0-16.0); Mean Corpuscular HGB CONC 32.6 g/dL (32.0-36.0); Mean Corpuscular Hemoglobin 28.2 pg (27.0-31.0); Mean Corpuscular Volume 86.5 fl (81.0-99.0); Mean Platelet Volume 7.2 fL (7.4-10.4); Platelet Count 203 thou/uL (130-400); RBC Distribution Width 16.5 % (11.5-14.5); Red Blood Cell (RBC) Count 3.47 mill/uL (4.20-5.40); White Blood Cell (WBC) Count 5.6 thou/uL (4.8-10.8)
[2017-08-27 06:25] LABS: Anion Gap 16 mmol/L (10-20); BUN (Urea Nitrogen) 33 mg/dL (9.8-20.1); Calc. Creatinine Clearance 9 mL/min (70-130); Calcium 8.5 mg/dL (7.8-10.44); Carbon Dioxide 28 mmol/L (23-31); Chloride 96 mmol/L (98-107); Estimated GFR-MDRD 11; Glucose 123 mg/dL (83-110); Sodium 136 mmol/L (136-145)
[2017-08-27] MEDS: Losartan 25 MG TAB PO SCH (09:52)
[2017-08-27] MEDS: Folic Acid/Vit B Comp W-C PO SCH (09:52)
[2017-08-27] MEDS: Sevelamer Carbonate 800 MG TAB PO SCH (09:52)
[2017-08-27] MEDS: hydrALAZINE 25 MG TAB PO SCH (09:53)
[2017-08-27] MEDS: Amlodipine 10 MG TAB PO SCH (09:53)
[2017-08-27] MEDS: Carvedilol 25 MG TAB PO SCH (09:53)
[2017-08-27] MEDS: Aspirin 81 mg Enteric Coated Tablet PO SCH (09:53)
[2017-08-27] MEDS: Atorvastatin Calcium 40 MG TAB PO SCH (09:54)
[2017-08-27] MEDS: FLUoxetine HCl 20 MG CAP PO SCH (09:54)
[2017-08-27] MEDS: Famotidine 20 MG TAB PO SCH (09:54)
[2017-08-27] MEDS: Heparin 5,000 UNITS/ML VIAL SC SCH (11:11)
[2017-08-27 11:15] VITALS: TEMP 97.9
[2017-08-27] MEDS ORDERED: Sevelamer Carbonate 800 MG TAB PO SCH (12:01)
--- NOTE | 2017-08-27 13:50 | PRG ---
DATE OF SERVICE: 08/27/2017. SUBJECTIVE: Patient was seen and examined at bedside and overnight events noted. Patient denies any shortness of breath or chest pain or palpitation. No history of nausea or vomiting or diarrhea or f ever or chills or cramps. OBJECTIVE: GENERAL: This is an elderly female in no apparent distress. VITAL SIGNS: Temperature 97.9, pulse 63, respirations 16, blood pressure 163/69. HEENT: Atraumatic, normocephalic. Oral mucosa is moist. NECK: Supple. CARDIOVASCULAR: S1, S2 heard. Rate and rhythm regular. RESPIRATORY: Clear to auscultation. GASTROINTESTINAL: Abdomen is soft. MUSCULOSKELETAL: No tenderness, no edema. DERMATOLOGIC: No skin rash. NEUROLOGIC: Alert and awake and oriented x3. No focal neurologic deficits. Moving all the extremit ies. PSYCHIATRIC: Mood and affect normal. LABORATORY DATA: Potassium is 4.0, BUN is 33, creatinine is 3.8. ASSESSMENT AND PLAN: 1. End-stage renal disease. We will continue on hemodialysis Monday, Monday, and Monday as tolera prachi. Not dialysis today. 2. Anemia, stable hemoglobin after transfusion. Stool occult card is negative. Continue Epogen wit h dialysis. 3. Edema with fluid overload. We will remove fluid. 4. Hypertension, stable. Plan is to continue on dialysis as tolerated.
[2017-08-27 15:30] VITALS: BP 127/76
--- NOTE | 2017-08-27 16:02 | DIS ---
DATE OF ADMISSION: 08/25/2017 DATE OF DISCHARGE: 08/27/2017 CONDITION AT THE TIME OF DISCHARGE: Stable and improved. DISCHARGE DISPOSITION: Home with home health. DISCHARGE DIAGNOSES: 1. Fluid overload. 2. Acute on chronic diastolic congestive heart failure. 3. End-stage renal disease, on hemodialysis. 4. Chronic deconditioning. 5. Acute on chronic respiratory failure. 6. Diabetes mellitus type 2. 7. Coronary artery disease. 8. Anemia of chronic kidney disease. DISCHARGE MEDICATIONS: Remain the same as the admission medication. Please note that the patient is taken off of the Plavix. Please see admission history and physical for further details about the me dications. No other changes were made. INHOUSE CONSULTATIONS: 1. Nephrology, Dr. Cadena. 2. Cardiology, Dr. Martinez. PROCEDURES DONE IN THE HOSPITAL: 1. A transthoracic echocardiogram which shows a trivial pericardial effusion, mild LVH, EF estimated at 50%-55% and severe tricuspid regurgitation with moderate mitral regurgitation. 2. Hemodialysis. PRIMARY CARE PHYSICIAN: Dr. Alida Benson. HISTORY OF PRESENT ILLNESS: Ms. Nichols is a very pleasant 77-year-old female with known history of c hronic respiratory failure and chronic diastolic congestive heart failure and end-stage renal disease who was sent into the emergency room by her bar finish operator after she was found to have a two-point stanley p in her hemoglobin at the time of dialysis. She also endorsed some worsening shortness of breath up on presentation. Her hemoglobin at the dialysis center was 7, which was found to be 8 in the ER. Sh homar was transfused with 1 unit of packed RBCs. She was found to be in gross fluid overload with a BNP of over 3200. She had mild cardiac enzyme elevation, which seemed to be chronic for her. She was ad mitted for emergent hemodialysis and fluid removal Please see admission history and physical for fur ther detail. There was a question of atrial fibrillation upon presentation. Given the patient's his tory of chronic diastolic heart failure, Cardiology was consulted with regards to that. HOSPITAL COURSE: The patient had back to back rounds of hemodialysis with fluid removal and was soon back to her baseline. She uses 3-1/2 liters of oxygen at home and she was back on 3 liters with goo d oxygen saturation in the hospital. So, she underwent an echocardiogram which showed the similar findings as her prior echocardiogram las t year. She was seen by Dr. Martinez from Cardiology who recommended taking her off of the Plavix, s o she is 3 years post her cardiac stenting. This will help with her anemia as well. She was continu ed on aspirin. He recommended that atrial fibrillation was an erroneous read by the computer. She w as in normal sinus rhythm throughout the rest of her hospitalization and no new recommendations were made at this time. By the day of discharge, she was back to her baseline and was eager to go home. Home health was arranged for her. She was also referred to Heart Failure Clinic. She was seen and examined prior to discharge. PHYSICAL EXAMINATION: This morning, VITAL SIGNS: Temperature 97.9, pulse of 62, respirations 92% on 3 liters nasal cannula, blood pressu re 127/76. GENERAL: No acute distress, awake, alert, oriented x3. is at bedside. CHEST: Clear to auscultation without any wheezing, rales or rhonchi. Rhythm is regular without any murmur, rubs or gallops. ABDOMEN: Soft, nontender, nondistended. EXTREMITIES: Lower extremity without any swelling. LABORATORY EXAMINATION: Alcohol blood testing for the stool was negative. Kidney disease was stable . Hemoglobin at the time of discharge was 9.8, which was 8.0 upon presentation. Discharge plan was discussed with the patient and her . It was emphasized that they follow up with Cardiology as an outpatient as well as Heart Failure Clinic and they verbalized understanding. She was cleared by Nephrology at this time for discharge as well. Total time spent in the discharge of this patient 35 minutes.
== END 2017-08-27 16:53 | disposition home health service (06) | DRG 291 ==
LOC: ERS 12:19 → 2NO 15:54
PROVIDERS: ADMIT Internal Medicine; ATTEND Internal Medicine
PROC: 30233N1 Transfusion of Nonautologous Red Blood Cells into Peripheral Vein, Percutaneous Approach (ICD-10-PCS; principal; 2017-08-25)
DX: I13.2 Hypertensive heart and chronic kidney disease with heart failure and with stage 5 chronic kidney disease, or end stage renal disease (principal); J96.21 Acute and chronic respiratory failure with hypoxia; I50.33 Acute on chronic diastolic (congestive) heart failure; N18.6 End stage renal disease; N25.81 Secondary hyperparathyroidism of renal origin; E11.22 Type 2 diabetes mellitus with diabetic chronic kidney disease; I48.91 Unspecified atrial fibrillation; Z99.2 Dependence on renal dialysis; R74.8 Abnormal levels of other serum enzymes; I25.10 Atherosclerotic heart disease of native coronary artery without angina pectoris; D63.1 Anemia in chronic kidney disease; Z99.81 Dependence on supplemental oxygen; Z88.8 Allergy status to other drugs, medicaments and biological substances; Z88.1 Allergy status to other antibiotic agents; Z79.02 Long term (current) use of antithrombotics/antiplatelets; Z79.899 Other long term (current) drug therapy; Z95.1 Presence of aortocoronary bypass graft; Z95.5 Presence of coronary angioplasty implant and graft
CPT/HCPCS: 36415; 36416; 36430; 71045; 80048; 80053; 82274; 82553; 83605; 83880; 84484; 85025; 85610; 85730; 86850; 86870; 86900; 86901; 86922; 87340; 90935; 93005; 93306; G0257; G8978-GP-CJ; G8979-GP-CJ; G8980-GP-CJ; J0360; J1644; P9016

== ENCOUNTER 2018-04-22 16:11 | Emergency (ER) | payer MEDICARE ==
[2018-04-22 16:44] LABS: #Eosinphils 0.1 thou/uL (0.0-0.7); #Lymphocytes 1.1 thou/uL (1.20-3.40); #Monocytes 0.9 thou/uL (0.11-0.59); %Basophils 0.5 % (0.0-1.0); %Eosinophils 1.1 % (0.0-10.0); %Lymphocytes 13.8 % (21.0-51.0); %Monocytes 11.3 % (0.0-10.0); %Neutrophils 73.3 % (42.0-75.0); Mean Corpuscular HGB CONC 32.3 g/dL (32.0-36.0); Mean Corpuscular Hemoglobin 29.7 pg (27.0-31.0); Mean Corpuscular Volume 91.9 fL (78.0-98.0); Mean Platelet Volume 7.8 fL (7.4-10.4); Platelet Count 225 thou/uL (130-400); RBC Distribution Width 16.6 % (11.5-14.5); Red Blood Cell (RBC) Count 4.05 mill/uL (4.20-5.40); White Blood Cell (WBC) Count 8.2 thou/uL (4.8-10.8)
[2018-04-22 16:50] LABS: PTT 30.1 SEC (22.9-36.1); Prothrombin Time 13.4 SEC (12.0-14.7)
[2018-04-22 17:05] LABS: ALT (SGPT) 7 U/L (8-55); AST (SGOT) 15 U/L (5-34); Albumin 3.8 g/dL (3.4-4.8); Alkaline Phosphatase 85 U/L (40-150); Anion Gap 21 mmol/L (10-20); BUN (Urea Nitrogen) 45 mg/dL (9.8-20.1); Bilirubin, Total 0.5 mg/dL (0.2-1.2); Calc. Creatinine Clearance 0 mL/min (70-130); Calcium 9.3 mg/dL (7.8-10.44); Carbon Dioxide 26 mmol/L (23-31); Chloride 95 mmol/L (98-107); Estimated GFR-MDRD 6; Globulin 3.1 g/dL (2.4-3.5); Glucose 185 mg/dL (83-110); Potassium 5.3 mmol/L (3.5-5.1); Protein, Total 6.9 g/dL (6.0-8.3); Sodium 137 mmol/L (136-145)
[2018-04-22 17:28] LABS: CKMB 2.7 ng/mL (0-6.6)
--- NOTE | 2018-04-22 18:00 | CT ---
CT BRAIN WITHOUT CONTRAST: History: Right arm numbness. Comparison: 2014 FINDINGS: Similar appearance right posterior MCA territory encephalomalacia. No acute hemorrhage or infarct. Mo derate microvascular ischemic changes. Old lacunar infarctions. No midline shift of mass effect. Moderate atrophy. Calvarium is intact. Paranasal sinuses and mastoids are clear. Mild fluid in both mastoids. IMPRESSION: No acute intracranial abnormality. POS: [facility]
== END 2018-04-22 18:05 | disposition home or self-care (01) ==
LOC: ERS 16:11
DX: I12.0 Hypertensive chronic kidney disease with stage 5 chronic kidney disease or end stage renal disease (principal); I50.9 Heart failure, unspecified; N18.6 End stage renal disease; J44.9 Chronic obstructive pulmonary disease, unspecified; E11.22 Type 2 diabetes mellitus with diabetic chronic kidney disease; F32.9 Major depressive disorder, single episode, unspecified; Z87.891 Personal history of nicotine dependence; Z79.82 Long term (current) use of aspirin; Z79.899 Other long term (current) drug therapy
CPT/HCPCS: 70450; 80053; 82553; 84484; 85025; 85610; 85730; 93005; 94760

== ENCOUNTER 2019-01-01 07:38 | Outpatient (CLI) | payer MEDICARE ==
[2019-01-01 09:23] LABS: #Eosinphils 0.1 thou/uL (0.0-0.7); #Monocytes 0.8 thou/uL (0.11-0.59); #Neutrophils 4.6 thou/uL (1.40-6.50); %Basophils 0.4 % (0.0-1.0); %Lymphocytes 15.5 % (21.0-51.0); %Monocytes 12.7 % (0.0-10.0); %Neutrophils 69.5 % (42.0-75.0); Hemoglobin 11.1 g/dL (12.0-16.0); Mean Corpuscular HGB CONC 31.8 g/dL (32.0-36.0); Mean Corpuscular Hemoglobin 28.8 pg (27.0-31.0); Mean Corpuscular Volume 90.5 fL (78.0-98.0); Mean Platelet Volume 7.5 fL (7.4-10.4); Platelet Count 207 thou/uL (130-400); RBC Distribution Width 15.2 % (11.5-14.5); Red Blood Cell (RBC) Count 3.87 mill/uL (4.20-5.40); White Blood Cell (WBC) Count 6.6 thou/uL (4.8-10.8)
[2019-01-01 09:28] LABS: Prothrombin Time 13.5 SEC (12.0-14.7)
[2019-01-01 09:50] LABS: ALT (SGPT) 8 U/L (8-55); AST (SGOT) 14 U/L (5-34); Albumin 3.9 g/dL (3.4-4.8); Alkaline Phosphatase 69 U/L (40-110); Anion Gap 15 mmol/L (10-20); BUN (Urea Nitrogen) 28 mg/dL (9.8-20.1); Bilirubin, Total 0.5 mg/dL (0.2-1.2); Calc. Creatinine Clearance 0 mL/min (70-130); Calcium 9.5 mg/dL (7.8-10.44); Carbon Dioxide 34 mmol/L (23-31); Cardiac Risk 2.8 (Less than 4.5); Chloride 94 mmol/L (98-107); Cholesterol 139 mg/dl (< 200 Desired); Estimated GFR-MDRD 10; Globulin 3.1 g/dL (2.4-3.5); Glucose 143 mg/dL (83-110); HDL Cholesterol 50 mg/dL (>60 Neg Risk); LDL Cholesterol, Calculated 71 mg/dL; Potassium 3.9 mmol/L (3.5-5.1); Sodium 139 mmol/L (136-145); Triglycerides 90 mg/dL (Less than 150)
--- NOTE | 2019-01-04 10:08 | EKG ---
Test Reason : Blood Pressure : / mmHG Vent. Rate : 064 BPM Atrial Rate : 064 BPM P-R Int : 170 ms QRS Dur : 114 ms QT Int : 484 ms P-R-T Axes : 079 096 178 degrees QTc Int : 499 ms Sinus rhythm with Premature supraventricular complexes Rightward axis Incomplete left bundle branch block Nonspecific ST and T wave abnormality Prolonged QT Abnormal ECG Confirmed by SREEDHAR TOWNSEND, NILAM ([id number]) on 01/04/2019 10:07:42 AM Referred By: [facility] Confirmed By:NILAM ELI MD
== END 2019-01-01 07:39 | disposition home or self-care (01) ==
LOC: LABBT 07:38 → EDSTATUS 08:00
PROVIDERS: ATTEND Internal Medicine Cardiovascular Disease
DX: Z01.818 Encounter for other preprocedural examination (principal); I25.10 Atherosclerotic heart disease of native coronary artery without angina pectoris
CPT/HCPCS: 80053; 80061; 85025; 85610; 85730; 93005; 93010

== ENCOUNTER 2019-01-03 05:41 | Day surgery (SDC) | payer MEDICARE ==
[2019-01-01 08:27] VITALS: BMI 22.8
[2019-01-03] MEDS ORDERED: Lidocaine 1% (PF) 30 ML VIAL ONE (06:36)
[2019-01-03] MEDS ORDERED: Fentanyl 100 MCG/2 ML VIAL ONE (07:43)
[2019-01-03] MEDS ORDERED: Midazolam HCl 2 mg/2 ml Vial ONE (07:43)
[2019-01-03] MEDS ORDERED: Heparin 10,000 UNITS/1 ML VIAL ONE (08:42)
[2019-01-03] MEDS ORDERED: Iopamidol 370 76% 50 ML VIAL FS ONE (12:00)
[2019-01-03] MEDS ORDERED: Iopamidol 370 76% 100 ML VIAL ONE (12:00)
--- NOTE | 2019-01-08 10:18 | EKG ---
Test Reason : POST STENT Blood Pressure : / mmHG Vent. Rate : 060 BPM Atrial Rate : 060 BPM P-R Int : 178 ms QRS Dur : 122 ms QT Int : 490 ms P-R-T Axes : 064 040 148 degrees QTc Int : 490 ms Sinus rhythm with Premature supraventricular complexes Left ventricular hypertrophy with QRS widening and repolarization abnormality Abnormal ECG Confirmed by NILAM ELI MD ([id number]) on 01/08/2019 10:17:58 AM Referred By: [facility] Confirmed By:NILAM ELI MD
== END 2019-01-03 14:30 | disposition home or self-care (01) ==
LOC: CCL 05:41
PROVIDERS: ATTEND Internal Medicine Cardiovascular Disease
PROC: 02703GZ Dilation of Coronary Artery, One Artery with Four or More Intraluminal Devices, Percutaneous Approach (ICD-10-PCS; principal; 2019-01-03)
PROC: 4A023N7 Measurement of Cardiac Sampling and Pressure, Left Heart, Percutaneous Approach (ICD-10-PCS; 2019-01-03)
PROC: B2111ZZ Fluoroscopy of Multiple Coronary Arteries using Low Osmolar Contrast (ICD-10-PCS; 2019-01-03)
PROC: B2121ZZ Fluoroscopy of Single Coronary Artery Bypass Graft using Low Osmolar Contrast (ICD-10-PCS; 2019-01-03)
DX: I25.10 Atherosclerotic heart disease of native coronary artery without angina pectoris (principal); I25.82 Chronic total occlusion of coronary artery; M06.9 Rheumatoid arthritis, unspecified; I13.2 Hypertensive heart and chronic kidney disease with heart failure and with stage 5 chronic kidney disease, or end stage renal disease; E11.22 Type 2 diabetes mellitus with diabetic chronic kidney disease; N18.6 End stage renal disease; I50.32 Chronic diastolic (congestive) heart failure; E78.5 Hyperlipidemia, unspecified; Z87.891 Personal history of nicotine dependence; Z79.82 Long term (current) use of aspirin; Z79.899 Other long term (current) drug therapy; Z88.1 Allergy status to other antibiotic agents; Z88.8 Allergy status to other drugs, medicaments and biological substances; Z95.1 Presence of aortocoronary bypass graft; Z95.5 Presence of coronary angioplasty implant and graft; Z99.2 Dependence on renal dialysis
CPT/HCPCS: 85347; 92928; 93005; 93455; 93798; 99152; 99153; C1769; C1874; C9600; J1644; J2001; J2250; J3010; Q9967

== ENCOUNTER 2019-05-05 21:48 | Inpatient (IN) | payer MEDICARE ==
[2019-05-05 22:22] LABS: Base Excess-Venous 3.4 mmol/L (-2.0 to 3.0); Bicarbonate (HCO3v) 27.2 mmol/L (22.0-28.0); Calcium, Ionized 1.02 mmol/L (See Comments:); Chloride 96 mmol/L (98-107); Hemoglobin - Calc 8.6 g/dL (12.0-16.0); Sodium 135 mmol/L (138-145); T. Carbon Dioxide 28.3 mmol/L (22.0-28.0); vO2 Saturation-calc 55.3 % (60.0-85.0)
[2019-05-05 22:26] LABS: #Eosinphils 0.1 thou/uL (0.0-0.7); #Lymphocytes 1.2 thou/uL (1.20-3.40); #Monocytes 0.9 thou/uL (0.11-0.59); %Basophils 0.5 % (0.0-1.0); %Eosinophils 1.2 % (0.0-10.0); %Lymphocytes 12.6 % (21.0-51.0); %Monocytes 9.5 % (0.0-10.0); %Neutrophils 76.1 % (42.0-75.0); Hemoglobin 8.8 g/dL (12.0-16.0); Mean Corpuscular HGB CONC 32.7 g/dL (32.0-36.0); Mean Corpuscular Hemoglobin 28.6 pg (27.0-31.0); Mean Corpuscular Volume 87.4 fL (78.0-98.0); Platelet Count 231 thou/uL (130-400); RBC Distribution Width 16.4 % (11.5-14.5); Red Blood Cell (RBC) Count 3.06 mill/uL (4.20-5.40); White Blood Cell (WBC) Count 9.2 thou/uL (4.8-10.8)
[2019-05-05 22:32] LABS: PTT 29.5 SEC (22.9-36.1); Prothrombin Time 13.6 SEC (12.0-14.7)
[2019-05-05 22:38] LABS: ALT (SGPT) 8 U/L (8-55); AST (SGOT) 15 U/L (5-34); Albumin 3.6 g/dL (3.4-4.8); Alkaline Phosphatase 59 U/L (40-110); Anion Gap 19 mmol/L (10-20); BUN (Urea Nitrogen) 47 mg/dL (9.8-20.1); Bilirubin, Total 0.5 mg/dL (0.2-1.2); CK (CPK) 57 U/L (29-168); Calc. Creatinine Clearance 0 mL/min (70-130); Calcium 9.1 mg/dL (7.8-10.44); Carbon Dioxide 28 mmol/L (23-31); Chloride 95 mmol/L (98-107); Estimated GFR-MDRD 7; Globulin 2.8 g/dL (2.4-3.5); Glucose 135 mg/dL (83-110); Potassium 4.2 mmol/L (3.5-5.1); Protein, Total 6.4 g/dL (6.0-8.3); Sodium 138 mmol/L (136-145)
--- NOTE | 2019-05-05 22:42 | RAD ---
Chest one view HISTORY: Chest pain. COMPARISON: 08/25/2017. FINDINGS: Cardiac silhouette is magnified and enlarged. Pulmonary vasculature slightly engorged. Medi astinum is midline with aortic calcification. Extensive opacity at the right base has the appearance of pleural fluid and atelectasis. Defibrillato r patch overlies the right chest. On most prior exams, a vertical line has run along the lateral aspect of the right hemithorax, mimick ing a pneumothorax. This is favored to be the case on today's study. IMPRESSION: Cardiomegaly with pulmonary vascular congestion. At least moderate size right pleural effusion.
[2019-05-05 23:00] LABS: CKMB 2.3 ng/mL (0-6.6)
[2019-05-06 01:16] LABS: Troponin I 0.051 ng/mL (< 0.028)
[2019-05-06] MEDS ORDERED: Temazepam 15 MG CAP PO SCH (04:30)
[2019-05-06 04:32] LABS: Troponin I 0.076 ng/mL (< 0.028)
[2019-05-06] MEDS ORDERED: Ketamine 50 MG/ML (10ML VIAL) ONE (16:18)
--- NOTE | 2019-05-06 16:21 | CON ---
DATE OF CONSULTATION: REASON FOR CONSULTATION: End-stage renal disease, for maintenance hemodialysis. HISTORY OF PRESENTING ILLNESS: This is a very pleasant 78-year-old female, who presented to the hospital with chest pain. The patient currently has no chest pain. The patient dialyzes Monday, Monday, and Monday without any complication. PAST MEDICAL HISTORY: Hypertension, anemia, end-stage renal disease, history of tunneled dialysis catheter, history of AV fistula, history of respiratory failure, history of CABG, hemorrhoidectomy, left breast tumor, and D and C. MEDICATIONS: Home medications list, reviewed. Hospital medications list, reviewed. ALLERGIES: REVIEWED. FAMILY HISTORY: Negative for ESRD. SOCIOECONOMIC HISTORY: No alcohol or drug use. REVIEW OF SYSTEMS: A 15-point review of systems was performed and was negative except for positives noted above. GENERAL: HEAD: NECK: No swelling or lumps. NOSE: No epistaxis or discharge. EYES: No diplopia or pain. RESPIRATORY: CARDIOVASCULAR: GASTROINTESTINAL: /DETECTIVE YOUTH BUREAU: MUSCULOSKELETAL: No joint pain. NEUROPSYCHIATIC SYSTEMS: No suicidal ideation. No ideation. SKIN: Denies any rash or ulcer. CONSTITUTIONAL: No fever or chills. PHYSICAL EXAMINATION: GENERAL: The patient is awake and alert. VITAL SIGNS: Afebrile, pulse 75, breathing 16, blood pressure 130/70. GENERAL APPEARANCE AND MENTAL STATUS: Fair. HEAD/NECK: Normocephalic. Atraumatic. EYES: EOMI. No deformity. EARS: Clear. No ulcers. NOSE: Intact. No lesions. MOUTH: Clear. No discharge. THROAT: Clear. No exudate. LUNGS: Clear. No crackles. CARDIAC: S1, S2. No rub. ABDOMEN: Benign. Bowel sounds positive. GENITALIA/RECTUM: Bhatti absent. BACK/EXTREMITIES: Edema 0+. NEUROLOGICAL: Alert and motor intact. SKIN: LYMPHATICS: LABORATORY DATA: Reviewed. ASSESSMENT AND PLAN: 1. Stage 6 chronic kidney disease. Plan dialysis. 2. Hypertension, stable. 3. Anemia, stable. 4. Medication based on GFR, appropriate. Job ID: [id number]
[2019-05-06] MEDS ORDERED: Promethazine HCl 25 MG/ML VIAL IM PRN (16:55)
[2019-05-06] MEDS ORDERED: Ondansetron HCl/PF 4 MG/2 ML Vial IVP PRN (16:55)
[2019-05-06] MEDS ORDERED: Promethazine HCl 25 MG/ML VIAL SLOW IVP PRN (16:55)
--- NOTE | 2019-05-06 17:24 | CON ---
DATE OF CONSULTATION: 05/06/2019 CHIEF COMPLAINT: Blood in stool. HISTORY OF PRESENT ILLNESS: Ms. Nichols is a 78-year-old woman, who lives at home with her , but has underlying dementia and currently does not have family with her, but she reports that yesterday, she had a bowel movement that was loose and bloody. She vomited once. There was no blood with emesis. She has had no ongoing nausea. No abdominal pain. No diarrhea or constipation preceding this. Her weight has been stable as far as we are aware. PAST MEDICAL HISTORY: CHF. Coronary artery disease, status post coronary stent back in December. This was to the left main. She has been on Plavix, and Cardiology would like for her to remain on the Plavix at this point given the recent stent. Hypertension; hyperlipidemia; diabetes mellitus, type 2; and end-stage renal disease, on hemodialysis. She also has apparent COPD and has been on oxygen at home. PAST SURGICAL HISTORY: Coronary artery bypass graft and hemorrhoidectomy. FAMILY HISTORY: Negative for GI malignancy. SOCIAL HISTORY: No alcohol, tobacco, or drugs. ALLERGIES: 1. ERYTHROMYCIN. 2. LYRICA. 3. TERRAMYCIN. REVIEW OF SYSTEMS: Negative x10 systems reviewed except as stated in the history of present illness. MEDICATIONS PRIOR TO ADMISSION: Include: 1. Aspirin 81 mg daily. 2. Clopidogrel 75 mg daily. 3. Atorvastatin. 4. Isosorbide mononitrate. 5. Carvedilol. 6. Losartan. 7. Nephro-Ana. 8. Ferrous sulfate. 9. Fluoxetine. 10. Amlodipine. 11. Sevelamer. 12. Hydralazine. PHYSICAL EXAMINATION: VITAL SIGNS: Pulse 67, blood pressure 154/74, temperature 98.1. GENERAL: She is in no acute distress. She is awake and alert. She is able to contribute significantly to her history. She does have a history of underlying dementia. HEENT: Her eyes have no scleral icterus. Oropharynx is clear without lesions. LYMPHATICS: No cervical or supraclavicular lymphadenopathy. LUNGS: She has some rhonchi in the right lower lung patton. HEART: Regular rate and rhythm without murmur. ABDOMEN: Soft, nontender, and nondistended. Bowel sounds are present. EXTREMITIES: No lower extremity edema. RECTAL: She has black stool in the rectal vault. The smears are red on the tissue. LABORATORY DATA: Hemoglobin is 8.8 today. Previous hemoglobin back in December was 11.1. White blood cell count 9.2. Platelets 231. INR 1.0. Creatinine 5.92, on dialysis. Bilirubin 0.5, AST 15, ALT 8, alkaline phosphatase 59. IMPRESSION: 1. Gastrointestinal bleed. She presents with melenic stool in the rectal vault by rectal exam. The smears are red. She had an esophagogastroduodenoscopy and a colonoscopy in [address] Acuna. This procedure was performed in August of 2014. She had a normal esophagogastroduodenoscopy at that time. She had diverticulosis noted throughout the colon as well as internal and external hemorrhoids. I suspect that her current bleeding would be most likely proximal diverticular bleed; however, she has only passed a couple of bloody bowel movements since this has started. She has had a drop in her hemoglobin compared to last December, but she is on chronic hemodialysis, and I do not have a more recent baseline. Given the melenic stool, we should rule out an obvious upper gastrointestinal bleeding source. 2. Anemia of acute blood loss. 3. Coronary artery disease. She had a stent to her left main back in December, and with discussion with Dr. Mccann, he would prefer that she remained on the clopidogrel and aspirin. Again, I think it would be appropriate to follow through with upper endoscopy to evaluate for an obvious treatable bleeding source. I think repeat lower endoscopy would be of low yield at this time without more significant overt bleeding. 4. History of home oxygen use. 5. History of congestive heart failure. 6. End-stage renal disease, on hemodialysis. RECOMMENDATIONS: 1. Proton-pump inhibitor. 2. Esophagogastroduodenoscopy. Job ID: [id number]
--- NOTE | 2019-05-06 17:34 | CON ---
DATE OF CONSULTATION: 05/06/2019 REASON FOR CONSULTATION: GI bleeding in the setting of recent stenting. HISTORY OF PRESENT ILLNESS: Ms. Nichols is a very pleasant 78-year-old black female, who comes to the hospital for blood in her stool. She has a history of GI bleeding in the past, had rectal bleeding, had to undergo hemorrhoidectomy. She had not bled in the long time, she has chronic anemia. She had a heart catheterization recently and had to receive a stent just back in December 2018, just about four months ago, she had a stent from her left main into her left circumflex as she had ostial left circ disease. She has an occluded LAD that is protected by a DEUTSCH to the LAD, which had good flow. She did well. She has been on blood thinners for the last four months without any bleeding issues. She noticed blood on her stool yesterday so she decided to come in. Hemoglobin is down to about 8 now. She denies any chest pain, tightness or pressure. No shortness of breath. She has been compliant with her Plavix. PAST MEDICAL HISTORY: 1. Coronary artery disease with status post CABG in the past and stenting more recently to both her vein grafts in 2014 and more recently into the left main going into the left circumflex. 2. Type 2 diabetes. 3. End-stage renal disease, on hemodialysis. 4. COPD and chronic home O2 4 L. 5. Chronic diastolic heart dysfunction. 6. Renal cell carcinoma status post resection, currently in remission. 7. Hypertension. 8. History of GI bleeds as above. 9. Chronic anemia. SURGICAL HISTORY: 1. Renal cell carcinoma status post resection. 2. Skin cancer removal. 3. Left arm fistula. 4. Hemorrhoidectomy. 5. Coronary artery bypass grafting x2. 6. Hip fracture repair. FAMILY HISTORY: Noncontributory. SOCIAL HISTORY: No alcohol, tobacco, or drugs. Quit smoking several years ago. REVIEW OF SYSTEMS: A 12-point review of systems was done and was all negative unless stated in the history of present illness. OUTPATIENT MEDICATIONS: 1. Aspirin 81 a day. 2. Atorvastatin 80 mg a day. 3. Isosorbide mononitrate 30 mg a day. 4. Plavix 75 mg a day. 5. Carvedilol 25 mg twice a day. 6. Losartan 25 mg daily. 7. Nephro-Ana Rx. 8. Iron sulfate. 9. Fluoxetine 20 mg two tabs twice a day. 10. Amlodipine 5 mg a day. 11. Sevelamer. 12. Hydralazine 25 mg twice a day. ALLERGIES: 1. ERYTHROMYCIN. 2. OXYTETRACYCLINE. 3. PREGABALIN. PHYSICAL EXAMINATION: VITAL SIGNS: Temperature 98.1, pulse 83, respiratory rate 20, saturating 97% on 4 L nasal cannula, blood pressure 127/83. GENERAL: Awake, alert, and oriented to person only, in no distress. HEENT: Normocephalic, atraumatic. NECK: Supple. LUNGS: Have reduced breath sounds bilaterally. CARDIOVASCULAR: S1 and S2. There is a grade 3/6 systolic murmur throughout the precordium consistent with a fistula. ABDOMEN: Soft. Positive bowel sounds. EXTREMITIES: Trace edema. SKIN: Warm and dry. LABORATORY DATA: Laboratory work was reviewed. CBC with a white count of 9.2, hemoglobin of 8.8, hematocrit of 26, platelet count of 231. Coags are unremarkable. ABG was reviewed. Chemistry with BUN and creatinine elevated as expected. Troponins 0.06, 0.05, 0.07. CK-MB was normal. Albumin of 3.6. Lactic acid was 2.0. Chest x-ray was reviewed. ASSESSMENT: 1. Acute upper versus lower gastrointestinal bleed. 2. Anemia. 3. Recent stenting in the left main into the left circumflex just four months ago with a drug-eluting stent. 4. History of coronary artery bypass grafting in the past. 5. History of dual antiplatelet therapy recently. PLAN: 1. Would prefer to try to be on Plavix at least for six months since the original date of her stent. We should be able to stop Plavix after six months, which is about 2 months from now. Currently, we will stop it for now as she is having active bleeding. GI has evaluated and we will decide whether she would benefit from any sort of scoping upper or lower. At this point in time, would admit to telemetry. No evidence of in-stent thrombosis at this time. 2. Restart Plavix. No aspirin as soon as possible from the bleeding perspective. Thank you for letting us to participate in the care of your patient. We will continue to follow. Job ID: [id number]
--- NOTE | 2019-05-06 18:02 | OP ---
DATE OF PROCEDURE: 05/06/2019 PROCEDURE PERFORMED: Esophagogastroduodenoscopy. PREOPERATIVE DIAGNOSIS: Gastrointestinal bleed. DESCRIPTION OF PROCEDURE: Informed consent was obtained from the patient. She was sedated with total intravenous anesthesia. The bite block was placed, and the endoscope was advanced easily to the second portion of the duodenum, and retroflexion was performed in the stomach. The esophagus was normal. The GE junction had a 2 cm hiatal hernia. The stomach was otherwise normal including retroflexed views. The pylorus and first and second portions of the duodenum were normal. IMPRESSION: 1. Small hiatal hernia. 2. Otherwise, normal esophagogastroduodenoscopy. 3. No bleeding source identified by today's exam. She did present with melenic-appearing blood that smears out red. I suspect she is having a diverticular bleed. She has known pandiverticulosis from her colonoscopy in 2014. Repeat colonoscopy at this time is likely to be of low yield. She has significant anesthesia risk given her multiple comorbidities. RECOMMENDATIONS: 1. Transfuse as necessary. 2. Consider nuclear medicine abdominal bleeding scan if she continues to have significant ongoing overt bleeding. Job ID: [id number]
[2019-05-06] MEDS ORDERED: Acetaminophen 325 MG TAB PO PRN (18:15)
[2019-05-06] MEDS ORDERED: Guaifenesin DM 100-10/5 ML UDCUP PO PRN (18:15)
[2019-05-06] MEDS ORDERED: Ondansetron PF 4 MG/2 ML Vial IVP PRN (18:15)
[2019-05-06] MEDS ORDERED: Acetaminophen 650 MG Suppository PR PRN (18:15)
[2019-05-06] MEDS ORDERED: Senokot S 8.6-50 MG TAB PO PRN (18:15)
[2019-05-06] MEDS ORDERED: Ondansetron ODT 4 MG TAB PO PRN (18:15)
[2019-05-06 18:23] VITALS: BMI 21.3
[2019-05-06] MEDS ORDERED: Dextrose 5% in Water 1,000 ML IV PRN (18:26)
[2019-05-06] MEDS ORDERED: Dextrose 50% Abboject 50 ML SYRINGE SLOW IVP PRN (18:26)
[2019-05-06] MEDS ORDERED: HumaLOG 300 UNITS/3 ML VIAL SC PRN (18:26)
--- NOTE | 2019-05-06 19:24 | HP ---
PRIMARY CARE PHYSICIAN: Dr. Alida Benson. CHIEF COMPLAINT: Bloody bowel movements. HISTORY OF PRESENT ILLNESS: This is a 78-year-old white female with a known history of diverticulosis and previous GI bleed, who also has coronary artery disease, had a stent placed 4 months ago and is on Plavix and aspirin. She had a large bloody bowel movement with dark red blood 2 days ago, had another one yesterday, and so her brought her to the emergency room. She was short of breath initially on arrival to the emergency room, but her states that it was because she was off her oxygen during transport, before that she was not really having shortness of breath. No chest pain. She had had some nausea. No vomiting. She has end-stage renal disease, on dialysis as well. The patient's hemoglobin had dropped to 8.8 in the emergency room. She was noted to have bloody stool with some melena as well. Dr. Dowling, Dr. Mccann and Dr. Arndt were all consulted from the emergency room. The patient was taken to dialysis earlier today. She continued to have a very small amount of black tarry stool in the hospital, but no vital sign abnormalities. Dr. Mccann discussed the case with Dr. Dowling and determined that she needed at least 2 more [address] Plavix. Dr. Dowling took her to do an EEG this afternoon. This was reportedly negative for evidence of bleeding. The patient is now back in the room. She is at her baseline physical status and is not having any active symptoms currently. PAST MEDICAL HISTORY: 1. Diastolic congestive heart failure. 2. Coronary artery disease with multiple stents placed, most recently 4 months ago. 3. End-stage renal disease, on hemodialysis. 4. Diabetes mellitus, type 2. 5. Anemia of chronic kidney disease. 6. Chronic hypoxic respiratory failure, on home oxygen 4 L. 7. Previous GI bleed with known diverticulosis. PAST SURGICAL HISTORY: 1. CABG. 2. Femur fracture surgery on the right. 3. Hemorrhoidectomy. 4. Breast tumor removal. 5. Tonsillectomy. 6. D and C. 7. Left upper extremity fistula. 8. Coronary artery stents placed. SOCIAL HISTORY: The patient is , lives with her who is her primary care provider. No tobacco, alcohol, or illicit drug use. FAMILY HISTORY: Significant for stroke. ALLERGIES: 1. ERYTHROMYCIN. 2. IODINE. 3. TETRACYCLINE. 4. LYRICA. CURRENT MEDICATIONS: 1. Aspirin 81 mg daily. 2. Atorvastatin 80 mg daily. 3. Isosorbide mononitrate 30 mg daily. 4. Clopidogrel 75 mg daily, this has not been taken since Monday. 5. Carvedilol 25 mg twice a day. 6. Losartan 25 mg daily. 7. Nephro-Ana one tablet daily. 8. Iron sulfate 325 mg daily. 9. Fluoxetine 20 mg twice a day. 10. Amlodipine 5 mg daily. 11. Sevelamer carbonate 800 mg three times a day. 12. Hydralazine 25 mg twice a day. REVIEW OF SYSTEMS: CONSTITUTIONAL: No fevers. No chills. EYES: No double vision or blurred vision. ENT: No congestion, drainage, or sore throat. CARDIOVASCULAR: No chest pain. No palpitations or racing heart. PULMONARY: No coughing, wheezing, or shortness of breath unless she is off her oxygen, which does make her short of breath that is chronic. GASTROINTESTINAL: No abdominal pain. She had some nausea earlier. No vomiting. See HPI for bowel movement history. GENITOURINARY: No urinary complaints. MUSCULOSKELETAL: No muscle aches or joint pain. SKIN: No rashes or other lesions she has noted. NEUROLOGIC: No numbness, tingling, or focal weakness. PHYSICAL EXAMINATION: VITAL SIGNS: Blood pressure 138/74, pulse 79, respirations 18, O2 saturation 96% on 4 L nasal cannula, temperature 98.5. GENERAL: This is a well-developed, well-nourished, white female, in no acute distress. HEENT: Pupils are equal, round, and reactive to light. Oropharynx is clear without lesions, erythema, or exudate. Her mucous membranes are mildly pale. NECK: Supple. No lymphadenopathy. No thyroid nodules or enlargement. No JVD. HEART: Regular rate and rhythm. No murmurs, rubs, or gallops. LUNGS: Clear to auscultation bilaterally. No wheezes, crackles, or rhonchi. ABDOMEN: Soft, nontender to palpation. Normoactive bowel sounds. No hepatosplenomegaly or other masses. EXTREMITIES: No clubbing, cyanosis, or edema. SKIN: No rashes or other lesions noted. NEUROLOGIC: She has intact strength and sensation in all extremities. No facial droop. PSYCHIATRIC: Alert and oriented x3. Normal mood and affect. She is a little bit groggy from the sedation medications for the EGD. LABORATORY DATA: Hemoglobin 8.8, down from 11.1 four months ago; hematocrit 26.8; white cell count normal; platelet count normal. Coagulation profile normal. Complete metabolic panel is notable for a sodium of 135, chloride 95, BUN 47, creatinine 5.92, glucose 135, rest was normal. Lactic acid was normal. Troponins indeterminate x3. CK-MB normal. IMAGING STUDIES: Chest x-ray, I did review the chest x-ray done in the emergency room along with the radiologist's report, it does show cardiomegaly with pulmonary vascular congestion and at least a moderate-size right pleural effusion. ASSESSMENT: 1. Acute gastrointestinal bleed, likely lower from diverticula. No evidence of upper gastrointestinal bleed on the EGD. We will monitor the patient's hemoglobin and hematocrit closely. We will reintroduce Plavix when determined safe by GI and Cardiology. We will transfuse should her hemoglobin drops further or she becomes symptomatic. 2. Coronary artery disease with recent stent placement. We will resume Plavix as soon as possible. No evidence for ischemia currently. 3. Diastolic congestive heart failure. We will continue fluid removal with dialysis as tolerated. 4. End-stage renal disease, on hemodialysis. Dr. Arndt is following. 5. Chronic hypoxic respiratory failure at baseline. We will continue home oxygen of 4 L. 6. Anemia of chronic kidney disease. 7. Diabetes mellitus, type 2. We will do fingerstick blood sugars q.a.c. and at bedtime with a light insulin sliding scale. 8. Gastrointestinal prophylaxis, put the patient on Protonix daily. 9. Deep venous thrombosis prophylaxis, put the patient on sequential compression devices while in bed. CODE STATUS: I did discuss with the patient, she is a full code. Should she be incapacitated, her would be her medical decision maker, his name is Walter Nichols. Job ID: [id number]
[2019-05-06] MEDS: Atorvastatin Calcium 40 MG TAB PO SCH (21:41)
[2019-05-06] MEDS: hydrALAZINE 25 MG TAB PO SCH (21:41)
[2019-05-06] MEDS: FLUoxetine HCl 20 MG CAP PO SCH (21:42)
[2019-05-06] MEDS: Carvedilol 6.25 MG TAB PO SCH (21:42)
[2019-05-07 04:29] LABS: #Eosinphils 0.1 thou/uL (0.0-0.7); #Monocytes 0.9 thou/uL (0.11-0.59); #Neutrophils 7.9 thou/uL (1.40-6.50); %Basophils 0.2 % (0.0-1.0); %Eosinophils 0.6 % (0.0-10.0); %Lymphocytes 10.5 % (21.0-51.0); %Monocytes 9.1 % (0.0-10.0); %Neutrophils 79.6 % (42.0-75.0); Mean Corpuscular HGB CONC 32.2 g/dL (32.0-36.0); Mean Corpuscular Hemoglobin 28.4 pg (27.0-31.0); Mean Corpuscular Volume 88.1 fL (78.0-98.0); Mean Platelet Volume 7.5 fL (7.4-10.4); Platelet Count 218 thou/uL (130-400); RBC Distribution Width 16.2 % (11.5-14.5); White Blood Cell (WBC) Count 9.9 thou/uL (4.8-10.8)
[2019-05-07 04:51] LABS: Anion Gap 13 mmol/L (10-20); BUN (Urea Nitrogen) 20 mg/dL (9.8-20.1); Calc. Creatinine Clearance 13 mL/min (70-130); Calcium 8.6 mg/dL (7.8-10.44); Carbon Dioxide 29 mmol/L (23-31); Chloride 100 mmol/L (98-107); Estimated GFR-MDRD 14; Glucose 94 mg/dL (83-110); Potassium 4.2 mmol/L (3.5-5.1); Sodium 138 mmol/L (136-145)
--- NOTE | 2019-05-07 07:33 | PDOC.HOSPP ---
- Subjective Encounter Date: 05/07/19 Encounter Time: 11:00 Subjective: Patient without further blood bowel movements. No complaints. No events overnight. - Objective Vital Signs & Weight: Vital Signs (12 hours) Temp Pulse Resp BP Pulse Ox 05/07/19 04:00 97.6 F 74 18 115/76 94 L 05/07/19 01:00 77 149/82 H 05/06/19 23:45 73 171/73 H 05/06/19 21:41 77 05/06/19 21:33 98 F 77 20 163/70 H 97 Weight Weight 124 lb 8 oz I&O: 05/06/19 05/07/19 05/08/19 06:59 06:59 06:59 Intake Total 120 Output Total 0 Balance 120 Result Diagrams: 05/07/19 04:16 05/07/19 04:16 Additional Labs: Accuchecks 05/07/19 05/06/19 05/06/19 06:36 20:18 18:36 POC Glucose 97 135 H 108 05/06/19 08:26 POC Glucose 130 H Hospitalist ROS - Review of Systems Constitutional: denies: fever, chills Respiratory: denies: cough, shortness of breath Cardiovascular: denies: chest pain, palpitations Gastrointestinal: denies: nausea, vomiting, abdominal pain, diarrhea, constipation, hematochezia - Medication Medications: Active Medications Generic Name Dose Route Start Last Admin Trade Name Freq PRN Reason Stop Dose Admin Atorvastatin Calcium 80 mg 05/06/19 21:00 05/06/19 21:41 Lipitor PO 80 mg HS SAMIRA Administration Carvedilol 12.5 mg 05/06/19 21:00 05/06/19 21:42 Coreg PO 12.5 mg BID SAMIRA Administration Fluoxetine HCl 20 mg 05/06/19 21:00 05/06/19 21:42 Prozac PO 20 mg BID SAMIRA Administration Hydralazine HCl 25 mg 05/06/19 21:00 05/06/19 21:41 Apresoline PO 25 mg BID SAMIRA Administration - Exam General Appearance: NAD, awake alert ENT: moist mucosa Heart: RRR, no murmur, no gallops, no rubs Respiratory: CTAB, no wheezes, no rales, no ronchi Gastrointestinal: soft, non-tender, non-distended, normal bowel sounds Psychiatric: normal affect, normal behavior Hosp A/P (1) Lower GI bleed Code(s): K92.2 - GASTROINTESTINAL HEMORRHAGE, UNSPECIFIED Status: Acute (2) CAD (coronary artery disease) Code(s): I25.10 - ATHSCL HEART DISEASE OF [place] CORONARY ARTERY W/O ANG PCTRS Status: Chronic Qualifiers: Coronary Disease-Associated Artery/Lesion type: bypass graft (3) Chronic diastolic (congestive) heart failure Code(s): I50.32 - CHRONIC DIASTOLIC (CONGESTIVE) HEART FAILURE Status: Chronic (4) ESRD (end stage renal disease) on dialysis Code(s): N18.6 - END STAGE RENAL DISEASE; Z99.2 - DEPENDENCE ON RENAL DIALYSIS Status: Chronic (5) Diabetes mellitus type 2 Code(s): E11.9 - TYPE 2 DIABETES MELLITUS WITHOUT COMPLICATIONS Status: Chronic (6) HTN (hypertension) Code(s): I10 - ESSENTIAL (PRIMARY) HYPERTENSION Status: Chronic Qualifiers: (7) Hyperlipidemia Code(s): E78.5 - HYPERLIPIDEMIA, UNSPECIFIED Status: Chronic (8) Chronic respiratory failure with hypoxia Code(s): J96.11 - CHRONIC RESPIRATORY FAILURE WITH HYPOXIA Status: Chronic - Plan H/H dropped a little since yesterday, still above 8. Transfuse as needed Receiving dialysis Resume Plavix when ok with GI and Cards DVT Proph: SCDs
[2019-05-07] MEDS: Sevelamer Carbonate 800 MG TAB PO SCH ×3 (08:40→17:42)
[2019-05-07] MEDS: FLUoxetine HCl 20 MG CAP PO SCH ×2 (08:40→20:49)
[2019-05-07] MEDS: Carvedilol 6.25 MG TAB PO SCH ×2 (08:40→20:49)
[2019-05-07] MEDS: hydrALAZINE 25 MG TAB PO SCH ×2 (08:40→20:49)
[2019-05-07] MEDS: Isosorbide Mononitrate (ER) 30 MG TAB PO SCH (08:40)
[2019-05-07] MEDS: HumaLOG 300 UNITS/3 ML VIAL SC PRN (11:28)
--- NOTE | 2019-05-07 12:08 | PRG ---
DATE OF SERVICE: 05/07/2019 SUBJECT: A 78-year-old female, being seen for end-stage kidney disease. The patient denied nausea, vomiting, or chest pain. OBJECTIVE: GENERAL: The patient is awake and alert. VITAL SIGNS: Afebrile. Pulse 52, breathing 16, blood pressure 134/62. GENERAL APPEARANCE AND MENTAL STATUS: Fair. HEAD/NECK: Normocephalic. Atraumatic. EYES: EOMI. No deformity. EARS: Clear. No ulcers. NOSE: Intact. No lesions. MOUTH: Clear. No discharge. THROAT: Clear. No exudate. LUNGS: Clear. No crackles. CARDIAC: S1, S2. No rub. ABDOMEN: Benign. Bowel sounds positive. GENITALIA/RECTUM: Bhatti absent. BACK/EXTREMITIES: Edema 0+. NEUROLOGICAL: Alert and motor intact. SKIN: LYMPHATICS: LABORATORY DATA: Labs showed hemoglobin 8. ASSESSMENT AND PLAN: 1. Stage 6 chronic kidney disease. Continue hemodialysis per schedule. 2. Hypertension, stable. 3. Anemia, stable. 4. Medication based on GFR, appropriate. Job ID: [id number]
--- NOTE | 2019-05-07 13:35 | PQF ---
CLINICAL DOCUMENTATION IMPROVEMENT CLARIFICATION FORM: ICD-10 Updated PLEASE DO AN ADDENDUM TO THE PROGRESS NOTE WITH ANY DOCUMENTATION UPDATES OR ADDITIONS AND CARRY THROUGH TO DC SUMMARY. THANK YOU. DATE: 05/07/19 ATTN: DR. ESPOSITO Please exercise your independent, professional judgment in responding to the clarification form. Clinical indicators are provided on the bottom of this form for your review Please check appropriate box(s): [ X ] Acute blood loss anemia [ ] Post-op anemia related to acute blood loss [ ] Anemia: [ ] Aplastic [ ] Nutritional [ ] Drug induced (specify) ___ [ ] Hemolytic [ ] Hereditary [ ] Acquired [ ] Autoimmune [ ] Non-autoimmune [ ] Enzyme disorder [ ] Chronic Anemia: [ ] Blood loss [ ] Hemolytic [ ] Simple [ ] Due to Vitamin B12 Deficiency [ ] Other [ ] Anemia of Chronic Disease (please specify) [ ] Other diagnosis [ ] Unable to determine In addition, please specify: Present on Admission (POA): [ X ] Yes [ ] No [ ] Unable to determine For continuity of documentation, please document condition throughout progress notes and discharge summary. Thank You. CLINICAL INDICATORS - SIGNS / SYMPTOMS / LABS / RESULTS AND LOCATION IN EMR H/O ANEMIA (H&P 05/07) HGN 05/05: 8.8 HGN 05/07: 8.0 HCT 05/05: 26.8 HCT 05/07: 24.7 RISKS: LOWER GI BLEED (PROGRESS NOTE 05/07) TREATMENT: GI CONSULT 05/06 EGD 05/06 SERIAL LABS BLOOD TRANSFUSION X 2UNITS (05/05) [employer](This form is maintained as a part of the permanent medical record) 2014 [employer] All Rights Reserved [email or web address] Office: [phone] [facility]
[2019-05-07] MEDS ORDERED: hydrALAZINE 20 MG/ML VIAL SLOW IVP PRN (16:16)
--- NOTE | 2019-05-07 18:14 | PDOC.CPN ---
- Subjective Date: 05/07/19 Time: 18:13 Interval history: No new issues. No more bleeding. - Review of Systems General: denies: fever/chills, weight/appetite/sleep changes, night sweats, fatigue Respiratory: reports: shortness of breath, exercise intolerance. denies: cough , congestion Cardiovascular: denies: chest pain, palpitation, edema, paroxysmal nocturnal dyspnea, orthopnea Gastrointestinal: denies: nausea, vomiting, diarrhea, constipation, abd pain, GI bleeding Musculoskeletal: denies: pain, tenderness, stiffness, swelling, arthritis/ arthralgias Neurological: denies: numbness, syncope, seizure, weakness - Objective Allergies/Adverse Reactions: Allergies Allergy/AdvReac Type Severity Reaction Status Date / Time erythromycin base Allergy Verified 01/01/19 08:27 oxytetracycline Allergy Verified 01/01/19 08:27 [From Terramycin] oxytetracycline HCl Allergy Verified 01/01/19 08:27 [From Terramycin] pregabalin [From Lyrica] Allergy Verified 01/01/19 08:27 Visit Medications: Current Medications Acetaminophen (Tylenol) 650 mg PO Q4H PRN PRN Reason: Headache/Fever/Mild Pain (1-3) Acetaminophen (Tylenol) 650 mg [place] Q4H PRN PRN Reason: Headache/Fever/Mild Pain (1-3) Atorvastatin Calcium (Lipitor) 80 mg PO HS [facility] Last Admin: 05/06/19 21:41 Dose: 80 mg Carvedilol (Coreg) 12.5 mg PO BID [facility] Last Admin: 05/07/19 08:40 Dose: 12.5 mg Dextrose/Water (Dextrose 50%) 25 gm SLOW IVP PRN PRN PRN Reason: Hypoglycemia Fluoxetine HCl (Prozac) 20 mg PO BID [facility] Last Admin: 05/07/19 08:40 Dose: 20 mg Glucagon (Glucagon) 1 mg IM PRN PRN PRN Reason: Hypoglycemia Guaifenesin/Dextromethorphan (Robitussin Dm) 15 ml PO Q4H PRN PRN Reason: Cough Hydralazine HCl (Apresoline) 25 mg PO BID [facility] Last Admin: 05/07/19 08:40 Dose: 25 mg Hydralazine HCl (Apresoline) 10 mg SLOW IVP Q4H PRN PRN Reason: SBP Greater Than 180 Dextrose/Water (D5w) 1,000 mls @ 0 mls/hr IV .Q0M PRN PRN Reason: Hypoglycemia Insulin Human Lispro (Humalog) 0 units SC .MILD SLIDING SCALE PRN PRN Reason: Mild Correctional Scale Last Admin: 05/07/19 11:28 Dose: 4 unit Insulin Human Lispro (Humalog) 0 units SC .BEDTIME SLIDING SC PRN PRN Reason: Bedtime Correctional Scale Isosorbide Mononitrate (Imdur Er) 30 mg PO DAILY [facility] Last Admin: 05/07/19 08:40 Dose: 30 mg Ondansetron HCl (Zofran Odt) 4 mg PO Q6H PRN PRN Reason: Nausea/Vomiting Ondansetron HCl (Zofran) 4 mg IVP Q6H PRN PRN Reason: Nausea/Vomiting Senna/Docusate Sodium (Senokot S) 2 tab PO BID PRN PRN Reason: Constipation Sevelamer Carbonate (Renvela) 800 mg PO TID-[facility] Last Admin: 05/07/19 17:42 Dose: 800 mg Sodium Chloride (Flush - Normal Saline) 10 ml IVF PRN PRN PRN Reason: Saline Flush Vital Signs & Weight: Vital Signs Temp Pulse Pulse Pulse Resp BP BP 05/07/19 15:38 98.2 F 54 L 22 H 05/07/19 11:07 98.2 F 54 L 18 05/07/19 09:23 62 67 134/62 129/61 05/07/19 09:05 05/07/19 07:48 98.2 F 61 12 BP Pulse Ox Pulse Ox Pulse Ox 05/07/19 15:38 173/70 H 100 05/07/19 11:07 147/64 H 100 05/07/19 09:23 100 99 05/07/19 09:05 100 05/07/19 07:48 172/72 H 100 Admit Weight 124 lb 8 oz Weight 124 lb 8 oz - Physical Exam General: alert & oriented x3 HEENT: mucus membranes moist Neck: supple neck Cardiac: regular rate and rhythm Lungs: decreased breath sounds Neuro: grossly intact Abdomen: active bowel sounds Extremities: no edema Skin: clear Musculoskeletal: no pain - Labs Result Diagrams: 05/07/19 04:16 05/07/19 04:16 Troponin/CKMB CK-MB (CK-2) 2.3 ng/mL (0-6.6) 05/05/19 21:56 Troponin I 0.076 ng/mL (< 0.028) H 05/06/19 03:24 - Telemetry Sinus rhythms and dysrhythmias: sinus rhythm - Assessment/Plan Assessment/Plan: 1. Lower GI bleed. 2. Acute blood loss anemia 3. CAD, stable 4. Recent Stent to LM into LCx, protected LAD. 5. Hx of CABG 6. Diverticulosis, likely source of bleeding. PLAN; - Will transfuse to close to 9 or 10. - Would want to try to keep plavix to at least 2 more months if possible as she would be 6 months out of the [facility]A at that point. - Would continue to monitor in hospital for now. Will give 2 units of bleed today. - PCD's and CHACHA's for DVT prophylaxis.
--- NOTE | 2019-05-07 20:19 | PRG ---
DATE OF SERVICE: 05/07/2019 SUBJECTIVE: Ms. Nichols has had no abdominal pain. She has had no bowel movement today. OBJECTIVE: Her abdomen is soft, nontender, and nondistended. Bowel sounds are present. LABORATORY DATA: Hemoglobin 8.0. IMPRESSION: 1. Acute gastrointestinal bleed and anemia of acute blood loss. This is most likely diverticular. The bleeding has stopped for now. 2. Coronary artery disease, status post stent to the left main 4 months ago. Plan is to continue Plavix over the next couple of months if we can keep her blood count at a reasonable level without further significant overt bleeding. PLAN: 1. She will restart Plavix. 2. She will receive blood transfusion. 3. Anticipate discharge home in a couple of days. 4. I will sign off. Please call if GI can be of assistance. Job ID: [id number]
[2019-05-07] MEDS: Atorvastatin Calcium 40 MG TAB PO SCH (20:48)
[2019-05-08 04:31] LABS: #Eosinphils 0.1 thou/uL (0.0-0.7); #Monocytes 0.9 thou/uL (0.11-0.59); #Neutrophils 5.4 thou/uL (1.40-6.50); %Basophils 0.4 % (0.0-1.0); %Eosinophils 1.6 % (0.0-10.0); %Lymphocytes 13.7 % (21.0-51.0); %Monocytes 12.2 % (0.0-10.0); %Neutrophils 72.1 % (42.0-75.0); Hemoglobin 9.4 g/dL (12.0-16.0); Mean Corpuscular HGB CONC 32.7 g/dL (32.0-36.0); Mean Corpuscular Hemoglobin 28.5 pg (27.0-31.0); Mean Corpuscular Volume 87.3 fL (78.0-98.0); Mean Platelet Volume 8.6 fL (7.4-10.4); Platelet Count 154 thou/uL (130-400); Red Blood Cell (RBC) Count 3.29 mill/uL (4.20-5.40); White Blood Cell (WBC) Count 7.5 thou/uL (4.8-10.8)
[2019-05-08 04:50] LABS: Anion Gap 16 mmol/L (10-20); BUN (Urea Nitrogen) 32 mg/dL (9.8-20.1); Calc. Creatinine Clearance 9 mL/min (70-130); Calcium 8.5 mg/dL (7.8-10.44); Carbon Dioxide 26 mmol/L (23-31); Chloride 97 mmol/L (98-107); Estimated GFR-MDRD 9; Glucose 100 mg/dL (83-110); Potassium 4.4 mmol/L (3.5-5.1); Sodium 135 mmol/L (136-145)
--- NOTE | 2019-05-08 07:59 | PDOC.HOSPP ---
- Subjective Encounter Date: 05/08/19 Encounter Time: 10:30 Subjective: Patient without further bloody bowel movements. No SOB/CP/Weakness. - Objective Vital Signs & Weight: Vital Signs (12 hours) Temp Pulse Pulse Resp BP BP Pulse Ox 05/08/19 03:14 98.0 F 70 18 166/67 H 97 05/08/19 00:34 98.0 F 66 16 158/70 H 98 05/07/19 22:42 98.2 F 68 16 136/92 H 98 05/07/19 22:26 98.2 F 59 L 16 145/67 H 98 05/07/19 22:09 98.2 F 59 L 16 145/67 H 98 05/07/19 20:49 66 Weight Admit Weight 124 lb 8 oz Weight 124 lb 8 oz I&O: 05/07/19 05/08/19 05/09/19 06:59 06:59 06:59 Intake Total 120 1070 Output Total 0 Balance 120 1070 Result Diagrams: 05/08/19 03:48 05/08/19 03:48 Additional Labs: Accuchecks 05/08/19 05/07/19 05/07/19 05:50 20:34 16:44 POC Glucose 128 H 206 H 124 H 05/07/19 10:47 POC Glucose 297 H Hospitalist ROS - Review of Systems Constitutional: denies: fever, chills Respiratory: denies: cough, shortness of breath Cardiovascular: denies: chest pain, palpitations Gastrointestinal: denies: nausea, vomiting, abdominal pain, melena, hematochezia - Medication Medications: Active Medications Generic Name Dose Route Start Last Admin Trade Name Michelle PRN Reason Stop Dose Admin Atorvastatin Calcium 80 mg 05/06/19 21:00 05/07/19 20:48 Lipitor PO 80 mg HS SAMIRA Administration Carvedilol 12.5 mg 05/06/19 21:00 05/07/19 20:49 Coreg PO 12.5 mg BID SAMIRA Administration Fluoxetine HCl 20 mg 05/06/19 21:00 05/07/19 20:49 Prozac PO 20 mg BID SAMIRA Administration Hydralazine HCl 25 mg 05/06/19 21:00 05/07/19 20:49 Apresoline PO 25 mg BID SAMIRA Administration Insulin Human Lispro 0 units 05/06/19 18:26 05/07/19 11:28 Humalog SC 4 unit .MILD SLIDING SCALE PRN Administration Mild Correctional Scale Isosorbide Mononitrate 30 mg 05/07/19 09:00 05/07/19 08:40 Imdur Er PO 30 mg DAILY SAMIRA Administration Sevelamer Carbonate 800 mg 05/07/19 08:00 05/07/19 17:42 Renvela PO 800 mg TID-[facility] SAMIRA Administration - Exam General Appearance: NAD, awake alert ENT: moist mucosa Heart: RRR, no murmur, no gallops, no rubs Respiratory: CTAB, no wheezes, no rales, no ronchi Gastrointestinal: soft, non-tender, non-distended, normal bowel sounds Psychiatric: normal affect, normal behavior, A&O x 3 Hosp A/P (1) Anemia due to acute blood loss Code(s): D62 - ACUTE POSTHEMORRHAGIC ANEMIA Status: Acute (2) Lower GI bleed Code(s): K92.2 - GASTROINTESTINAL HEMORRHAGE, UNSPECIFIED Status: Resolved (3) CAD (coronary artery disease) Code(s): I25.10 - ATHSCL HEART DISEASE OF [place] CORONARY ARTERY W/O ANG PCTRS Status: Chronic Qualifiers: Coronary Disease-Associated Artery/Lesion type: bypass graft (4) Chronic diastolic (congestive) heart failure Code(s): I50.32 - CHRONIC DIASTOLIC (CONGESTIVE) HEART FAILURE Status: Chronic (5) ESRD (end stage renal disease) on dialysis Code(s): N18.6 - END STAGE RENAL DISEASE; Z99.2 - DEPENDENCE ON RENAL DIALYSIS Status: Chronic (6) Diabetes mellitus type 2 Code(s): E11.9 - TYPE 2 DIABETES MELLITUS WITHOUT COMPLICATIONS Status: Chronic (7) HTN (hypertension) Code(s): I10 - ESSENTIAL (PRIMARY) HYPERTENSION Status: Chronic Qualifiers: (8) Hyperlipidemia Code(s): E78.5 - HYPERLIPIDEMIA, UNSPECIFIED Status: Chronic (9) Chronic respiratory failure with hypoxia Code(s): J96.11 - CHRONIC RESPIRATORY FAILURE WITH HYPOXIA Status: Chronic - Plan H/H up to 9.4 with transfusion, Plavix restarted Watch one more day on Plavix to make sure no further bleeding Receiving dialysis DVT Proph: SCDs
--- NOTE | 2019-05-08 09:57 | PRG ---
DATE OF SERVICE: 05/08/2019 SUBJECTIVE: A 78-year-old female, being seen for end-stage renal disease. The patient denies any nausea, vomiting, or chest pain. OBJECTIVE: General: The patient is awake and alert. Vital Signs: Afebrile, pulse 75, breathing 16, blood pressure was 158/72. HEENT: Head normocephalic and atraumatic. Eyes intact, no ulcers. Nose intact, no ulcers. Ears intact, no ulcers. Neck: Supple. No JVD. Chest: Symmetrical and clear. Cardiovascular: Shows S1 and S2, no rub, no murmur. Gastrointestinal: Abdomen is soft, bowel sounds positive. Extremities: Show no edema or ulcers. Skin: Shows no rash or petechiae. Musculoskeletal: Shows no joint swelling or stiffness. Genitourinary: Shows no Bhatti or CVA tenderness. Neurologic: Motor intact. Cranial nerves intact. LABORATORY DATA: Reviewed. ASSESSMENT AND PLAN: 1. Stage 6 chronic kidney disease, stable. 2. Hypertension, stable. 3. Anemia, stable. 4. Medication based on GFR, appropriate. Job ID: [id number]
[2019-05-08] MEDS: Carvedilol 6.25 MG TAB PO SCH ×2 (12:00→20:11)
[2019-05-08] MEDS: Sevelamer Carbonate 800 MG TAB PO SCH ×3 (12:00→17:04)
[2019-05-08] MEDS: Clopidogrel Bisulfate 75 MG TAB PO SCH (12:00)
[2019-05-08] MEDS: FLUoxetine HCl 20 MG CAP PO SCH ×2 (12:01→20:11)
[2019-05-08] MEDS: Isosorbide Mononitrate (ER) 30 MG TAB PO SCH (12:01)
[2019-05-08] MEDS: hydrALAZINE 25 MG TAB PO SCH ×2 (12:01→20:11)
[2019-05-08] MEDS: HumaLOG 300 UNITS/3 ML VIAL SC PRN (17:52)
--- NOTE | 2019-05-08 18:32 | PDOC.CPN ---
- Subjective Date: 05/08/19 Time: 18:27 Interval history: She had 2 units transfused overnight, she had HD this morning. Her Hgb is better. Had a fever earlier today and feels more SOB. - Review of Systems General: reports: fever/chills. denies: weight/appetite/sleep changes, night sweats, fatigue Respiratory: reports: shortness of breath. denies: cough, congestion, exercise intolerance Cardiovascular: denies: chest pain, palpitation, edema, paroxysmal nocturnal dyspnea, orthopnea Gastrointestinal: denies: nausea, vomiting, diarrhea, constipation, abd pain, GI bleeding Musculoskeletal: denies: pain, tenderness, stiffness, swelling, arthritis/ arthralgias Neurological: denies: numbness, syncope, seizure, weakness - Objective Allergies/Adverse Reactions: Allergies Allergy/AdvReac Type Severity Reaction Status Date / Time erythromycin base Allergy Verified 01/01/19 08:27 oxytetracycline Allergy Verified 01/01/19 08:27 [From Terramycin] oxytetracycline HCl Allergy Verified 01/01/19 08:27 [From Terramycin] pregabalin [From Lyrica] Allergy Verified 01/01/19 08:27 Visit Medications: Current Medications Acetaminophen (Tylenol) 650 mg PO Q4H PRN PRN Reason: Headache/Fever/Mild Pain (1-3) Last Admin: 05/08/19 15:50 Dose: 650 mg Acetaminophen (Tylenol) 650 mg [place] Q4H PRN PRN Reason: Headache/Fever/Mild Pain (1-3) Atorvastatin Calcium (Lipitor) 80 mg PO [facility] Last Admin: 05/07/19 20:48 Dose: 80 mg Carvedilol (Coreg) 12.5 mg PO BID [facility] Last Admin: 05/08/19 12:00 Dose: 12.5 mg Clopidogrel Bisulfate (Plavix) 75 mg PO DAILY [facility] Last Admin: 05/08/19 12:00 Dose: 75 mg Dextrose/Water (Dextrose 50%) 25 gm SLOW IVP PRN PRN PRN Reason: Hypoglycemia Fluoxetine HCl (Prozac) 20 mg PO BID [facility] Last Admin: 05/08/19 12:01 Dose: 20 mg Glucagon (Glucagon) 1 mg IM PRN PRN PRN Reason: Hypoglycemia Guaifenesin/Dextromethorphan (Robitussin Dm) 15 ml PO Q4H PRN PRN Reason: Cough Hydralazine HCl (Apresoline) 25 mg PO BID [facility] Last Admin: 05/08/19 12:01 Dose: 25 mg Hydralazine HCl (Apresoline) 10 mg SLOW IVP Q4H PRN PRN Reason: SBP Greater Than 180 Dextrose/Water (D5w) 1,000 mls @ 0 mls/hr IV .Q0M PRN PRN Reason: Hypoglycemia Insulin Human Lispro (Humalog) 0 units SC .MILD SLIDING SCALE PRN PRN Reason: Mild Correctional Scale Last Admin: 05/08/19 17:52 Dose: 4 unit Insulin Human Lispro (Humalog) 0 units SC .BEDTIME SLIDING SC PRN PRN Reason: Bedtime Correctional Scale Isosorbide Mononitrate (Imdur Er) 30 mg PO DAILY [facility] Last Admin: 05/08/19 12:01 Dose: 30 mg Ondansetron HCl (Zofran Odt) 4 mg PO Q6H PRN PRN Reason: Nausea/Vomiting Ondansetron HCl (Zofran) 4 mg IVP Q6H PRN PRN Reason: Nausea/Vomiting Senna/Docusate Sodium (Senokot S) 2 tab PO BID PRN PRN Reason: Constipation Sevelamer Carbonate (Renvela) 800 mg PO TID-[facility] Last Admin: 05/08/19 17:04 Dose: 800 mg Sodium Chloride (Flush - Normal Saline) 10 ml IVF PRN PRN PRN Reason: Saline Flush Vital Signs & Weight: Vital Signs Temp Pulse Resp BP Pulse Ox 05/08/19 15:44 99.5 F 67 20 127/58 L 94 L 05/08/19 12:35 152/64 H 05/08/19 11:56 98.1 F 72 18 183/74 H 100 Admit Weight 124 lb 8 oz Weight 124 lb 8 oz - Physical Exam General: alert & oriented x3 HEENT: mucus membranes moist Neck: supple neck Cardiac: regular rate and rhythm Lungs: clear to auscultation Neuro: grossly intact Abdomen: active bowel sounds Extremities: no edema Skin: clear Musculoskeletal: no pain - Labs Result Diagrams: 05/08/19 03:48 05/08/19 03:48 Troponin/CKMB CK-MB (CK-2) 2.3 ng/mL (0-6.6) 05/05/19 21:56 Troponin I 0.076 ng/mL (< 0.028) H 05/06/19 03:24 - Telemetry Sinus rhythms and dysrhythmias: sinus rhythm - Assessment/Plan Assessment/Plan: 1. Lower GI bleed. 2. Acute blood loss anemia 3. CAD, stable 4. Recent Stent to LM into LCx, protected LAD. 5. Hx of CABG 6. Diverticulosis, likely source of bleeding. PLAN; - Hgb better at 9.4 - Will re challenge with plavix Tomorrow. Spoke with Dr. Dowling and mary there has been no active bleeding in the last few days this as good a time as ever to challenge with anti platelet therapy. Will start Plavix tomorrow first dose and observe for 2 days after that and if hgb stable may discharge home on Plavix only as anti platelet. - Would continue to monitor in hospital for now. Will give 2 units of bleed today. - PCD's and CHACHA's for DVT prophylaxis.
[2019-05-08] MEDS: Atorvastatin Calcium 40 MG TAB PO SCH (20:10)
[2019-05-09 05:01] LABS: #Eosinphils 0.1 thou/uL (0.0-0.7); #Lymphocytes 0.9 thou/uL (1.20-3.40); #Neutrophils 6.9 thou/uL (1.40-6.50); %Basophils 0.4 % (0.0-1.0); %Eosinophils 1.6 % (0.0-10.0); %Monocytes 11.3 % (0.0-10.0); %Neutrophils 76.7 % (42.0-75.0); Hemoglobin 10.5 g/dL (12.0-16.0); Mean Corpuscular HGB CONC 32.5 g/dL (32.0-36.0); Mean Corpuscular Hemoglobin 28.6 pg (27.0-31.0); Mean Corpuscular Volume 88.1 fL (78.0-98.0); Platelet Count 196 thou/uL (130-400); RBC Distribution Width 15.9 % (11.5-14.5); Red Blood Cell (RBC) Count 3.67 mill/uL (4.20-5.40)
[2019-05-09 05:19] LABS: Anion Gap 15 mmol/L (10-20); BUN (Urea Nitrogen) 18 mg/dL (9.8-20.1); Calc. Creatinine Clearance 13 mL/min (70-130); Calcium 8.6 mg/dL (7.8-10.44); Carbon Dioxide 29 mmol/L (23-31); Chloride 97 mmol/L (98-107); Estimated GFR-MDRD 14; Glucose 126 mg/dL (83-110); Potassium 4.6 mmol/L (3.5-5.1); Sodium 136 mmol/L (136-145)
--- NOTE | 2019-05-09 07:29 | PDOC.HOSPP ---
- Subjective Encounter Date: 05/09/19 Encounter Time: 10:00 Subjective: Patient without complaints. Quite weak and unsteady on feet, but patient and report that is her baseline at home, doesn't usually get out of bed much. No further rectal bleeding. - Objective Vital Signs & Weight: Vital Signs (12 hours) Temp Pulse Resp BP Pulse Ox 05/09/19 04:00 98.2 F 68 20 156/70 H 99 05/08/19 20:11 69 05/08/19 20:00 99 Weight Admit Weight 124 lb 8 oz Weight 124 lb 8 oz I&O: 05/08/19 05/09/19 05/10/19 06:59 06:59 06:59 Intake Total 1070 Balance 1070 Result Diagrams: 05/09/19 03:57 05/09/19 03:57 Additional Labs: Accuchecks 05/09/19 05/08/19 05/08/19 06:01 21:37 20:33 POC Glucose 130 H 105 61 L 05/08/19 05/08/19 16:02 11:11 POC Glucose 295 H 104 Hospitalist ROS - Review of Systems Constitutional: denies: fever, chills Respiratory: denies: cough, shortness of breath Cardiovascular: denies: chest pain, palpitations Gastrointestinal: denies: nausea, vomiting, abdominal pain, diarrhea, constipation - Medication Medications: Active Medications Generic Name Dose Route Start Last Admin Trade Name Freq PRN Reason Stop Dose Admin Acetaminophen 650 mg 05/06/19 18:15 05/08/19 15:50 Tylenol PO 650 mg Q4H PRN Administration Headache/Fever/Mild Pain (1-3) Atorvastatin Calcium 80 mg 05/06/19 21:00 05/08/19 20:10 Lipitor PO 80 mg HS SAMIRA Administration Carvedilol 12.5 mg 05/06/19 21:00 05/08/19 20:11 Coreg PO 12.5 mg BID SAMIRA Administration Clopidogrel Bisulfate 75 mg 05/08/19 09:00 05/08/19 12:00 Plavix PO 75 mg DAILY SAMIRA Administration Fluoxetine HCl 20 mg 05/06/19 21:00 05/08/19 20:11 Prozac PO 20 mg BID SAMIRA Administration Hydralazine HCl 25 mg 05/06/19 21:00 05/08/19 20:11 Apresoline PO 25 mg BID SAMIRA Administration Insulin Human Lispro 0 units 05/06/19 18:26 05/08/19 17:52 Humalog SC 4 unit .MILD SLIDING SCALE PRN Administration Mild Correctional Scale Isosorbide Mononitrate 30 mg 05/07/19 09:00 05/08/19 12:01 Imdur Er PO 30 mg DAILY [facility] Administration Sevelamer Carbonate 800 mg 05/07/19 08:00 05/08/19 17:04 Renvela PO 800 mg TID-[facility] SAMIRA Administration - Exam General Appearance: NAD, awake alert ENT: moist mucosa Heart: RRR, no murmur, no gallops, no rubs Respiratory: CTAB, no wheezes, no rales, no ronchi Gastrointestinal: soft, non-tender, non-distended, normal bowel sounds Psychiatric: normal affect, normal behavior, A&O x 3 Hosp A/P (1) Anemia due to acute blood loss Code(s): D62 - ACUTE POSTHEMORRHAGIC ANEMIA Status: Acute (2) Lower GI bleed Code(s): K92.2 - GASTROINTESTINAL HEMORRHAGE, UNSPECIFIED Status: Resolved (3) CAD (coronary artery disease) Code(s): I25.10 - ATHSCL HEART DISEASE OF [place] CORONARY ARTERY W/O ANG PCTRS Status: Chronic Qualifiers: Coronary Disease-Associated Artery/Lesion type: bypass graft (4) Chronic diastolic (congestive) heart failure Code(s): I50.32 - CHRONIC DIASTOLIC (CONGESTIVE) HEART FAILURE Status: Chronic (5) ESRD (end stage renal disease) on dialysis Code(s): N18.6 - END STAGE RENAL DISEASE; Z99.2 - DEPENDENCE ON RENAL DIALYSIS Status: Chronic (6) Diabetes mellitus type 2 Code(s): E11.9 - TYPE 2 DIABETES MELLITUS WITHOUT COMPLICATIONS Status: Chronic (7) HTN (hypertension) Code(s): I10 - ESSENTIAL (PRIMARY) HYPERTENSION Status: Chronic Qualifiers: (8) Hyperlipidemia Code(s): E78.5 - HYPERLIPIDEMIA, UNSPECIFIED Status: Chronic (9) Chronic respiratory failure with hypoxia Code(s): J96.11 - CHRONIC RESPIRATORY FAILURE WITH HYPOXIA Status: Chronic - Plan H/H stable with reinstitution of Plavix Can d/c home when ok with Cardiology- spoke with Dr. Mccann and he wants to keep her till tomorrow and recheck H/H then. Receiving dialysis DVT Proph: SCDs
[2019-05-09] MEDS: Carvedilol 6.25 MG TAB PO SCH ×2 (07:33→20:34)
[2019-05-09] MEDS: hydrALAZINE 25 MG TAB PO SCH ×2 (07:33→20:34)
[2019-05-09] MEDS: FLUoxetine HCl 20 MG CAP PO SCH ×2 (07:33→20:34)
[2019-05-09] MEDS: Sevelamer Carbonate 800 MG TAB PO SCH ×3 (07:33→17:40)
[2019-05-09] MEDS: Clopidogrel Bisulfate 75 MG TAB PO SCH (07:33)
[2019-05-09] MEDS: Isosorbide Mononitrate (ER) 30 MG TAB PO SCH (07:34)
[2019-05-09] MEDS: HumaLOG 300 UNITS/3 ML VIAL SC PRN (11:14)
--- NOTE | 2019-05-09 11:43 | PRG ---
DATE OF SERVICE: 05/09/2019 SUBJECT: A 78-year-old female, being seen for end-stage renal disease. The patient denied any nausea, vomiting, or chest pain. OBJECTIVE: General: The patient is awake and alert. Vital signs: Afebrile, pulse 66, breathing 16, blood pressure 123/59. HEENT: Head normocephalic and atraumatic. Eyes intact, no ulcers. Nose intact, no ulcers. Ears intact, no ulcers. Neck: Supple. No JVD. Chest: Symmetrical and clear. Cardiovascular: Shows S1 and S2, no rub, no murmur. Gastrointestinal: Abdomen is soft, bowel sounds positive. Extremities: Show no edema or ulcers. Skin: Shows no rash or petechiae. Musculoskeletal: Shows no joint swelling or stiffness. Genitourinary: Shows no Bhatti or CVA tenderness. Neurologic: Motor intact. Cranial nerves intact. LABORATORY DATA: Reviewed. ASSESSMENT: 1. Stage 6 chronic kidney disease, stable. 2. Hypertension, stable. 3. Anemia, stable. 4. Medication based on GFR appropriate. Job ID: [id number]
--- NOTE | 2019-05-09 18:57 | PDOC.CPN ---
- Subjective Date: 05/09/19 Time: 18:56 Interval history: No new issues. NO more bleeding. Hgb stable. - Review of Systems General: denies: fever/chills, weight/appetite/sleep changes, night sweats, fatigue Respiratory: denies: cough, congestion, shortness of breath, exercise intolerance Cardiovascular: denies: chest pain, palpitation, edema, paroxysmal nocturnal dyspnea, orthopnea Gastrointestinal: denies: nausea, vomiting, diarrhea, constipation, abd pain, GI bleeding Musculoskeletal: denies: pain, tenderness, stiffness, swelling, arthritis/ arthralgias Neurological: denies: numbness, syncope, seizure, weakness - Objective Allergies/Adverse Reactions: Allergies Allergy/AdvReac Type Severity Reaction Status Date / Time erythromycin base Allergy Verified 01/01/19 08:27 oxytetracycline Allergy Verified 01/01/19 08:27 [From Terramycin] oxytetracycline HCl Allergy Verified 01/01/19 08:27 [From Terramycin] pregabalin [From Lyrica] Allergy Verified 01/01/19 08:27 Visit Medications: Current Medications Acetaminophen (Tylenol) 650 mg PO Q4H PRN PRN Reason: Headache/Fever/Mild Pain (1-3) Last Admin: 05/08/19 15:50 Dose: 650 mg Acetaminophen (Tylenol) 650 mg [place] Q4H PRN PRN Reason: Headache/Fever/Mild Pain (1-3) Atorvastatin Calcium (Lipitor) 80 mg PO HS [facility] Last Admin: 05/08/19 20:10 Dose: 80 mg Carvedilol (Coreg) 12.5 mg PO BID [facility] Last Admin: 05/09/19 07:33 Dose: 12.5 mg Clopidogrel Bisulfate (Plavix) 75 mg PO DAILY [facility] Last Admin: 05/09/19 07:33 Dose: 75 mg Dextrose/Water (Dextrose 50%) 25 gm SLOW IVP PRN PRN PRN Reason: Hypoglycemia Fluoxetine HCl (Prozac) 20 mg PO BID [facility] Last Admin: 05/09/19 07:33 Dose: 20 mg Glucagon (Glucagon) 1 mg IM PRN PRN PRN Reason: Hypoglycemia Guaifenesin/Dextromethorphan (Robitussin Dm) 15 ml PO Q4H PRN PRN Reason: Cough Hydralazine HCl (Apresoline) 25 mg PO BID [facility] Last Admin: 05/09/19 07:33 Dose: 25 mg Hydralazine HCl (Apresoline) 10 mg SLOW IVP Q4H PRN PRN Reason: SBP Greater Than 180 Dextrose/Water (D5w) 1,000 mls @ 0 mls/hr IV .Q0M PRN PRN Reason: Hypoglycemia Insulin Human Lispro (Humalog) 0 units SC .MILD SLIDING SCALE PRN PRN Reason: Mild Correctional Scale Last Admin: 05/09/19 11:14 Dose: 2 unit Insulin Human Lispro (Humalog) 0 units SC .BEDTIME SLIDING SC PRN PRN Reason: Bedtime Correctional Scale Isosorbide Mononitrate (Imdur Er) 30 mg PO DAILY [facility] Last Admin: 05/09/19 07:34 Dose: 30 mg Ondansetron HCl (Zofran Odt) 4 mg PO Q6H PRN PRN Reason: Nausea/Vomiting Ondansetron HCl (Zofran) 4 mg IVP Q6H PRN PRN Reason: Nausea/Vomiting Senna/Docusate Sodium (Senokot S) 2 tab PO BID PRN PRN Reason: Constipation Sevelamer Carbonate (Renvela) 800 mg PO TID-[facility] Last Admin: 05/09/19 17:40 Dose: 800 mg Sodium Chloride (Flush - Normal Saline) 10 ml IVF PRN PRN PRN Reason: Saline Flush Vital Signs & Weight: Vital Signs Temp Pulse Resp BP Pulse Ox 05/09/19 15:07 98.9 F 60 18 156/66 H 98 05/09/19 11:10 98.9 F 66 18 123/59 L 100 05/09/19 09:32 104/52 L 05/09/19 07:42 97 05/09/19 07:26 98.3 F 68 20 181/74 H 97 Admit Weight 124 lb 8 oz Weight 124 lb 8 oz - Physical Exam General: alert & oriented x3 HEENT: mucus membranes moist Neck: supple neck Cardiac: regular rate and rhythm Lungs: normal breath sounds Neuro: grossly intact Abdomen: active bowel sounds Extremities: no edema Skin: clear Musculoskeletal: no pain - Labs Result Diagrams: 05/09/19 03:57 05/09/19 03:57 Troponin/CKMB CK-MB (CK-2) 2.3 ng/mL (0-6.6) 05/05/19 21:56 Troponin I 0.076 ng/mL (< 0.028) H 05/06/19 03:24 - Telemetry Sinus rhythms and dysrhythmias: sinus rhythm - Assessment/Plan Assessment/Plan: 1. Lower GI bleed. 2. Acute blood loss anemia 3. CAD, stable 4. Recent Stent to LM into LCx, protected LAD. 5. Hx of CABG 6. Diverticulosis, likely source of bleeding. PLAN; - Hgb better at 10.5 - Home tomorrow if no bleeding and Hgb stable.
[2019-05-09] MEDS: Atorvastatin Calcium 40 MG TAB PO SCH (20:34)
--- NOTE | 2019-05-10 08:54 | PRG ---
DATE OF SERVICE: 05/10/2019 SUBJECTIVE: A 78-year-old female, being seen for end-stage renal disease. The patient denied nausea, vomiting, or chest pain . OBJECTIVE: General: The patient is awake and alert. Vital Signs: Afebrile, pulse 75, breathing at 16, blood pressure 135/77. HEENT: Head normocephalic and atraumatic. Eyes intact, no ulcers. Nose intact, no ulcers. Ears intact, no ulcers. Neck: Supple. No JVD. Chest: Symmetrical and clear. Cardiovascular: Shows S1 and S2, no rub, no murmur. Gastrointestinal: Abdomen is soft, bowel sounds positive. Extremities: Show no edema or ulcers. Skin: Shows no rash or petechiae. Musculoskeletal: Shows no joint swelling or stiffness. Genitourinary: Shows no Bhatti or CVA tenderness. Neurologic: Motor intact. Cranial nerves intact. LABORATORY DATA: Showing hemoglobin 10.5. ASSESSMENT AND PLAN: Stage 6 chronic kidney disease, plan dialysis per schedule. Hypertension, stable. Anemia, stable. Medication based on GFR, appropriate. Job ID: [id number]
[2019-05-10] MEDS: Sevelamer Carbonate 800 MG TAB PO SCH ×2 (09:51→12:18)
[2019-05-10 11:54] VITALS: BP 157/61; TEMP 97.7
[2019-05-10] MEDS: FLUoxetine HCl 20 MG CAP PO SCH (12:15)
[2019-05-10] MEDS: Carvedilol 6.25 MG TAB PO SCH (12:15)
[2019-05-10] MEDS: hydrALAZINE 25 MG TAB PO SCH (12:16)
[2019-05-10] MEDS: Isosorbide Mononitrate (ER) 30 MG TAB PO SCH (12:18)
[2019-05-10] MEDS: Clopidogrel Bisulfate 75 MG TAB PO SCH (12:20)
--- NOTE | 2019-05-10 14:44 | PDOC.CPN ---
- Subjective Date: 05/10/19 Time: 14:43 Interval history: No bleeding. No chest pain. - Review of Systems General: denies: fever/chills, weight/appetite/sleep changes, night sweats, fatigue Respiratory: reports: shortness of breath, exercise intolerance. denies: cough , congestion Cardiovascular: denies: chest pain, palpitation, edema, paroxysmal nocturnal dyspnea, orthopnea Gastrointestinal: denies: nausea, vomiting, diarrhea, constipation, abd pain, GI bleeding Musculoskeletal: denies: pain, tenderness, stiffness, swelling, arthritis/ arthralgias Neurological: denies: numbness, syncope, seizure, weakness - Objective Allergies/Adverse Reactions: Allergies Allergy/AdvReac Type Severity Reaction Status Date / Time erythromycin base Allergy Verified 01/01/19 08:27 oxytetracycline Allergy Verified 01/01/19 08:27 [From Terramycin] oxytetracycline HCl Allergy Verified 01/01/19 08:27 [From Terramycin] pregabalin [From Lyrica] Allergy Verified 01/01/19 08:27 Visit Medications: Current Medications Acetaminophen (Tylenol) 650 mg PO Q4H PRN PRN Reason: Headache/Fever/Mild Pain (1-3) Last Admin: 05/08/19 15:50 Dose: 650 mg Acetaminophen (Tylenol) 650 mg NM Q4H PRN PRN Reason: Headache/Fever/Mild Pain (1-3) Atorvastatin Calcium (Lipitor) 80 mg PO HS [facility] Last Admin: 05/09/19 20:34 Dose: 80 mg Carvedilol (Coreg) 12.5 mg PO BID [facility] Last Admin: 05/10/19 12:15 Dose: 12.5 mg Clopidogrel Bisulfate (Plavix) 75 mg PO DAILY [facility] Last Admin: 05/10/19 12:20 Dose: 75 mg Dextrose/Water (Dextrose 50%) 25 gm SLOW IVP PRN PRN PRN Reason: Hypoglycemia Ferrous Sulfate (Feosol) 325 mg PO DAILY [facility] Fluoxetine HCl (Prozac) 20 mg PO BID [facility] Last Admin: 05/10/19 12:15 Dose: 20 mg Glucagon (Glucagon) 1 mg IM PRN PRN PRN Reason: Hypoglycemia Guaifenesin/Dextromethorphan (Robitussin Dm) 15 ml PO Q4H PRN PRN Reason: Cough Hydralazine HCl (Apresoline) 25 mg PO BID [facility] Last Admin: 05/10/19 12:16 Dose: 25 mg Hydralazine HCl (Apresoline) 10 mg SLOW IVP Q4H PRN PRN Reason: SBP Greater Than 180 Dextrose/Water (D5w) 1,000 mls @ 0 mls/hr IV .Q0M PRN PRN Reason: Hypoglycemia Insulin Human Lispro (Humalog) 0 units SC .MILD SLIDING SCALE PRN PRN Reason: Mild Correctional Scale Last Admin: 05/09/19 11:14 Dose: 2 unit Insulin Human Lispro (Humalog) 0 units SC .BEDTIME SLIDING SC PRN PRN Reason: Bedtime Correctional Scale Isosorbide Mononitrate (Imdur Er) 30 mg PO DAILY [facility] Last Admin: 05/10/19 12:18 Dose: 30 mg Ondansetron HCl (Zofran Odt) 4 mg PO Q6H PRN PRN Reason: Nausea/Vomiting Last Admin: 05/10/19 10:12 Dose: 4 mg Ondansetron HCl (Zofran) 4 mg IVP Q6H PRN PRN Reason: Nausea/Vomiting Senna/Docusate Sodium (Senokot S) 2 tab PO BID PRN PRN Reason: Constipation Sevelamer Carbonate (Renvela) 800 mg PO TID-[facility] Last Admin: 05/10/19 12:18 Dose: 800 mg Sodium Chloride (Flush - Normal Saline) 10 ml IVF PRN PRN PRN Reason: Saline Flush Vitamin B Complex/Vit C/Folic Acid (Nephro-Ana Tablet) 1 tab PO DAILY [facility] Vital Signs & Weight: Vital Signs Temp Pulse Resp BP BP Pulse Ox 05/10/19 12:16 59 L 157/61 H 05/10/19 12:15 157/61 H 05/10/19 11:54 97.7 F 59 L 157/61 H 100 05/10/19 08:00 98 05/10/19 03:59 98.0 F 63 16 135/77 99 Admit Weight 124 lb 8 oz Weight 124 lb 8 oz - Physical Exam General: alert & oriented x3 HEENT: mucus membranes moist Neck: supple neck Cardiac: regular rate and rhythm Lungs: decreased breath sounds Neuro: grossly intact Abdomen: active bowel sounds Extremities: no edema Skin: clear Musculoskeletal: no pain - Labs Result Diagrams: 05/09/19 03:57 05/09/19 03:57 Troponin/CKMB CK-MB (CK-2) 2.3 ng/mL (0-6.6) 05/05/19 21:56 Troponin I 0.076 ng/mL (< 0.028) H 05/06/19 03:24 - Telemetry Sinus rhythms and dysrhythmias: sinus rhythm - Assessment/Plan Assessment/Plan: 1. Lower GI bleed. 2. Acute blood loss anemia 3. CAD, stable 4. Recent Stent to LM into LCx, protected LAD. 5. Hx of CABG 6. Diverticulosis, likely source of bleeding. PLAN; - No evidence of bleeding. - May discharge home any time from cardiac perspective.
--- NOTE | 2019-05-10 21:05 | DIS ---
DATE OF ADMISSION: 05/05/2019 DATE OF DISCHARGE: 05/10/2019 PRIMARY CARE DOCTOR: Rodri Archibald MD DISCHARGE DIAGNOSES: 1. Rectal bleeding. 2. Anemia due to acute blood loss. 3. Coronary artery disease. 4. Diastolic heart failure, chronic. 5. End-stage renal disease, on dialysis, chronic. 6. Diabetes, chronic. 7. Hypertension, chronic. 8. lower gastrointestinal bleed, which has been resolved. 9. Anemia, also resolved. HOSPITAL COURSE: The patient is a 78-year-old female who initially presented to the hospital on 05/05, with complaints of bright blood per rectum. The patient at this time was evaluated by GI, Nephrology, and Cardiology. The patient at this time underwent an EGD, which indicated a small hiatal hernia, otherwise, no events were noted. Per GI recommendation, the GI bleed was most likely secondary to diverticulosis and she has had known diverticulosis in her colonoscopy that was done in 2014. Repeating the colonoscopy would be a low yield. She was medically watched and the recommendation was if her bleeding worsened, she may require RBC scan. She actually continued to improve. Plavix was reintroduced, she did well. Her H and H were stable and at this time, the patient will be discharged home. HOME MEDICATIONS: Will be as of the following. She is going to be on: 1. Plavix 75 mg daily. 2. Hydralazine 25 twice a day. 3. Atorvastatin 80 mg at bedtime. 4. Fluoxetine 20 mg twice a day. 5. Isosorbide 30 mg daily. 6. Renvela 800 mg t.i.d. 7. Carvedilol 12.5 twice a day. 8. Pepcid 20 mg daily. 9. Iron 47.5 daily. 10. Nephro-Ana 0.8 daily. 11. Losartan 50 mg p.o. daily. PHYSICAL EXAMINATION: VITAL SIGNS: Temperature 97.7. She is on 100% on 2-4 L, blood pressure 157/61, pulse 59. GENERAL: She is awake, alert, and oriented x3. Does not appear in distress. CV: S1 and S2 present. No murmurs, rubs, or gallops. ABDOMEN: Soft and nontender. Bowel sounds are present x2. She did have a bowel movement and there was no blood that was noted. I spoke with the patient's who stated that he wants home health physical therapy for her to strengthen her. 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 Again, she will be discharged home. She will follow up with her primary. Job ID: [id number]
[2019-05-11] MEDS ORDERED: Folic Acid/Vit B Comp W-C PO SCH (09:00)
[2019-05-11] MEDS ORDERED: Ferrous Sulfate 325 MG TAB PO SCH (09:00)
== END 2019-05-10 15:23 | disposition home health service (06) | DRG 377 ==
LOC: ERS 21:48 → ERHOLD 23:43 → 2NO 05-06 13:10
PROVIDERS: ADMIT Family Medicine; ATTEND Emergency Medicine
PROC: 0DJ08ZZ Inspection of Upper Intestinal Tract, Via Natural or Artificial Opening Endoscopic (ICD-10-PCS; principal; 2019-05-06)
PROC: 5A1D70Z Performance of Urinary Filtration, Intermittent, Less than 6 Hours Per Day (ICD-10-PCS; 2019-05-07)
PROC: 30233N1 Transfusion of Nonautologous Red Blood Cells into Peripheral Vein, Percutaneous Approach (ICD-10-PCS; 2019-05-07)
DX: K57.31 Diverticulosis of large intestine without perforation or abscess with bleeding (principal); N18.6 End stage renal disease; D62 Acute posthemorrhagic anemia; I13.2 Hypertensive heart and chronic kidney disease with heart failure and with stage 5 chronic kidney disease, or end stage renal disease; I50.32 Chronic diastolic (congestive) heart failure; J96.11 Chronic respiratory failure with hypoxia; K62.5 Hemorrhage of anus and rectum; E11.22 Type 2 diabetes mellitus with diabetic chronic kidney disease; K44.9 Diaphragmatic hernia without obstruction or gangrene; R40.2362 Coma scale, best motor response, obeys commands, at arrival to emergency department; R40.2142 Coma scale, eyes open, spontaneous, at arrival to emergency department; R40.2252 Coma scale, best verbal response, oriented, at arrival to emergency department; I25.10 Atherosclerotic heart disease of native coronary artery without angina pectoris; E78.5 Hyperlipidemia, unspecified; J44.9 Chronic obstructive pulmonary disease, unspecified; Z99.2 Dependence on renal dialysis; Z95.1 Presence of aortocoronary bypass graft; Z99.81 Dependence on supplemental oxygen; Z85.528 Personal history of other malignant neoplasm of kidney; Z88.1 Allergy status to other antibiotic agents; Z88.8 Allergy status to other drugs, medicaments and biological substances; D63.1 Anemia in chronic kidney disease
CPT/HCPCS: 36415; 36416; 36430; 71045; 80048; 80053; 82330; 82550; 82553; 82803; 83605; 84484; 85025; 85610; 85730; 86850; 86870; 86900; 86901; 86922; 93005; P9016; Q0162

== ENCOUNTER 2019-12-21 21:59 | Inpatient (IN) | payer MEDICARE, OTHER ==
[~2019-12-21 21:59] MED LIST: Iopamidol-370 76% 500 ML 1 ML ONE
[2019-12-21 22:28] LABS: #Basophils 0.1 thou/uL (0.0-0.2); #Eosinphils 0.1 thou/uL (0.0-0.7); #Lymphocytes 0.9 thou/uL (1.20-3.40); #Monocytes 1.3 thou/uL (0.11-0.59); #Neutrophils 12.4 thou/uL (1.40-6.50); %Basophils 0.4 % (0.0-1.0); %Eosinophils 0.6 % (0.0-10.0); %Lymphocytes 6.4 % (21.0-51.0); %Monocytes 8.5 % (0.0-10.0); %Neutrophils 84.2 % (42.0-75.0); Mean Corpuscular Hemoglobin 27.1 pg (27.0-31.0); Mean Corpuscular Volume 87.2 fL (78.0-98.0); Mean Platelet Volume 8.3 fL (7.4-10.4); Platelet Count 257 thou/uL (130-400); RBC Distribution Width 17.7 % (11.5-14.5); Red Blood Cell (RBC) Count 3.68 mill/uL (4.20-5.40); White Blood Cell (WBC) Count 14.8 thou/uL (4.8-10.8)
--- NOTE | 2019-12-21 22:37 | RAD ---
XR Chest 1 View Portable History: Dyspnea Comparison: Radiograph December 15, 2019 Findings: Similar large right and moderate left layering pleural effusions. No pneumothorax. Heart si ze is enlarged. No acute osseous abnormality. Pulmonary edema has improved. Impression: 1. Similar large right and moderate left layering pleural effusions with cardiomegaly. 2. Improving pulmonary edema. 3. Nonemergent outpatient follow-up chest CT may be beneficial to evaluate for underlying lung mass i f clinically warranted.
[2019-12-21 22:55] LABS: ALT (SGPT) Less than 7 U/L (8-55); AST (SGOT) 12 U/L (5-34); Albumin 3.3 g/dL (3.4-4.8); Alkaline Phosphatase 62 U/L (40-110); Anion Gap 17 mmol/L (10-20); BUN (Urea Nitrogen) 27 mg/dL (9.8-20.1); Bilirubin, Total 0.4 mg/dL (0.2-1.2); Calc. Creatinine Clearance 0 mL/min (70-130); Calcium 9.3 mg/dL (7.8-10.44); Carbon Dioxide 30 mmol/L (23-31); Chloride 95 mmol/L (98-107); Estimated GFR-MDRD 11; Globulin 3.3 g/dL (2.4-3.5); Glucose 138 mg/dL (83-110); Potassium 3.5 mmol/L (3.5-5.1); Protein, Total 6.6 g/dL (6.0-8.3); Sodium 138 mmol/L (136-145)
--- NOTE | 2019-12-21 23:03 | CT ---
CTA Angio Chest W WO Con History: Shortness of breath Comparison: Chest radiograph same day Findings: CT angiogram chest performed after the intravenous ministration of contrast. 3-D rendering provided. Large right layering pleural effusion. Heart size is markedly enlarged. Small left effusion. Moderate pulmonary edema. Extensive round atelectasis throughout the right middle lobe and right lower lobe which appears masslike although is only sequelae of atelectatic change. Small foci of round atelectasis within the left lung base. Aortic contour is normal. Marked dilatation of the pulmonary trunk along with the left and right and pulmonary arteries. Asymmetrically enlarged right thyroid with parenchymal calcifications. Mild demineralization. No acut e displaced rib fracture. Impression: 1. Marked cardiomegaly with pulmonary edema. 2. Chronic right layering pleural effusion with large foci of round atelectasis which is somewhat mas slike although benign. 3. Pulmonary hypertension. 4. No pulmonary embolism.
--- NOTE | 2019-12-21 23:08 | CT ---
CT Abdomen Pelvis W Con History: Pain Comparison: None. Findings: Hypodensity calcific plaque throughout the aortoiliac system. Extensive cortical thinning o f both kidneys with multiple cysts. Likely a peripheral area of scar interpolar region left kidney. Liver is unremarkable for acute process. Portal vein is patent. Large volume renal sinus fat along the right kidney is somewhat small volume renal sinus fat of the l eft kidney. Severe diverticular disease of the sigmoid colon with some very low-grade inflammation of the low sig moid. There is also a area of wall thickening of the mid transverse colon. No retroperitoneal periaortic adenopathy. Moderate demineralization. No acute osseous abnormality. Small fat-containing periumbilical hernia without adjacent inflammation. The spleen is unremarkable. Pancreas is atrophied. Pancreatic hypodensity of the head measures 1.5 cm with main pancreatic duct communication. Impression: 1. Extensive diverticular disease of the sigmoid colon with very low-grade sigmoid diverticular infla mmation 2. Mild short segment of circumferential wall thickening of the transverse colon for which evaluation with nonemergent colonoscopy recommended. 3. Bilateral renal sinus lipomatosis, worse on the right. This is a benign finding. 4. Small fat-containing umbilical hernia. 5. 1.5 cm hypodensity of the pancreatic head with main pancreatic duct communication. Nonemergent fol low-up pancreatic protocol MRI recommended. 6. Bilateral renal cortical thinning and renal cysts.
[2019-12-21 23:10] LABS: CKMB 2.4 ng/mL (0-6.6)
[2019-12-21] MEDS ORDERED: Aspirin 325 MG TAB ONE (23:37)
[2019-12-22 02:19] LABS: Troponin I 0.073 ng/mL (< 0.028)
[2019-12-22] MEDS ORDERED: Ondansetron ODT 4 MG TAB SL PRN (02:30)
[2019-12-22] MEDS ORDERED: Acetaminophen 325 MG TAB PO PRN (02:30)
[2019-12-22] MEDS ORDERED: Ondansetron PF 4 MG/2 ML Vial IVP PRN ×2 (02:30→17:57)
[2019-12-22 02:48] VITALS: BMI 19.9
--- NOTE | 2019-12-22 04:07 | HP ---
PRIMARY CARE PHYSICIAN: Wayne Aargon NP CHIEF COMPLAINT: Shortness of breath. The patient is an 79-year-old female with past medical history significant for end-stage renal disease, on dialysis 3-4 times a week, CHF, and a recent admission for CHF exacerbation. She was discharged two days ago and presents today with 1 day of worsening shortness of breath and sharp left-sided chest pain. States that this pain does not radiate anywhere and was short-lived. Patient had dialysis on 12/21/2019. She stated that she was feeling well when she left the hospital on 12/20/2019 and felt well during dialysis. This afternoon around 4 p.m., she suddenly started feeling short of breath. Normally, the patient is on 4 L nasal cannula oxygen. When she was discharged a few days ago, she was able to be on 3 L comfortably. Today, her states that he increased her oxygen back up to 4 and eventually to 4.5 L when she began to complain of being short of breath, but was unable to get her feeling better, so they called 911 to come back in. The patient denied any edema or changes in her medical care. She states she has been compliant with her medications. Aggravating factors included lying down. Today in the ER, they completed an EKG, abdomen and pelvis CT chest, thorax CTA, chest x-ray, and labs. They administered aspirin 325 mg. PAST MEDICAL HISTORY: Coronary artery disease, chronic diastolic congestive heart failure, chronic hypoxic respiratory failure with oxygen, end-stage renal disease on hemodialysis, hypertension, normocytic anemia secondary to chronic kidney disease, COPD. 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 ALLERGIES: ERYTHROMYCIN, IODINE, LYRICA, OXYTETRACYCLINE, AND PREGABALIN. CURRENT MEDICATIONS: 1. Atorvastatin 80 mg. 2. Carvedilol 12.5 mg p.o. b.i.d. 3. Plavix 75 mg daily. 4. Pepcid 20 mg daily. 5. Fluoxetine 20 mg p.o. b.i.d. 6. Isosorbide mononitrate 30 mg p.o. daily. 7. Losartan 50 mg p.o. at night. 8. Sevelamer 800 mg p.o. at bedtime. 9. Hydralazine 25 mg p.o. t.i.d. SOCIAL HISTORY: The patient denies any alcohol, drug or smoking. Lives at home with her . REVIEW OF SYSTEMS: All other review of systems are negative unless noted in HPI. FAMILY HISTORY: Noncontributory for current presentation. PHYSICAL EXAMINATION: VITAL SIGNS: Blood pressure 126/38, pulse 63, respiratory rate 20, temperature 98.2, O2 saturation 100% on 4 L. HEENT: Head atraumatic, normocephalic. Eyes, extraocular muscles are intact. PERRLA. NECK: Normal range of motion. Trachea midline. RESPIRATORY: Clear to auscultation bilaterally. No rhonchi, no wheezes, no rales. CARDIOVASCULAR: Regular rate and rhythm. No murmurs, no rubs, no gallops. EXTREMITIES: No lower extremity edema noted. No cyanosis. No clubbing. NEUROLOGIC: No focal deficits. PSYCH: Awake and alert. Normal behavior. LABORATORY AND IMAGING DATA: EKG showed normal sinus rhythm at 68 beats per minute. No ectopic beats, left ventricular hypertrophy. Abdomen and pelvis CT per report showed extensive diverticular disease of the sigmoid colon with very low grade sigmoid diverticular inflammation, mild short segment of circumferential wall thickening of the transverse colon. Bilateral renal sinus lipomatosis, worse on the right, this is a benign finding. A small fat containing umbilical hernia, 1.5 cm hypodensity of the pancreatic head with main pancreatic duct. Bilateral renal cortical thinning and renal cysts. Chest and thorax CTA per report show marked cardiomegaly with pulmonary edema, chronic right layering pleural effusion with large foci of round atelectasis which are somewhat masslike, although benign, pulmonary hypertension, and no pulmonary embolism. Chest x-ray showed a large right and moderate left layering pleural effusions or cardiomegaly, improving pulmonary edema. White blood cells 14.8, red blood cells 3.68, hemoglobin 10, hematocrit 32.1. Sodium 138, potassium 3.5, chloride 95, BUN 27, creatinine 3.91, GFR 11, glucose 138, calcium 9.3. BNP 1533.0, CK-MB 2.4. Troponin 0.071 and 0.073. Lipase 34. IMPRESSION AND PLAN: Nephrology is to be consulted for this patient. The patient states that her shortness of breath has resolved since she has come into the hospital. She appeared comfortable during our exam and was even lying mostly flat at the time. Her BNP still is elevated. However, it is lower than when she was admitted a few days ago, it was then in the 4000. New leukocytosis since discharge, no infectious process identified, afebrile and vital signs are stable, will reverify WBC count with am labs. Unable to obtain urinalysis as patient anuric. She is on her regular 4 L of oxygen right now. She will be admitted to the telemetry unit. She may need another dialysis treatment today, but will defer to Nephrology for further recommendations. We can restart her home medications for hypertension and her cardiac medications. The patient has had a decline in her condition over the past few months since she had to start outpatient physical therapy due to the coronavirus pandemic. PT and OT have been consulted for evaluation and treatment. During her last visit last week, she had an echo performed which showed an EF of 50% to 55% with severe left atrial enlargement, aortic valve sclerosis, and [id number] tricuspid regurgitation, and moderately elevated pulmonary artery pressure, so we will not repeat an echo at this time. Palliative Care will also be consulted as she is a patient that sees them for symptom management. GI and DVT prophylaxis are in place for her. The patient does wish to be DNAR. Her surrogate decision maker is her , Walter. The patient has been discussed with Dr. Hernan Bautista. Job ID: [id number] MTDD
[2019-12-22 05:07] LABS: #Eosinphils 0.1 thou/uL (0.0-0.7); #Lymphocytes 0.9 thou/uL (1.20-3.40); #Monocytes 1.1 thou/uL (0.11-0.59); #Neutrophils 11.1 thou/uL (1.40-6.50); %Eosinophils 0.7 % (0.0-10.0); %Lymphocytes 6.9 % (21.0-51.0); %Monocytes 8.2 % (0.0-10.0); %Neutrophils 84.2 % (42.0-75.0); Mean Corpuscular HGB CONC 30.8 g/dL (32.0-36.0); Mean Corpuscular Hemoglobin 26.7 pg (27.0-31.0); Mean Corpuscular Volume 86.6 fL (78.0-98.0); Mean Platelet Volume 8.5 fL (7.4-10.4); Platelet Count 234 thou/uL (130-400); RBC Distribution Width 17.4 % (11.5-14.5); Red Blood Cell (RBC) Count 3.39 mill/uL (4.20-5.40); White Blood Cell (WBC) Count 13.1 thou/uL (4.8-10.8)
[2019-12-22 05:27] LABS: Anion Gap 16 mmol/L (10-20); BUN (Urea Nitrogen) 29 mg/dL (9.8-20.1); Calc. Creatinine Clearance 8 mL/min (70-130); Calcium 8.7 mg/dL (7.8-10.44); Carbon Dioxide 29 mmol/L (23-31); Chloride 95 mmol/L (98-107); Estimated GFR-MDRD 10; Glucose 105 mg/dL (83-110); Magnesium 2.1 mg/dL (1.6-2.6); Phosphorus 3.6 mg/dL (2.3-4.7); Potassium 3.7 mmol/L (3.5-5.1); Sodium 136 mmol/L (136-145)
[2019-12-22 05:30] LABS: Troponin I 0.066 ng/mL (< 0.028)
[2019-12-22] MEDS: Famotidine 20 MG TAB PO SCH (09:13)
--- NOTE | 2019-12-22 12:49 | CON ---
DATE OF CONSULTATION: REASON FOR CONSULTATION: End-stage renal disease and dyspnea. HISTORY OF PRESENT ILLNESS: This is a very pleasant 79-year-old female, who was discharged recently, presented to the hospital early this morning complaining of dyspnea. The patient states she did not drink excessive amount of fluid. PAST MEDICAL HISTORY: Significant for coronary artery disease, hypertension, congestive heart failure, anemia, carcinoma of the left kidney, AV fistula, tunneled dialysis catheter, CABG x2, hemorrhoidectomy. HOME MEDICATIONS: List reviewed. HOSPITAL MEDICATIONS: List reviewed. SOCIOECONOMIC HISTORY: No alcohol or drug use. FAMILY HISTORY: Negative for ESRD. ALLERGIES: REVIEWED. REVIEW OF SYSTEMS: A 15-point review of systems was performed, negative except for positives noted above. HEENT: Eyes intact, no diplopia. Ears: No hearing loss or earache. Nose: No discharge or bleeding. Chest: No cough or phlegm. Abdomen: No nausea or vomiting. Genitourinary: No hematuria. No Bhatti catheter. Musculoskeletal: No low back pain. No joint swelling or pain. Neurological: No syncope. No seizures. Skin: No complaints of rash or itching. Psychiatric: No depression. Constitutional: No weight loss or loss of appetite. PHYSICAL EXAMINATION: General: The patient is awake and alert. Vital Signs: Afebrile, pulse 70, breathing at 16, blood pressure 136/64. HEENT: Head normocephalic and atraumatic. Eyes intact, no ulcers. Nose intact, no ulcers. Ears intact, no ulcers. Neck: Supple. No JVD. Chest: Symmetrical and clear. Cardiovascular: Shows S1 and S2, no rub, no murmur. Gastrointestinal: Abdomen is soft, bowel sounds positive. Extremities: Show no edema or ulcers. Skin: Shows no rash or petechiae. Musculoskeletal: Shows no joint swelling or stiffness. Genitourinary: Shows no Bhatti or CVA tenderness. Neurologic: Motor intact. Cranial nerves intact. LABORATORY DATA: Labs reviewed. ASSESSMENT AND PLAN: 1. Stage 6 chronic kidney disease with dyspnea. Plan urgent dialysis. 2. Hypertension, stable. 3. Anemia, stable. 4. Medication based on GFR, appropriate. Overall prognosis is poor. Job ID: [id number]
--- NOTE | 2019-12-22 13:55 | PDOC.HOSPP ---
- Subjective Subjective: Pt seen examined at bedside. Plan to have dialysis today. He denies any chest pain. - Objective Vital Signs & Weight: Vital Signs (12 hours) Temp Pulse Resp BP BP Pulse Ox 12/22/19 11:05 98.6 F 69 18 162/69 H 100 12/22/19 08:12 98.3 F 70 18 136/64 98 12/22/19 07:54 100 12/22/19 05:23 100 12/22/19 02:35 99.0 F 66 20 123/58 L 100 Weight Weight 109 lb I&O: 12/21/19 12/22/19 12/23/19 06:59 06:59 06:59 Intake Total 0 Output Total 0 Balance 0 Result Diagrams: 12/22/19 04:56 12/22/19 04:56 Radiology Reviewed by me: Yes EKG Reviewed by me: Yes Hospitalist ROS - Medication Medications: Active Medications Generic Name Dose Route Start Last Admin Trade Name Freq PRN Reason Stop Dose Admin Famotidine 20 mg 12/22/19 09:00 12/22/19 09:13 Famotidine 20 Mg Tab PO 20 mg 0900 SAMIRA Administration - Exam General Appearance: NAD Eye: PERRL ENT: normocephalic atraumatic Neck: supple Heart: RRR Respiratory: rhonchi Extremities: no cyanosis, no clubbing, no edema Skin: normal turgor Neurological: cranial nerve grossly intact Musculoskeletal: normal tone Psychiatric: normal affect Hosp A/P - Plan The patient is unfortunate 79 years old female with multiple comorbidities including congestive heart failure, end-stage renal failure on dialysis Monday, Monday, Monday, who was discharged from the hospital couple days ago, who presented to the ED with complaint of short of breath and worsens left-sided chest pain. Initial work-up in the ED including CT chest, showed pulmonary edema. Acute on chronic diastolic heart failure --plan for dialysis today. --resume home meds ESRD on dialysis --HD on MWF --appreciate Nephrology CAD --Trop flat, level insignificant given CKD --resume home meds Hypertension --BP stable, cont Coreg Dyslipidemia --cont statin Physical debility --PT eval. May need rehab vs SNF, quite debilitated d/t recurrent admissions. DVT ppx: SCD GI ppx: pt is on Pepcid at home Code: DNR, I have confirmed code status with patient.
[2019-12-22] MEDS: Sevelamer Carbonate 800 MG TAB PO SCH ×3 (15:10→21:05)
[2019-12-22] MEDS: Atorvastatin Calcium 40 MG TAB PO SCH (21:04)
[2019-12-22] MEDS: hydrALAZINE 25 MG TAB PO SCH (21:04)
[2019-12-22] MEDS: Carvedilol 25 MG TAB PO SCH (21:05)
[2019-12-22] MEDS: FLUoxetine HCl 20 MG CAP PO SCH (21:05)
--- NOTE | 2019-12-23 00:03 | RAD ---
XR Chest 1 View Portable History: Shortness of breath Comparison: CT prior day Findings: Similar appearance of the pleural effusions. No pneumothorax. Heart size is enlarged. Multi ple midline sternotomy wires. Impression: Similar appearance of the chest.
[2019-12-23 04:34] LABS: #Eosinphils 0.1 thou/uL (0.0-0.7); #Monocytes 1.3 thou/uL (0.11-0.59); #Neutrophils 11.9 thou/uL (1.40-6.50); %Basophils 0.1 % (0.0-1.0); %Eosinophils 0.7 % (0.0-10.0); %Lymphocytes 6.8 % (21.0-51.0); %Monocytes 9.3 % (0.0-10.0); %Neutrophils 83.2 % (42.0-75.0); Hemoglobin 9.8 g/dL (12.0-16.0); Mean Corpuscular HGB CONC 30.5 g/dL (32.0-36.0); Mean Corpuscular Hemoglobin 27.1 pg (27.0-31.0); Mean Corpuscular Volume 88.6 fL (78.0-98.0); Mean Platelet Volume 8.1 fL (7.4-10.4); Platelet Count 229 thou/uL (130-400); RBC Distribution Width 17.3 % (11.5-14.5); Red Blood Cell (RBC) Count 3.61 mill/uL (4.20-5.40); White Blood Cell (WBC) Count 14.3 thou/uL (4.8-10.8)
[2019-12-23 04:58] LABS: Anion Gap 15 mmol/L (10-20); BUN (Urea Nitrogen) 14 mg/dL (9.8-20.1); Calc. Creatinine Clearance 13 mL/min (70-130); Calcium 8.7 mg/dL (7.8-10.44); Carbon Dioxide 27 mmol/L (23-31); Chloride 97 mmol/L (98-107); Estimated GFR-MDRD 17; Glucose 117 mg/dL (83-110); Potassium 3.9 mmol/L (3.5-5.1); Sodium 135 mmol/L (136-145)
[2019-12-23] MEDS: Famotidine 20 MG TAB PO SCH (08:47)
[2019-12-23] MEDS: FLUoxetine HCl 20 MG CAP PO SCH ×2 (08:48→21:17)
[2019-12-23] MEDS: Folic Acid/Vit B Comp W-C PO SCH (08:48)
[2019-12-23] MEDS: Sevelamer Carbonate 800 MG TAB PO SCH ×3 (08:48→21:18)
[2019-12-23] MEDS: Ferrous Sulfate 325 MG TAB PO SCH (08:48)
[2019-12-23] MEDS: Clopidogrel Bisulfate 75 MG TAB PO SCH (10:24)
[2019-12-23] MEDS: hydrALAZINE 25 MG TAB PO SCH ×2 (10:24→21:17)
[2019-12-23] MEDS: Carvedilol 25 MG TAB PO SCH ×2 (10:24→21:19)
[2019-12-23] MEDS: Losartan 25 MG TAB PO SCH (10:25)
--- NOTE | 2019-12-23 12:09 | PDOC.HOSPP ---
- Subjective Subjective: Patient was seen examined at bedside. Her white count remains elevated. Initial CT abdomen and pelvic, showed possible early sigmoid diverticulitis. She is tolerating diet, she not really complaining of any abdominal pain, but further questioning, she endorsed some left lower quadrant pain - Objective Vital Signs & Weight: Vital Signs (12 hours) Temp Pulse Resp BP BP Pulse Ox 12/23/19 10:24 68 12/23/19 07:05 97.6 F 68 16 152/64 H 100 12/23/19 04:00 97.3 F L 67 12 137/66 93 L Weight Weight 99 lb 13.91 oz I&O: 12/22/19 12/23/19 12/24/19 06:59 06:59 06:59 Intake Total 0 820 Output Total 0 0 Balance 0 820 Result Diagrams: 12/23/19 04:01 12/23/19 04:01 Radiology Reviewed by me: Yes EKG Reviewed by me: Yes Hospitalist ROS - Medication Medications: Active Medications Generic Name Dose Route Start Last Admin Trade Name Freq PRN Reason Stop Dose Admin Atorvastatin Calcium 80 mg 12/22/19 21:00 12/22/19 21:04 Atorvastatin Calcium 40 Mg Tab PO 80 mg HS SAMIRA Administration Carvedilol 12.5 mg 12/22/19 21:00 12/23/19 10:24 Carvedilol 25 Mg Tab PO Not Given BID SAMIRA Clopidogrel Bisulfate 75 mg 12/23/19 09:00 12/23/19 10:24 Clopidogrel Bisulfate 75 Mg Tab PO Not Given DAILY SAMIRA Famotidine 20 mg 12/22/19 09:00 12/23/19 08:47 Famotidine 20 Mg Tab PO 20 mg 0900 SAMIRA Administration Ferrous Sulfate 325 mg 12/23/19 09:00 12/23/19 08:48 Ferrous Sulfate 325 Mg Tab PO 325 mg DAILY SAMIRA Administration Fluoxetine HCl 20 mg 12/22/19 21:00 12/23/19 08:48 Fluoxetine Hcl 20 Mg Cap PO 20 mg BID SAMIRA Administration Hydralazine HCl 25 mg 12/22/19 21:00 12/23/19 10:24 Hydralazine 25 Mg Tab PO Not Given BID SAMIRA Isosorbide Mononitrate 30 mg 12/23/19 09:00 12/23/19 08:47 Isosorbide Mononitrate Er 30 Mg Tab PO 30 mg DAILY SAMIRA Administration Losartan Potassium 50 mg 12/23/19 09:00 12/23/19 10:25 Losartan 25 Mg Tab PO Not Given DAILY SAMIRA Sevelamer Carbonate 800 mg 12/22/19 15:00 12/23/19 08:48 Sevelamer Carbonate 800 Mg Tab PO 800 mg TID SAMIRA Administration Vitamin B Complex/Vit C/Folic Acid 1 tab 12/23/19 09:00 12/23/19 08:48 Folic Acid/Vit B Comp W-C PO 1 tab DAILY SAMIRA Administration - Exam General Appearance: NAD Eye: PERRL ENT: normocephalic atraumatic Neck: supple Heart: RRR Respiratory: CTAB Gastrointestinal: soft, tender to palpation (LLQ) Extremities: no cyanosis Skin: normal turgor Neurological: cranial nerve grossly intact Musculoskeletal: normal tone Hosp A/P - Plan The patient is unfortunate 79 years old female with multiple comorbidities including congestive heart failure, end-stage renal failure on dialysis Monday, Monday, Monday, who was discharged from the hospital couple days ago, who presented to the ED with complaint of short of breath and worsens left-sided chest pain. Initial work-up in the ED including CT chest, showed p ulmonary edema. LLQ abd discomfort - CT suggestive of possible early diverticulitis --given elevated WBC, will start her on empiric with Zosyn --tolerate reg diet. Monitor clinically Acute on chronic diastolic heart failure --plan for dialysis today. --resume home meds ESRD on dialysis --HD on MWF --appreciate Nephrology CAD --Trop flat, level insignificant given CKD --resume home meds Hypertension --BP stable, cont Coreg Dyslipidemia --cont statin Physical debility --PT eval. May need rehab vs SNF, quite debilitated d/t recurrent admissions. DVT ppx: SCD GI ppx: pt is on Pepcid at home Code: DNR, I have confirmed code status with patient.
--- NOTE | 2019-12-23 12:17 | PRG ---
DATE OF SERVICE: 12/23/2019 SUBJECTIVE: Patient was seen and examined at bedside and overnight events noted. Patient denies any shortness of breath or chest pain or palpitation. No history of nausea or vomiting or diarrhea or fever or chills or cramps. OBJECTIVE: GENERAL: This is a well-built female, in no apparent distress. VITAL SIGNS: Temperature 97.6. Heart Rate 60. Respiratory rate 16. Blood pressure 152/64. HEENT: Atraumatic, normocephalic. Oral mucosa is moist. NECK: Supple. CARDIOVASCULAR: S1, S2 heard. Rate and rhythm regular. RESPIRATORY: Clear to auscultation. GASTROINTESTINAL: Abdomen is soft. MUSCULOSKELETAL: No tenderness. No edema. DERMATOLOGIC: No skin rash. NEUROLOGIC: Alert and awake and oriented x3. No focal neurologic deficits. Moving all the extremities. PSYCHIATRIC: Mood and affect normal. LABORATORY DATA: Potassium 3.9, BUN is 40, creatinine is 2.6. ASSESSMENT AND PLAN: 1. End-stage renal disease. Continue dialysis, fluid overload, remove fluid with dialysis, edema. 2. Hypertension, anemia of chronic disease. 3. Plan to remove fluid with dialysis as tolerated. Job ID: [id number]
[2019-12-23] MEDS: Piperacillin/Tazobactam 2.25 GM in Sodium Chloride 0.9% 100 ML IVPB SCH ×3 (16:53→21:16)
[2019-12-23] MEDS: Atorvastatin Calcium 40 MG TAB PO SCH (21:18)
[2019-12-24] MEDS: Piperacillin/Tazobactam 2.25 GM in Sodium Chloride 0.9% 100 ML IVPB SCH ×3 (05:06→21:27)
[2019-12-24 05:20] LABS: Anion Gap 15 mmol/L (10-20); BUN (Urea Nitrogen) 11 mg/dL (9.8-20.1); Calc. Creatinine Clearance 15 mL/min (70-130); Calcium 8.9 mg/dL (7.8-10.44); Carbon Dioxide 28 mmol/L (23-31); Chloride 97 mmol/L (98-107); Estimated GFR-MDRD 22; Glucose 110 mg/dL (83-110); Potassium 4.3 mmol/L (3.5-5.1); Sodium 136 mmol/L (136-145)
[2019-12-24 05:53] LABS: #Eosinphils 0.1 thou/uL (0.0-0.7); #Lymphocytes 1.5 thou/uL (1.20-3.40); #Monocytes 1.4 thou/uL (0.11-0.59); #Neutrophils 9.7 thou/uL (1.40-6.50); %Basophils 0.2 % (0.0-1.0); %Eosinophils 0.5 % (0.0-10.0); %Lymphocytes 11.9 % (21.0-51.0); %Monocytes 10.8 % (0.0-10.0); %Neutrophils 76.6 % (42.0-75.0); Hemoglobin 9.3 g/dL (12.0-16.0); MDiff Complete? YES; Mean Corpuscular HGB CONC 29.7 g/dL (32.0-36.0); Mean Corpuscular Hemoglobin 25.7 pg (27.0-31.0); Mean Corpuscular Volume 86.6 fL (78.0-98.0); Mean Platelet Volume 8.5 fL (7.4-10.4); Platelet Count 248 thou/uL (130-400); RBC Distribution Width 17.4 % (11.5-14.5); Red Blood Cell (RBC) Count 3.62 mill/uL (4.20-5.40); White Blood Cell (WBC) Count 12.7 thou/uL (4.8-10.8)
[2019-12-24] MEDS: Sevelamer Carbonate 800 MG TAB PO SCH ×3 (08:45→21:27)
[2019-12-24] MEDS: Ferrous Sulfate 325 MG TAB PO SCH (08:45)
[2019-12-24] MEDS: Losartan 25 MG TAB PO SCH (08:46)
[2019-12-24] MEDS: Folic Acid/Vit B Comp W-C PO SCH (08:46)
[2019-12-24] MEDS: Carvedilol 25 MG TAB PO SCH ×2 (08:46→21:27)
[2019-12-24] MEDS: FLUoxetine HCl 20 MG CAP PO SCH ×2 (08:46→21:28)
[2019-12-24] MEDS: Clopidogrel Bisulfate 75 MG TAB PO SCH (08:46)
[2019-12-24] MEDS: Famotidine 20 MG TAB PO SCH (08:47)
[2019-12-24] MEDS: hydrALAZINE 25 MG TAB PO SCH ×2 (08:47→21:28)
--- NOTE | 2019-12-24 09:19 | RAD ---
CHEST 1 VIEW: Date: 12/24/2019 HISTORY: Pleural effusion. COMPARISON: Radiograph 2 days prior. FINDINGS: Similar appearance to the large right layering pleural effusion. Heart size is enlarged. Small left e ffusion. No acute osseous abnormality. IMPRESSION: Similar examination of the chest. POS: OFF
--- NOTE | 2019-12-24 12:28 | PRG ---
DATE OF SERVICE: 12/24/2019 SUBJECTIVE: Patient was seen and examined at bedside and overnight events noted. Patient denies any shortness of breath or chest pain or palpitation. No history of nausea or vomiting or diarrhea or fever or chills or cramps. OBJECTIVE: General: This is a well-built female, in no apparent distress. Vital Signs: Temperature 99.4. Heart Rate 70. Respiratory rate 18. Blood pressure 132/63. HEENT: Atraumatic, normocephalic. Oral mucosa is moist. Neck: Supple. Cardiovascular: S1, S2 heard. Rate and rhythm regular. Respiratory: Clear to auscultation. Gastrointestinal: Abdomen is soft. Musculoskeletal: No tenderness. No edema. Dermatologic: No skin rash. Neurologic: Alert and awake and oriented x3. No focal neurologic deficits. Moving all the extremities. Psychiatric: Mood and affect normal. LABORATORY DATA: Potassium 4.3, BUN is 11, creatinine is 2.1. ASSESSMENT AND PLAN: 1. End-stage renal disease with right-sided pleural effusion. Plan is to have extra 2 hours of dialysis today. We will attempt to remove fluid. Chest x-ray showed persistent right-sided pleural effusion, which is not getting better with dialysis. Might have to involve Pulmonology if not better and remains hypoxic. 2. Edema. 3. Hypertension. 4. Anemia of chronic disease. The patient continues to have persistent right-sided pleural effusion even after dialysis. Plan is to have an extra 2-hour session of dialysis with ultrafiltration only to focus on fluid removal, but if the pleural effusion not getting better, might consider involving Pulmonology. We will follow. Job ID: [id number]
--- NOTE | 2019-12-24 15:06 | PDOC.HOSPP ---
- Subjective Subjective: Patient was seen examined at bedside. No acute events overnight. Patient report that her discomfort has improved. She is tolerating regular diet. She still quite weak. I have discussed with the patient with regard to physical therapy and rehab, she is agreeable to inpatient rehab. still requires 4L - Objective Vital Signs & Weight: Vital Signs (12 hours) Temp Pulse Pulse Resp BP BP Pulse Ox 12/24/19 11:31 97.5 F L 78 22 H 130/66 98 12/24/19 10:41 64 100/55 L 12/24/19 08:47 78 12/24/19 08:00 98.4 F 78 18 133/63 100 12/24/19 04:00 98.9 F 76 18 173/74 H 96 Pulse Ox 12/24/19 11:31 12/24/19 10:41 98 12/24/19 08:47 12/24/19 08:00 12/24/19 04:00 Weight Weight 101 lb 3.075 oz I&O: 12/23/19 12/24/19 12/25/19 06:59 06:59 06:59 Intake Total 820 880 100 Output Total 0 0 Balance 820 880 100 Result Diagrams: 12/24/19 04:20 12/24/19 04:20 Additional Labs: Accuchecks 12/24/19 10:52 POC Glucose 213 H Radiology Reviewed by me: Yes EKG Reviewed by me: Yes Hospitalist ROS - Medication Medications: Active Medications Generic Name Dose Route Start Last Admin Trade Name Freq PRN Reason Stop Dose Admin Atorvastatin Calcium 80 mg 12/22/19 21:00 12/23/19 21:18 Atorvastatin Calcium 40 Mg Tab PO 80 mg HS SAMIRA Administration Carvedilol 12.5 mg 12/22/19 21:00 12/24/19 08:46 Carvedilol 25 Mg Tab PO 12.5 mg BID SAMIRA Administration Clopidogrel Bisulfate 75 mg 12/23/19 09:00 12/24/19 08:46 Clopidogrel Bisulfate 75 Mg Tab PO 75 mg DAILY SAMIRA Administration Famotidine 20 mg 12/22/19 09:00 12/24/19 08:47 Famotidine 20 Mg Tab PO 20 mg 0900 SAMIRA Administration Ferrous Sulfate 325 mg 12/23/19 09:00 12/24/19 08:45 Ferrous Sulfate 325 Mg Tab PO 325 mg DAILY SAMIRA Administration Fluoxetine HCl 20 mg 12/22/19 21:00 12/24/19 08:46 Fluoxetine Hcl 20 Mg Cap PO 20 mg BID SAMIRA Administration Hydralazine HCl 25 mg 12/22/19 21:00 12/24/19 08:47 Hydralazine 25 Mg Tab PO 25 mg BID SAMIRA Administration Piperacillin Sod/Tazobactam 100 mls @ 200 mls/hr 12/23/19 14:00 12/24/19 14:27 Sod 2.25 gm/ Sodium Chloride IVPB 100 mls Q8HR SAMIRA Administration Isosorbide Mononitrate 30 mg 12/23/19 09:00 12/24/19 08:46 Isosorbide Mononitrate Er 30 Mg Tab PO 30 mg DAILY SAMIRA Administration Losartan Potassium 50 mg 12/23/19 09:00 12/24/19 08:46 Losartan 25 Mg Tab PO 50 mg DAILY SAMIRA Administration Sevelamer Carbonate 800 mg 12/22/19 15:00 12/24/19 14:27 Sevelamer Carbonate 800 Mg Tab PO 800 mg TID SAMIRA Administration Vitamin B Complex/Vit C/Folic Acid 1 tab 12/23/19 09:00 12/24/19 08:46 Folic Acid/Vit B Comp W-C PO 1 tab DAILY SAMIRA Administration - Exam General Appearance: NAD Eye: PERRL ENT: normocephalic atraumatic Neck: supple Heart: RRR, no murmur Respiratory: rhonchi Gastrointestinal: soft, non-tender Extremities: no cyanosis Skin: normal turgor Neurological: cranial nerve grossly intact Musculoskeletal: normal tone Psychiatric: normal affect, normal behavior, A&O x 3 Hosp A/P - Plan The patient is unfortunate 79 years old female with multiple comorbidities including congestive heart failure, end-stage renal failure on dialysis Monday, Monday, Monday, who was discharged from the hospital couple days ago, who presented to the ED with complaint of short of breath and worsens left-sided chest pain. Initial work-up in the ED including CT chest, showed pulmonary edema. Acute hypoxic respiratory failure secondary to volume overload --Continue dialysis as per nephrology --O2 supplement, wean as tolerated Persistent right pleural effusion --despite HD, still has a large, will request IR or Pul for thoracocentesis in a.m. Acute on chronic diastolic heart failure --cont dialysis --resume home meds ESRD on dialysis --HD on MWF --appreciate Nephrology LLQ abd discomfort - CT suggestive of possible early diverticulitis --given elevated WBC, will start her on empiric with Zosyn --tolerate reg diet. Monitor clinically CAD --Trop flat, level insignificant given CKD --resume home meds Hypertension --BP stable, cont Coreg Dyslipidemia --cont statin Physical debility --PT eval. May need rehab vs SNF, quite debilitated d/t recurrent admissions. DVT ppx: SCD GI ppx: pt is on Pepcid at home Code: DNR, I have confirmed code status with patient. Dispo: Inpt Rehab
[2019-12-24] MEDS: ALPRAZolam 0.25 MG TAB PO PRN (21:25)
[2019-12-24] MEDS: Atorvastatin Calcium 40 MG TAB PO SCH (21:27)
[2019-12-25 04:51] LABS: #Eosinphils 0.1 thou/uL (0.0-0.7); #Lymphocytes 0.8 thou/uL (1.20-3.40); #Monocytes 1.2 thou/uL (0.11-0.59); #Neutrophils 7.4 thou/uL (1.40-6.50); %Basophils 0.2 % (0.0-1.0); %Eosinophils 1.2 % (0.0-10.0); %Lymphocytes 8.3 % (21.0-51.0); %Monocytes 12.2 % (0.0-10.0); %Neutrophils 78.1 % (42.0-75.0); Hemoglobin 9.9 g/dL (12.0-16.0); Mean Corpuscular HGB CONC 30.7 g/dL (32.0-36.0); Mean Corpuscular Hemoglobin 26.6 pg (27.0-31.0); Mean Corpuscular Volume 86.8 fL (78.0-98.0); Mean Platelet Volume 8.4 fL (7.4-10.4); Platelet Count 230 thou/uL (130-400); RBC Distribution Width 17.3 % (11.5-14.5); Red Blood Cell (RBC) Count 3.73 mill/uL (4.20-5.40); White Blood Cell (WBC) Count 9.4 thou/uL (4.8-10.8)
[2019-12-25 04:54] LABS: INR-International Normal Ratio 1.1; Prothrombin Time 14.4 sec (12.0-14.7)
[2019-12-25 05:34] LABS: Anion Gap 14 mmol/L (10-20); BUN (Urea Nitrogen) 24 mg/dL (9.8-20.1); Calc. Creatinine Clearance 9 mL/min (70-130); Calcium 8.8 mg/dL (7.8-10.44); Carbon Dioxide 27 mmol/L (23-31); Chloride 98 mmol/L (98-107); Estimated GFR-MDRD 13; Glucose 133 mg/dL (83-110); Potassium 4.4 mmol/L (3.5-5.1); Sodium 135 mmol/L (136-145)
[2019-12-25] MEDS: Piperacillin/Tazobactam 2.25 GM in Sodium Chloride 0.9% 100 ML IVPB SCH ×3 (05:46→21:00)
--- NOTE | 2019-12-25 11:26 | PRG ---
DATE OF SERVICE: 12/25/2019 SUBJECTIVE: Patient was seen and examined at bedside and overnight events noted. Patient denies any shortness of breath or chest pain or palpitation. No history of nausea or vomiting or diarrhea or fever or chills or cramps. OBJECTIVE: General: This is a well-built female in no apparent distress. Vital Signs: Temperature 97.5. Heart Rate 58. Respiratory rate 24, blood pressure 108/66. HEENT: Atraumatic, normocephalic. Oral mucosa is moist. Neck: Supple. Cardiovascular: S1, S2 heard. Rate and rhythm regular. Respiratory: Clear to auscultation. Gastrointestinal: Abdomen is soft. Musculoskeletal: No tenderness. No edema. Dermatologic: No skin rash. Neurologic: Alert and awake and oriented x3. No focal neurologic deficits. Moving all the extremities. Psychiatric: Mood and affect normal. LABORATORY DATA: Potassium 4.4, BUN is 24, creatinine is 3.5. ASSESSMENT AND PLAN: 1. End-stage renal disease. Remove fluid with dialysis as tolerated. The patient not able to tolerate much fluid removal. Talk with Dr. Li. Plan is to pulmonology or IR for possible thoracentesis. The patient is still having shortness of breath and hypoxia. 2. Hyponatremia. 3. Edema. 4. Hypertension. 5. Pleural effusion. 6. Anemia of chronic disease. 7. Continue dialysis as tolerated Monday, Monday, and Monday. Job ID: [id number]
[2019-12-25] MEDS: ALPRAZolam 0.25 MG TAB PO PRN (12:50)
--- NOTE | 2019-12-25 13:08 | RAD ---
AP CHEST: HISTORY: Followup effusion. COMPARISON: 12/24/2019. FINDINGS: Right side effusion and right basilar atelectasis and/or infiltrate are again seen opacifying the rig ht lung base. The findings appear stable from yesterday. Left effusion again noted and unchanged. Cardiomegaly with mild vascular congestion. IMPRESSION: Stable chest finding. POS: AH
--- NOTE | 2019-12-25 14:01 | PDOC.HOSPP ---
- Subjective Subjective: pt remains hypoxic, requires 4L unable to wean. d/w Dr. Cadena. Despite aggressive dialysis, her pleural effusion appears to be layered, difficult to remove. Will ask IR for thoracocentesis - Objective Vital Signs & Weight: Vital Signs (12 hours) Temp Pulse Resp BP Pulse Ox 12/25/19 11:46 97.7 F 70 22 H 124/58 L 22 L 12/25/19 08:07 100 12/25/19 07:30 97.5 F L 58 L 24 H 108/66 12/25/19 04:00 97.6 F 66 16 104/52 L 100 Weight Weight 100 lb 8.493 oz I&O: 12/24/19 12/25/19 12/26/19 06:59 06:59 06:59 Intake Total 880 600 Output Total 0 Balance 880 600 Result Diagrams: 12/25/19 04:27 12/25/19 04:27 Radiology Reviewed by me: Yes EKG Reviewed by me: Yes Hospitalist ROS - Medication Medications: Active Medications Generic Name Dose Route Start Last Admin Trade Name Freq PRN Reason Stop Dose Admin Alprazolam 0.25 mg 12/24/19 10:01 12/25/19 12:50 Alprazolam 0.25 Mg Tab PO 0.25 mg TIDPRN PRN Administration Anxiety Atorvastatin Calcium 80 mg 12/22/19 21:00 12/24/19 21:27 Atorvastatin Calcium 40 Mg Tab PO 80 mg HS SAMIRA Administration Carvedilol 12.5 mg 12/22/19 21:00 12/24/19 21:27 Carvedilol 25 Mg Tab PO 12.5 mg BID SAMIRA Administration Clopidogrel Bisulfate 75 mg 12/23/19 09:00 12/24/19 08:46 Clopidogrel Bisulfate 75 Mg Tab PO 75 mg DAILY SAMIRA Administration Famotidine 20 mg 12/22/19 09:00 12/24/19 08:47 Famotidine 20 Mg Tab PO 20 mg 0900 SAMIRA Administration Ferrous Sulfate 325 mg 12/23/19 09:00 12/24/19 08:45 Ferrous Sulfate 325 Mg Tab PO 325 mg DAILY SAMIRA Administration Fluoxetine HCl 20 mg 12/22/19 21:00 12/24/19 21:28 Fluoxetine Hcl 20 Mg Cap PO 20 mg BID SAMIRA Administration Hydralazine HCl 25 mg 12/22/19 21:00 12/24/19 21:28 Hydralazine 25 Mg Tab PO 25 mg BID SAMIRA Administration Piperacillin Sod/Tazobactam 100 mls @ 200 mls/hr 12/23/19 14:00 12/25/19 05:46 Sod 2.25 gm/ Sodium Chloride IVPB 100 mls Q8HR SAMIRA Administration Isosorbide Mononitrate 30 mg 12/23/19 09:00 12/24/19 08:46 Isosorbide Mononitrate Er 30 Mg Tab PO 30 mg DAILY SAMIRA Administration Losartan Potassium 50 mg 12/23/19 09:00 12/24/19 08:46 Losartan 25 Mg Tab PO 50 mg DAILY SAMIRA Administration Sevelamer Carbonate 800 mg 12/22/19 15:00 12/24/19 21:27 Sevelamer Carbonate 800 Mg Tab PO 800 mg TID SAMIRA Administration Vitamin B Complex/Vit C/Folic Acid 1 tab 12/23/19 09:00 12/24/19 08:46 Folic Acid/Vit B Comp W-C PO 1 tab DAILY SAMIRA Administration - Exam General Appearance: NAD Eye: PERRL ENT: normocephalic atraumatic Neck: supple, symmetric Heart: RRR, no murmur Respiratory: no ronchi Gastrointestinal: soft Extremities: no cyanosis, no clubbing, no edema Skin: normal turgor Neurological: cranial nerve grossly intact Musculoskeletal: normal tone, normal strength Psychiatric: normal affect, normal behavior, A&O x 3 Hosp A/P - Plan The patient is unfortunate 79 years old female with multiple com orbidities including congestive heart failure, end-stage renal failure on dialysis Monday, Monday, Monday, who was discharged from the hospital couple days ago, who presented to the ED with complaint of short of breath and worsens left-sided chest pain. Initial work-up in the ED including CT chest, showed pulmonary edema. Acute hypoxic respiratory failure secondary to volume overload --Continue dialysis as per nephrology --O2 supplement, wean as tolerated Persistent right pleural effusion --Request IR for thoracocentesis Acute on chronic diastolic heart failure --cont dialysis --resume home meds ESRD on dialysis --HD on MWF --appreciate Nephrology LLQ abd discomfort - CT suggestive of possible early diverticulitis --given elevated WBC, pt was started her on empiric with Zosyn --tolerate reg diet. Monitor clinically --leukocytosis now normalized CAD --Trop flat, level insignificant given CKD --resume home meds Hypertension --BP stable, cont Coreg Dyslipidemia --cont statin Physical debility --PT eval. May need rehab vs SNF, quite debilitated d/t recurrent admissions. DVT ppx: SCD GI ppx: pt is on Pepcid at home Code: DNR, I have confirmed code status with patient. Dispo: Inpt Rehab
[2019-12-25] MEDS ORDERED: Lidocaine 1% PF 5 ML VIAL ONE (14:13)
--- NOTE | 2019-12-25 15:55 | ULT ---
Right thoracentesis sonographic guided HISTORY: Symptomatic pleural fluid. FINDINGS: After explaining the procedure and answering all questions, sonographic evaluation of the r ight hemithorax showed moderate amount of fluid. Sterile technique, buffered local anesthesia, sonographic guidance, and a posterior intercostal appro ach were used to carefully advance a 19-gauge Yueh needle and catheter into the right pleural fluid. Catheter was left to drain a total volume of 300 cc sky liquid. It was sent to laboratory fo r analysis. Catheter was removed with minimal fluid remaining. Patient tolerated procedure well and was returned in improved condition. IMPRESSION : Technically successful sonographic guided right thoracentesis. Laboratory analysis pending.
[2019-12-25] MEDS: hydrALAZINE 25 MG TAB PO SCH ×2 (19:55→20:54)
[2019-12-25] MEDS: Ferrous Sulfate 325 MG TAB PO SCH (19:55)
[2019-12-25] MEDS: Sevelamer Carbonate 800 MG TAB PO SCH ×2 (19:55→20:54)
[2019-12-25] MEDS: Folic Acid/Vit B Comp W-C PO SCH (19:55)
[2019-12-25] MEDS: FLUoxetine HCl 20 MG CAP PO SCH ×2 (19:55→20:54)
[2019-12-25] MEDS: Carvedilol 25 MG TAB PO SCH ×2 (19:56→20:53)
[2019-12-25] MEDS: Famotidine 20 MG TAB PO SCH (19:56)
[2019-12-25] MEDS: Losartan 25 MG TAB PO SCH (20:51)
[2019-12-25] MEDS: Clopidogrel Bisulfate 75 MG TAB PO SCH (20:51)
[2019-12-25] MEDS: Atorvastatin Calcium 40 MG TAB PO SCH (20:53)
[2019-12-26] MEDS: Piperacillin/Tazobactam 2.25 GM in Sodium Chloride 0.9% 100 ML IVPB SCH ×3 (05:07→21:07)
--- NOTE | 2019-12-26 09:03 | RAD ---
Portable frontal chest radiograph: 12/26/2019 COMPARISON: 12/25/2019 HISTORY: Follow-up pleural effusion status post thoracentesis FINDINGS: There is a loculated pneumothorax in the right lung base which measures approximately 9.3 c m craniocaudal dimension and 9.2 cm in transverse dimension. This is in the region of previous pleural effusion. This pneumothorax does not extend to the lung apex at this time. There is adjacent mild pleural thickening and probable minimal residual pleural fluid. Rounded areas of increased density are noted in the right perihilar region and in the right lung base adjacent to the loculated pneumothorax which likely represent areas of rounded atelectasis. Mild blunting of the costophrenic angle on the left noted consistent with a small left pleural effusi on. Heart and mediastinal contours are stable. Sternotomy wires are noted. IMPRESSION: New loculated pneumothorax in the right lung base status post thoracentesis. This pneumot horax does not extend to the lung apex and is likely related to a chronic nature of the recently drained pleural fluid and adjacent rounded atelectasis not allowing the adjacent right lower lobe to promptly reexpand. Follow-up advised. Message sent to Dr. Li via Qik at 9:00 AM 12/26/2019
[2019-12-26] MEDS: Carvedilol 25 MG TAB PO SCH ×2 (10:01→21:08)
[2019-12-26] MEDS: Clopidogrel Bisulfate 75 MG TAB PO SCH (10:01)
[2019-12-26] MEDS: Famotidine 20 MG TAB PO SCH (10:01)
[2019-12-26] MEDS: FLUoxetine HCl 20 MG CAP PO SCH ×2 (10:02→21:07)
[2019-12-26] MEDS: Ferrous Sulfate 325 MG TAB PO SCH (10:02)
[2019-12-26] MEDS: hydrALAZINE 25 MG TAB PO SCH ×2 (10:02→21:08)
[2019-12-26] MEDS: Folic Acid/Vit B Comp W-C PO SCH (10:02)
[2019-12-26] MEDS: Sevelamer Carbonate 800 MG TAB PO SCH ×3 (10:02→21:07)
[2019-12-26] MEDS: Losartan 25 MG TAB PO SCH (10:02)
--- NOTE | 2019-12-26 11:56 | PRG ---
DATE OF SERVICE: 12/26/2019 SUBJECTIVE: Patient was seen and examined at bedside and overnight events noted. Patient denies any shortness of breath or chest pain or palpitation. No history of nausea or vomiting or diarrhea or fever or chills or cramps. OBJECTIVE: General: This is a well-built female, in no apparent distress. Vital Signs: Temperature 97.3. Heart Rate 70. Respiratory rate 14. Blood pressure 130/58. HEENT: Atraumatic, normocephalic. Oral mucosa is moist. Neck: Supple. Cardiovascular: S1, S2 heard. Rate and rhythm regular. Respiratory: Clear to auscultation. Gastrointestinal: Abdomen is soft. Musculoskeletal: No tenderness. No edema. Dermatologic: No skin rash. Neurologic: Alert and awake and oriented x3. No focal neurologic deficits. Moving all the extremities. Psychiatric: Mood and affect normal. LABORATORY DATA: Potassium 4.4, BUN is 24, creatinine is 3.4. ASSESSMENT AND PLAN: 1. End-stage renal disease. Continue dialysis as tolerated Monday, Monday, and Monday. 2. Right pleural effusion, status post thoracentesis. 3. Hypertension. 4. Edema. 5. Hyponatremia. 6. Anemia of chronic disease. Plan to continue dialysis Monday, Monday, and Monday. Appreciate help from IR. The patient is feeling better breathing lemon. We will follow. Job ID: [id number]
--- NOTE | 2019-12-26 14:48 | PDOC.HOSPP ---
- Subjective Subjective: Patient was seen examined at bedside. Patient status post right thoracocentesis, about 300 cc of fluid removed yesterday. Patient tolerated procedure well. Repeat x-ray this morning. Appears to have a new loculated pne umothorax on the right lung base status post thoracocentesis. Appeared to be stable. She actually feels better. Her oxygen had weaned down to 3 L. I was notified the findings by our radiologist. We will monitor closely I do not think there is a need to have a chest tube placement. We will repeat her x-ray in a.m. - Objective Vital Signs & Weight: Vital Signs (12 hours) Temp Pulse Resp BP Pulse Ox 12/26/19 11:15 97.3 F L 70 14 130/58 L 99 12/26/19 08:19 100 12/26/19 07:35 97.3 F L 63 18 135/63 100 12/26/19 03:40 97.8 F 64 16 137/64 100 Weight Weight 103 lb 9.876 oz I&O: 12/25/19 12/26/19 12/27/19 06:59 06:59 06:59 Intake Total 600 976 Output Total 300 Balance 600 676 Result Diagrams: 12/25/19 04:27 12/25/19 04:27 Radiology Reviewed by me: Yes EKG Reviewed by me: Yes Hospitalist ROS - Medication Medications: Active Medications Generic Name Dose Route Start Last Admin Trade Name Freq PRN Reason Stop Dose Admin Alprazolam 0.25 mg 12/24/19 10:12/25/19 12:50 Alprazolam 0.25 Mg Tab PO 0.25 mg TIDPRN PRN Administration Anxiety Atorvastatin Calcium 80 mg 12/22/19 21:00 12/25/19 20:53 Atorvastatin Calcium 40 Mg Tab PO 80 mg HS SAMIRA Administration Carvedilol 12.5 mg 12/22/19 21:00 12/26/19 10:01 Carvedilol 25 Mg Tab PO 12.5 mg BID SAMIRA Administration Clopidogrel Bisulfate 75 mg 12/23/19 09:00 12/26/19 10:01 Clopidogrel Bisulfate 75 Mg Tab PO 75 mg DAILY SAMIRA Administration Famotidine 20 mg 12/22/19 09:00 12/26/19 10:01 Famotidine 20 Mg Tab PO 20 mg 0900 SAMIRA Administration Ferrous Sulfate 325 mg 12/23/19 09:00 12/26/19 10:02 Ferrous Sulfate 325 Mg Tab PO 325 mg DAILY SAMIRA Administration Fluoxetine HCl 20 mg 12/22/19 21:00 12/26/19 10:02 Fluoxetine Hcl 20 Mg Cap PO 20 mg BID SAMIRA Administration Hydralazine HCl 25 mg 12/22/19 21:00 12/26/19 10:02 Hydralazine 25 Mg Tab PO 25 mg BID SAMIRA Administration Piperacillin Sod/Tazobactam 100 mls @ 200 mls/hr 12/23/19 14:00 12/26/19 05:07 Sod 2.25 gm/ Sodium Chloride IVPB 100 mls Q8HR SAMIRA Administration Isosorbide Mononitrate 30 mg 12/23/19 09:00 12/26/19 10:02 Isosorbide Mononitrate Er 30 Mg Tab PO 30 mg DAILY SAMIRA Administration Losartan Potassium 50 mg 12/23/19 09:00 12/26/19 10:02 Losartan 25 Mg Tab PO 50 mg DAILY SAMRIA Administration Sevelamer Carbonate 800 mg 12/22/19 15:00 12/26/19 10:02 Sevelamer Carbonate 800 Mg Tab PO 800 mg TID SAMIRA Administration Sodium Chloride 10 ml 12/22/19 02:44 12/25/19 21:00 Flush - Normal Saline 10 Ml Syringe IVF 10 ml Q12HR PRN Administration Saline Flush Sodium Chloride 10 ml 12/22/19 02:44 12/26/19 05:08 Flush - Normal Saline 10 Ml Syringe IVF 10 ml PRN PRN Administration Saline Flush Vitamin B Complex/Vit C/Folic Acid 1 tab 12/23/19 09:00 12/26/19 10:02 Folic Acid/Vit B Comp W-C PO 1 tab DAILY SAMIRA Administration - Exam General Appearance: NAD Eye: PERRL ENT: normocephalic atraumatic Neck: supple Heart: RRR Respiratory: rales Gastrointestinal: soft, non-tender Extremities: no cyanosis Skin: normal turgor Neurological: cranial nerve grossly intact Musculoskeletal: normal tone Psychiatric: normal affect, normal behavior, A&O x 3 Hosp A/P - Plan The patient is unfortunate 79 years old female with multiple commodities including congestive heart failure, end-stage renal failure on dialysis Monday, Monday, Monday, who was discharged from the hospital couple days ago, who presented to the ED with complaint of short of breath and worsens left-sided chest pain. Initial work-up in the ED including CT chest, showed pulmonary edema. Small right Pneumothorax --pt's asymptomatic, small. Will rpt CXR in AM Acute hypoxic respiratory failure secondary to volume overload --Continue dialysis as per nephrology --O2 supplement, wean as tolerated Persistent right pleural effusion --s/p Right thoracocentesis 300 ml removed Acute on chronic diastolic heart failure --cont dialysis --resume home meds ESRD on dialysis --HD on MWF --appreciate Nephrology LLQ abd discomfort - CT suggestive of possible early diverticulitis --given elevated WBC, pt was started her on empiric with Zosyn --tolerate reg diet. Monitor clinically --leukocytosis now normalized CAD --Trop flat, level insignificant given CKD --resume home meds Hypertension --BP stable, cont Coreg Dyslipidemia --cont statin Physical debility --PT eval. May need rehab vs SNF, quite debilitated d/t recurrent admissions. DVT ppx: SCD GI ppx: pt is on Pepcid at home Code: DNR, I have confirmed code status with patient. Dispo: Inpt Rehab
[2019-12-26] MEDS: Atorvastatin Calcium 40 MG TAB PO SCH (21:07)
[2019-12-27] MEDS: Piperacillin/Tazobactam 2.25 GM in Sodium Chloride 0.9% 100 ML IVPB SCH ×2 (05:24→14:31)
--- NOTE | 2019-12-27 08:32 | RAD ---
CHEST PA AND LATERAL: HISTORY: Follow up pneumothorax . COMPARISON: 12/26/2019. FINDINGS: Stable tenotomy wires. Heart: Cardiomegaly. Aorta: Atherosclerotic. Pulmonary vessels: Normal. Costophrenic angles: Bilateral pleural effusions. Lungs: Stable interstitial opacities of the left lung. Left lower lobe atelectasis, pneumonia or aspi ration cannot be excluded. There is slightly worsening opacification involving the right lower lobe. Pneumothorax: Persistent loculated right-sided pneumothorax. Osseous structures: No osseous abnormalities. IMPRESSION: 1. Worsening opacification of lung parenchyma. 2. Stable loculated pneumothorax in the right lung, in a patient status post thoracentesis. Findings likely due to incomplete expansion of the right lung. Continued surveillance as warranted. Transcribed Date/Time: 12/27/2019 8:38 AM
[2019-12-27] MEDS: Carvedilol 25 MG TAB PO SCH ×2 (14:01→21:06)
[2019-12-27] MEDS: hydrALAZINE 25 MG TAB PO SCH ×2 (14:02→21:07)
[2019-12-27] MEDS: Sevelamer Carbonate 800 MG TAB PO SCH ×2 (14:02→21:05)
--- NOTE | 2019-12-27 14:11 | PDOC.HOSPP ---
- Subjective Subjective: feeling well. pt was seen and examined in dialysis unit. CXR reviewed, increase congestion but loculated ptx stable. - Objective Vital Signs & Weight: Vital Signs (12 hours) Temp Pulse Resp BP Pulse Ox 12/27/19 11:35 97.4 F L 69 18 105/53 L 100 12/27/19 07:25 97.6 F 67 22 H 161/71 H 100 12/27/19 03:41 98.4 F 66 14 158/68 H 100 Weight Weight 103 lb 9.6 oz I&O: 12/26/19 12/27/19 12/28/19 06:59 06:59 06:59 Intake Total 976 240 Output Total 300 Balance 676 240 Result Diagrams: 12/25/19 04:27 12/25/19 04:27 Radiology Reviewed by me: Yes EKG Reviewed by me: Yes Hospitalist ROS - Medication Medications: Active Medications Generic Name Dose Route Start Last Admin Trade Name Freq PRN Reason Stop Dose Admin Alprazolam 0.25 mg 12/24/19 10:01 12/25/19 12:50 Alprazolam 0.25 Mg Tab PO 0.25 mg TIDPRN PRN Administration Anxiety Atorvastatin Calcium 80 mg 12/22/19 21:00 12/26/19 21:07 Atorvastatin Calcium 40 Mg Tab PO 80 mg HS SAMIRA Administration Carvedilol 12.5 mg 12/22/19 21:00 12/27/19 14:01 Carvedilol 25 Mg Tab PO Not Given BID SAMIRA Clopidogrel Bisulfate 75 mg 12/23/19 09:00 12/26/19 10:01 Clopidogrel Bisulfate 75 Mg Tab PO 75 mg DAILY SAMIRA Administration Famotidine 20 mg 12/22/19 09:00 12/26/19 10:01 Famotidine 20 Mg Tab PO 20 mg 0900 SAMIRA Administration Ferrous Sulfate 325 mg 12/23/19 09:00 12/26/19 10:02 Ferrous Sulfate 325 Mg Tab PO 325 mg DAILY SAMIRA Administration Fluoxetine HCl 20 mg 12/22/19 21:00 12/26/19 21:07 Fluoxetine Hcl 20 Mg Cap PO 20 mg BID SAMIRA Administration Hydralazine HCl 25 mg 12/22/19 21:00 12/27/19 14:02 Hydralazine 25 Mg Tab PO Not Given BID SAMIRA Piperacillin Sod/Tazobactam 100 mls @ 200 mls/hr 12/23/19 14:00 12/27/19 05:24 Sod 2.25 gm/ Sodium Chloride IVPB 100 mls Q8HR SAMRIA Administration Isosorbide Mononitrate 30 mg 12/23/19 09:00 12/27/19 14:02 Isosorbide Mononitrate Er 30 Mg Tab PO Not Given DAILY SAMIRA Losartan Potassium 50 mg 12/23/19 09:00 12/26/19 10:02 Losartan 25 Mg Tab PO 50 mg DAILY SAMIRA Administration Sevelamer Carbonate 800 mg 12/22/19 15:00 12/27/19 14:02 Sevelamer Carbonate 800 Mg Tab PO Not Given TID SAMIRA Sodium Chloride 10 ml 12/22/19 02:44 12/26/19 21:08 Flush - Normal Saline 10 Ml Syringe IVF 10 ml Q12HR PRN Administration Saline Flush Sodium Chloride 10 ml 12/22/19 02:44 12/26/19 05:08 Flush - Normal Saline 10 Ml Syringe IVF 10 ml PRN PRN Administration Saline Flush Vitamin B Complex/Vit C/Folic Acid 1 tab 12/23/19 09:00 12/26/19 10:02 Folic Acid/Vit B Comp W-C PO 1 tab DAILY SAMIRA Administration - Exam General Appearance: NAD Eye: PERRL ENT: normocephalic atraumatic Neck: supple Heart: RRR Respiratory: rhonchi Gastrointestinal: soft Skin: normal turgor Neurological: cranial nerve grossly intact Musculoskeletal: normal tone Psychiatric: normal affect Hosp A/P - Plan The patient is unfortunate 79 years old female with multiple commodities including congestive heart failure, end-stage renal failure on dial ysis Monday, Monday, Monday, who was discharged from the hospital couple days ago, who presented to the ED with complaint of short of breath and worsens left- sided chest pain. Initial work-up in the ED including CT chest, showed pulmonary edema. Acute hypoxic respiratory failure secondary to volume overload --Continue dialysis as per nephrology, cxr slightly worst --cont O2 supplement, wean as tolerated --pending inpt rehab. possible transfer over weekend if accepted. Persistent right pleural effusion --s/p Right thoracocentesis 300 ml removed Small right Pneumothorax --pt's asymptomatic, small. rpt CXR stable. d/t recent thoracocentesis Acute on chronic diastolic heart failure --cont dialysis as per nephrology --resume home meds ESRD on dialysis --HD on MWF --appreciate Nephrology LLQ abd discomfort - CT suggestive of possible early diverticulitis --given elevated WBC, pt was started her on empiric with Zosyn --tolerate reg diet. Monitor clinically --leukocytosis now normalized. Likely switch over to Augmentin upon discharge CAD --Trop flat, level insignificant given CKD --resume home meds, no chest pain Hypertension --BP stable, cont Coreg Dyslipidemia --cont statin Physical debility --PT eval. May need rehab vs SNF, quite debilitated d/t recurrent admissions. DVT ppx: SCD GI ppx: pt is on Pepcid at home Code: DNR, I have confirmed code status with patient. Dispo: Inpt Rehab
[2019-12-27] MEDS: Losartan 25 MG TAB PO SCH (14:12)
[2019-12-27] MEDS: Folic Acid/Vit B Comp W-C PO SCH (14:30)
[2019-12-27] MEDS: Famotidine 20 MG TAB PO SCH (14:30)
[2019-12-27] MEDS: Clopidogrel Bisulfate 75 MG TAB PO SCH (14:31)
[2019-12-27] MEDS: Ferrous Sulfate 325 MG TAB PO SCH (14:31)
[2019-12-27] MEDS: FLUoxetine HCl 20 MG CAP PO SCH ×2 (14:31→21:05)
--- NOTE | 2019-12-27 15:51 | PRG ---
DATE OF SERVICE: 12/27/2019 SUBJECTIVE: Patient was seen and examined at bedside and overnight events noted. Patient denies any shortness of breath or chest pain or palpitation. No history of nausea or vomiting or diarrhea or fever or chills or cramps. OBJECTIVE: GENERAL: This is a well-built female, in no apparent distress. VITAL SIGNS: Temperature 97.5. Heart rate 69. Respiratory rate 18. Blood pressure 105/53. HEENT: Atraumatic, normocephalic. Oral mucosa is moist NECK: Supple. CARDIOVASCULAR: S1, S2 heard. Rate and rhythm regular. RESPIRATORY: Clear to auscultation. GASTROINTESTINAL: Abdomen is soft. MUSCULOSKELETAL: No tenderness. No edema. DERMATOLOGIC: No skin rash. NEUROLOGIC: Alert and awake and oriented X3. No focal neurologic deficits. Moving all the extremities. PSYCHIATRIC: Mood and affect normal. LABORATORY DATA: Potassium 4.4, BUN is 24, creatinine is 3.4. ASSESSMENT AND PLAN: 1. End-stage renal disease. Continue on dialysis as tolerated. 2. Hypertension. 3. History of edema. 4. Hyponatremia. 5. Anemia of chronic disease. 6. Continue dialysis on Monday, Monday, and Monday. Job ID: [id number]
[2019-12-27] MEDS: Amoxicillin/Potassium Clav 875 MG TAB PO SCH (21:05)
[2019-12-27] MEDS: Atorvastatin Calcium 40 MG TAB PO SCH (21:05)
[2019-12-28] MEDS: Amoxicillin/Potassium Clav 875 MG TAB PO SCH ×2 (08:56→19:37)
[2019-12-28] MEDS: Folic Acid/Vit B Comp W-C PO SCH (08:56)
[2019-12-28] MEDS: Sevelamer Carbonate 800 MG TAB PO SCH ×3 (08:57→19:38)
[2019-12-28] MEDS: Famotidine 20 MG TAB PO SCH (08:57)
[2019-12-28] MEDS: FLUoxetine HCl 20 MG CAP PO SCH ×2 (08:58→19:38)
[2019-12-28] MEDS: Clopidogrel Bisulfate 75 MG TAB PO SCH (08:58)
[2019-12-28] MEDS: Carvedilol 25 MG TAB PO SCH ×2 (08:58→19:37)
[2019-12-28] MEDS: Ferrous Sulfate 325 MG TAB PO SCH (08:58)
[2019-12-28] MEDS: Losartan 25 MG TAB PO SCH (09:01)
[2019-12-28] MEDS: hydrALAZINE 25 MG TAB PO SCH ×2 (09:18→19:44)
--- NOTE | 2019-12-28 10:32 | EKG ---
Test Reason : Blood Pressure : / mmHG Vent. Rate : 068 BPM Atrial Rate : 068 BPM P-R Int : 182 ms QRS Dur : 120 ms QT Int : 444 ms P-R-T Axes : 054 062 178 degrees QTc Int : 472 ms Normal sinus rhythm Left ventricular hypertrophy with QRS widening and repolarization abnormality Abnormal ECG Confirmed by EDGAR SEN ([id number]), newspaper or periodical editor YESENIA REAL ([id number]) on 12/28/2019 10:32:14 AM Referred By: Confirmed By:EDGAR SEN
--- NOTE | 2019-12-28 14:05 | RAD ---
PORTABLE CHEST 12/28/19 PROVIDED CLINICAL HISTORY: Pneumothorax. FINDINGS: Comparison 12/27/19. The cardiac silhouette remains enlarged. Median sternotomy changes and atherosclerosis are redemonstr ated. Blunting of the left costophrenic angle is again seen. Right sided pleural gas is unchanged wit h respect to prior. There is consolidation involving the adjacent right lung. IMPRESSION: No significant interval change. POS: SABA
[2019-12-28] MEDS: Atorvastatin Calcium 40 MG TAB PO SCH (19:38)
[2019-12-28 19:44] VITALS: BP 134/64
[2019-12-28 20:37] VITALS: TEMP 98.2
--- NOTE | 2019-12-29 06:59 | PRG ---
DATE OF SERVICE: 12/28/2019 SUBJECTIVE: Patient was seen and examined at bedside and overnight events noted. Patient denies any shortness of breath or chest pain or palpitation. No history of nausea or vomiting or diarrhea or fever or chills or cramps. OBJECTIVE: General: This is a well-built female, in no apparent distress. Vital Signs: Temperature 98.5. Heart Rate . Respiratory rate . Blood pressure 131/63. HEENT: Atraumatic, normocephalic. Oral mucosa is moist. Neck: Supple. Cardiovascular: S1, S2 heard. Rate and rhythm regular. Respiratory: Clear to auscultation. Gastrointestinal: Abdomen is soft. Musculoskeletal: No tenderness. No edema. Dermatologic: No skin rash. Neurologic: Alert and awake and oriented x3. No focal neurologic deficits. Moving all the extremities. Psychiatric: Mood and affect normal. LABORATORY DATA: Potassium 4.4, BUN is 24, creatinine is . ASSESSMENT AND PLAN: 1. End-stage renal disease. Continue on dialysis. 2. Hypertension. 3. Fluid overload, better. 4. Hyponatremia. 5. Anemia of chronic disease. 6. We will continue on dialysis Monday, Monday, Monday as tolerated. Job ID: [id number]
--- NOTE | 2019-12-31 15:50 | DIS ---
DATE OF ADMISSION: 12/25/2019 DATE OF DISCHARGE: 12/28/2019 DISCHARGE DIAGNOSES: 1. Acute respiratory failure with hypoxia. 2. Persistent right pleural effusion. 3. Loculated right-sided pneumothorax. 4. [id number] diastolic heart failure. 5. End-stage renal disease, on hemodialysis. 6. Mild diverticulitis. 7. Coronary artery disease. 8. Hypertension. 9. Dyslipidemia. DISCHARGE MEDICATIONS: The patient will continue her home medications: 1. Atorvastatin 40 mg orally nightly. 2. Carvedilol 12.5 mg orally twice daily. 3. Plavix 75 mg orally daily. 4. Ferrous sulfate 325 mg orally daily. 5. Fluoxetine 20 mg orally twice daily. 6. Hydralazine 25 mg orally twice daily. 7. Isosorbide mononitrate 30 mg orally daily. 8. Losartan 50 mg orally daily. 9. Sevelamer 800 mg orally t.i.d. New medications of: 1. Augmentin 875 mg orally twice daily for 4 days. 2. Lactinex one tablet orally t.i.d. for 10 days. HISTORY OF PRESENT ILLNESS AND BRIEF HOSPITAL COURSE: The patient is an 79-year-old female with multiple comorbidities including congestive heart failure, end-stage renal disease, on dialysis, who was admitted to the hospital with complaints of shortness of breath and left-sided chest pain. She was found to be hypoxic and CT scan of the chest revealed presence of pulmonary edema and right-sided pleural effusion. The patient underwent hemodialysis for volume removal and also underwent right-sided thoracentesis with removal of 300 mL fluids. These measures have led to improvement in her symptoms. The patient's chest x-ray after the procedure revealed persistent small right-sided pneumothorax at the base that does not spread to the apex of the thoracic cavity indicating that the pneumothorax is related to a chronic loculated effusion. The patient had repeat x-rays on the days after thoracentesis, which did not show any significant change. Nephrology will continue dialysis on this patient on Mondays, Wednesdays, and Fridays. The patient's hospitalization was also complicated by the patient has been complaining of abdominal pain. A CT scan of the abdomen revealed area of diverticulitis. The patient was managed with Zosyn and to complete the course of antibiotics with Augmentin after discharge. Job ID: [id number] [facility]
== END 2019-12-28 20:55 | DRG 291 ==
LOC: ERS 21:59 → 2NO 12-22 02:24 → INTOOBSV 12-22 02:24 → OBSVTOIN 12-25 09:25
PROVIDERS: ADMIT Internal Medicine; ATTEND Internal Medicine
PROC: 5A1D70Z Performance of Urinary Filtration, Intermittent, Less than 6 Hours Per Day (ICD-10-PCS; principal; 2019-12-22)
PROC: 5A1D70Z Performance of Urinary Filtration, Intermittent, Less than 6 Hours Per Day (ICD-10-PCS; 2019-12-23)
PROC: 5A1D70Z Performance of Urinary Filtration, Intermittent, Less than 6 Hours Per Day (ICD-10-PCS; 2019-12-24)
PROC: 5A1D70Z Performance of Urinary Filtration, Intermittent, Less than 6 Hours Per Day (ICD-10-PCS; 2019-12-25)
PROC: 0W993ZZ Drainage of Right Pleural Cavity, Percutaneous Approach (ICD-10-PCS; 2019-12-27)
DX: I13.2 Hypertensive heart and chronic kidney disease with heart failure and with stage 5 chronic kidney disease, or end stage renal disease (principal); N18.6 End stage renal disease; I50.33 Acute on chronic diastolic (congestive) heart failure; J96.01 Acute respiratory failure with hypoxia; E87.1 Hypo-osmolality and hyponatremia; J93.9 Pneumothorax, unspecified; J91.8 Pleural effusion in other conditions classified elsewhere; I25.10 Atherosclerotic heart disease of native coronary artery without angina pectoris; J44.9 Chronic obstructive pulmonary disease, unspecified; R53.81 Other malaise; E11.22 Type 2 diabetes mellitus with diabetic chronic kidney disease; Z66 Do not resuscitate; Z20.828 Contact with and (suspected) exposure to other viral communicable diseases; E78.5 Hyperlipidemia, unspecified; D63.1 Anemia in chronic kidney disease; F32.9 Major depressive disorder, single episode, unspecified; Z99.2 Dependence on renal dialysis; Z95.5 Presence of coronary angioplasty implant and graft; Z90.49 Acquired absence of other specified parts of digestive tract; Z87.891 Personal history of nicotine dependence; Z88.1 Allergy status to other antibiotic agents; Z88.8 Allergy status to other drugs, medicaments and biological substances; Z79.82 Long term (current) use of aspirin; Z79.899 Other long term (current) drug therapy; Z79.84 Long term (current) use of oral hypoglycemic drugs; Z99.81 Dependence on supplemental oxygen; Z95.1 Presence of aortocoronary bypass graft
CPT/HCPCS: 36415; 36416; 71045; 71046; 71275; 74177; 76942; 80048; 80053; 82553; 83690; 83735; 83880; 84100; 84484; 85025; 85610; 90935; 93005; 96374; 96376; 97139; G0257; G0378; J2543; J3490; Q9967